=== PATIENT | female | born 1950 | race Caucasian/White ===

== ENCOUNTER 2017-01-10 15:32 | Observation (INO) | payer OTHER ==
[~2017-01-10] VITALS: Ht 157.5 cm; Wt 66.5 kg
[~2017-01-10 15:32] MED LIST: ACET325T9 PEG; AMLO5TAB4 PEG; BISA10SU55 RC; CHOL100016 PEG; ENTERAL NUTRITION FORMULA; LEVE100S8 PEG; LEVO100T PEG; MULT-460 PEG; OMEG500C3 PEG; PHEN97.2 PEG; POTA40LI3 PEG; SENN1TAB15 PEG
--- NOTE | 2017-01-10 15:55 | PHYS DOC ---
Past Medical History Past Medical History: Constipation, CVA, GERD, Hypertension, Hypothyroid Additional Past Medical Histor: dysphagia, aphasia, persistent vegetative state Past Surgical History: Other Additional Past Surgical Histo: G-tube Adult General Chief Complaint Chief Complaint: OTHER COMPLAINTS HPI HPI Patient is a 66 year old female who presents with to malfunction. According EMS report a PEG tube earlier today and it was replaced with a Rodriguez catheter. The patient is nonverbal. Review of Systems Review of Systems Unable to obtain secondary to patient being nonverbal Allergies Allergies Allergies Coded Allergies Type Severity Reaction Last Updated Verified I S O L A T I O N *CONTACT* Allergy Unknown 02/12/16 Yes No Known Medication Allergies Allergy Unknown 02/12/16 Yes Physical Exam Physical Exam Constitutional: Well developed, no acute distress, non-toxic appearance. [] HENT: atraumatic, bilateral external ears normal, oropharynx moist, no oral exudates, nose normal. [] Eyes:EOMI, conjunctiva normal, no discharge. [] Neck: Normal range of motion, supple, no stridor. [] Cardiovascular:Heart rate regular rhythm, no murmur [] Lungs & Thorax: Bilateral breath sounds clear to auscultation [] Abdomen: Bowel sounds normal, soft, no tenderness, no masses, no pulsatile masses. Rodriguez catheter in the left upper quadrant, abdomen distended Skin: Warm, dry, no erythema, no rash. [] Back: No tenderness, no CVA tenderness. [] Extremities: No tenderness, no cyanosis, no clubbing, ROM intact, no edema. [] Neurologic: Alert, nonverbal Current Patient Data Vital Signs Vital Signs Date Time Temp Pulse Resp B/P (MAP) Pulse Ox O2 Delivery O2 Flow Rate FiO2 01/10/17 15:32 98.8 72 20 147/79 (101) 92 Room Air 98.8 EKG EKG [] Radiology/Procedures Radiology/Procedures Five-view acute abdominal series shows diffuse dilation of bowel no free air noted, as interpreted by me Impressions: PEG tube malfunction Course & Med Decision Making Course & Med Decision Making Pertinent Labs and Imaging studies reviewed. (See chart for details) Patient is being admitted the hospitalist with labs pending at this time. GI consultation placed for PEG tube replacement. Patient's being started on D5 half -normal for fluid hydration. So Dr. Ibrahim who once me to attempt the standard balloon replacement kit however with her diffuse distention of her abdomen I'm waiting a CT scan and she will likely have to have GI replace the tube. She does have the Rodriguez catheter that's in the tract. Patient's being admitted to the hospitalist for further evaluation and treatment. Dragon Disclaimer Dragon Disclaimer This electronic medical record was generated, in whole or in part, using a voice recognition dictation system. Departure Departure Impression: Primary Impression: PEG tube malfunction Disposition: ADMITTED INPATIENT Admitting Physician: Keshia Dawson Condition: STABLE Referrals: TORIE CONROY MD (PCP) CLARE MONTES MD Jan 10, 2017 15:55
[2017-01-10] MEDS ORDERED: IV DEXTROSE 5 %-0.45 % NACL 1,000 ML IV ONE (16:45)
[2017-01-10 17:53] LABS: BASO % 1 % (0-3); EOS % 2 % (0-3); HEMATOCRIT 40.8 % (36.0-47.0); HEMOGLOBIN 14.5 g/dL (12.0-15.5); LYMPH # 1.6 x10^3/uL (1.0-4.8); LYMPH % 19 % (24-48); MEAN CORPUSCULAR HEMOGLOBIN 32 pg (25-35); MEAN CORPUSCULAR HGB CONC 36 g/dL (31-37); MEAN CORPUSCULAR VOLUME 89 fL (79-100); MONO % 10 % (0-9); NEUT % 69 % (31-73); PLATELET COUNT 192 x10^3/uL (140-400); RED BLOOD COUNT 4.59 x10^6/uL (3.50-5.40); RED CELL DISTRIBUTION WIDTH 14.5 % (11.5-14.5); WHITE BLOOD COUNT 8.5 x10^3/uL (4.0-11.0)
[2017-01-10 18:02] LABS: PROTHROMBIN TIME PATIENT 12.6 SEC (11.7-14.0)
[2017-01-10 18:06] LABS: CALCIUM 9.3 mg/dL (8.5-10.1); CREATININE 0.6 mg/dL (0.6-1.0); GFR 100.3; POTASSIUM 4.1 mmol/L (3.5-5.1)
[2017-01-10 18:10] LABS: ALBUMIN 3.2 g/dL (3.4-5.0); DIRECT BILIRUBIN 0.2 mg/dL (0.0-0.2); TOTAL BILIRUBIN 0.6 mg/dL (0.2-1.0); TOTAL PROTEIN 7.2 g/dL (6.4-8.2)
[2017-01-10 18:19] LABS: CREATINE KINASE 29 U/L (26-192)
[2017-01-10 18:22] LABS: CKMB MASS < 0.5 ng/mL (0.0-3.6)
[2017-01-10] MEDS ORDERED: ONDANSETRON PF 4 MG/2 ML VIAL. IV PRN (18:30)
[2017-01-10] MEDS ORDERED: CONTRAST GIVEN MC PRN (19:15)
[2017-01-10] MEDS ORDERED: IOHEXOL 300 MG/ML 75 ML VIAL IV ONE (19:15)
--- NOTE | 2017-01-10 20:06 | RAD ---
CT abdomen and pelvis with contrast History: Distended abdomen Technique: After the administration of intravenous contrast, CT imaging was performed of the abdomen and pelvis. No oral contrast was given as per request. Multiplanar images are reviewed. Exposure: One or more of the following individualized dose reduction techniques were utilized for this examination: 1. Automated exposure control 2. Adjustment of the mA and/or kV according to patient size 3. Use of iterative reconstruction technique. Contrast: 75 cc Omnipaque 300 Comparison: August 15, 2012 Findings: There is a very large calculus at the base of the urinary bladder on the order of 5.2 cm, larger than previously. There is mild nonspecific circumferential urinary bladder wall thickening. There is a moderate to severe left and [id number] right hydroureter, nonspecific enhancement of the ureteral petty bilaterally. There is moderate bilateral hydronephrosis greater on the left, new since previous exam. There are now calculi in the distal aspect of the left renal pelvis, largest 1.1 cm, also large area calculi of the left kidney greater than previously with the largest calculus at the 2.1 cm. There is large superior right renal calculus up to 1.6 cm. There is 2.9 cm right renal cyst. There is relative thinning of the cortex of the left kidney. There is a small focus of exophytic density posteriorly in the mid left kidney axial image 36 series 2 up to 0.7 cm, density measurements 41 Hounsfield units, not clearly seen previously. There is no new significant focal abnormality of the liver, spleen, pancreas, adrenal glands. Accurate evaluation of bowel is limited without oral contrast. There is some gas distention of the transverse colon greater proximally, also some mild relative gaseous distention of segments of the small bowel. Appendix cannot be clearly identified. No free air or significant free fluid is identified. Incidental note is made of retroaortic left renal vein. There is no significant adrenal nodularity. There is chronic fracture deformity of the proximal right femur as seen previously. Impression: 1. There is now moderate hydronephrosis bilaterally greater on the left, also hydroureter greater on the left. There is large calculus in the urinary bladder, also large bilateral renal calculi including foci in the left in the distal left renal pelvis. There is relative wall prominence of the urinary bladder, cystitis a possibility although could be due to bowel obstruction. 2. There is relative gaseous distention of segments of the colon and to lesser degree of the small bowel, sequela of ileus a possibility 3. There is right renal cyst. There is a small focus of nonspecific exophytic density of the left kidney, possibly hemorrhagic or complex cyst although difficult to otherwise characterize given small size. This is not currently seen on previous exam, attention on future follow-up advised such as in 6-12 months. 4. There is chronic fracture deformity of the proximal right femur as seen previously. Electronically signed by: Driss Irene MD (01/10/2017 8:02 PM) [facility]
[2017-01-10] MEDS ORDERED: BISACODYL 10 MG SUPP.RECT. RC PRN (20:45)
[2017-01-10] MEDS ORDERED: LABETALOL 20 MG/4 ML DISP.SYRIN. IVP PRN (20:45)
[2017-01-10] MEDS ORDERED: hydrALAZINE 20 MG/ML VIAL. IVP PRN (20:45)
[2017-01-10 21:30] VITALS: BP 191/95
[2017-01-10] MEDS ORDERED: LORA2VIA4 IM (21:54)
[2017-01-10] MEDS ORDERED: PHEN20EL5 PEG (21:54)
[2017-01-10] MEDS ORDERED: FAMO20TA5 PEG (21:54)
[2017-01-10] MEDS ORDERED: TRIA15CR2 TP (21:54)
--- NOTE | 2017-01-10 22:13 | PDOC1 ---
History and Physical Date of Admission Date of Admission DATE: 01/10/17 TIME: 22:13 Identification/Chief Complaint Chief Complaint PEG malnfunction Problems: Source Source: Chart review History of Present Illness History of Present Illness Ruthie Ortega, is a 66 year old female admit for malfunction of PEG tube. According EMS report a PEG tube earlier today and it was replaced with a Rodriguez catheter. The patient is nonverbal, lives in a snf, no other history avail Past Medical History Cardiovascular: HTN CENTRAL NERVOUS SYSTEM: CVA Social History Smoke: No ALCOHOL: none Current Medications Current Medications Current Medications Dextrose/Sodium Chloride 1,000 ml @ 100 mls/hr 1X ONCE IV Last administered on 01/10/17t 17:58; Start 01/10/17 at 16:45; Stop 01/11/17 at 02:44 Ondansetron HCl (Zofran) 4 mg PRN Q8HRS PRN IV NAUSEA/VOMITING; Start 01/10/17 at 18:30; Stop 01/11/17 at 18:29 Iohexol (Omnipaque 300 Mg/ml) 75 ml 1X ONCE IV ; Start 01/10/17 at 19:15; Stop 01/10/17 at 19:16; Status DC Info (Do NOT chart on this entry -- for MONITORING) 1 each PRN DAILY PRN MC SEE COMMENTS; Start 01/10/17 at 19:15; Stop 01/12/17 at 19:14 Labetalol HCl (Normodyne) 20 mg PRN Q2HR PRN IVP HYPERTENSION, SEE COMMENTS; Start 01/10/17 at 20:45 Hydralazine HCl (Apresoline) 10 mg PRN Q4HRS PRN IVP ELEVATED BP, SEE COMMENTS ; Start 01/10/17 at 20:45 Amlodipine Besylate (Norvasc) 5 mg DAILY PEG ; Start 01/11/17 at 09:00 Bisacodyl (Dulcolax Supp) 10 mg PRN DAILY PRN RC CONSTIPATION; Start 01/10/17 at 20:45 Levetiracetam (Keppra) 1,000 mg BID PEG ; Start 01/11/17 at 09:00 Levothyroxine Sodium (Synthroid) 100 mcg DAILY PEG ; Start 01/11/17 at 09:00 Potassium Chloride/Dextrose/ Sod Cl 1,000 ml @ 100 mls/hr Q10H IV ; Start 01/10 at 20:45 Levetiracetam 500 mg/Sodium Chloride 100 ml @ 400 mls/hr Q12HR IV ; Start 01/10 at 21:00; Stop 01/10/17 at 21:00; Status DC Levetiracetam 1000 mg/Sodium Chloride 110 ml @ 440 mls/hr Q12HR IV ; Start at 21:00; Stop 01/10/17 at 21:14; Status DC Active Scripts Active Reported Triamcinolone Acetonide 0.025% Cream (Triamcinolone Acetonide) 15 Gm Cream..g. 1 Kandy TP DAILY Phenobarbital 20 Mg/5 Ml Elixir 37.5 Ml PEG HS Famotidine 20 Mg Tablet 20 Mg PEG HS Ativan (Lorazepam) 2 Mg/1 Ml Vial 0.25 Ml IM Q4HRS PRN Vitamin D3 (Cholecalciferol (Vitamin D3)) 1,000 Unit Tab.chew 1,000 Unit PEG DAILY Tylenol (Acetaminophen) 325 Mg Tablet 2 Tab PEG PRN Q4HRS Senna-S Tablet (Sennosides/Docusate Sodium) 1 Each Tablet 1 Each PEG BID Potassium Chloride Oral Liquid (Potassium Chloride) 40 Meq/15 Ml Liquid 40 Meq PEG BID Phenobarbital 97.2 Mg Tablet 1.5 Tab PEG QHS Norvasc (Amlodipine Besylate) 5 Mg Tablet 1 Tab PEG DAILY Multiple Vitamin (Multivitamin With Minerals) 1 Each Tablet 1 Each PEG DAILY Synthroid (Levothyroxine Sodium) 100 Mcg Tablet 1 Tab PEG DAILY Keppra (Levetiracetam) 100 Mg/1 Ml Solution 1,000 Mg PEG BID Fish Oil ([place]-3 Fatty Acids) 500 Mg Capsule 1,000 Mg PEG DAILY [fibersource HN PEG] Dulcolax (Bisacodyl) 10 Mg Supp.rect 10 Mg RC PRN DAILY PRN Allergies Allergies: Coded Allergies: I S O L A T I O N *CONTACT* (Verified Allergy, Unknown, 02/12/16) mrsa No Known Medication Allergies (Verified Allergy, Unknown, 02/12/16) ROS Review of System unable, aphasic Physical Exam General: Alert, No acute distress, Other (not follow commands) HEENT: Atraumatic Lungs: Normal air movement Heart: S1S2, no murmurs Abdomen: Normal bowel sounds, Soft Extremities: No edema Skin: No significant lesion Neuro: Other Psych/Mental Status: Other Vitals Vitals Vital Signs Date Time Temp Pulse Resp B/P (MAP) Pulse Ox O2 Delivery O2 Flow Rate FiO2 01/10/17 21:35 Room Air 01/10/17 21:30 98.4 71 20 191/95 (127) 98 98.4 Labs Labs Laboratory Tests Test 01/10/17 17:45 White Blood Count 8.5 x10^3/uL (4.0-11.0) Red Blood Count 4.59 x10^6/uL (3.50-5.40) Hemoglobin 14.5 g/dL (12.0-15.5) Hematocrit 40.8 % (36.0-47.0) Mean Corpuscular Volume 89 fL (79-100) Mean Corpuscular Hemoglobin 32 pg (25-35) Mean Corpuscular Hemoglobin Concent 36 g/dL (31-37) Red Cell Distribution Width 14.5 % (11.5-14.5) Platelet Count 192 x10^3/uL (140-400) Neutrophils (%) (Auto) 69 % (31-73) Lymphocytes (%) (Auto) 19 % (24-48) Monocytes (%) (Auto) 10 % (0-9) Eosinophils (%) (Auto) 2 % (0-3) Basophils (%) (Auto) 1 % (0-3) Neutrophils # (Auto) 5.8 x10^3uL (1.8-7.7) Lymphocytes # (Auto) 1.6 x10^3/uL (1.0-4.8) Monocytes # (Auto) 0.8 x10^3/uL (0.0-1.1) Eosinophils # (Auto) 0.2 x10^3/uL (0.0-0.7) Basophils # (Auto) 0.0 x10^3/uL (0.0-0.2) Prothrombin Time 12.6 SEC (11.7-14.0) Prothromb Time International Ratio 1.0 (0.8-1.1) Activated Partial Thromboplast Time 28 SEC (24-38) Sodium Level 142 mmol/L (136-145) Potassium Level 4.1 mmol/L (3.5-5.1) Chloride Level 105 mmol/L (98-107) Carbon Dioxide Level 28 mmol/L (21-32) Anion Gap 9 (6-14) Blood Urea Nitrogen 17 mg/dL (7-20) Creatinine 0.6 mg/dL (0.6-1.0) Estimated GFR (Cockcroft-Gault) 100.3 Glucose Level 102 mg/dL (70-99) Calcium Level 9.3 mg/dL (8.5-10.1) Total Bilirubin 0.6 mg/dL (0.2-1.0) Direct Bilirubin 0.2 mg/dL (0.0-0.2) Aspartate Amino Transf (AST/SGOT) 17 U/L (15-37) Alanine Aminotransferase (ALT/SGPT) 18 U/L (14-59) Alkaline Phosphatase 109 U/L (46-116) Creatine Kinase 29 U/L (26-192) Creatine Kinase MB (Mass) < 0.5 ng/mL (0.0-3.6) Creatine Kinase MB Relative Index 1.7 % (0-4) Total Protein 7.2 g/dL (6.4-8.2) Albumin 3.2 g/dL (3.4-5.0) Lipase 196 U/L (73-393) Laboratory Tests Test 01/10/17 17:45 White Blood Count 8.5 x10^3/uL (4.0-11.0) Red Blood Count 4.59 x10^6/uL (3.50-5.40) Hemoglobin 14.5 g/dL (12.0-15.5) Hematocrit 40.8 % (36.0-47.0) Mean Corpuscular Volume 89 fL (79-100) Mean Corpuscular Hemoglobin 32 pg (25-35) Mean Corpuscular Hemoglobin Concent 36 g/dL (31-37) Red Cell Distribution Width 14.5 % (11.5-14.5) Platelet Count 192 x10^3/uL (140-400) Neutrophils (%) (Auto) 69 % (31-73) Lymphocytes (%) (Auto) 19 % (24-48) Monocytes (%) (Auto) 10 % (0-9) Eosinophils (%) (Auto) 2 % (0-3) Basophils (%) (Auto) 1 % (0-3) Neutrophils # (Auto) 5.8 x10^3uL (1.8-7.7) Lymphocytes # (Auto) 1.6 x10^3/uL (1.0-4.8) Monocytes # (Auto) 0.8 x10^3/uL (0.0-1.1) Eosinophils # (Auto) 0.2 x10^3/uL (0.0-0.7) Basophils # (Auto) 0.0 x10^3/uL (0.0-0.2) Prothrombin Time 12.6 SEC (11.7-14.0) Prothromb Time International Ratio 1.0 (0.8-1.1) Activated Partial Thromboplast Time 28 SEC (24-38) Sodium Level 142 mmol/L (136-145) Potassium Level 4.1 mmol/L (3.5-5.1) Chloride Level 105 mmol/L (98-107) Carbon Dioxide Level 28 mmol/L (21-32) Anion Gap 9 (6-14) Blood Urea Nitrogen 17 mg/dL (7-20) Creatinine 0.6 mg/dL (0.6-1.0) Estimated GFR (Cockcroft-Gault) 100.3 Glucose Level 102 mg/dL (70-99) Calcium Level 9.3 mg/dL (8.5-10.1) Total Bilirubin 0.6 mg/dL (0.2-1.0) Direct Bilirubin 0.2 mg/dL (0.0-0.2) Aspartate Amino Transf (AST/SGOT) 17 U/L (15-37) Alanine Aminotransferase (ALT/SGPT) 18 U/L (14-59) Alkaline Phosphatase 109 U/L (46-116) Creatine Kinase 29 U/L (26-192) Creatine Kinase MB (Mass) < 0.5 ng/mL (0.0-3.6) Creatine Kinase MB Relative Index 1.7 % (0-4) Total Protein 7.2 g/dL (6.4-8.2) Albumin 3.2 g/dL (3.4-5.0) Lipase 196 U/L (73-393) VTE Prophylaxis Ordered VTE Prophylaxis Devices: Yes VTE Pharmacological Prophylaxi: No Assessment/Plan Assessment/Plan post CVA aphasic seizure disorder, IV keppra while NPO dysphagia, PEG dependent PEG malfunction, consult GI, may need IR, pending IV fluid KATHYA LEDBETTER MD Jan 10, 2017 22:13
[2017-01-10] MEDS: POTASSIUM CL 20MEQ D5-0.45NACL 1,000 ML IV SCH (22:27)
[2017-01-10 23:26] VITALS: BP 149/62
[2017-01-11 03:40] VITALS: BP 146/71
[2017-01-11 04:49] LABS: BASO % 0 % (0-3); EOS % 2 % (0-3); HEMATOCRIT 38.2 % (36.0-47.0); HEMOGLOBIN 13.2 g/dL (12.0-15.5); LYMPH # 1.6 x10^3/uL (1.0-4.8); LYMPH % 24 % (24-48); MEAN CORPUSCULAR HEMOGLOBIN 32 pg (25-35); MEAN CORPUSCULAR HGB CONC 35 g/dL (31-37); MEAN CORPUSCULAR VOLUME 92 fL (79-100); MONO % 13 % (0-9); NEUT % 62 % (31-73); PLATELET COUNT 165 x10^3/uL (140-400); RED BLOOD COUNT 4.17 x10^6/uL (3.50-5.40); RED CELL DISTRIBUTION WIDTH 14.2 % (11.5-14.5); WHITE BLOOD COUNT 6.9 x10^3/uL (4.0-11.0)
[2017-01-11 05:00] LABS: CALCIUM 8.7 mg/dL (8.5-10.1); CREATININE 0.6 mg/dL (0.6-1.0); GFR 100.3; POTASSIUM 3.7 mmol/L (3.5-5.1)
[2017-01-11 07:15] VITALS: BP 134/69
[2017-01-11] MEDS ORDERED: amLODIPine BESYLATE 5 MG TABLET PEG SCH (09:00)
[2017-01-11] MEDS ORDERED: LEVOTHYROXINE 100 MCG TABLET PEG SCH (09:00)
[2017-01-11] MEDS: POTASSIUM CL 20MEQ D5-0.45NACL 1,000 ML IV SCH (09:02)
--- NOTE | 2017-01-11 09:10 | PDOC ---
PROGRESS NOTES Chief Complaint Chief Complaint PEG tube malfunction ASSESSMENT AND PLAN: 1. PEG tube issues: replaced by Dr Ibrahim. 2. Aphasia: 2/2 CVA 3. Sz d/o: no acute issues. restart home meds 4. Dispo: back to [place] Vitals Vitals Vital Signs Date Time Temp Pulse Resp B/P (MAP) Pulse Ox O2 Delivery O2 Flow Rate FiO2 01/11/17 08:21 Room Air 01/11/17 07:15 98.8 71 20 134/69 (90) 94 98.8 Physical Exam Physical Exam aphasic General: Alert, No acute distress, Other (not follow commands) Heart: Regular rate Lungs: Clear Abdomen: Normal bowel sounds, Soft Extremities: No edema Skin: No rashes Labs LABS Laboratory Tests Test 01/10/17 17:45 01/11/17 04:30 White Blood Count 8.5 x10^3/uL (4.0-11.0) 6.9 x10^3/uL (4.0-11.0) Red Blood Count 4.59 x10^6/uL (3.50-5.40) 4.17 x10^6/uL (3.50-5.40) Hemoglobin 14.5 g/dL (12.0-15.5) 13.2 g/dL (12.0-15.5) Hematocrit 40.8 % (36.0-47.0) 38.2 % (36.0-47.0) Mean Corpuscular Volume 89 fL (79-100) 92 fL (79-100) Mean Corpuscular Hemoglobin 32 pg (25-35) 32 pg (25-35) Mean Corpuscular Hemoglobin Concent 36 g/dL (31-37) 35 g/dL (31-37) Red Cell Distribution Width 14.5 % (11.5-14.5) 14.2 % (11.5-14.5) Platelet Count 192 x10^3/uL (140-400) 165 x10^3/uL (140-400) Neutrophils (%) (Auto) 69 % (31-73) 62 % (31-73) Lymphocytes (%) (Auto) 19 % (24-48) 24 % (24-48) Monocytes (%) (Auto) 10 % (0-9) 13 % (0-9) Eosinophils (%) (Auto) 2 % (0-3) 2 % (0-3) Basophils (%) (Auto) 1 % (0-3) 0 % (0-3) Neutrophils # (Auto) 5.8 x10^3uL (1.8-7.7) 4.3 x10^3uL (1.8-7.7) Lymphocytes # (Auto) 1.6 x10^3/uL (1.0-4.8) 1.6 x10^3/uL (1.0-4.8) Monocytes # (Auto) 0.8 x10^3/uL (0.0-1.1) 0.9 x10^3/uL (0.0-1.1) Eosinophils # (Auto) 0.2 x10^3/uL (0.0-0.7) 0.1 x10^3/uL (0.0-0.7) Basophils # (Auto) 0.0 x10^3/uL (0.0-0.2) 0.0 x10^3/uL (0.0-0.2) Prothrombin Time 12.6 SEC (11.7-14.0) Prothromb Time International Ratio 1.0 (0.8-1.1) Activated Partial Thromboplast Time 28 SEC (24-38) Sodium Level 142 mmol/L (136-145) 143 mmol/L (136-145) Potassium Level 4.1 mmol/L (3.5-5.1) 3.7 mmol/L (3.5-5.1) Chloride Level 105 mmol/L (98-107) 108 mmol/L (98-107) Carbon Dioxide Level 28 mmol/L (21-32) 26 mmol/L (21-32) Anion Gap 9 (6-14) 9 (6-14) Blood Urea Nitrogen 17 mg/dL (7-20) 12 mg/dL (7-20) Creatinine 0.6 mg/dL (0.6-1.0) 0.6 mg/dL (0.6-1.0) Estimated GFR (Cockcroft-Gault) 100.3 100.3 Glucose Level 102 mg/dL (70-99) 111 mg/dL (70-99) Calcium Level 9.3 mg/dL (8.5-10.1) 8.7 mg/dL (8.5-10.1) Total Bilirubin 0.6 mg/dL (0.2-1.0) Direct Bilirubin 0.2 mg/dL (0.0-0.2) Aspartate Amino Transf (AST/SGOT) 17 U/L (15-37) Alanine Aminotransferase (ALT/SGPT) 18 U/L (14-59) Alkaline Phosphatase 109 U/L (46-116) Creatine Kinase 29 U/L (26-192) Creatine Kinase MB (Mass) < 0.5 ng/mL (0.0-3.6) Creatine Kinase MB Relative Index 1.7 % (0-4) Total Protein 7.2 g/dL (6.4-8.2) Albumin 3.2 g/dL (3.4-5.0) Lipase 196 U/L (73-393) DOUGIE SOL MD Jan 11, 2017 09:10
[2017-01-11 10:55] VITALS: BP 151/70
--- NOTE | 2017-01-11 11:37 | RAD ---
Portable acute abdomen series, 01/10/2017: History: Abdominal distention, displaced gastrostomy tube There is moderate gaseous distention of large and small bowel. No free air is seen in the abdomen. There is a large midline calcification which is unchanged and has been shown to be a bladder calculus. The patient's renal calcifications are not clearly defined radiographically. The heart is mildly enlarged. The pulmonary vascularity is normal. No pulmonary infiltrates are seen. There is no evidence of pleural fluid. The bony structures are demineralized. There are degenerative changes in the spine. There is an old right hip fracture. IMPRESSION: 1. Increased gas in large and small bowel suggesting a generalized ileus or atonic colon. 2. Large bladder calculus.
--- NOTE | 2017-01-11 12:23 | PDOC2 ---
GI CONSULT Reason For Consult: Displaced gastrostomy tube. HPI: HPI: 66 y/o female with chronic neurogenic dysphagia/encephalopathy who has been tube feeding-dependent for many years. Not sure the cause of her persistent state is truly known. Resides in long-term care facility. Apparently her old tube became displaced. Staff at the facility have inserted stern catheter as temporary solution, maintaining the tract. Other GI history not available from patient or available records. PMH: PMH: Persistent encephalopathy, CVA?, Seizure disorder, hypothyroid (inferred from med list). Has had prior abdominal surgeries, type unknown. Social History: Smoke: No ALCOHOL: none ROS: Not available due to mental state. Vitals: Vitals: Vital Signs Date Time Temp Pulse Resp B/P (MAP) Pulse Ox O2 Delivery O2 Flow Rate FiO2 01/11/17 10:55 97.4 67 20 151/70 (97) 94 Room Air 97.4 Labs: Labs: Laboratory Tests Test 01/10/17 17:45 01/10/17 22:45 01/11/17 04:30 White Blood Count 8.5 x10^3/uL (4.0-11.0) 6.9 x10^3/uL (4.0-11.0) Red Blood Count 4.59 x10^6/uL (3.50-5.40) 4.17 x10^6/uL (3.50-5.40) Hemoglobin 14.5 g/dL (12.0-15.5) 13.2 g/dL (12.0-15.5) Hematocrit 40.8 % (36.0-47.0) 38.2 % (36.0-47.0) Mean Corpuscular Volume 89 fL (79-100) 92 fL (79-100) Mean Corpuscular Hemoglobin 32 pg (25-35) 32 pg (25-35) Mean Corpuscular Hemoglobin Concent 36 g/dL (31-37) 35 g/dL (31-37) Red Cell Distribution Width 14.5 % (11.5-14.5) 14.2 % (11.5-14.5) Platelet Count 192 x10^3/uL (140-400) 165 x10^3/uL (140-400) Neutrophils (%) (Auto) 69 % (31-73) 62 % (31-73) Lymphocytes (%) (Auto) 19 % (24-48) 24 % (24-48) Monocytes (%) (Auto) 10 % (0-9) 13 % (0-9) Eosinophils (%) (Auto) 2 % (0-3) 2 % (0-3) Basophils (%) (Auto) 1 % (0-3) 0 % (0-3) Neutrophils # (Auto) 5.8 x10^3uL (1.8-7.7) 4.3 x10^3uL (1.8-7.7) Lymphocytes # (Auto) 1.6 x10^3/uL (1.0-4.8) 1.6 x10^3/uL (1.0-4.8) Monocytes # (Auto) 0.8 x10^3/uL (0.0-1.1) 0.9 x10^3/uL (0.0-1.1) Eosinophils # (Auto) 0.2 x10^3/uL (0.0-0.7) 0.1 x10^3/uL (0.0-0.7) Basophils # (Auto) 0.0 x10^3/uL (0.0-0.2) 0.0 x10^3/uL (0.0-0.2) Prothrombin Time 12.6 SEC (11.7-14.0) Prothromb Time International Ratio 1.0 (0.8-1.1) Activated Partial Thromboplast Time 28 SEC (24-38) Sodium Level 142 mmol/L (136-145) 143 mmol/L (136-145) Potassium Level 4.1 mmol/L (3.5-5.1) 3.7 mmol/L (3.5-5.1) Chloride Level 105 mmol/L (98-107) 108 mmol/L (98-107) Carbon Dioxide Level 28 mmol/L (21-32) 26 mmol/L (21-32) Anion Gap 9 (6-14) 9 (6-14) Blood Urea Nitrogen 17 mg/dL (7-20) 12 mg/dL (7-20) Creatinine 0.6 mg/dL (0.6-1.0) 0.6 mg/dL (0.6-1.0) Estimated GFR (Cockcroft-Gault) 100.3 100.3 Glucose Level 102 mg/dL (70-99) 111 mg/dL (70-99) Calcium Level 9.3 mg/dL (8.5-10.1) 8.7 mg/dL (8.5-10.1) Total Bilirubin 0.6 mg/dL (0.2-1.0) Direct Bilirubin 0.2 mg/dL (0.0-0.2) Aspartate Amino Transf (AST/SGOT) 17 U/L (15-37) Alanine Aminotransferase (ALT/SGPT) 18 U/L (14-59) Alkaline Phosphatase 109 U/L (46-116) Creatine Kinase 29 U/L (26-192) Creatine Kinase MB (Mass) < 0.5 ng/mL (0.0-3.6) Creatine Kinase MB Relative Index 1.7 % (0-4) Total Protein 7.2 g/dL (6.4-8.2) Albumin 3.2 g/dL (3.4-5.0) Lipase 196 U/L (73-393) Nasal Screen MRSA (PCR) Positive (Negative) Allergies: Coded Allergies: I S O L A T I O N *CONTACT* (Verified Allergy, Unknown, 02/12/16) mrsa No Known Medication Allergies (Verified Allergy, Unknown, 02/12/16) Medications: Current Medications Medications (Trade) Dose Ordered Sig/Fatmata Route PRN Reason Start Time Stop Time Status Last Admin Dose Admin Dextrose/Sodium Chloride 1,000 ml @ 100 mls/hr 1X ONCE IV 01/10/17 16:45 01/11/17 02:44 DC 01/10/17 17:58 Hydralazine HCl (Apresoline) 10 mg PRN Q4HRS PRN IVP ELEVATED BP, SEE COMMENTS 01/10/17 20:45 01/10/17 22:29 Potassium Chloride/Dextrose/ Sod Cl 1,000 ml @ 100 mls/hr Q10H IV 01/10/17 20:45 01/11/17 09:02 Levetiracetam 1000 mg/Sodium Chloride 110 ml @ 440 mls/hr Q12HR IV 01/10/17 21:00 01/10/17 21:14 DC 01/10/17 22:29 Imaging: Imaging: Reviewed. PE: GEN: NAD. Seems to track, but non-communicative. HEENT: Atraumatic, PERRLA LUNGS: CTAB HEART: RRR, no murmurs ABD: NABS, Softens when relaxes/ND/NT?, no masses. Stern in stoma. EXTREMITY: No edema SKIN: No rashes, no jaundice NEURO/PSYCH: Awake, apparently alert. Orientation can't be assessed. A/P: A/P: IMP: Displaced gastrostomy tube. PLAN: Will insert replacement. OK with me to dismiss once this is accomplished. Thanks. TORIE DENNY MD Jan 11, 2017 12:23
[2017-01-11 14:30] VITALS: BP 149/75
--- NOTE | 2017-01-11 22:37 | DS ---
DATE OF DISCHARGE: 01/11/2017 CHIEF COMPLAINT: PEG tube malfunction. HOSPITAL COURSE: The patient is a 66[facility] with CVA and resultant aphasia and seizures, who presented to the Emergency Room after her [facility]. With good foresight of her nurses, a Rodriguez had been placed in the opening and she was brought to the ER. GI consult was obtained and PEG was replaced. Without any acute issues from other medical problems, [facility]. PHYSICAL EXAMINATION: Please refer to note from same day. DISCHARGE DATE: 01/11/2017 DISCHARGE DISPOSITION: To SNF. DISCHARGE CONDITION: Improved. DISCHARGE MEDICATIONS: Same as previous. Please refer to MAR. DISCHARGE INSTRUCTIONS: The patient will follow up with PCP [facility] within the next month. DOUGIE SOL MD DR: ANNA/nts JOB#: [id number] / [id number] Dr. Lauren Orosco
== END 2017-01-11 15:02 ==
LOC: ER 15:32 → 5 NORTH 16:20
PROVIDERS: ADMIT Internal Medicine; ATTEND Internal Medicine
DX: K94.23 Gastrostomy malfunction (principal); I10 Essential (primary) hypertension; G40.909 Epilepsy, unspecified, not intractable, without status epilepticus; R13.19 Other dysphagia; G93.40 Encephalopathy, unspecified; E03.9 Hypothyroidism, unspecified; I69.820 Aphasia following other cerebrovascular disease; K21.9 Gastro-esophageal reflux disease without esophagitis; Y83.3 Surgical operation with formation of external stoma as the cause of abnormal reaction of the patient, or of later complication, without mention of misadventure at the time of the procedure
CPT/HCPCS: 36415; 74022; 74177; 80048; 80076; 82553; 83690; 85027; 85610; 85730; 87641; 96361; 96365; 96366; 96375; 99285; G0378; J0360; J1953; J3480; J7042; G0379

== ENCOUNTER 2018-12-14 21:43 | Inpatient (IN) | payer OTHER ==
[~2018-12-14] VITALS: Ht 167.6 cm; Wt 90.3 kg
[~2018-12-14 21:43] MED LIST changes: +ACET650S PEG; +CEFD250S PEG; +CEPH-264 PO; +FAMO20TA5 PEG; +LACO50TA PEG; +LORA2VIA4 IM; +PHEN20EL5 PEG; +PHEN32.42 PO; +POTA20LI27 PEG; +TRIA15CR2 TP; +ZINC56.7 TP
[2018-12-14] MEDS ORDERED: levETIRAcetam 500 MG in IV DEXTROSE 5% 100ML 100 ML IV STA (22:07)
[2018-12-14] MEDS ORDERED: levETIRAcetam 1,000 MG in IV DEXTROSE 5% 100ML 100 ML IV SCH (22:15)
[2018-12-14 22:22] LABS: BASO % 0 % (0-3); EOS # 0.2 x10^3/uL (0.0-0.7); EOS % 2 % (0-3); HEMOGLOBIN 11.7 g/dL (12.0-15.5); LYMPH # 1.4 x10^3/uL (1.0-4.8); LYMPH % 15 % (24-48); MEAN CORPUSCULAR HEMOGLOBIN 31 pg (25-35); MEAN CORPUSCULAR HGB CONC 34 g/dL (31-37); MEAN CORPUSCULAR VOLUME 90 fL (79-100); MONO # 0.7 x10^3/uL (0.0-1.1); MONO % 8 % (0-9); NEUT # 6.9 x10^3uL (1.8-7.7); NEUT % 75 % (31-73); PLATELET COUNT 246 x10^3/uL (140-400); WHITE BLOOD COUNT 9.2 x10^3/uL (4.0-11.0)
[2018-12-14 22:23] LABS: BILIRUBIN,URINE NEGATIVE (NEG); CLARITY,URINE CLEAR; COLOR,URINE YELLOW; NITRITE,URINE NEGATIVE (NEG); PROTEIN,URINE NEGATIVE (NEG-TRACE); UROBILINOGEN,URINE 0.2 mg/dL (0.2 mg/dL)
[2018-12-14] MEDS: IV NORMAL SALINE 1000ML BAG 1,000 ML IV SCH ×2 (22:26→23:30)
[2018-12-14 22:28] LABS: PROTHROMBIN TIME PATIENT 12.8 SEC (11.7-14.0)
[2018-12-14] MEDS ORDERED: cefTRIAXone IV Push 1 GM VIAL. IVP ONE (22:30)
[2018-12-14 22:31] LABS: CALCIUM 9.4 mg/dL (8.5-10.1); CREATININE 0.9 mg/dL (0.6-1.0); GFR 62.5; POTASSIUM 4.3 mmol/L (3.5-5.1)
[2018-12-14 22:33] LABS: BACTERIA,URINE FEW /HPF (0-FEW); RBC,URINE RARE /HPF (0-2); SQUAMOUS EPITHELIAL CELL,UR MOD /LPF
[2018-12-14 22:36] LABS: TOTAL BILIRUBIN 0.3 mg/dL (0.2-1.0); TOTAL PROTEIN 6.1 g/dL (6.4-8.2)
[2018-12-14] MEDS ORDERED: LACOSAMIDE 200 MG TABLET PEG ONE (23:00)
[2018-12-14] MEDS ORDERED: levETIRAcetam 1,500 MG in IV DEXTROSE 5% 100ML 100 ML IV ONE (23:00)
[2018-12-15] VITALS (7 sets, daily range): BP systolic 157–210; BP diastolic 74–112
--- NOTE | 2018-12-15 00:05 | NUR ---
The patient, CHRIS GONZALES, 68 y/o, F admitted by RACHAEL LARES MD, was given written information regarding hospital policies, unit procedures and contact persons. RN received report from ED and patient was transported from ED to room 650 via bed. Bed is in lowest locked position and call light within reach, VSS and afebrile. Valuables were checked and left in the room with the patient. RN will continue to monitor patient closely.
--- NOTE | 2018-12-15 00:19 | PHYS DOC ---
Past Medical History Past Medical History: Constipation, CVA, GERD, Hypertension, Hypothyroid Additional Past Medical Histor: dysphagia, aphasia, persistent vegetative state Past Surgical History: Other Additional Past Surgical Histo: G-tube Alcohol Use: None Drug Use: None Adult General Chief Complaint Chief Complaint: SEIZURE HPI HPI Patient is a 68 year olD female brought in by ambulance with increased shaking and possible seizure activity. This is a patient well-known to this emergency room and hospital has history of severe mental retardation basically bedbound no nverbal baseline awaiting hospice evaluation nursing staff [facility] thought that she was having increased shaking and increased seizure activity throughout the day today so they sent to the emergency room for evaluation. History is limited by the patient's nonverbal status. The nurse states that there was no fever everything else was going okay earlier in the day otherwise at baseline Review of Systems Review of Systems Limited by severe mental retardation Current Medications Current Medications Current Medications Medications (Trade) Dose Ordered Sig/Fatmata Start Time Stop Time Status Last Admin Dose Admin Levetiracetam 1000 mg/Dextrose 110 ml @ 440 mls/hr Q12HR 12/14/18 22:15 UNV Levetiracetam 500 mg/Dextrose 105 ml @ 420 mls/hr 1X STAT 12/14/18 22:07 12/14/18 22:21 UNV Allergies Allergies Allergies Coded Allergies Type Severity Reaction Last Updated Verified I S O L A T I O N *CONTACT* Allergy Unknown 04/18/18 Yes No Known Medication Allergies Allergy Unknown 04/18/18 Yes Physical Exam Physical Exam Constitutional: Well developed, chronically ill-appearing HENT: Normocephalic, atraumatic, bilateral external ears normal, oropharynx moist, no oral exudates, nose normal. [] Eyes: Patient has equal pupils bilaterally blinks to threat does not appear to have a significant gaze deviation Neck: Normal range of motion, no tenderness, supple, no stridor. [] Cardiovascular:Heart rate regular rhythm, no murmur [] Lungs & Thorax: Decreased breath sounds bilateral bases Abdomen: Bowel sounds normal, soft, no tenderness, no masses, no pulsatile masses. [] G-tube in place Skin: Warm, dry, no erythema, no rash. [] Back: No tenderness, no CVA tenderness. [] Extremities: No tenderness, no cyanosis, no clubbing, ROM intact, contractures increased tone noted Neurologic: Patient has contractures and increased tone in the bilateral upper extremities. Face appears grossly symmetric she does track some in the emergency room she has her right hand in the mouth and does have increased tone but no obvious tonic-clonic seizure activity occurring Current Patient Data Vital Signs Vital Signs Date Time Temp Pulse Resp B/P (MAP) Pulse Ox O2 Delivery O2 Flow Rate FiO2 12/14/18 21:45 100.5 97 18 169/92 (117) 99 Nasal Cannula 2.0 100.5 Lab Values Laboratory Tests Test 12/14/18 22:00 12/14/18 22:12 White Blood Count 9.2 x10^3/uL (4.0-11.0) Red Blood Count 3.80 x10^6/uL (3.50-5.40) Hemoglobin 11.7 g/dL (12.0-15.5) L Hematocrit 34.0 % (36.0-47.0) L Mean Corpuscular Volume 90 fL (79-100) Mean Corpuscular Hemoglobin 31 pg (25-35) Mean Corpuscular Hemoglobin Concent 34 g/dL (31-37) Red Cell Distribution Width 15.0 % (11.5-14.5) H Platelet Count 246 x10^3/uL (140-400) Neutrophils (%) (Auto) 75 % (31-73) H Lymphocytes (%) (Auto) 15 % (24-48) L Monocytes (%) (Auto) 8 % (0-9) Eosinophils (%) (Auto) 2 % (0-3) Basophils (%) (Auto) 0 % (0-3) Neutrophils # (Auto) 6.9 x10^3uL (1.8-7.7) Lymphocytes # (Auto) 1.4 x10^3/uL (1.0-4.8) Monocytes # (Auto) 0.7 x10^3/uL (0.0-1.1) Eosinophils # (Auto) 0.2 x10^3/uL (0.0-0.7) Basophils # (Auto) 0.0 x10^3/uL (0.0-0.2) Prothrombin Time 12.8 SEC (11.7-14.0) Prothrombin Time INR 1.0 (0.8-1.1) Sodium Level 148 mmol/L (136-145) H Potassium Level 4.3 mmol/L (3.5-5.1) Chloride Level 110 mmol/L (98-107) H Carbon Dioxide Level 28 mmol/L (21-32) Anion Gap 10 (6-14) Blood Urea Nitrogen 17 mg/dL (7-20) Creatinine 0.9 mg/dL (0.6-1.0) Estimated GFR (Cockcroft-Gault) 62.5 BUN/Creatinine Ratio 19 (6-20) Glucose Level 96 mg/dL (70-99) Lactic Acid Level 2.5 mmol/L (0.4-2.0) H Calcium Level 9.4 mg/dL (8.5-10.1) Total Bilirubin 0.3 mg/dL (0.2-1.0) Aspartate Amino Transferase (AST) 35 U/L (15-37) Alanine Aminotransferase (ALT) 32 U/L (14-59) Alkaline Phosphatase 77 U/L (46-116) Total Protein 6.1 g/dL (6.4-8.2) L Albumin 3.0 g/dL (3.4-5.0) L Albumin/Globulin Ratio 1.0 (1.0-1.7) Urine Collection Type U cath Urine Color Yellow Urine Clarity Clear Urine pH 7.0 Urine Specific [place] 1.015 Urine Protein Negative mg/dL (NEG-TRACE) Urine Glucose (UA) Negative mg/dL (NEG) Urine Ketones (Stick) Negative mg/dL (NEG) Urine Blood Negative (NEG) Urine Nitrite Negative (NEG) Urine Bilirubin Negative (NEG) Urine Urobilinogen Dipstick 0.2 mg/dL (0.2 mg/dL) Urine Leukocyte Esterase Large (NEG) Urine RBC Rare /HPF (0-2) Urine WBC 1-4 /HPF (0-4) Urine Squamous Epithelial Cells Mod /LPF Urine Bacteria Few /HPF (0-FEW) Urine Mucus Slight /LPF Laboratory Tests 12/14/18 22:00 Laboratory Tests 12/14/18 22:00 EKG EKG EKG is very difficult to interpret due to underlying tremor but no obvious STEMI was identified rate of 96 probably sinus although difficult to say with certainty. Interpreted by me the timing encounter[] Radiology/Procedures Radiology/Procedures [] Course & Med Decision Making Course & Med Decision Making Pertinent Labs and Imaging studies reviewed. (See chart for details) []68-year-old female severe mental retardation severe seizures presenting with possible increase in some seizure activity in the emergency room no definite tonic-clonic seizure activity. Nursing staff that no from last visit says that this is her baseline from their perspective. I spoke with Dr. HOOVER who said that he could increase her Vimpat to 200 mg twice a day continue Keppra max. Given the fact that she came from the [facility] at this point in time we will admit her overnight for observation I have put her on Keppra 1500 mg right in the emergency room and that dosing as noted above patient will be admitted to the hospital service for further monitoring and evaluation DNR/DNI AWAITING hospice evaluation. Dragon Disclaimer Dragon Disclaimer This electronic medical record was generated, in whole or in part, using a voice recognition dictation system. Departure Departure Impression: Primary Impression: Seizure disorder Disposition: ADMITTED INPATIENT Admitting Physician: PIYUSH Condition: STABLE Referrals: VIKA CASIANO DO (PCP) MERYL PACHECO MD Dec 15, 2018 00:19
[2018-12-15] MEDS: IV NORMAL SALINE 1000ML BAG 1,000 ML IV SCH (00:30)
--- NOTE | 2018-12-15 02:00 | NUR ---
Report given to HAILEE Walker; transfer of care at this time.
--- NOTE | 2018-12-15 02:00 | NUR ---
transfer of care. Assessments done and charted at this time.
[2018-12-15] MEDS ORDERED: C.DIFF MED SCREEN BY RX. MC ONE (03:00)
--- NOTE | 2018-12-15 07:40 | EKG ---
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
--- NOTE | 2018-12-15 07:49 | RAD ---
Examination: PORTABLE CHEST 1V History: Altered mental status, seizures Comparison/Correlation: 12/08/2018 Portable Chest X-ray Exam Findings: Portable chest x-ray exam was obtained with the patient upright. Dextroconvexity thoracic spine is evident. Heart size is within upper limits of normal. No pneumothorax. Minimal linear atelectasis or scarring involving the lateral left lung base is present. No dense infiltrate. No definite effusion. Mild gaseous distention of bowel is similar upon correlation with 12/09/2018 CT abdomen and pelvis without contrast. Impression: No focal infiltrate. Electronically signed by: Vinicio Stevens MD (12/15/2018 7:46 AM) [facility]
[2018-12-15] MEDS ORDERED: ACETAMINOPHEN 650 MG/20.3 ML SOLUTION. PEG PRN (08:30)
[2018-12-15] MEDS: SENNOSIDES/DOCUSATE 8.6/50MG TABLET. PO SCH ×2 (09:00→19:46)
[2018-12-15] MEDS ORDERED: LACOSAMIDE 50 MG TABLET PEG SCH (09:00)
--- NOTE | 2018-12-15 09:48 | PDOC1 ---
History and Physical Date of Admission Date of Admission DATE: 12/15/18 TIME: 09:43 Identification/Chief Complaint Chief Complaint seizure do Source Source: Chart review History of Present Illness History of Present Illness Ruthie is a 68 year old female brought in by ambulance with increased shaking of her left arm. Her facility was worried about possible worsening seizure activity. This is a patient well-known to the emergency room and hospital here. SHe has a history of severe mental retardation basically bedbound nonverbal baseline. Hospice has been considered as a plan, unsure of timeline, History is limited by the patient's nonverbal status. patient appears calm is what was previously described as her baseline Past Medical History Cardiovascular: HTN CENTRAL NERVOUS SYSTEM: Dementia, Seizure GI: GERD Endocrine: Hypothyroidism Past Surgical History Past Surgical History: Other Family History Family History: No Significant (unable), Family History Unknown Social History ALCOHOL: none Drugs: None Current Medications Current Medications Current Medications Levetiracetam 1000 mg/Dextrose 110 ml @ 440 mls/hr Q12HR IV ; Start 12/14/18 at 22:15; Status UNV Levetiracetam 500 mg/Dextrose 105 ml @ 420 mls/hr 1X STAT IV ; Start 12/14/18 at 22:07; Stop 12/14/18 at 22:21; Status UNV Lorazepam (Ativan Inj) 1 mg 1X ONCE IV Last administered on 12/14/18at 22:35; Start 12/14/18 at 22:30; Stop 12/14/18 at 22:31; Status DC Ceftriaxone Sodium (Rocephin) 1 gm 1X ONCE IVP Last administered on 12/14/18at 22:36; Start 12/14/18 at 22:30; Stop 12/14/18 at 22:31; Status DC Sodium Chloride 1,000 ml @ 1,000 mls/hr Q1H IV Last administered on 12/14/18at 22:26; Start 12/14/18 at 22:30; Stop 12/15/18 at 00:35; Status DC Levetiracetam 1500 mg/Dextrose 115 ml @ 460 mls/hr 1X ONCE IV Last administered on 12/14/18at 22:36; Start 12/14/18 at 23:00; Stop 12/14/18 at 23:14; Status DC Lacosamide (Vimpat) 200 mg 1X ONCE PEG Last administered on 12/14/18at 22:44; Start 12/14/18 at 23:00; Stop 12/14/18 at 23:01; Status DC Lacosamide (Vimpat) 200 mg BID PEG ; Start 12/15/18 at 09:00 Lorazepam (Ativan Inj) 2 mg PRN Q4HRS PRN IV SEIZURE; Start 12/14/18 at 23:00 Pharmacy Consult (C.diff Med Screen By Rx) 1 each 1X ONCE [facility] ; Start 12/15/18 at 03:00; Stop 12/15/18 at 03:01; Status DC Ceftriaxone Sodium (Rocephin) 1 gm Q24H IVP ; Start 12/15/18 at 21:00 Acetaminophen (Tylenol) 650 mg PRN Q6HRS PRN PEG MILD PAIN / TEMP; Start 12/15/18 at 08:30 Famotidine (Pepcid) 20 mg HS PEG ; Start 12/15/18 at 21:00 Lacosamide (Vimpat) 100 mg BID PEG ; Start 12/15/18 at 09:00; Status UNV Levothyroxine Sodium (Synthroid) 100 mcg DAILY06 PEG ; Start 12/15/18 at 09:00 Senna/Docusate Sodium (Senna Plus) 1 tab BID PO ; Start 12/15/18 at 09:00 Zinc Oxide (Zinc Oxide 20% Topical) 1 kandy BID TP ; Start 12/15/18 at 09:00 Levetiracetam (Keppra) 1,500 mg BID PEG ; Start 12/15/18 at 09:00 Potassium Bicarbonate (Potassium Effervescent Tablet) 20 meq BID PO ; Start 12/15/18 at 09:00 Triamcinolone Acetonide (Kenalog) 1 kandy DAILY TP ; Start 12/15/18 at 09:00 Active Scripts Active Acetaminophen Oral Liquid (Acetaminophen) 650 Mg/20.3 Ml Solution 650 Mg PEG PRN Q6HRS PRN 30 Days Vimpat (Lacosamide) 50 Mg Tablet 100 Mg PEG BID 30 Days Cefdinir 250 Mg/5 Ml Susp.recon 250 Mg PEG BID 10 Days Reported Zinc Oxide 56.7 Gm Oint...g. 56.7 Gm TP BID Potassium Chloride Oral Liquid (Potassium Chloride) 20 Meq/15 Ml Liquid 20 Meq PEG BID Triamcinolone Acetonide 0.025% Cream (Triamcinolone Acetonide) 15 Gm Cream..g. 1 Kandy TP DAILY Famotidine 20 Mg Tablet 20 Mg PEG HS Senna-S Tablet (Sennosides/Docusate Sodium) 1 Each Tablet 1 Each PEG BID Synthroid (Levothyroxine Sodium) 100 Mcg Tablet 1 Tab PEG DAILY Keppra (Levetiracetam) 100 Mg/1 Ml Solution 1,500 Mg PEG BID [fibersource HN PEG] Allergies Allergies: Coded Allergies: I S O L A T I O N *CONTACT* (Verified Allergy, Unknown, 04/18/18) mrsa No Known Medication Allergies (Verified Allergy, Unknown, 04/18/18) ROS Review of System unable, not verbal Physical Exam General: No acute distress, Other (left arm tick-like shaking, worse with interaction, not verbal) HEENT: Atraumatic, PERRLA Lungs: Clear to auscultation Heart: S1S2 Abdomen: Normal bowel sounds (PEG), Soft Extremities: No clubbing, No edema Skin: No rashes, No breakdown Neuro: Sensation intact Psych/Mental Status: Mental status NL, Mood NL Vitals Vitals Vital Signs Date Time Temp Pulse Resp B/P (MAP) Pulse Ox O2 Delivery O2 Flow Rate FiO2 12/15/18 07:00 99.6 86 18 165/92 (116) 90 Nasal Cannula 2.0 99.6 Labs Labs Laboratory Tests Test 12/14/18 22:00 12/14/18 22:12 12/15/18 03:30 White Blood Count 9.2 x10^3/uL (4.0-11.0) Red Blood Count 3.80 x10^6/uL (3.50-5.40) Hemoglobin 11.7 g/dL (12.0-15.5) Hematocrit 34.0 % (36.0-47.0) Mean Corpuscular Volume 90 fL (79-100) Mean Corpuscular Hemoglobin 31 pg (25-35) Mean Corpuscular Hemoglobin Concent 34 g/dL (31-37) Red Cell Distribution Width 15.0 % (11.5-14.5) Platelet Count 246 x10^3/uL (140-400) Neutrophils (%) (Auto) 75 % (31-73) Lymphocytes (%) (Auto) 15 % (24-48) Monocytes (%) (Auto) 8 % (0-9) Eosinophils (%) (Auto) 2 % (0-3) Basophils (%) (Auto) 0 % (0-3) Neutrophils # (Auto) 6.9 x10^3uL (1.8-7.7) Lymphocytes # (Auto) 1.4 x10^3/uL (1.0-4.8) Monocytes # (Auto) 0.7 x10^3/uL (0.0-1.1) Eosinophils # (Auto) 0.2 x10^3/uL (0.0-0.7) Basophils # (Auto) 0.0 x10^3/uL (0.0-0.2) Prothrombin Time 12.8 SEC (11.7-14.0) Prothromb Time International Ratio 1.0 (0.8-1.1) Sodium Level 148 mmol/L (136-145) Potassium Level 4.3 mmol/L (3.5-5.1) Chloride Level 110 mmol/L (98-107) Carbon Dioxide Level 28 mmol/L (21-32) Anion Gap 10 (6-14) Blood Urea Nitrogen 17 mg/dL (7-20) Creatinine 0.9 mg/dL (0.6-1.0) Estimated GFR (Cockcroft-Gault) 62.5 BUN/Creatinine Ratio 19 (6-20) Glucose Level 96 mg/dL (70-99) Lactic Acid Level 2.5 mmol/L (0.4-2.0) 0.7 mmol/L (0.4-2.0) Calcium Level 9.4 mg/dL (8.5-10.1) Total Bilirubin 0.3 mg/dL (0.2-1.0) Aspartate Amino Transf (AST/SGOT) 35 U/L (15-37) Alanine Aminotransferase (ALT/SGPT) 32 U/L (14-59) Alkaline Phosphatase 77 U/L (46-116) Total Protein 6.1 g/dL (6.4-8.2) Albumin 3.0 g/dL (3.4-5.0) Albumin/Globulin Ratio 1.0 (1.0-1.7) Urine Collection Type U cath Urine Color Yellow Urine Clarity Clear Urine pH 7.0 Urine Specific [place] 1.015 Urine Protein Negative mg/dL (NEG-TRACE) Urine Glucose (UA) Negative mg/dL (NEG) Urine Ketones (Stick) Negative mg/dL (NEG) Urine Blood Negative (NEG) Urine Nitrite Negative (NEG) Urine Bilirubin Negative (NEG) Urine Urobilinogen Dipstick 0.2 mg/dL (0.2 mg/dL) Urine Leukocyte Esterase Large (NEG) Urine RBC Rare /HPF (0-2) Urine WBC 1-4 /HPF (0-4) Urine Squamous Epithelial Cells Mod /LPF Urine Bacteria Few /HPF (0-FEW) Urine Mucus Slight /LPF Laboratory Tests Test 12/14/18 22:00 12/14/18 22:12 12/15/18 03:30 White Blood Count 9.2 x10^3/uL (4.0-11.0) Red Blood Count 3.80 x10^6/uL (3.50-5.40) Hemoglobin 11.7 g/dL (12.0-15.5) Hematocrit 34.0 % (36.0-47.0) Mean Corpuscular Volume 90 fL (79-100) Mean Corpuscular Hemoglobin 31 pg (25-35) Mean Corpuscular Hemoglobin Concent 34 g/dL (31-37) Red Cell Distribution Width 15.0 % (11.5-14.5) Platelet Count 246 x10^3/uL (140-400) Neutrophils (%) (Auto) 75 % (31-73) Lymphocytes (%) (Auto) 15 % (24-48) Monocytes (%) (Auto) 8 % (0-9) Eosinophils (%) (Auto) 2 % (0-3) Basophils (%) (Auto) 0 % (0-3) Neutrophils # (Auto) 6.9 x10^3uL (1.8-7.7) Lymphocytes # (Auto) 1.4 x10^3/uL (1.0-4.8) Monocytes # (Auto) 0.7 x10^3/uL (0.0-1.1) Eosinophils # (Auto) 0.2 x10^3/uL (0.0-0.7) Basophils # (Auto) 0.0 x10^3/uL (0.0-0.2) Prothrombin Time 12.8 SEC (11.7-14.0) Prothromb Time International Ratio 1.0 (0.8-1.1) Sodium Level 148 mmol/L (136-145) Potassium Level 4.3 mmol/L (3.5-5.1) Chloride Level 110 mmol/L (98-107) Carbon Dioxide Level 28 mmol/L (21-32) Anion Gap 10 (6-14) Blood Urea Nitrogen 17 mg/dL (7-20) Creatinine 0.9 mg/dL (0.6-1.0) Estimated GFR (Cockcroft-Gault) 62.5 BUN/Creatinine Ratio 19 (6-20) Glucose Level 96 mg/dL (70-99) Lactic Acid Level 2.5 mmol/L (0.4-2.0) 0.7 mmol/L (0.4-2.0) Calcium Level 9.4 mg/dL (8.5-10.1) Total Bilirubin 0.3 mg/dL (0.2-1.0) Aspartate Amino Transf (AST/SGOT) 35 U/L (15-37) Alanine Aminotransferase (ALT/SGPT) 32 U/L (14-59) Alkaline Phosphatase 77 U/L (46-116) Total Protein 6.1 g/dL (6.4-8.2) Albumin 3.0 g/dL (3.4-5.0) Albumin/Globulin Ratio 1.0 (1.0-1.7) Urine Collection Type U cath Urine Color Yellow Urine Clarity Clear Urine pH 7.0 Urine Specific [place] 1.015 Urine Protein Negative mg/dL (NEG-TRACE) Urine Glucose (UA) Negative mg/dL (NEG) Urine Ketones (Stick) Negative mg/dL (NEG) Urine Blood Negative (NEG) Urine Nitrite Negative (NEG) Urine Bilirubin Negative (NEG) Urine Urobilinogen Dipstick 0.2 mg/dL (0.2 mg/dL) Urine Leukocyte Esterase Large (NEG) Urine RBC Rare /HPF (0-2) Urine WBC 1-4 /HPF (0-4) Urine Squamous Epithelial Cells Mod /LPF Urine Bacteria Few /HPF (0-FEW) Urine Mucus Slight /LPF VTE Prophylaxis Ordered VTE Prophylaxis Devices: No VTE Pharmacological Prophylaxi: Yes Assessment/Plan Assessment/Plan sepsis UTI, acute on chronic, will culrure seizure disorder, with poss exac, home meds, malnurition, dysphagia, PEG feeds not verbal, not cooperative, pallative measures have been considered, pt is DNR KATHYA LEDBETTER MD Dec 15, 2018 09:48
[2018-12-15] MEDS: POTASSIUM BICARB 20 MEQ EFFERVESCENT TABLET. PO SCH ×2 (10:10→20:07)
[2018-12-15] MEDS: LEVOTHYROXINE 100 MCG TABLET PEG SCH (10:10)
[2018-12-15] MEDS: TRIAMCINOLONE ACETONIDE 0.1% TOPICAL CREAM 15GM TUBE. TP SCH (10:11)
[2018-12-15] MEDS: LACOSAMIDE 200 MG TABLET PEG SCH ×2 (10:11→20:03)
[2018-12-15] MEDS: ZINC OXIDE 20% TOPICAL OINTMENT 28GM TUBE. TP SCH ×2 (10:11→19:47)
--- NOTE | 2018-12-15 13:06 | NUR ---
SW following pt for dc planning. Chart reviewed and discussed with RN. Pt is LTC resident at [facility], Phone; [phone], fax: [phone]. ARACELI spoke with Ludy at [facility], . Per Ludy they were in the process of getting paperwork finalized for hospice evaluation when pt started having seizure. Pt does not have any family and is not able to consent for hospice services. Per Ludy, they are awaiting on their Physician to sign papers for hospice as pt is not able to sign her self into hospice.
--- NOTE | 2018-12-15 13:58 | NUR ---
Pharmacy Medication Review S: Consulted for medication review re: C.diff Risk Assessment score of 4 O: CHRIS GONZALES is a 68 year old with: Previous C.diff infection: No Previous hospitalization: Within 30 days Recent antibiotics: No Use of gastric acid suppressor: No Transfer from [place]: Yes Current antibiotic regimen: Current acid suppression regimen: A: Patient has been identified as having risk factors for C.diff infection as noted above. P: ABX DE-ESCALATION RECOMMENDED: NO, URINE CULTURE PENDING. PT WITH POSSIBLE UTI. PROBIOTIC ORDERED: NO, HOSPITAL POLICY PROHIBITS IN PT WITH ENTERIC FEEDING PPI CHANGED TO [id number]: PT ALREADY ON H2RA [facility], 12/15/18 [id number]
--- NOTE | 2018-12-15 14:58 | PDOC2 ---
NEUROLOGY CONSULT Date of Admission Date of Admission DATE: 12/15/18 TIME: 14:49 Reason for Consult Reason for Consult: Seizure, near intractable. MR, severe. CP. Lactic acidosis, 20.5 HTN. Dementia, severe. Very poor mental prognosis. RECOMMENDATIONS/PLAN: She has been treated with high dose of Keppra, decrease from 1500 mg bid to 1000 mg bid due to high serum level. Continue Vimpat 100 mg - 200 mg bid. Consulted Palliative Care team before aimed for hospice care. History of Present Illness This is a 68-year-old female with above medical and neurological diseases was here just discharged about 3 days ago. She was brought back to the ER of [facility] on 12/15/18 by ambulance with increased shaking of her left arm. Her facility was worried about possible worsening seizure activity. Past Medical History Cardiovascular: HTN CENTRAL NERVOUS SYSTEM: Dementia (cerebral palsy picture), Seizure GI: GERD Endocrine: Hypothyroidism Past Surgical History PEG placement. Family History No pertinent hx Social History Longtime halfway resident since 2003, no family, a trust pays for her medical care Allergies Coded Allergies: I S O L A T I O N *CONTACT* (Verified Allergy, Unknown, 04/18/18) mrsa No Known Medication Allergies (Verified Allergy, Unknown, 04/18/18) wn REVIEW OF SYSTEMS: Refer to PMH and PSH. PHYSICAL EXAMINATION: General appearance is MRNeelam. HEENT: Normocephalic and nontraumatic. Eyes, nose, ears, and throat are unremarkable. Hearing decrease. Neck is supple. No lymphadenopathy. No Crepitus. Cardiovascular: S1, S2, regular rate and rhythm. Pulmonary: Decreased to auscultation bilaterally. Abdomen: Bowel sounds are positive. Extremities: No rash, lesions, or edema. No restriction of range of motion NEUROLOGICAL EXAMINATION: Awake. Non verbal. Not follow commands. Not oriented to time, place and person. PERRL. EOMI. CN: no focal findings. Muscle tone: Increased. Muscle strength: Moves all extremities. DTR: 2-3 Plantar reflex: Neutral response bilaterally Gait: Not able to walk. Sensory exam: Withdraws to stimuli.. Not able to access cerebellar signs. F-T-N test not tested due to not follow commands. Joints contractures. Current Medications Current Medications Current Medications Levetiracetam 1000 mg/Dextrose 110 ml @ 440 mls/hr Q12HR IV ; Start 12/14/18 at 22:15; Status UNV Levetiracetam 500 mg/Dextrose 105 ml @ 420 mls/hr 1X STAT IV ; Start 12/14/18 at 22:07; Stop 12/14/18 at 22:21; Status UNV Lorazepam (Ativan Inj) 1 mg 1X ONCE IV Last administered on 12/14/18at 22:35; Start 12/14/18 at 22:30; Stop 12/14/18 at 22:31; Status DC Ceftriaxone Sodium (Rocephin) 1 gm 1X ONCE IVP Last administered on 12/14/18at 22:36; Start 12/14/18 at 22:30; Stop 12/14/18 at 22:31; Status DC Sodium Chloride 1,000 ml @ 1,000 mls/hr Q1H IV Last administered on 12/14/18at 22:26; Start 12/14/18 at 22:30; Stop 12/15/18 at 00:35; Status DC Levetiracetam 1500 mg/Dextrose 115 ml @ 460 mls/hr 1X ONCE IV Last administered on 12/14/18at 22:36; Start 12/14/18 at 23:00; Stop 12/14/18 at 23:14; Status DC Lacosamide (Vimpat) 200 mg 1X ONCE PEG Last administered on 12/14/18at 22:44; Start 12/14/18 at 23:00; Stop 12/14/18 at 23:01; Status DC Lacosamide (Vimpat) 200 mg BID PEG Last administered on 12/15/18at 10:11; Start 12/15/18 at 09:00 Lorazepam (Ativan Inj) 2 mg PRN Q4HRS PRN IV SEIZURE; Start 12/14/18 at 23:00 Pharmacy Consult (C.diff Med Screen By Rx) 1 each 1X ONCE MC ; Start 12/15/18 at 03:00; Stop 12/15/18 at 03:01; Status DC Ceftriaxone Sodium (Rocephin) 1 gm Q24H IVP ; Start 12/15/18 at 21:00 Acetaminophen (Tylenol) 650 mg PRN Q6HRS PRN PEG MILD PAIN / TEMP; Start 12/15/18 at 08:30 Famotidine (Pepcid) 20 mg HS PEG ; Start 12/15/18 at 21:00 Lacosamide (Vimpat) 100 mg BID PEG ; Start 12/15/18 at 09:00; Status UNV Levothyroxine Sodium (Synthroid) 100 mcg DAILY06 PEG Last administered on 12/15/18at 10:10; Start 12/15/18 at 09:00 Senna/Docusate Sodium (Senna Plus) 1 tab BID PO ; Start 12/15/18 at 09:00 Zinc Oxide (Zinc Oxide 20% Topical) 1 kandy BID TP Last administered on 12/15/18at 10:11; Start 12/15/18 at 09:00 Levetiracetam (Keppra) 1,500 mg BID PEG Last administered on 12/15/18at 10:11; Start 12/15/18 at 09:00 Potassium Bicarbonate (Potassium Effervescent Tablet) 20 meq BID PO Last administered on 12/15/18at 10:10; Start 12/15/18 at 09:00 Triamcinolone Acetonide (Kenalog) 1 kandy DAILY TP Last administered on 12/15/18at 10:11; Start 12/15/18 at 09:00 Active Scripts Active Acetaminophen Oral Liquid (Acetaminophen) 650 Mg/20.3 Ml Solution 650 Mg PEG PRN Q6HRS PRN 30 Days Vimpat (Lacosamide) 50 Mg Tablet 100 Mg PEG BID 30 Days Cefdinir 250 Mg/5 Ml Susp.recon 250 Mg PEG BID 10 Days Reported Zinc Oxide 56.7 Gm Oint...g. 56.7 Gm TP BID Potassium Chloride Oral Liquid (Potassium Chloride) 20 Meq/15 Ml Liquid 20 Meq PEG BID Triamcinolone Acetonide 0.025% Cream (Triamcinolone Acetonide) 15 Gm Cream..g. 1 Kandy TP DAILY Famotidine 20 Mg Tablet 20 Mg PEG HS Senna-S Tablet (Sennosides/Docusate Sodium) 1 Each Tablet 1 Each PEG BID Synthroid (Levothyroxine Sodium) 100 Mcg Tablet 1 Tab PEG DAILY Keppra (Levetiracetam) 100 Mg/1 Ml Solution 1,500 Mg PEG BID [fibersource HN PEG] Allergies Allergies: Allergies Coded Allergies Type Severity Reaction Last Updated Verified I S O L A T I O N *CONTACT* Allergy Unknown 04/18/18 Yes No Known Medication Allergies Allergy Unknown 04/18/18 Yes ROS Review of System The patient denies any associated fevers, chills, headache, ear pain, rhinorrhea, sore throat, stiff neck, productive cough, chest pain, shortness of breath, back or flank pain, abdominal pain, nausea, vomiting, diarrhea, constipation, dysuria, rash, numbness, weakness, tingling, incontinence, difficulty ambulating, or diaphoresis. Physical Exam Physical Exam General: Well developed, well nourished, no acute distress, well appearing HEENT: Pupils equally round and reactive to light, EOMI, no discharge, normal conjunctiva Neck: Supple, no nuchal rigidity, no JVD, trachea midline, no tenderness Cardiac: RRR, no murmurs, no gallops, no rubs Chest/Lungs: CTAB, no wheeze, no rhonchi, no crackles Abdomen: soft, non-distended, no guarding, no peritoneal signs, non-tender Back: No tenderness Extremities: no edema, pulses intact, non-tender,capillary refill <3 sec bilateral upper and lower extremities, Neuro: Alert and oriented x 4, no focal deficits, normal speech Vitals Vitals: Vital Signs Date Time Temp Pulse Resp B/P (MAP) Pulse Ox O2 Delivery O2 Flow Rate FiO2 12/15/18 11:00 97.7 87 18 164/83 (110) 93 Room Air 97.7 12/15/18 08:00 2.0 Labs Labs Laboratory Tests Test 12/14/18 22:00 12/14/18 22:12 12/15/18 03:30 White Blood Count 9.2 x10^3/uL (4.0-11.0) Red Blood Count 3.80 x10^6/uL (3.50-5.40) Hemoglobin 11.7 g/dL (12.0-15.5) Hematocrit 34.0 % (36.0-47.0) Mean Corpuscular Volume 90 fL (79-100) Mean Corpuscular Hemoglobin 31 pg (25-35) Mean Corpuscular Hemoglobin Concent 34 g/dL (31-37) Red Cell Distribution Width 15.0 % (11.5-14.5) Platelet Count 246 x10^3/uL (140-400) Neutrophils (%) (Auto) 75 % (31-73) Lymphocytes (%) (Auto) 15 % (24-48) Monocytes (%) (Auto) 8 % (0-9) Eosinophils (%) (Auto) 2 % (0-3) Basophils (%) (Auto) 0 % (0-3) Neutrophils # (Auto) 6.9 x10^3uL (1.8-7.7) Lymphocytes # (Auto) 1.4 x10^3/uL (1.0-4.8) Monocytes # (Auto) 0.7 x10^3/uL (0.0-1.1) Eosinophils # (Auto) 0.2 x10^3/uL (0.0-0.7) Basophils # (Auto) 0.0 x10^3/uL (0.0-0.2) Prothrombin Time 12.8 SEC (11.7-14.0) Prothromb Time International Ratio 1.0 (0.8-1.1) Sodium Level 148 mmol/L (136-145) Potassium Level 4.3 mmol/L (3.5-5.1) Chloride Level 110 mmol/L (98-107) Carbon Dioxide Level 28 mmol/L (21-32) Anion Gap 10 (6-14) Blood Urea Nitrogen 17 mg/dL (7-20) Creatinine 0.9 mg/dL (0.6-1.0) Estimated GFR (Cockcroft-Gault) 62.5 BUN/Creatinine Ratio 19 (6-20) Glucose Level 96 mg/dL (70-99) Lactic Acid Level 2.5 mmol/L (0.4-2.0) 0.7 mmol/L (0.4-2.0) Calcium Level 9.4 mg/dL (8.5-10.1) Total Bilirubin 0.3 mg/dL (0.2-1.0) Aspartate Amino Transf (AST/SGOT) 35 U/L (15-37) Alanine Aminotransferase (ALT/SGPT) 32 U/L (14-59) Alkaline Phosphatase 77 U/L (46-116) Total Protein 6.1 g/dL (6.4-8.2) Albumin 3.0 g/dL (3.4-5.0) Albumin/Globulin Ratio 1.0 (1.0-1.7) Urine Collection Type U cath Urine Color Yellow Urine Clarity Clear Urine pH 7.0 Urine Specific [place] 1.015 Urine Protein Negative mg/dL (NEG-TRACE) Urine Glucose (UA) Negative mg/dL (NEG) Urine Ketones (Stick) Negative mg/dL (NEG) Urine Blood Negative (NEG) Urine Nitrite Negative (NEG) Urine Bilirubin Negative (NEG) Urine Urobilinogen Dipstick 0.2 mg/dL (0.2 mg/dL) Urine Leukocyte Esterase Large (NEG) Urine RBC Rare /HPF (0-2) Urine WBC 1-4 /HPF (0-4) Urine Squamous Epithelial Cells Mod /LPF Urine Bacteria Few /HPF (0-FEW) Urine Mucus Slight /LPF Laboratory Tests Test 12/14/18 22:00 12/14/18 22:12 12/15/18 03:30 White Blood Count 9.2 x10^3/uL (4.0-11.0) Red Blood Count 3.80 x10^6/uL (3.50-5.40) Hemoglobin 11.7 g/dL (12.0-15.5) Hematocrit 34.0 % (36.0-47.0) Mean Corpuscular Volume 90 fL (79-100) Mean Corpuscular Hemoglobin 31 pg (25-35) Mean Corpuscular Hemoglobin Concent 34 g/dL (31-37) Red Cell Distribution Width 15.0 % (11.5-14.5) Platelet Count 246 x10^3/uL (140-400) Neutrophils (%) (Auto) 75 % (31-73) Lymphocytes (%) (Auto) 15 % (24-48) Monocytes (%) (Auto) 8 % (0-9) Eosinophils (%) (Auto) 2 % (0-3) Basophils (%) (Auto) 0 % (0-3) Neutrophils # (Auto) 6.9 x10^3uL (1.8-7.7) Lymphocytes # (Auto) 1.4 x10^3/uL (1.0-4.8) Monocytes # (Auto) 0.7 x10^3/uL (0.0-1.1) Eosinophils # (Auto) 0.2 x10^3/uL (0.0-0.7) Basophils # (Auto) 0.0 x10^3/uL (0.0-0.2) Prothrombin Time 12.8 SEC (11.7-14.0) Prothromb Time International Ratio 1.0 (0.8-1.1) Sodium Level 148 mmol/L (136-145) Potassium Level 4.3 mmol/L (3.5-5.1) Chloride Level 110 mmol/L (98-107) Carbon Dioxide Level 28 mmol/L (21-32) Anion Gap 10 (6-14) Blood Urea Nitrogen 17 mg/dL (7-20) Creatinine 0.9 mg/dL (0.6-1.0) Estimated GFR (Cockcroft-Gault) 62.5 BUN/Creatinine Ratio 19 (6-20) Glucose Level 96 mg/dL (70-99) Lactic Acid Level 2.5 mmol/L (0.4-2.0) 0.7 mmol/L (0.4-2.0) Calcium Level 9.4 mg/dL (8.5-10.1) Total Bilirubin 0.3 mg/dL (0.2-1.0) Aspartate Amino Transf (AST/SGOT) 35 U/L (15-37) Alanine Aminotransferase (ALT/SGPT) 32 U/L (14-59) Alkaline Phosphatase 77 U/L (46-116) Total Protein 6.1 g/dL (6.4-8.2) Albumin 3.0 g/dL (3.4-5.0) Albumin/Globulin Ratio 1.0 (1.0-1.7) Urine Collection Type U cath Urine Color Yellow Urine Clarity Clear Urine pH 7.0 Urine Specific [place] 1.015 Urine Protein Negative mg/dL (NEG-TRACE) Urine Glucose (UA) Negative mg/dL (NEG) Urine Ketones (Stick) Negative mg/dL (NEG) Urine Blood Negative (NEG) Urine Nitrite Negative (NEG) Urine Bilirubin Negative (NEG) Urine Urobilinogen Dipstick 0.2 mg/dL (0.2 mg/dL) Urine Leukocyte Esterase Large (NEG) Urine RBC Rare /HPF (0-2) Urine WBC 1-4 /HPF (0-4) Urine Squamous Epithelial Cells Mod /LPF Urine Bacteria Few /HPF (0-FEW) Urine Mucus Slight /LPF MOISÉS HOOVER MD Dec 15, 2018 14:58
[2018-12-15] MEDS: FAMOTIDINE 20 MG TABLET. PEG SCH (20:03)
[2018-12-15] MEDS: cefTRIAXone IV Push 1 GM VIAL. IVP SCH (20:07)
[2018-12-16] VITALS (7 sets, daily range): BP systolic 139–186; BP diastolic 46–101
[2018-12-16] MEDS: LEVOTHYROXINE 100 MCG TABLET PEG SCH (05:49)
[2018-12-16] MEDS: LACOSAMIDE 200 MG TABLET PEG SCH ×2 (08:00→20:10)
[2018-12-16] MEDS: SENNOSIDES/DOCUSATE 8.6/50MG TABLET. PO SCH ×2 (08:00→20:10)
[2018-12-16] MEDS: TRIAMCINOLONE ACETONIDE 0.1% TOPICAL CREAM 15GM TUBE. TP SCH (08:01)
[2018-12-16] MEDS: POTASSIUM BICARB 20 MEQ EFFERVESCENT TABLET. PO SCH ×2 (08:01→20:10)
[2018-12-16] MEDS: ZINC OXIDE 20% TOPICAL OINTMENT 28GM TUBE. TP SCH ×2 (08:01→20:10)
--- NOTE | 2018-12-16 12:01 | EEG ---
DATE OF SERVICE: 12/15/2018 EEG NUMBER: [id number]. OBJECTIVE: This is a 68-year-old female patient with history of seizure, mental retardation, cerebral palsy. She was reported to have increased seizure. EEG was requested to evaluate seizure activity. METHODS: Twenty electrodes were applied according to the international 10-20 electrode placement system. EKG monitoring, hyperventilation, intermittent photic stimulation, monopolar and bipolar montages are routinely utilized. The record was obtained on a digital system with video monitoring. MEDICATIONS: Keppra and Vimpat. FINDINGS: 1. Background: The patient was recorded in the awake, drowsy, and sleep states. The overall background amplitude is 10-20 microvolts. A posterior dominant rhythm of 6-7 Hz is observed. 2. Abnormalities: No specific epileptiform discharge or electrographic seizure is seen. No focal or diffuse slowing. 3. Activation: Hyperventilation was not performed because the patient was unable to follow the commands. Intermittent photic stimulation was performed with photic driving. No specific epileptiform discharge or electrographic seizure induced by intermittent photic stimulation. IMPRESSION: This EEG is an abnormal study for the awake, drowsy, and sleep states. The posterior dominant rhythm of 6-7 Hz is slow for age. No focal, lateralizing, specific epileptiform discharge or electrographic seizure is seen. MOISÉS HOOVER MD DR: CONSUELO/cindy JOB#: [id number] / [id number] MOHIT
--- NOTE | 2018-12-16 12:48 | PDOC ---
PROGRESS NOTES Assessment Assessment Seizure, near intractable. MR, severe. CP. Lactic acidosis, 20.5 HTN. Dementia, severe. Very poor mental prognosis. RECOMMENDATIONS/PLAN: She has been treated with high dose of Keppra, decreased from 1500 mg bid to 1000 mg bid due to high serum level. Continue Vimpat 100 mg - 200 mg bid. Consulted Palliative Care team before aimed for hospice care. EEG on 12/15/18: No epileptiform discharges. History of Present Illness This is a 68-year-old female with above medical and neurological diseases was here just discharged about 3 days ago. She was brought back to the ER of [facility] on 12/15/18 by ambulance with increased shaking of her left arm. Her facility was worried about possible worsening seizure activity. Past Medical History Cardiovascular: HTN CENTRAL NERVOUS SYSTEM: Dementia (cerebral palsy picture), Seizure GI: GERD Endocrine: Hypothyroidism Past Surgical History PEG placement. Family History No pertinent hx Social History Longtime intermediate resident since 2003, no family, a trust pays for her medical care Allergies Coded Allergies: I S O L A T I O N *CONTACT* (Verified Allergy, Unknown, 04/18/18) mrsa No Known Medication Allergies (Verified Allergy, Unknown, 04/18/18) wn REVIEW OF SYSTEMS: Refer to PMH and PSH. PHYSICAL EXAMINATION: General appearance is MR.. MAGALLANESENT: Normocephalic and nontraumatic. Eyes, nose, ears, and throat are unremarkable. Hearing decrease. Neck is supple. No lymphadenopathy. No Crepitus. Cardiovascular: S1, S2, regular rate and rhythm. Pulmonary: Decreased to auscultation bilaterally. Abdomen: Bowel sounds are positive. Extremities: No rash, lesions, or edema. No restriction of range of motion NEUROLOGICAL EXAMINATION: Awake. Non verbal. Not follow commands. Not oriented to time, place and person. PERRL. EOMI. CN: no focal findings. Muscle tone: Increased. Muscle strength: Moves all extremities. DTR: 2-3 Plantar reflex: Neutral response bilaterally Gait: Not able to walk. Sensory exam: Withdraws to stimuli.. Not able to access cerebellar signs. F-T-N test not tested due to not follow commands. Joints contractures. Objective Objective Vital Signs Date Time Temp Pulse Resp B/P (MAP) Pulse Ox O2 Delivery O2 Flow Rate FiO2 12/16/18 11:00 63 20 139/78 (98) 99 Nasal Cannula 2.0 12/16/18 07:00 98.1 98.1 Intake and Output 12/16/18 07:00 Intake Total 720 ml Output Total 1 ml Balance 719 ml Intake Oral 0 ml Tube Feeding 720 ml Output Urine/Stool Mix 1 ml # Voids 6 Vitals Signs Vitals VS - Last 72 Hours, by Label Date Time Temp Pulse Resp B/P (MAP) Pulse Ox O2 Delivery O2 Flow Rate FiO2 12/16/18 11:00 63 20 139/78 (98) 99 Nasal Cannula 2.0 12/16/18 08:13 Nasal Cannula 2.0 12/16/18 07:00 98.1 64 12 146/72 (96) 100 Nasal Cannula 2.0 98.1 12/16/18 03:10 98.1 69 18 142/72 (95) 100 Nasal Cannula 2.0 98.1 12/16/18 00:20 142/65 (90) 12/15/18 23:57 98.0 98 20 210/88 (128) 100 Room Air 98.0 12/15/18 20:00 Nasal Cannula 2.0 12/15/18 19:56 98.9 107 16 180/112 (134) 94 Room Air 98.9 12/15/18 15:00 97.7 78 18 170/74 (106) 95 Room Air 97.7 12/15/18 11:00 97.7 87 18 164/83 (110) 93 Room Air 97.7 12/15/18 08:00 Nasal Cannula 2.0 12/15/18 07:00 99.6 86 18 165/92 (116) 90 Nasal Cannula 2.0 99.6 Laboratory Laboratory Microbiology 12/14/18 Blood Culture - Preliminary, Resulted NO GROWTH AFTER 1 DAY Medication Medications Current Medications Ceftriaxone Sodium (Rocephin) 1 gm Q24H IVP Last administered on 12/15/18at 20:07; Start 12/15/18 at 21:00 Famotidine (Pepcid) 20 mg HS PEG Last administered on 12/15/18at 20:03; Start 12/15/18 at 21:00 Levetiracetam (Keppra) 1,000 mg BID PEG Last administered on 12/16/18at 08:01; Start 12/15/18 at 21:00 Comment Review of Relevant I have reviewed the following items jo-ann (where applicable) has been applied. MOISÉS HOOVER MD Dec 16, 2018 12:48
--- NOTE | 2018-12-16 13:45 | PDOC ---
PROGRESS NOTES Chief Complaint Chief Complaint sepsis UTI, acute on chronic, will culrure seizure disorder, with poss exac, home meds, malnurition, dysphagia, PEG feeds not verbal, not cooperative, pallative measures have been considered, pt is DNR History of Present Illness History of Present Illness cont current Vitals Vitals Vital Signs Date Time Temp Pulse Resp B/P (MAP) Pulse Ox O2 Delivery O2 Flow Rate FiO2 12/16/18 11:00 63 20 139/78 (98) 99 Nasal Cannula 2.0 12/16/18 07:00 98.1 98.1 Physical Exam General: No acute distress, Other (left arm tick-like shaking, worse with interaction, not verbal) Lungs: Clear Abdomen: Normal bowel sounds (PEG), Soft Extremities: No clubbing, No edema Skin: No rashes, No breakdown Comment Review of Relevant I have reviewed the following items jo-ann (where applicable) has been applied. Labs Laboratory Tests Test 12/14/18 22:00 12/14/18 22:12 12/15/18 02:40 12/15/18 03:30 White Blood Count 9.2 x10^3/uL (4.0-11.0) Red Blood Count 3.80 x10^6/uL (3.50-5.40) Hemoglobin 11.7 g/dL (12.0-15.5) Hematocrit 34.0 % (36.0-47.0) Mean Corpuscular Volume 90 fL (79-100) Mean Corpuscular Hemoglobin 31 pg (25-35) Mean Corpuscular Hemoglobin Concent 34 g/dL (31-37) Red Cell Distribution Width 15.0 % (11.5-14.5) Platelet Count 246 x10^3/uL (140-400) Neutrophils (%) (Auto) 75 % (31-73) Lymphocytes (%) (Auto) 15 % (24-48) Monocytes (%) (Auto) 8 % (0-9) Eosinophils (%) (Auto) 2 % (0-3) Basophils (%) (Auto) 0 % (0-3) Neutrophils # (Auto) 6.9 x10^3uL (1.8-7.7) Lymphocytes # (Auto) 1.4 x10^3/uL (1.0-4.8) Monocytes # (Auto) 0.7 x10^3/uL (0.0-1.1) Eosinophils # (Auto) 0.2 x10^3/uL (0.0-0.7) Basophils # (Auto) 0.0 x10^3/uL (0.0-0.2) Prothrombin Time 12.8 SEC (11.7-14.0) Prothromb Time International Ratio 1.0 (0.8-1.1) Sodium Level 148 mmol/L (136-145) Potassium Level 4.3 mmol/L (3.5-5.1) Chloride Level 110 mmol/L (98-107) Carbon Dioxide Level 28 mmol/L (21-32) Anion Gap 10 (6-14) Blood Urea Nitrogen 17 mg/dL (7-20) Creatinine 0.9 mg/dL (0.6-1.0) Estimated GFR (Cockcroft-Gault) 62.5 BUN/Creatinine Ratio 19 (6-20) Glucose Level 96 mg/dL (70-99) Lactic Acid Level 2.5 mmol/L (0.4-2.0) 0.7 mmol/L (0.4-2.0) Calcium Level 9.4 mg/dL (8.5-10.1) Total Bilirubin 0.3 mg/dL (0.2-1.0) Aspartate Amino Transf (AST/SGOT) 35 U/L (15-37) Alanine Aminotransferase (ALT/SGPT) 32 U/L (14-59) Alkaline Phosphatase 77 U/L (46-116) Total Protein 6.1 g/dL (6.4-8.2) Albumin 3.0 g/dL (3.4-5.0) Albumin/Globulin Ratio 1.0 (1.0-1.7) Urine Collection Type U cath Urine Color Yellow Urine Clarity Clear Urine pH 7.0 Urine Specific [place] 1.015 Urine Protein Negative mg/dL (NEG-TRACE) Urine Glucose (UA) Negative mg/dL (NEG) Urine Ketones (Stick) Negative mg/dL (NEG) Urine Blood Negative (NEG) Urine Nitrite Negative (NEG) Urine Bilirubin Negative (NEG) Urine Urobilinogen Dipstick 0.2 mg/dL (0.2 mg/dL) Urine Leukocyte Esterase Large (NEG) Urine RBC Rare /HPF (0-2) Urine WBC 1-4 /HPF (0-4) Urine Squamous Epithelial Cells Mod /LPF Urine Bacteria Few /HPF (0-FEW) Urine Mucus Slight /LPF Nasal Screen MRSA (PCR) Positive (Negative) Microbiology 12/14/18 Blood Culture - Preliminary, Resulted NO GROWTH AFTER 1 DAY Medications Current Medications Levetiracetam 1000 mg/Dextrose 110 ml @ 440 mls/hr Q12HR IV ; Start 12/14/18 at 22:15; Status UNV Levetiracetam 500 mg/Dextrose 105 ml @ 420 mls/hr 1X STAT IV ; Start 12/14/18 at 22:07; Stop 12/14/18 at 22:21; Status UNV Lorazepam (Ativan Inj) 1 mg 1X ONCE IV Last administered on 12/14/18at 22:35; Start 12/14/18 at 22:30; Stop 12/14/18 at 22:31; Status DC Ceftriaxone Sodium (Rocephin) 1 gm 1X ONCE IVP Last administered on 12/14/18at 22:36; Start 12/14/18 at 22:30; Stop 12/14/18 at 22:31; Status DC Sodium Chloride 1,000 ml @ 1,000 mls/hr Q1H IV Last administered on 12/14/18at 22:26; Start 12/14/18 at 22:30; Stop 12/15/18 at 00:35; Status DC Levetiracetam 1500 mg/Dextrose 115 ml @ 460 mls/hr 1X ONCE IV Last administered on 12/14/18at 22:36; Start 12/14/18 at 23:00; Stop 12/14/18 at 23:14; Status DC Lacosamide (Vimpat) 200 mg 1X ONCE PEG Last administered on 12/14/18at 22:44; Start 12/14/18 at 23:00; Stop 12/14/18 at 23:01; Status DC Lacosamide (Vimpat) 200 mg BID PEG Last administered on 12/16/18at 08:00; Start 12/15/18 at 09:00 Lorazepam (Ativan Inj) 2 mg PRN Q4HRS PRN IV SEIZURE Last administered on 12/16/18at 05:49; Start 12/14/18 at 23:00 Pharmacy Consult (C.diff Med Screen By Rx) 1 each 1X ONCE MC ; Start 12/15/18 at 03:00; Stop 12/15/18 at 03:01; Status DC Ceftriaxone Sodium (Rocephin) 1 gm Q24H IVP Last administered on 12/15/18at 20:07; Start 12/15/18 at 21:00 Acetaminophen (Tylenol) 650 mg PRN Q6HRS PRN PEG MILD PAIN / TEMP; Start 12/15/18 at 08:30 Famotidine (Pepcid) 20 mg HS PEG Last administered on 12/15/18at 20:03; Start 12/15/18 at 21:00 Lacosamide (Vimpat) 100 mg BID PEG ; Start 12/15/18 at 09:00; Status UNV Levothyroxine Sodium (Synthroid) 100 mcg DAILY06 PEG Last administered on 12/16/18at 05:49; Start 12/15/18 at 09:00 Senna/Docusate Sodium (Senna Plus) 1 tab BID PO Last administered on 12/16/18 08:00; Start 12/15/18 at 09:00 Zinc Oxide (Zinc Oxide 20% Topical) 1 kandy BID TP Last administered on 12/16/18 08:01; Start 12/15/18 at 09:00 Levetiracetam (Keppra) 1,500 mg BID PEG Last administered on 12/15/18at 10:11; Start 12/15/18 at 09:00; Stop 12/15/18 at 14:53; Status DC Potassium Bicarbonate (Potassium Effervescent Tablet) 20 meq BID PO Last administered on 12/16/18 08:01; Start 12/15/18 at 09:00 Triamcinolone Acetonide (Kenalog) 1 kandy DAILY TP Last administered on 12/16/18 08:01; Start 12/15/18 at 09:00 Levetiracetam (Keppra) 1,000 mg BID PEG Last administered on 12/16/18 08:01; Start 12/15/18 at 21:00 Active Scripts Active Acetaminophen Oral Liquid (Acetaminophen) 650 Mg/20.3 Ml Solution 650 Mg PEG PRN Q6HRS PRN 30 Days Vimpat (Lacosamide) 50 Mg Tablet 100 Mg PEG BID 30 Days Cefdinir 250 Mg/5 Ml Susp.recon 250 Mg PEG BID 10 Days Reported Zinc Oxide 56.7 Gm Oint...g. 56.7 Gm TP BID Potassium Chloride Oral Liquid (Potassium Chloride) 20 Meq/15 Ml Liquid 20 Meq PEG BID Triamcinolone Acetonide 0.025% Cream (Triamcinolone Acetonide) 15 Gm Cream..g. 1 Kandy TP DAILY Famotidine 20 Mg Tablet 20 Mg PEG HS Senna-S Tablet (Sennosides/Docusate Sodium) 1 Each Tablet 1 Each PEG BID Synthroid (Levothyroxine Sodium) 100 Mcg Tablet 1 Tab PEG DAILY Keppra (Levetiracetam) 100 Mg/1 Ml Solution 1,500 Mg PEG BID [fibersource HN PEG] Vitals/I & O Vital Sign - Last 24 Hours 12/15/18 12/15/18 12/15/18 12/15/18 15:00 19:56 20:00 23:57 Temp 97.7 98.9 98.0 97.7 98.9 98.0 Pulse 78 107 98 Resp 18 16 20 B/P (MAP) 170/74 (106) 180/112 (134) 210/88 (128) Pulse Ox 95 94 100 O2 Delivery Room Air Room Air Nasal Cannula Room Air O2 Flow Rate 2.0 12/16/18 12/16/18 12/16/18 12/16/18 00:20 03:10 07:00 08:13 Temp 98.1 98.1 98.1 98.1 Pulse 69 64 Resp 18 12 B/P (MAP) 142/65 (90) 142/72 (95) 146/72 (96) Pulse Ox 100 100 O2 Delivery Nasal Cannula Nasal Cannula Nasal Cannula O2 Flow Rate 2.0 2.0 2.0 12/16/18 11:00 Pulse 63 Resp 20 B/P (MAP) 139/78 (98) Pulse Ox 99 O2 Delivery Nasal Cannula O2 Flow Rate 2.0 Intake and Output 12/15/18 12/15/18 12/16/18 14:59 22:59 06:59 Intake Total 240 ml 480 ml Output Total 1 ml Balance -1 ml 240 ml 480 ml KATHYA LEDBETTER MD Dec 16, 2018 13:45
[2018-12-16] MEDS: FAMOTIDINE 20 MG TABLET. PEG SCH (20:09)
[2018-12-16] MEDS: cefTRIAXone IV Push 1 GM VIAL. IVP SCH (20:09)
[2018-12-17 03:53] VITALS: BP 158/92
[2018-12-17] MEDS: LEVOTHYROXINE 100 MCG TABLET PEG SCH (06:08)
[2018-12-17 07:00] VITALS: BP 136/80
[2018-12-17] MEDS: SENNOSIDES/DOCUSATE 8.6/50MG TABLET. PO SCH ×2 (09:00→21:00)
[2018-12-17 11:00] VITALS: BP 174/94
[2018-12-17] MEDS: POTASSIUM BICARB 20 MEQ EFFERVESCENT TABLET. PO SCH ×2 (11:19→21:38)
[2018-12-17] MEDS: LACOSAMIDE 200 MG TABLET PEG SCH ×2 (11:19→21:37)
[2018-12-17] MEDS: TRIAMCINOLONE ACETONIDE 0.1% TOPICAL CREAM 15GM TUBE. TP SCH (12:49)
[2018-12-17] MEDS: ZINC OXIDE 20% TOPICAL OINTMENT 28GM TUBE. TP SCH ×2 (12:49→21:39)
[2018-12-17 15:00] VITALS: BP 174/94
--- NOTE | 2018-12-17 15:07 | PDOC ---
PROGRESS NOTES Assessment Assessment Seizure, near intractable. MR, severe. CP. Lactic acidosis, 20.5 HTN. Dementia, severe. Very poor mental prognosis. RECOMMENDATIONS/PLAN: She has been treated with high dose of Keppra, decreased from 1500 mg bid to 1000 mg bid due to high serum level. Continue Vimpat 100 mg - 200 mg bid. Consulted Palliative Care team before aimed for hospice care. EEG on 12/15/18: No epileptiform discharges. History of Present Illness This is a 68-year-old female with above medical and neurological diseases was here just discharged about 3 days ago. She was brought back to the ER of [facility] on 12/15/18 by ambulance with increased shaking of her left arm. Her facility was worried about possible worsening seizure activity. Past Medical History Cardiovascular: HTN CENTRAL NERVOUS SYSTEM: Dementia (cerebral palsy picture), Seizure GI: GERD Endocrine: Hypothyroidism Past Surgical History PEG placement. Family History No pertinent hx Social History Longtime [facility] resident since 2003, no family, a trust pays for her medical care Allergies Coded Allergies: I S O L A T I O N *CONTACT* (Verified Allergy, Unknown, 04/18/18) mrsa No Known Medication Allergies (Verified Allergy, Unknown, 04/18/18) wn REVIEW OF SYSTEMS: Refer to PMH and PSH. PHYSICAL EXAMINATION: General appearance is MR.. MAGALLANESENT: Normocephalic and nontraumatic. Eyes, nose, ears, and throat are unremarkable. Hearing decrease. Neck is supple. No lymphadenopathy. No Crepitus. Cardiovascular: S1, S2, regular rate and rhythm. Pulmonary: Decreased to auscultation bilaterally. Abdomen: Bowel sounds are positive. Extremities: No rash, lesions, or edema. No restriction of range of motion NEUROLOGICAL EXAMINATION: Awake. Sucking fingers in mouth from time to time. Non verbal. Not follow commands. Not oriented to time, place and person. PERRL. EOMI. CN: no focal findings. Muscle tone: Increased. Muscle strength: Moves all extremities. DTR: 2-3 Plantar reflex: Neutral response bilaterally Gait: Not able to walk. Sensory exam: Withdraws to stimuli.. Not able to access cerebellar signs. F-T-N test not tested due to not follow commands. Joints contractures. Objective Objective Vital Signs Date Time Temp Pulse Resp B/P (MAP) Pulse Ox O2 Delivery O2 Flow Rate FiO2 12/17/18 11:00 97.8 92 20 174/94 (120) 95 Room Air 97.8 12/16/18 20:00 2.0 Intake and Output 12/17/18 06:59 Intake Total 1680 ml Balance 1680 ml Intake Oral 240 ml Tube Feeding 1440 ml # Voids 3 # Bowel Movements 5 Vitals Signs Vitals VS - Last 72 Hours, by Label Date Time Temp Pulse Resp B/P (MAP) Pulse Ox O2 Delivery O2 Flow Rate FiO2 12/17/18 11:00 97.8 92 20 174/94 (120) 95 Room Air 97.8 12/17/18 08:00 Room Air 12/17/18 07:00 98.5 88 20 136/80 (98) 95 Room Air 98.5 12/17/18 03:53 84 18 158/92 (114) 94 Room Air 12/16/18 23:05 99.1 84 18 180/46 (90) 96 Room Air 99.1 12/16/18 20:00 Nasal Cannula 2.0 12/16/18 19:05 98.9 103 20 186/101 (129) 91 Nasal Cannula 2.0 98.9 12/16/18 15:00 82 20 140/65 (90) 93 Nasal Cannula 2.0 12/16/18 11:00 63 20 139/78 (98) 99 Nasal Cannula 2.0 12/16/18 08:13 Nasal Cannula 2.0 12/16/18 07:00 98.1 64 12 146/72 (96) 100 Nasal Cannula 2.0 98.1 Laboratory Laboratory Microbiology 12/14/18 Blood Culture - Preliminary, Resulted NO GROWTH AFTER 2 DAYS 12/14/18 Urine Culture - Final, Complete 12/14/18 Urine Culture Result 1 (VICKY) - Final, Complete Comment Review of Relevant I have reviewed the following items jo-ann (where applicable) has been applied. MOISÉS HOOVER MD Dec 17, 2018 15:07
--- NOTE | 2018-12-17 15:31 | PDOC ---
PROGRESS NOTES Chief Complaint Chief Complaint sepsis UTI, acute on chronic, will culrure seizure disorder, with poss exac, home meds, malnurition, dysphagia, PEG feeds not verbal, not cooperative, pallative measures have been considered, pt is DNR History of Present Illness History of Present Illness cont current placement will be needed, hospice had been considered, Vitals Vitals Vital Signs Date Time Temp Pulse Resp B/P (MAP) Pulse Ox O2 Delivery O2 Flow Rate FiO2 12/17/18 11:00 97.8 92 20 174/94 (120) 95 Room Air 97.8 12/16/18 20:00 2.0 Physical Exam General: No acute distress, Other (left arm tick-like shaking, worse with interaction, not verbal) Lungs: Clear Abdomen: Normal bowel sounds (PEG), Soft Extremities: No clubbing, No edema Skin: No rashes, No breakdown Comment Review of Relevant I have reviewed the following items jo-ann (where applicable) has been applied. Labs Microbiology 12/14/18 Blood Culture - Preliminary, Resulted NO GROWTH AFTER 2 DAYS 12/14/18 Urine Culture - Final, Complete 12/14/18 Urine Culture Result 1 (VICKY) - Final, Complete Medications Current Medications Levetiracetam 1000 mg/Dextrose 110 ml @ 440 mls/hr Q12HR IV ; Start 12/14/18 at 22:15; Status UNV Levetiracetam 500 mg/Dextrose 105 ml @ 420 mls/hr 1X STAT IV ; Start 12/14/18 at 22:07; Stop 12/14/18 at 22:21; Status UNV Lorazepam (Ativan Inj) 1 mg 1X ONCE IV Last administered on 12/14/18at 22:35; Start 12/14/18 at 22:30; Stop 12/14/18 at 22:31; Status DC Ceftriaxone Sodium (Rocephin) 1 gm 1X ONCE IVP Last administered on 12/14/18at 22:36; Start 12/14/18 at 22:30; Stop 12/14/18 at 22:31; Status DC Sodium Chloride 1,000 ml @ 1,000 mls/hr Q1H IV Last administered on 12/14/18at 22:26; Start 12/14/18 at 22:30; Stop 12/15/18 at 00:35; Status DC Levetiracetam 1500 mg/Dextrose 115 ml @ 460 mls/hr 1X ONCE IV Last administered on 12/14/18 22:36; Start 12/14/18 at 23:00; Stop 12/14/18 at 23:14; Status DC Lacosamide (Vimpat) 200 mg 1X ONCE PEG Last administered on 12/14/18 22:44; Start 12/14/18 at 23:00; Stop 12/14/18 at 23:01; Status DC Lacosamide (Vimpat) 200 mg BID PEG Last administered on 12/17/18 11:19; Start 12/15/18 at 09:00 Lorazepam (Ativan Inj) 2 mg PRN Q4HRS PRN IV SEIZURE Last administered on 12/16/18 05:49; Start 12/14/18 at 23:00 Pharmacy Consult (C.diff Med Screen By Rx) 1 each 1X ONCE MC ; Start 12/15/18 at 03:00; Stop 12/15/18 at 03:01; Status DC Ceftriaxone Sodium (Rocephin) 1 gm Q24H IVP Last administered on 12/16/18 20:09; Start 12/15/18 at 21:00 Acetaminophen (Tylenol) 650 mg PRN Q6HRS PRN PEG MILD PAIN / TEMP; Start 12/15/18 at 08:30 Famotidine (Pepcid) 20 mg HS PEG Last administered on 12/16/18 20:09; Start 12/15/18 at 21:00 Lacosamide (Vimpat) 100 mg BID PEG ; Start 12/15/18 at 09:00; Status UNV Levothyroxine Sodium (Synthroid) 100 mcg DAILY06 PEG Last administered on 12/17/18 06:08; Start 12/15/18 at 09:00 Senna/Docusate Sodium (Senna Plus) 1 tab BID PO Last administered on 12/16/18 08:00; Start 12/15/18 at 09:00 Zinc Oxide (Zinc Oxide 20% Topical) 1 kandy BID TP Last administered on 12/17/18 12:49; Start 12/15/18 at 09:00 Levetiracetam (Keppra) 1,500 mg BID PEG Last administered on 12/15/18 10:11; Start 12/15/18 at 09:00; Stop 12/15/18 at 14:53; Status DC Potassium Bicarbonate (Potassium Effervescent Tablet) 20 meq BID PO Last administered on 12/17/18at 11:19; Start 12/15/18 at 09:00 Triamcinolone Acetonide (Kenalog) 1 kandy DAILY TP Last administered on 12/17/18at 12:49; Start 12/15/18 at 09:00 Levetiracetam (Keppra) 1,000 mg BID PEG Last administered on 12/17/18at 11:20; Start 12/15/18 at 21:00 Active Scripts Active Acetaminophen Oral Liquid (Acetaminophen) 650 Mg/20.3 Ml Solution 650 Mg PEG PRN Q6HRS PRN 30 Days Vimpat (Lacosamide) 50 Mg Tablet 100 Mg PEG BID 30 Days Cefdinir 250 Mg/5 Ml Susp.recon 250 Mg PEG BID 10 Days Reported Zinc Oxide 56.7 Gm Oint...g. 56.7 Gm TP BID Potassium Chloride Oral Liquid (Potassium Chloride) 20 Meq/15 Ml Liquid 20 Meq PEG BID Triamcinolone Acetonide 0.025% Cream (Triamcinolone Acetonide) 15 Gm Cream..g. 1 Kandy TP DAILY Famotidine 20 Mg Tablet 20 Mg PEG HS Senna-S Tablet (Sennosides/Docusate Sodium) 1 Each Tablet 1 Each PEG BID Synthroid (Levothyroxine Sodium) 100 Mcg Tablet 1 Tab PEG DAILY Keppra (Levetiracetam) 100 Mg/1 Ml Solution 1,500 Mg PEG BID [fibersource HN PEG] Vitals/I & O Vital Sign - Last 24 Hours 12/16/18 12/16/18 12/16/18 12/17/18 19:05 20:00 23:05 03:53 Temp 98.9 99.1 98.9 99.1 Pulse 103 84 84 Resp 20 18 18 B/P (MAP) 186/101 (129) 180/46 (90) 158/92 (114) Pulse Ox 91 96 94 O2 Delivery Nasal Cannula Nasal Cannula Room Air Room Air O2 Flow Rate 2.0 2.0 12/17/18 12/17/18 12/17/18 07:00 08:00 11:00 Temp 98.5 97.8 98.5 97.8 Pulse 88 92 Resp 20 20 B/P (MAP) 136/80 (98) 174/94 (120) Pulse Ox 95 95 O2 Delivery Room Air Room Air Room Air Intake and Output 12/16/18 12/16/18 12/17/18 14:59 22:59 06:59 Intake Total 720 ml 480 ml 480 ml Balance 720 ml 480 ml 480 ml KATHYA LEDBETTER MD Dec 17, 2018 15:31
[2018-12-17 19:10] VITALS: BP 205/94
[2018-12-17] MEDS: cefTRIAXone IV Push 1 GM VIAL. IVP SCH (21:34)
[2018-12-17] MEDS: FAMOTIDINE 20 MG TABLET. PEG SCH (21:38)
[2018-12-17 23:10] VITALS: BP 167/94
[2018-12-18 03:10] VITALS: BP 172/79
[2018-12-18] MEDS: LEVOTHYROXINE 100 MCG TABLET PEG SCH (06:05)
[2018-12-18 07:00] VITALS: BP 135/89
--- NOTE | 2018-12-18 07:41 | NUR ---
IP: Pt has a hx of mrsa since 2012 with current mrsa screen + requiring contact precautions.
--- NOTE | 2018-12-18 08:33 | NUR ---
Wound Care Wound care consult for multiple wounds. All wounds are scabbed/healed. Wound care will sign off at this time, please reconsult if new wounds develop. Pt brief changed and turned to right, pt on P500 bed.
[2018-12-18] MEDS: POTASSIUM BICARB 20 MEQ EFFERVESCENT TABLET. PO SCH (09:23)
[2018-12-18] MEDS: SENNOSIDES/DOCUSATE 8.6/50MG TABLET. PO SCH (09:26)
[2018-12-18] MEDS: LACOSAMIDE 200 MG TABLET PEG SCH (09:26)
--- NOTE | 2018-12-18 11:01 | PDOC ---
PROGRESS NOTES Assessment Seizure, near intractable. MR, severe. CP. Lactic acidosis, 20.5 HTN. Dementia, severe. Very poor mental prognosis. Plan She has been treated with high dose of Keppra, decreased from 1500 mg bid to 1000 mg bid due to high serum level. Continue Vimpat 100 mg - 200 mg bid. Consulted Palliative Care team before aimed for hospice care. Discharge back to shelter with instructions to administer Ativan PRN seizure lasting more than 5 minutes, otherwise to ignore any other seizure activity and not transfer the patient to the hospital unless seizures persist despite the Ativan. There is absolutely no purpose of continuously re-admitting this patient to the hospital Discussed with RN and Dr. Johns Subjective None Objective Vital Signs Date Time Temp Pulse Resp B/P (MAP) Pulse Ox O2 Delivery O2 Flow Rate FiO2 12/18/18 08:00 Room Air 12/18/18 07:00 98.4 76 20 135/89 (104) 94 98.4 Intake and Output 12/18/18 07:00 Intake Total 1740 ml Balance 1740 ml Intake Oral 0 ml Tube Feeding 1740 ml # Voids 5 PHYSICAL EXAM Eyes open, nonverbal, does not follow commands PERRL. EOMI. CN: no focal findings. Muscle tone: spastic tone bilaterally, multiple contractures Muscle strength: no movement to command or pain DTR: 1+ Plantar reflex: silent Gait: not examined in bed. Sensory exam: no abnormal findings. No cerebellar signs elicited. Review of Relevant I have reviewed the following items jo-ann (where applicable) has been applied. Labs Microbiology 12/14/18 Blood Culture - Preliminary, Resulted NO GROWTH AFTER 3 DAYS 12/14/18 Urine Culture - Final, Complete 12/14/18 Urine Culture Result 1 (VICKY) - Final, Complete Medications Current Medications Levetiracetam 1000 mg/Dextrose 110 ml @ 440 mls/hr Q12HR IV ; Start 12/14/18 at 22:15; Status UNV Levetiracetam 500 mg/Dextrose 105 ml @ 420 mls/hr 1X STAT IV ; Start 12/14/18 at 22:07; Stop 12/14/18 at 22:21; Status UNV Lorazepam (Ativan Inj) 1 mg 1X ONCE IV Last administered on 12/14/18at 22:35; Start 12/14/18 at 22:30; Stop 12/14/18 at 22:31; Status DC Ceftriaxone Sodium (Rocephin) 1 gm 1X ONCE IVP Last administered on 12/14/18 22:36; Start 12/14/18 at 22:30; Stop 12/14/18 at 22:31; Status DC Sodium Chloride 1,000 ml @ 1,000 mls/hr Q1H IV Last administered on 12/14/18 22:26; Start 12/14/18 at 22:30; Stop 12/15/18 at 00:35; Status DC Levetiracetam 1500 mg/Dextrose 115 ml @ 460 mls/hr 1X ONCE IV Last administered on 12/14/18 22:36; Start 12/14/18 at 23:00; Stop 12/14/18 at 23:14; Status DC Lacosamide (Vimpat) 200 mg 1X ONCE PEG Last administered on 12/14/18 22:44; Start 12/14/18 at 23:00; Stop 12/14/18 at 23:01; Status DC Lacosamide (Vimpat) 200 mg BID PEG Last administered on 12/18/18 09:26; Start 12/15/18 at 09:00 Lorazepam (Ativan Inj) 2 mg PRN Q4HRS PRN IV SEIZURE Last administered on 12/17/18 21:34; Start 12/14/18 at 23:00 Pharmacy Consult (C.diff Med Screen By Rx) 1 each 1X ONCE MC ; Start 12/15/18 at 03:00; Stop 12/15/18 at 03:01; Status DC Ceftriaxone Sodium (Rocephin) 1 gm Q24H IVP Last administered on 12/17/18 21:34; Start 12/15/18 at 21:00 Acetaminophen (Tylenol) 650 mg PRN Q6HRS PRN PEG MILD PAIN / TEMP; Start 12/15/18 at 08:30 Famotidine (Pepcid) 20 mg HS PEG Last administered on 12/17/18 21:38; Start 12/15/18 at 21:00 Lacosamide (Vimpat) 100 mg BID PEG ; Start 12/15/18 at 09:00; Status UNV Levothyroxine Sodium (Synthroid) 100 mcg DAILY06 PEG Last administered on 12/18/18 06:05; Start 12/15/18 at 09:00 Senna/Docusate Sodium (Senna Plus) 1 tab BID PO Last administered on 12/18/18 09:26; Start 12/15/18 at 09:00 Zinc Oxide (Zinc Oxide 20% Topical) 1 kandy BID TP Last administered on 12/17/18 21:39; Start 12/15/18 at 09:00 Levetiracetam (Keppra) 1,500 mg BID PEG Last administered on 12/15/18at 10:11; Start 12/15/18 at 09:00; Stop 12/15/18 at 14:53; Status DC Potassium Bicarbonate (Potassium Effervescent Tablet) 20 meq BID PO Last administered on 12/18/18 09:23; Start 12/15/18 at 09:00 Triamcinolone Acetonide (Kenalog) 1 kandy DAILY TP Last administered on 12/17/18 12:49; Start 12/15/18 at 09:00 Levetiracetam (Keppra) 1,000 mg BID PEG Last administered on 12/18/18 09:26; Start 12/15/18 at 21:00 Active Scripts Active Acetaminophen Oral Liquid (Acetaminophen) 650 Mg/20.3 Ml Solution 650 Mg PEG PRN Q6HRS PRN 30 Days Vimpat (Lacosamide) 50 Mg Tablet 100 Mg PEG BID 30 Days Cefdinir 250 Mg/5 Ml Susp.recon 250 Mg PEG BID 10 Days Reported Zinc Oxide 56.7 Gm Oint...g. 56.7 Gm TP BID Potassium Chloride Oral Liquid (Potassium Chloride) 20 Meq/15 Ml Liquid 20 Meq PEG BID Triamcinolone Acetonide 0.025% Cream (Triamcinolone Acetonide) 15 Gm Cream..g. 1 Kandy TP DAILY Famotidine 20 Mg Tablet 20 Mg PEG HS Senna-S Tablet (Sennosides/Docusate Sodium) 1 Each Tablet 1 Each PEG BID Synthroid (Levothyroxine Sodium) 100 Mcg Tablet 1 Tab PEG DAILY Keppra (Levetiracetam) 100 Mg/1 Ml Solution 1,500 Mg PEG BID [fibersource HN PEG] Vitals/I & O Vital Sign - Last 24 Hours 12/17/18 12/17/18 12/17/18 12/17/18 11:00 15:00 19:10 20:00 Temp 97.8 97.9 99.5 97.8 97.9 99.5 Pulse 92 89 88 Resp 20 20 20 B/P (MAP) 174/94 (120) 174/94 (120) 205/94 (131) Pulse Ox 95 95 92 O2 Delivery Room Air Room Air Room Air Room Air 12/17/18 12/18/18 12/18/18 12/18/18 23:10 03:10 07:00 08:00 Temp 99.3 98.5 98.4 99.3 98.5 98.4 Pulse 90 75 76 Resp 20 20 20 B/P (MAP) 167/94 (118) 172/79 (110) 135/89 (104) Pulse Ox 92 95 94 O2 Delivery Room Air Room Air Room Air Room Air Intake and Output 12/17/18 12/17/18 12/18/18 15:00 23:00 07:00 Intake Total 480 ml 1020 ml 240 ml Balance 480 ml 1020 ml 240 ml PAUL RODRIGUEZ MD Dec 18, 2018 11:01
[2018-12-18 11:27] VITALS: BP 155/75
--- NOTE | 2018-12-18 11:57 | PDOC ---
PROGRESS NOTES Chief Complaint Chief Complaint sepsis UTI, acute on chronic, will culrure seizure disorder, with poss exac, home meds, malnurition, dysphagia, PEG feeds not verbal, not cooperative, pallative measures have been considered, pt is DNR History of Present Illness History of Present Illness Ms Ortega is a 68-year-old female with PMHx HTN, dementia, likely cerebral palsy, GERD, dysphagia s/p PEG, hypothyroidism, and seizures who was here just discharged about 3 days ago. She was brought back to the ER of [facility] on 12/15/18 by ambulance with increased shaking of her left arm. Her facility was worried about possible worsening seizure activity. Longtime longterm resident since 2003, no family, a trust pays for her medical care Placement will be needed, hospice had been considered, She has been treated with high dose of Keppra, decrease from 1500 mg bid to 1000 mg bid due to high serum level. Continue Vimpat 100 mg - 200 mg bid. Consulted Palliative Care team before aimed for hospice care. Seizure, near intractable MR, severe CP Lactic acidosis, 20.5 HTN Dementia, severe Very poor mental prognosis Vitals Vitals Vital Signs Date Time Temp Pulse Resp B/P (MAP) Pulse Ox O2 Delivery O2 Flow Rate FiO2 12/18/18 11:27 98.5 66 18 155/75 (101) 94 Room Air 98.5 Physical Exam General: No acute distress, Other (left arm tick-like shaking, worse with interaction, not verbal) Lungs: Clear Abdomen: Normal bowel sounds (PEG), Soft Extremities: No clubbing, No edema Skin: No rashes, No breakdown Comment Review of Relevant I have reviewed the following items jo-ann (where applicable) has been applied. Labs Microbiology 12/14/18 Blood Culture - Preliminary, Resulted NO GROWTH AFTER 3 DAYS 12/14/18 Urine Culture - Final, Complete 12/14/18 Urine Culture Result 1 (VICKY) - Final, Complete Medications Current Medications Levetiracetam 1000 mg/Dextrose 110 ml @ 440 mls/hr Q12HR IV ; Start 12/14/18 at 22:15; Status UNV Levetiracetam 500 mg/Dextrose 105 ml @ 420 mls/hr 1X STAT IV ; Start 12/14/18 at 22:07; Stop 12/14/18 at 22:21; Status UNV Lorazepam (Ativan Inj) 1 mg 1X ONCE IV Last administered on 12/14/18 22:35; Start 12/14/18 at 22:30; Stop 12/14/18 at 22:31; Status DC Ceftriaxone Sodium (Rocephin) 1 gm 1X ONCE IVP Last administered on 12/14/18 22:36; Start 12/14/18 at 22:30; Stop 12/14/18 at 22:31; Status DC Sodium Chloride 1,000 ml @ 1,000 mls/hr Q1H IV Last administered on 12/14/18 22:26; Start 12/14/18 at 22:30; Stop 12/15/18 at 00:35; Status DC Levetiracetam 1500 mg/Dextrose 115 ml @ 460 mls/hr 1X ONCE IV Last administered on 12/14/18 22:36; Start 12/14/18 at 23:00; Stop 12/14/18 at 23:14; Status DC Lacosamide (Vimpat) 200 mg 1X ONCE PEG Last administered on 12/14/18 22:44; Start 12/14/18 at 23:00; Stop 12/14/18 at 23:01; Status DC Lacosamide (Vimpat) 200 mg BID PEG Last administered on 12/18/18 09:26; Start 12/15/18 at 09:00 Lorazepam (Ativan Inj) 2 mg PRN Q4HRS PRN IV SEIZURE Last administered on 12/17/18 21:34; Start 12/14/18 at 23:00 Pharmacy Consult (C.diff Med Screen By Rx) 1 each 1X ONCE MC ; Start 12/15/18 at 03:00; Stop 12/15/18 at 03:01; Status DC Ceftriaxone Sodium (Rocephin) 1 gm Q24H IVP Last administered on 12/17/18 21:34; Start 12/15/18 at 21:00 Acetaminophen (Tylenol) 650 mg PRN Q6HRS PRN PEG MILD PAIN / TEMP; Start 12/15/18 at 08:30 Famotidine (Pepcid) 20 mg HS PEG Last administered on 12/17/18 21:38; Start 12/15/18 at 21:00 Lacosamide (Vimpat) 100 mg BID PEG ; Start 12/15/18 at 09:00; Status UNV Levothyroxine Sodium (Synthroid) 100 mcg DAILY06 PEG Last administered on 12/18/18 06:05; Start 12/15/18 at 09:00 Senna/Docusate Sodium (Senna Plus) 1 tab BID PO Last administered on 12/18/18 09:26; Start 12/15/18 at 09:00 Zinc Oxide (Zinc Oxide 20% Topical) 1 kandy BID TP Last administered on 12/17/18 21:39; Start 12/15/18 at 09:00 Levetiracetam (Keppra) 1,500 mg BID PEG Last administered on 12/15/18 10:11; Start 12/15/18 at 09:00; Stop 12/15/18 at 14:53; Status DC Potassium Bicarbonate (Potassium Effervescent Tablet) 20 meq BID PO Last administered on 12/18/18 09:23; Start 12/15/18 at 09:00 Triamcinolone Acetonide (Kenalog) 1 kandy DAILY TP Last administered on 12/17/18 12:49; Start 12/15/18 at 09:00 Levetiracetam (Keppra) 1,000 mg BID PEG Last administered on 12/18/18 09:26; Start 12/15/18 at 21:00 Active Scripts Active Acetaminophen Oral Liquid (Acetaminophen) 650 Mg/20.3 Ml Solution 650 Mg PEG PRN Q6HRS PRN 30 Days Vimpat (Lacosamide) 50 Mg Tablet 100 Mg PEG BID 30 Days Cefdinir 250 Mg/5 Ml Susp.recon 250 Mg PEG BID 10 Days Reported Zinc Oxide 56.7 Gm Oint...g. 56.7 Gm TP BID Potassium Chloride Oral Liquid (Potassium Chloride) 20 Meq/15 Ml Liquid 20 Meq PEG BID Triamcinolone Acetonide 0.025% Cream (Triamcinolone Acetonide) 15 Gm Cream..g. 1 Kandy TP DAILY Famotidine 20 Mg Tablet 20 Mg PEG HS Senna-S Tablet (Sennosides/Docusate Sodium) 1 Each Tablet 1 Each PEG BID Synthroid (Levothyroxine Sodium) 100 Mcg Tablet 1 Tab PEG DAILY Keppra (Levetiracetam) 100 Mg/1 Ml Solution 1,500 Mg PEG BID [fibersource HN PEG] Vitals/I & O Vital Sign - Last 24 Hours 12/17/18 12/17/18 12/17/18 12/17/18 15:00 19:10 20:00 23:10 Temp 97.9 99.5 99.3 97.9 99.5 99.3 Pulse 89 88 90 Resp 20 20 20 B/P (MAP) 174/94 (120) 205/94 (131) 167/94 (118) Pulse Ox 95 92 92 O2 Delivery Room Air Room Air Room Air Room Air 12/18/18 12/18/18 12/18/18 12/18/18 03:10 07:00 08:00 11:27 Temp 98.5 98.4 98.5 98.5 98.4 98.5 Pulse 75 76 66 Resp 20 20 18 B/P (MAP) 172/79 (110) 135/89 (104) 155/75 (101) Pulse Ox 95 94 94 O2 Delivery Room Air Room Air Room Air Room Air Intake and Output 12/17/18 12/17/18 12/18/18 14:59 22:59 06:59 Intake Total 480 ml 1020 ml 240 ml Balance 480 ml 1020 ml 240 ml JAYE CALLES MD Dec 18, 2018 11:57
[2018-12-18] MEDS ORDERED: LORA0.5T PEG (11:59)
--- NOTE | 2018-12-18 12:00 | SNU/HH DC ---
DISCHARGE ORDERS DISCHARGE INFORMATION: DISCHARGE DATE: Dec 18, 2018 CONDITION ON DISCHARGE: Guarded CODE STATUS: Code Status: DNR/DNI SENIOR LIVING: SNF STAY <30 DAYS: No POST DISCHARGE ORDERS: ACTIVITY ORDERS: Bedrest today DIET AFTER DISCHARGE: peg feeds CHECKS AFTER DISCHARGE: CHECKS AFTER DISCHARGE: Check blood sugar, ac/hs TREATMENT/EQUIPMENT ORDERS: ADAPTIVE EQUIPMENT NEEDED: None RESPIRATORY EQUIPMENT NEEDED: Oxygen Speech Language Pathology For: Swallow Cognition DISCHARGE MEDICATIONS: Home Meds Active Scripts Lorazepam (LORAZEPAM) 0.5 Mg Tablet, 1 TAB PEG PRN TID PRN for seizure for 30 Days, #90 TAB Prov:JAYE CALLES MD 12/18/18 Acetaminophen (ACETAMINOPHEN ORAL LIQUID ) 650 Mg/20.3 Ml Solution, 650 MG PEG PRN Q6HRS PRN for MILD PAIN / TEMP for 30 Days, #120 MISC Prov:MARY PECK MD 12/12/18 Lacosamide (VIMPAT) 50 Mg Tablet, 100 MG PEG BID for seizures for 30 Days, #120 TAB Prov:MARY PECK MD 12/12/18 Cefdinir (CEFDINIR) 250 Mg/5 Ml Susp.recon, 250 MG PEG BID for uti for 10 Days, #240 MISC Prov:MARY PECK MD 12/12/18 Reported Medications Zinc Oxide (ZINC OXIDE) 56.7 Gm Oint...g., 56.7 GM TP BID for Skin condition/preventative, MISC 12/08/18 Potassium Chloride (POTASSIUM CHLORIDE ORAL LIQUID) 20 Meq/15 Ml Liquid, 20 MEQ PEG BID, LIQUID 03/22/17 Triamcinolone Acetonide (TRIAMCINOLONE ACETONIDE 0.025% CREAM) 15 Gm Cream..g., 1 EROS TP DAILY, #30 GM 01/10/17 Famotidine (FAMOTIDINE) 20 Mg Tablet, 20 MG PEG HS, TAB 01/10/17 Sennosides/Docusate Sodium (SENNA-S TABLET) 1 Each Tablet, 1 EACH PEG BID 02/11/16 Levothyroxine Sodium (SYNTHROID) 100 Mcg Tablet, 1 TAB PEG DAILY, #30 TAB 5 Re fills 02/11/16 Levetiracetam (KEPPRA) 100 Mg/1 Ml Solution, 1500 MG PEG BID for seizures, ML 02/11/16 [fibersource HN PEG] No Conflict Check 02/11/16 JAYE CALLES MD Dec 18, 2018 12:00
--- NOTE | 2018-12-18 12:01 | PDOC3 ---
Discharge Summary Visit Information Date of Admission: Dec 14, 2018 Date of Discharge: Dec 18, 2018 Admitting Diagnosis: Seizure Final Diagnosis Seizure Brief Hospital Course Allergies Allergies Coded Allergies Type Severity Reaction Last Updated Verified I S O L A T I O N *CONTACT* Allergy Unknown 04/18/18 Yes No Known Medication Allergies Allergy Unknown 04/18/18 Yes Vital Signs Vital Signs Date Time Temp Pulse Resp B/P (MAP) Pulse Ox O2 Delivery O2 Flow Rate FiO2 12/18/18 11:27 98.5 66 18 155/75 (101) 94 Room Air 98.5 Brief Hospital Course Ms Ortega is a 68-year-old female with PMHx HTN, dementia, likely cerebral palsy, GERD, dysphagia s/p PEG, hypothyroidism, and seizures who was here just discharged about 3 days ago. She was brought back to the ER of [facility] on 12/15/18 by ambulance with increased shaking of her left arm. Her facility was worried about possible worsening seizure activity. Longtime retirement resident since 2003, no family, a trust pays for her medical care Seen by neurology, underwent negative EEG. She has been treated with high dose of Keppra, decrease from 1500 mg bid to 1000 mg bid due to high serum level. Continue Vimpat 100 mg - 200 mg bid. Consulted Palliative Care team before aimed for hospice care. Seizure, near intractable MR, severe CP Lactic acidosis, 20.5 HTN Dementia, severe Very poor mental prognosis Greater than 30 minutes spent on discharge to SNF> Discharge Information Condition at Discharge: Improved Follow Up: Weeks Disposition/Orders: D/C to Home Scheduled Cefdinir (Cefdinir) 250 Mg/5 Ml Susp.recon, 250 MG PEG BID for uti for 10 Days, #240 Prescribed by: MARY PECK MD on 12/12/181104 Last Action: HELD on 12/15/18823 by KATHYA LEDBETTER Famotidine (Famotidine) 20 Mg Tablet, 20 MG PEG HS, (Reported) Entered as Reported by: CHRISTIE HYLTON on 01/10/172153 Last Action: Continued on 12/15/18823 by KATHYA LEDBETTER Lacosamide (Vimpat) 50 Mg Tablet, 100 MG PEG BID for seizures for 30 Days, #120 Prescribed by: MARY PECK MD on 12/12/181104 Last Action: Continued on 12/15/18823 by KATHYA LEDBETTER Levetiracetam (Keppra) 100 Mg/1 Ml Solution, 1,500 MG PEG BID for seizures, (Reported) Entered as Reported by: Vivian Acosta on 02/11/161947 Last Action: Converted on 12/15/18823 by KATHYA LEDBETTER Levothyroxine Sodium (Synthroid) 100 Mcg Tablet, 1 TAB PEG DAILY, #30 Ref 5 (Reported) Entered as Reported by: Vivian Acosta on 02/11/162022 Last Action: Continued on 12/15/18823 by KATHYA LEDBETTER Potassium Chloride (Potassium Chloride Oral Liquid) 20 Meq/15 Ml Liquid, 20 MEQ PEG BID, (Reported) Entered as Reported by: MINGO PRATT on 03/22/171 Last Action: Converted on 12/15/18823 by KATHYA LEDBETTER Sennosides/Docusate Sodium (Senna-S Tablet) 1 Each Tablet, 1 EACH PEG BID, (Reported) Entered as Reported by: Vivian Acosta on 02/11/162022 Last Action: Continued on 12/15/18823 by KATHYA LEDBETTER Triamcinolone Acetonide (Triamcinolone Acetonide 0.025% Cream) 15 Gm Cream..g., 1 EROS TP DAILY, #30 (Reported) Entered as Reported by: CHRISTIE HYLTON on 01/10/172153 Last Action: Converted on 12/15/18823 by KATHYA LEDBETTER Zinc Oxide (Zinc Oxide) 56.7 Gm Oint...g., 56.7 GM TP BID for Skin condition/preventative, (Reported) Entered as Reported by: TRUDY GAMING RN on 12/08/18 0623 Last Action: Continued on 12/15/18823 by KATHYA LEDBETTER Scheduled PRN Acetaminophen (Acetaminophen Oral Liquid ) 650 Mg/20.3 Ml Solution, 650 MG PEG PRN Q6HRS PRN for MILD PAIN / TEMP for 30 Days, #120 Prescribed by: MARY PECK MD on 12/12/18 1105 Last Action: Continued on 12/15/18823 by KATHYA LEDBETTER Lorazepam (Lorazepam) 0.5 Mg Tablet, 1 TAB PEG PRN TID PRN for seizure for 30 Days, #90 Prescribed by: JAYE CALLES MD on 12/18/18 1159 Miscellaneous Medications [fibersource HN PEG] , (Reported) Entered as Reported by: Vivian Acosta on 02/11/161947 Last Action: Reviewed on 12/15/188 by JAYE SWEENEY MD Dec 18, 2018 12:01
--- NOTE | 2018-12-18 12:16 | NUR ---
ARACELI following pt. Orders faxed to [facility] and awaiting to hear back on transportation time. Addendum: 12/18/18 at 1301 by MONISHA CHARLES Pt will transport at 1315. RN notified.
--- NOTE | 2018-12-18 13:15 | NUR ---
Discharge Note: CHRIS GONZALES [address] [place] [address] Discharge instructions and discharge home medications reviewed with Other facility and a copy given. All questions have been answered and understanding verbalized. The following instructions and handouts were given: Ativan for seizures. Not to send her out unless seizures are over 5 mins long. Discontinued lines and drains: IV lines in both ankles with catheter intact. Patient discharged to [facility] with [facility] via Transportation.
== END 2018-12-18 13:20 | DRG 872 ==
LOC: ER 21:43 → 6 SOUTH 22:18
PROVIDERS: ADMIT Internal Medicine; ATTEND Internal Medicine
DX: A41.9 Sepsis, unspecified organism (principal); N39.0 Urinary tract infection, site not specified; F72 Severe intellectual disabilities; Z51.5 Encounter for palliative care; Z66 Do not resuscitate; I34.0 Nonrheumatic mitral (valve) insufficiency; G40.909 Epilepsy, unspecified, not intractable, without status epilepticus; R13.10 Dysphagia, unspecified; G80.9 Cerebral palsy, unspecified; Z86.73 Personal history of transient ischemic attack (TIA), and cerebral infarction without residual deficits; K21.9 Gastro-esophageal reflux disease without esophagitis; I10 Essential (primary) hypertension; E03.9 Hypothyroidism, unspecified; K59.00 Constipation, unspecified; F03.90 Unspecified dementia, unspecified severity, without behavioral disturbance, psychotic disturbance, mood disturbance, and anxiety; Z74.01 Bed confinement status; Z79.899 Other long term (current) drug therapy; Z93.1 Gastrostomy status
CPT/HCPCS: 36415; 71045; 80053; 81001; 83605; 85025; 85610; 87040; 87086; 87641; 93005; 95816; 96365; 96375; J0696; J1953; J2060; J7030; 99285-25

== ENCOUNTER 2019-04-01 10:07 | Inpatient (IN) | payer OTHER ==
[~2019-04-01] VITALS: Ht 165.1 cm; Wt 67.3 kg
[~2019-04-01 10:07] MED LIST changes: +LORA0.5T PEG; -PHEN32.42 PO; +PHEN32.45 PO; +POTA20LI2 PEG; -POTA20LI27 PEG
[2019-04-01] MEDS ORDERED: levETIRAcetam 1,000 MG in IV DEXTROSE 5% 100ML 100 ML IV ONE (10:15)
[2019-04-01 11:09] LABS: CALCIUM 9.9 mg/dL (8.5-10.1); CREATININE 1.1 mg/dL (0.6-1.0); GFR 49.5; POTASSIUM 3.6 mmol/L (3.5-5.1)
[2019-04-01 11:23] LABS: BASO % 1 % (0-3); EOS # 0.2 x10^3/uL (0.0-0.7); EOS % 2 % (0-3); HEMATOCRIT 36.6 % (36.0-47.0); HEMOGLOBIN 12.2 g/dL (12.0-15.5); LYMPH # 1.1 x10^3/uL (1.0-4.8); LYMPH % 11 % (24-48); MEAN CORPUSCULAR HEMOGLOBIN 28 pg (25-35); MEAN CORPUSCULAR HGB CONC 33 g/dL (31-37); MEAN CORPUSCULAR VOLUME 83 fL (79-100); MONO # 0.5 x10^3/uL (0.0-1.1); MONO % 6 % (0-9); NEUT # 7.7 x10^3/uL (1.8-7.7); NEUT % 80 % (31-73); PLATELET COUNT 260 x10^3/uL (140-400); RED BLOOD COUNT 4.42 x10^6/uL (3.50-5.40); RED CELL DISTRIBUTION WIDTH 15.6 % (11.5-14.5); WHITE BLOOD COUNT 9.6 x10^3/uL (4.0-11.0)
[2019-04-01] MEDS ORDERED: IV NORMAL SALINE 1000ML BAG 1,000 ML IV ONE (11:30)
[2019-04-01 11:36] LABS: BILIRUBIN,URINE NEGATIVE (NEG); CLARITY,URINE CLOUDY; COLOR,URINE YELLOW; NITRITE,URINE POSITIVE (NEG); PROTEIN,URINE >=300 mg/dL (NEG-TRACE); UROBILINOGEN,URINE 0.2 mg/dL (0.2 mg/dL)
[2019-04-01 11:38] LABS: BACTERIA,URINE MANY /HPF (0-FEW)
[2019-04-01] MEDS ORDERED: cefTRIAXone IV Push 1 GM VIAL. IVP ONE (12:00)
--- NOTE | 2019-04-01 12:17 | RAD ---
EXAM: AP View of the chest DATE: 04/01/2019 11:45 AM INDICATION: Seizure COMPARISON: 12/14/2018 FINDINGS/IMPRESSION The heart is mildly enlarged. Atherosclerotic calcifications of the tortuous aorta are seen. Mediastinal and hilar contours are stable. Left lung base airspace opacities and perihilar airspace opacities are essentially stable to 12/14/2018, may represent atelectasis. No pleural effusion or pneumothorax. Electronically signed by: Gilbert Tang MD (04/01/2019 12:14 PM) [facility]
--- NOTE | 2019-04-01 13:35 | PDOC1 ---
History and Physical Date of Admission Date of Admission DATE: 04/01/19 TIME: 13:20 Identification/Chief Complaint Chief Complaint Status epilepticus Source Source: Caregiver, Chart review History of Present Illness History of Present Illness Ms Ortega is a 68-year-old female with PMHx HTN, dementia, likely cerebral palsy, GERD, dysphagia s/p PEG, hypothyroidism, and seizures who was brought in for greater than 30 minutes of seizures. Also with UTI and hypoxia, likely related to seizure as well as a malfunctioning PEG tube that has been very friable, almost dissolved. She was brought back to the ER of [facility] on 12/15/18 by ambulance with increased shaking of her left arm. Her facility was worried about possible worsening seizure activity. Longtime residential resident since 2003, no family, a trust pays for her medical care Seen by neurology, underwent negative EEG back in December 2018 Past Medical History Cardiovascular: HTN CENTRAL NERVOUS SYSTEM: Dementia, Seizure GI: GERD Endocrine: Hypothyroidism Past Surgical History Past Surgical History: Other Family History Family History: No Significant, Family History Unknown Social History ALCOHOL: none Drugs: None Current Medications Current Medications Current Medications Levetiracetam 1000 mg/Dextrose 110 ml @ 440 mls/hr 1X ONCE IV Last administered on 04/01/19at 10:48; Start 04/01/19 at 10:15; Stop 04/01/19 at 10:29; Status DC Sodium Chloride 1,000 ml @ 1,000 mls/hr 1X ONCE IV Last administered on 04/01/19at 11:25; Start 04/01/19 at 11:30; Stop 04/01/19 at 12:29; Status DC Lorazepam (Ativan Inj) 2 mg 1X ONCE IVP Last administered on 04/01/19at 11:25; Start 04/01/19 at 11:30; Stop 04/01/19 at 11:31; Status DC Ceftriaxone Sodium (Rocephin) 1 gm 1X ONCE IVP Last administered on 04/01/19at 12:10; Start 04/01/19 at 12:00; Stop 04/01/19 at 12:01; Status DC Sodium Chloride 1,000 ml @ 75 mls/hr [id number] IV ; Start 04/01/19 at 12:21; Stop 04/02/19 at 12:20 Active Scripts Active Lorazepam 0.5 Mg Tablet 1 Tab PEG PRN TID PRN 30 Days Acetaminophen Oral Liquid (Acetaminophen) 650 Mg/20.3 Ml Solution 650 Mg PEG PRN Q6HRS PRN 30 Days Vimpat (Lacosamide) 50 Mg Tablet 100 Mg PEG BID 30 Days Cefdinir 250 Mg/5 Ml Susp.recon 250 Mg PEG BID 10 Days Reported Zinc Oxide 56.7 Gm Oint...g. 56.7 Gm TP BID Potassium Chloride Oral Liquid (Potassium Chloride) 20 Meq/15 Ml Liquid 20 Meq PEG BID Triamcinolone Acetonide 0.025% Cream (Triamcinolone Acetonide) 15 Gm Cream..g. 1 Kandy TP DAILY Famotidine 20 Mg Tablet 20 Mg PEG HS Senna-S Tablet (Sennosides/Docusate Sodium) 1 Each Tablet 1 Each PEG BID Synthroid (Levothyroxine Sodium) 100 Mcg Tablet 1 Tab PEG DAILY Keppra (Levetiracetam) 100 Mg/1 Ml Solution 1,500 Mg PEG BID [fibersource HN PEG] Allergies Allergies: Coded Allergies: I S O L A T I O N *CONTACT* (Verified Allergy, Unknown, 04/18/18) mrsa No Known Medication Allergies (Verified Allergy, Unknown, 04/18/18) ROS Review of System Unable to obtain due to patient being non-verbal and non-communicative Physical Exam General: No acute distress HEENT: Atraumatic, PERRLA, EOMI, Mucous membr. moist/pink Lungs: Clear to auscultation, Normal air movement Heart: S1S2, RRR, no thrills, no rubs Abdomen: Normal bowel sounds, Soft, No tenderness, No hepatosplenomegaly, No masses, Other (Friable PEG with end torn off) Rectal Exam: not examined Extremities: No clubbing, No cyanosis, No edema, Normal pulses, No tenderness/swelling Skin: No rashes, No breakdown, No significant lesion Neuro: Normal tone, Cranial nerves 3-12 NL, Reflexes 2+ Vitals Vitals Vital Signs Date Time Temp Pulse Resp B/P (MAP) Pulse Ox O2 Delivery O2 Flow Rate FiO2 04/01/19 10:11 98.6 16 148/80 (102) 97 Room Air 98.6 Labs Labs Laboratory Tests Test 04/01/19 10:46 04/01/19 11:25 White Blood Count 9.6 x10^3/uL (4.0-11.0) Red Blood Count 4.42 x10^6/uL (3.50-5.40) Hemoglobin 12.2 g/dL (12.0-15.5) Hematocrit 36.6 % (36.0-47.0) Mean Corpuscular Volume 83 fL (79-100) Mean Corpuscular Hemoglobin 28 pg (25-35) Mean Corpuscular Hemoglobin Concent 33 g/dL (31-37) Red Cell Distribution Width 15.6 % (11.5-14.5) Platelet Count 260 x10^3/uL (140-400) Neutrophils (%) (Auto) 80 % (31-73) Lymphocytes (%) (Auto) 11 % (24-48) Monocytes (%) (Auto) 6 % (0-9) Eosinophils (%) (Auto) 2 % (0-3) Basophils (%) (Auto) 1 % (0-3) Neutrophils # (Auto) 7.7 x10^3/uL (1.8-7.7) Lymphocytes # (Auto) 1.1 x10^3/uL (1.0-4.8) Monocytes # (Auto) 0.5 x10^3/uL (0.0-1.1) Eosinophils # (Auto) 0.2 x10^3/uL (0.0-0.7) Basophils # (Auto) 0.0 x10^3/uL (0.0-0.2) Sodium Level 145 mmol/L (136-145) Potassium Level 3.6 mmol/L (3.5-5.1) Chloride Level 108 mmol/L (98-107) Carbon Dioxide Level 24 mmol/L (21-32) Anion Gap 13 (6-14) Blood Urea Nitrogen 23 mg/dL (7-20) Creatinine 1.1 mg/dL (0.6-1.0) Estimated GFR (Cockcroft-Gault) 49.5 Glucose Level 185 mg/dL (70-99) Calcium Level 9.9 mg/dL (8.5-10.1) Urine Collection Type U cath Urine Color Yellow Urine Clarity Cloudy Urine pH 8.0 Urine Specific [place] 1.020 Urine Protein >=300 mg/dL (NEG-TRACE) Urine Glucose (UA) Negative mg/dL (NEG) Urine Ketones (Stick) Negative mg/dL (NEG) Urine Blood Large (NEG) Urine Nitrite Positive (NEG) Urine Bilirubin Negative (NEG) Urine Urobilinogen Dipstick 0.2 mg/dL (0.2 mg/dL) Urine Leukocyte Esterase Large (NEG) Urine RBC 11-20 /HPF (0-2) Urine WBC 11-20 /HPF (0-4) Urine Renal Epithelial Cells Few /LPF Urine Bacteria Many /HPF (0-FEW) Laboratory Tests Test 04/01/19 10:46 04/01/19 11:25 White Blood Count 9.6 x10^3/uL (4.0-11.0) Red Blood Count 4.42 x10^6/uL (3.50-5.40) Hemoglobin 12.2 g/dL (12.0-15.5) Hematocrit 36.6 % (36.0-47.0) Mean Corpuscular Volume 83 fL (79-100) Mean Corpuscular Hemoglobin 28 pg (25-35) Mean Corpuscular Hemoglobin Concent 33 g/dL (31-37) Red Cell Distribution Width 15.6 % (11.5-14.5) Platelet Count 260 x10^3/uL (140-400) Neutrophils (%) (Auto) 80 % (31-73) Lymphocytes (%) (Auto) 11 % (24-48) Monocytes (%) (Auto) 6 % (0-9) Eosinophils (%) (Auto) 2 % (0-3) Basophils (%) (Auto) 1 % (0-3) Neutrophils # (Auto) 7.7 x10^3/uL (1.8-7.7) Lymphocytes # (Auto) 1.1 x10^3/uL (1.0-4.8) Monocytes # (Auto) 0.5 x10^3/uL (0.0-1.1) Eosinophils # (Auto) 0.2 x10^3/uL (0.0-0.7) Basophils # (Auto) 0.0 x10^3/uL (0.0-0.2) Sodium Level 145 mmol/L (136-145) Potassium Level 3.6 mmol/L (3.5-5.1) Chloride Level 108 mmol/L (98-107) Carbon Dioxide Level 24 mmol/L (21-32) Anion Gap 13 (6-14) Blood Urea Nitrogen 23 mg/dL (7-20) Creatinine 1.1 mg/dL (0.6-1.0) Estimated GFR (Cockcroft-Gault) 49.5 Glucose Level 185 mg/dL (70-99) Calcium Level 9.9 mg/dL (8.5-10.1) Urine Collection Type U cath Urine Color Yellow Urine Clarity Cloudy Urine pH 8.0 Urine Specific [place] 1.020 Urine Protein >=300 mg/dL (NEG-TRACE) Urine Glucose (UA) Negative mg/dL (NEG) Urine Ketones (Stick) Negative mg/dL (NEG) Urine Blood Large (NEG) Urine Nitrite Positive (NEG) Urine Bilirubin Negative (NEG) Urine Urobilinogen Dipstick 0.2 mg/dL (0.2 mg/dL) Urine Leukocyte Esterase Large (NEG) Urine RBC 11-20 /HPF (0-2) Urine WBC 11-20 /HPF (0-4) Urine Renal Epithelial Cells Few /LPF Urine Bacteria Many /HPF (0-FEW) Images Images CXR - The heart is mildly enlarged. Atherosclerotic calcifications of the tortuous aorta are seen. Mediastinal and hilar contours are stable. Left lung base airspace opacities and perihilar airspace opacities are essentially stable to 12/14/2018, may represent atelectasis. No pleural effusion or pneumothorax. VTE Prophylaxis Ordered VTE Prophylaxis Devices: No VTE Pharmacological Prophylaxi: Yes Assessment/Plan Assessment/Plan A/P Status epilepticus - with Recurrent seizures. PRN ativan and Keppra, vimpat all IV as her PEG should not be used in its current state UTI - empiric rocephin 3 days MR, severe - per chart history is cerebral palsy CP - definitely has some discoordination and contractures Lactic acidosis - likely related to seizure HTN - hold meds Dementia, severe - poor prognosis. D/w neuro - palliative would be appropriate Hyperglycemia - monitor Broken PEG - will consult GI to replace FEN - Procalamine IV PPX - lovenox DNR/DNI Dispo - inpatient for status epilepticus and malfunctioning G-tube JAYE CALLES MD Apr 01, 2019 13:35
[2019-04-01] MEDS: IV NORMAL SALINE 1000ML BAG 1,000 ML IV SCH (13:49)
--- NOTE | 2019-04-01 14:41 | PHYS DOC ---
Past Medical History Past Medical History: GERD, Hypertension, Hypothyroid Additional Past Medical Histor: EPILEPSY, GASTROSTOMY TUBE, DYSPHAGIA, APHASIA Past Surgical History: Other Additional Past Surgical Histo: G-tube Alcohol Use: None Drug Use: None Adult General Chief Complaint Chief Complaint: SEIZURE HPI HPI Patient is a 68 year old female presents with chief complaint of seizure brought in by ambulance bed bound at baseline nonverbal known seizure disorder had a witnessed seizure lasting 15 minutes no other noted complaints history limited by the patient's mental status Review of Systems Review of Systems Unable to obtain Current Medications Current Medications Current Medications Medications (Trade) Dose Ordered Sig/Fatmata Start Time Stop Time Status Last Admin Dose Admin Levetiracetam 1000 mg/Dextrose 110 ml @ 440 mls/hr 1X ONCE 04/01/19 10:15 04/01/19 10:29 DC 04/01/19 10:48 440 MLS/HR Allergies Allergies Allergies Coded Allergies Type Severity Reaction Last Updated Verified I S O L A T I O N *CONTACT* Allergy Unknown 04/18/18 Yes No Known Medication Allergies Allergy Unknown 04/18/18 Yes Physical Exam Physical Exam Constitutional: Chronically ill appearing appears in distress HENT: Normocephalic, atraumatic, bilateral external ears normal, oropharynx moist, no oral exudates, nose normal. [] Eyes: Mostly looking off to the left pupils were equal round and reactive to light Neck: Normal range of motion, no tenderness, supple, no stridor. [] Cardiovascular: Tachycardic no definite murmur Lungs & Thorax: Coarse bilateral breath sounds Abdomen: Bowel sounds normal, soft, no tenderness, no masses, no pulsatile masses. [] Skin: Warm, dry, no erythema, no rash. [] Extremities: No tenderness, no cyanosis, no clubbing, ROM intact, no edema. [] Neurologic: Eyes are open patient is moving things spontaneously does not follow commands does not speak this is her baseline. Less than an hour into the ER course did have a witnessed seizure lasting 5 minutes was having some tonic- clonic activity gaze deviation I believed to the left she was looking mostly to the left last at least 5 minutes Current Patient Data Vital Signs Vital Signs Date Time Temp Pulse Resp B/P (MAP) Pulse Ox O2 Delivery O2 Flow Rate FiO2 04/01/19 10:11 98.6 16 148/80 (102) 97 Room Air 98.6 EKG EKG [] Radiology/Procedures Radiology/Procedures [] Impressions: FINDINGS/IMPRESSION The heart is mildly enlarged. Atherosclerotic calcifications of the tortuous aorta are seen. Mediastinal and hilar contours are stable. Left lung base airspace opacities and perihilar airspace opacities are essentially stable to 12/14/2018, may represent atelectasis. No pleural effusion or pneumothorax. Electronically signed by: Gilbert Holguin MD (04/01/2019 12:14 PM) [facility] DICTATED and SIGNED BY: GILBERT HOLGUIN MD DATE: 04/01/19 1214 Course & Med Decision Making Course & Med Decision Making Pertinent Labs and Imaging studies reviewed. (See chart for details) In summary 68-year-old female presenting with chief complaint of seizure witnessed seizure in the emergency room and spoke with Lexx we have the patient TERRA Marmolejo spoke with Dr. Foy as well. PT HAS A UTI ABX GIVEN COULD BE LOWE SEIZURE THRESHOLD DUE TO THAT D/W RIFFEL FOR ADMIT. NO HEAD CT DONE AT THIS TIME PATIENT HAS FREQUENT SEIZURES IS CLOSE TO BACK TO BASELINE AT THIS TIME. NO FOCALIZING NEURO DEFICITS Dragon Disclaimer Dragon Disclaimer This electronic medical record was generated, in whole or in part, using a voice recognition dictation system. Departure Departure Impression: Primary Impression: UTI (urinary tract infection) Additional Impression: Breakthrough seizure Disposition: ADMITTED INPATIENT Admitting Physician: PIYUSH Condition: STABLE Referrals: VIKA CASIANO DO (PCP) Problem Qualifiers MERYL PACHECO MD Apr 01, 2019 14:41
[2019-04-01 15:00] VITALS: BP 135/57
--- NOTE | 2019-04-01 15:06 | PDOC2 ---
NEUROLOGY CONSULT Date of Admission Date of Admission DATE: 04/01/19 TIME: 15:00 Reason for Consult Reason for Consult: Recurrent seizures. UTI. MR, severe. CP. Lactic acidosis. HTN. Dementia, severe. Very poor mental prognosis. No meaningful life. RECOMMENDATIONS/PLAN: Resume AEds Keppra 1000 mg bid. Iv if not able to take PO. Vimpat 100 mg - 200 mg bid. IV if not able to take PO. EEG. Consulted Palliative Care team aimed for hospice care before. History of Present Illness This is a 68-year-old female with above medical and neurological diseases and seizures was brought to the ER of [facility] due to seizure. She had a seizure today in facility and another one in the ER. She was found to have UTI this time. Past Medical History Cardiovascular: HTN CENTRAL NERVOUS SYSTEM: Dementia (cerebral palsy picture), Seizure GI: GERD Endocrine: Hypothyroidism Past Surgical History PEG placement. Family History No pertinent hx Social History Longtime long-term resident since 2003, no family, a trust pays for her medical care Allergies Coded Allergies: I S O L A T I O N *CONTACT* (Verified Allergy, Unknown, 04/18/18) mrsa No Known Medication Allergies (Verified Allergy, Unknown, 04/18/18) wn REVIEW OF SYSTEMS: Refer to PMH and PSH. PHYSICAL EXAMINATION: General appearance is MRNeelam. HEENT: Normocephalic and nontraumatic. Eyes, nose, ears, and throat are unremarkable. Hearing decrease. Neck is supple. No lymphadenopathy. No Crepitus. Cardiovascular: S1, S2, regular rate and rhythm. Pulmonary: Decreased to auscultation bilaterally. Abdomen: Bowel sounds are positive. Extremities: No rash, lesions, or edema. No restriction of range of motion NEUROLOGICAL EXAMINATION: Awake. Eyes open. Non verbal. Not follow commands. Not oriented to time, place and person. PERRL. EOMI. CN: no focal findings. Muscle tone: Increased in all extremities. Muscle strength: Moves all extremities. DTR: 1-2. Plantar reflex: Neutral response bilaterally Gait: Not able to walk. Sensory exam: Withdraws to stimuli.. Not able to access cerebellar signs. F-T-N test not tested due to not follow commands. Severe joints contracture. Current Medications Current Medications Current Medications Levetiracetam 1000 mg/Dextrose 110 ml @ 440 mls/hr 1X ONCE IV Last administered on 04/01/19at 10:48; Start 04/01/19 at 10:15; Stop 04/01/19 at 10:29; Status DC Sodium Chloride 1,000 ml @ 1,000 mls/hr 1X ONCE IV Last administered on 04/01/19at 11:25; Start 04/01/19 at 11:30; Stop 04/01/19 at 12:29; Status DC Lorazepam (Ativan Inj) 2 mg 1X ONCE IVP Last administered on 04/01/19at 11:25; Start 04/01/19 at 11:30; Stop 04/01/19 at 11:31; Status DC Ceftriaxone Sodium (Rocephin) 1 gm 1X ONCE IVP Last administered on 04/01/19at 12:10; Start 04/01/19 at 12:00; Stop 04/01/19 at 12:01; Status DC Sodium Chloride 1,000 ml @ 75 mls/hr [id number] IV Last administered on 04/01/19at 13:49; Start 04/01/19 at 12:21; Stop 04/02/19 at 12:20 Active Scripts Active Lorazepam 0.5 Mg Tablet 1 Tab PEG PRN TID PRN 30 Days Acetaminophen Oral Liquid (Acetaminophen) 650 Mg/20.3 Ml Solution 650 Mg PEG PRN Q6HRS PRN 30 Days Vimpat (Lacosamide) 50 Mg Tablet 100 Mg PEG BID 30 Days Cefdinir 250 Mg/5 Ml Susp.recon 250 Mg PEG BID 10 Days Reported Zinc Oxide 56.7 Gm Oint...g. 56.7 Gm TP BID Potassium Chloride Oral Liquid (Potassium Chloride) 20 Meq/15 Ml Liquid 20 Meq PEG BID Triamcinolone Acetonide 0.025% Cream (Triamcinolone Acetonide) 15 Gm Cream..g. 1 Kandy TP DAILY Famotidine 20 Mg Tablet 20 Mg PEG HS Senna-S Tablet (Sennosides/Docusate Sodium) 1 Each Tablet 1 Each PEG BID Synthroid (Levothyroxine Sodium) 100 Mcg Tablet 1 Tab PEG DAILY Keppra (Levetiracetam) 100 Mg/1 Ml Solution 1,500 Mg PEG BID [fibersource HN PEG] Allergies Allergies: Allergies Coded Allergies Type Severity Reaction Last Updated Verified I S O L A T I O N *CONTACT* Allergy Unknown 04/18/18 Yes No Known Medication Allergies Allergy Unknown 04/18/18 Yes ROS Review of System The patient denies any associated fevers, chills, headache, ear pain, rhinorrhea, sore throat, stiff neck, productive cough, chest pain, shortness of breath, back or flank pain, abdominal pain, nausea, vomiting, diarrhea, constipation, dysuria, rash, numbness, weakness, tingling, incontinence, difficulty ambulating, or diaphoresis. Physical Exam Physical Exam General: Well developed, well nourished, no acute distress, well appearing HEENT: Pupils equally round and reactive to light, EOMI, no discharge, normal conjunctiva Neck: Supple, no nuchal rigidity, no JVD, trachea midline, no tenderness Cardiac: RRR, no murmurs, no gallops, no rubs Chest/Lungs: CTAB, no wheeze, no rhonchi, no crackles Abdomen: soft, non-distended, no guarding, no peritoneal signs, non-tender Back: No tenderness Extremities: no edema, pulses intact, non-tender,capillary refill <3 sec bilateral upper and lower extremities, Neuro: Alert and oriented x 4, no focal deficits, normal speech Vitals Vitals: Vital Signs Date Time Temp Pulse Resp B/P (MAP) Pulse Ox O2 Delivery O2 Flow Rate FiO2 04/01/19 10:11 98.6 16 148/80 (102) 97 Room Air 98.6 Labs Labs Laboratory Tests Test 04/01/19 10:46 04/01/19 11:25 04/01/19 13:50 White Blood Count 9.6 x10^3/uL (4.0-11.0) Red Blood Count 4.42 x10^6/uL (3.50-5.40) Hemoglobin 12.2 g/dL (12.0-15.5) Hematocrit 36.6 % (36.0-47.0) Mean Corpuscular Volume 83 fL (79-100) Mean Corpuscular Hemoglobin 28 pg (25-35) Mean Corpuscular Hemoglobin Concent 33 g/dL (31-37) Red Cell Distribution Width 15.6 % (11.5-14.5) Platelet Count 260 x10^3/uL (140-400) Neutrophils (%) (Auto) 80 % (31-73) Lymphocytes (%) (Auto) 11 % (24-48) Monocytes (%) (Auto) 6 % (0-9) Eosinophils (%) (Auto) 2 % (0-3) Basophils (%) (Auto) 1 % (0-3) Neutrophils # (Auto) 7.7 x10^3/uL (1.8-7.7) Lymphocytes # (Auto) 1.1 x10^3/uL (1.0-4.8) Monocytes # (Auto) 0.5 x10^3/uL (0.0-1.1) Eosinophils # (Auto) 0.2 x10^3/uL (0.0-0.7) Basophils # (Auto) 0.0 x10^3/uL (0.0-0.2) Sodium Level 145 mmol/L (136-145) Potassium Level 3.6 mmol/L (3.5-5.1) Chloride Level 108 mmol/L (98-107) Carbon Dioxide Level 24 mmol/L (21-32) Anion Gap 13 (6-14) Blood Urea Nitrogen 23 mg/dL (7-20) Creatinine 1.1 mg/dL (0.6-1.0) Estimated GFR (Cockcroft-Gault) 49.5 Glucose Level 185 mg/dL (70-99) Calcium Level 9.9 mg/dL (8.5-10.1) Urine Collection Type U cath Urine Color Yellow Urine Clarity Cloudy Urine pH 8.0 Urine Specific [place] 1.020 Urine Protein >=300 mg/dL (NEG-TRACE) Urine Glucose (UA) Negative mg/dL (NEG) Urine Ketones (Stick) Negative mg/dL (NEG) Urine Blood Large (NEG) Urine Nitrite Positive (NEG) Urine Bilirubin Negative (NEG) Urine Urobilinogen Dipstick 0.2 mg/dL (0.2 mg/dL) Urine Leukocyte Esterase Large (NEG) Urine RBC 11-20 /HPF (0-2) Urine WBC 11-20 /HPF (0-4) Urine Renal Epithelial Cells Few /LPF Urine Bacteria Many /HPF (0-FEW) Lactic Acid Level 2.0 mmol/L (0.4-2.0) Laboratory Tests Test 04/01/19 10:46 04/01/19 11:25 04/01/19 13:50 White Blood Count 9.6 x10^3/uL (4.0-11.0) Red Blood Count 4.42 x10^6/uL (3.50-5.40) Hemoglobin 12.2 g/dL (12.0-15.5) Hematocrit 36.6 % (36.0-47.0) Mean Corpuscular Volume 83 fL (79-100) Mean Corpuscular Hemoglobin 28 pg (25-35) Mean Corpuscular Hemoglobin Concent 33 g/dL (31-37) Red Cell Distribution Width 15.6 % (11.5-14.5) Platelet Count 260 x10^3/uL (140-400) Neutrophils (%) (Auto) 80 % (31-73) Lymphocytes (%) (Auto) 11 % (24-48) Monocytes (%) (Auto) 6 % (0-9) Eosinophils (%) (Auto) 2 % (0-3) Basophils (%) (Auto) 1 % (0-3) Neutrophils # (Auto) 7.7 x10^3/uL (1.8-7.7) Lymphocytes # (Auto) 1.1 x10^3/uL (1.0-4.8) Monocytes # (Auto) 0.5 x10^3/uL (0.0-1.1) Eosinophils # (Auto) 0.2 x10^3/uL (0.0-0.7) Basophils # (Auto) 0.0 x10^3/uL (0.0-0.2) Sodium Level 145 mmol/L (136-145) Potassium Level 3.6 mmol/L (3.5-5.1) Chloride Level 108 mmol/L (98-107) Carbon Dioxide Level 24 mmol/L (21-32) Anion Gap 13 (6-14) Blood Urea Nitrogen 23 mg/dL (7-20) Creatinine 1.1 mg/dL (0.6-1.0) Estimated GFR (Cockcroft-Gault) 49.5 Glucose Level 185 mg/dL (70-99) Calcium Level 9.9 mg/dL (8.5-10.1) Urine Collection Type U cath Urine Color Yellow Urine Clarity Cloudy Urine pH 8.0 Urine Specific [place] 1.020 Urine Protein >=300 mg/dL (NEG-TRACE) Urine Glucose (UA) Negative mg/dL (NEG) Urine Ketones (Stick) Negative mg/dL (NEG) Urine Blood Large (NEG) Urine Nitrite Positive (NEG) Urine Bilirubin Negative (NEG) Urine Urobilinogen Dipstick 0.2 mg/dL (0.2 mg/dL) Urine Leukocyte Esterase Large (NEG) Urine RBC 11-20 /HPF (0-2) Urine WBC 11-20 /HPF (0-4) Urine Renal Epithelial Cells Few /LPF Urine Bacteria Many /HPF (0-FEW) Lactic Acid Level 2.0 mmol/L (0.4-2.0) MOISÉS HOOVER MD Apr 01, 2019 15:06
[2019-04-01] MEDS: ENOXAPARIN 40 MG/0.4 ML SYRINGE. SQ SCH (16:43)
[2019-04-01] MEDS: AMINO AC 3%/ELECTROLYTE/GLYCER 1,000 ML IV SCH (16:43)
[2019-04-01 19:20] VITALS: BP 142/71
--- NOTE | 2019-04-01 19:36 | NUR ---
Patients Gtube noted to be very worn, friable, and torn at the end with no cap/plug. Tube is clamped and gauze wrapped around end of tube. Spoke with nurse at [facility] who states they have been using tube for meds and feedings. Paged Dr. Johns who came to unit to assess patient. Consult made to Dr. Baldwin for possible gtube replacement. Dr. Baldwin came to unit. States GI can see patient tomorrow. Patients IV fluids changed to Procalamine per Dr. Johns. All Gtube meds and feedings on hold for now.
[2019-04-01] MEDS: levETIRAcetam 1,000 MG in IV DEXTROSE 5% 100ML 100 ML IV SCH (21:42)
[2019-04-01] MEDS: LACOSAMIDE 100 MG in IV DEXTROSE 5% 50 ML IV SCH (23:29)
[2019-04-01 23:59] VITALS: BP 132/51
[2019-04-02] MEDS: IV NORMAL SALINE 1000ML BAG 1,000 ML IV SCH (01:41)
[2019-04-02 03:51] VITALS: BP 132/66
[2019-04-02] MEDS: AMINO AC 3%/ELECTROLYTE/GLYCER 1,000 ML IV SCH ×2 (05:52→21:08)
[2019-04-02 07:00] VITALS: BP 146/59
--- NOTE | 2019-04-02 08:58 | PDOC2 ---
GI CONSULT Reason For Consult: G tube replacement HPI: HPI: 68 y/o female w/ chronic encephalopathy and dysphagia w/ PEG in place admitted w/ seizures, hypoxia, and possible UTI. PEG noted to be worn, friable, and torn w/o cap/plug but apparently was using at [facility] for feeds and meds. We are asked to see for replacement. EGD w/ PEG replacement done in 04/[address] Ibrahim noted mild distal GERD. PMH: PMH: encephalopathy, previous suicide attempt, seizure disorder, hypothyroidism, mild esophageal stricture, mild GERD, hyperammonemia, hydroureteronephrosis, bilateral renal lesions, urolithiasis, abdominal surgeries, PEG placement FH: Family History: No pertinent hx Social History: Smoke: No ALCOHOL: none Drugs: None ROS: Unable to obtain. Vitals: Vitals: Vital Signs Date Time Temp Pulse Resp B/P (MAP) Pulse Ox O2 Delivery O2 Flow Rate FiO2 04/02/19 07:00 98.6 72 17 146/59 (88) 93 Nasal Cannula 3.0 98.6 Labs: Labs: Laboratory Tests Test 04/01/19 10:46 04/01/19 11:25 04/01/19 13:50 04/01/19 17:20 White Blood Count 9.6 x10^3/uL (4.0-11.0) Red Blood Count 4.42 x10^6/uL (3.50-5.40) Hemoglobin 12.2 g/dL (12.0-15.5) Hematocrit 36.6 % (36.0-47.0) Mean Corpuscular Volume 83 fL (79-100) Mean Corpuscular Hemoglobin 28 pg (25-35) Mean Corpuscular Hemoglobin Concent 33 g/dL (31-37) Red Cell Distribution Width 15.6 % (11.5-14.5) Platelet Count 260 x10^3/uL (140-400) Neutrophils (%) (Auto) 80 % (31-73) Lymphocytes (%) (Auto) 11 % (24-48) Monocytes (%) (Auto) 6 % (0-9) Eosinophils (%) (Auto) 2 % (0-3) Basophils (%) (Auto) 1 % (0-3) Neutrophils # (Auto) 7.7 x10^3/uL (1.8-7.7) Lymphocytes # (Auto) 1.1 x10^3/uL (1.0-4.8) Monocytes # (Auto) 0.5 x10^3/uL (0.0-1.1) Eosinophils # (Auto) 0.2 x10^3/uL (0.0-0.7) Basophils # (Auto) 0.0 x10^3/uL (0.0-0.2) Sodium Level 145 mmol/L (136-145) Potassium Level 3.6 mmol/L (3.5-5.1) Chloride Level 108 mmol/L (98-107) Carbon Dioxide Level 24 mmol/L (21-32) Anion Gap 13 (6-14) Blood Urea Nitrogen 23 mg/dL (7-20) Creatinine 1.1 mg/dL (0.6-1.0) Estimated GFR (Cockcroft-Gault) 49.5 Glucose Level 185 mg/dL (70-99) Calcium Level 9.9 mg/dL (8.5-10.1) Urine Collection Type U cath Urine Color Yellow Urine Clarity Cloudy Urine pH 8.0 Urine Specific [place] 1.020 Urine Protein >=300 mg/dL (NEG-TRACE) Urine Glucose (UA) Negative mg/dL (NEG) Urine Ketones (Stick) Negative mg/dL (NEG) Urine Blood Large (NEG) Urine Nitrite Positive (NEG) Urine Bilirubin Negative (NEG) Urine Urobilinogen Dipstick 0.2 mg/dL (0.2 mg/dL) Urine Leukocyte Esterase Large (NEG) Urine RBC 11-20 /HPF (0-2) Urine WBC 11-20 /HPF (0-4) Urine Renal Epithelial Cells Few /LPF Urine Bacteria Many /HPF (0-FEW) Lactic Acid Level 2.0 mmol/L (0.4-2.0) 1.0 mmol/L (0.4-2.0) Allergies: Coded Allergies: I S O L A T I O N *CONTACT* (Verified Allergy, Unknown, 04/18/18) mrsa No Known Medication Allergies (Verified Allergy, Unknown, 04/18/18) Medications: Current Medications Medications (Trade) Dose Ordered Sig/Fatmata Route PRN Reason Start Time Stop Time Status Last Admin Dose Admin Levetiracetam 1000 mg/Dextrose 110 ml @ 440 mls/hr 1X ONCE IV 04/01/19 10:15 04/01/19 10:29 DC 04/01/19 10:48 Sodium Chloride 1,000 ml @ 1,000 mls/hr 1X ONCE IV 04/01/19 11:30 04/01/19 12:29 DC 04/01/19 11:25 Lorazepam (Ativan Inj) 2 mg 1X ONCE IVP 04/01/19 11:30 04/01/19 11:31 DC 04/01/19 11:25 Ceftriaxone Sodium (Rocephin) 1 gm 1X ONCE IVP 04/01/19 12:00 04/01/19 12:01 DC 04/01/19 12:10 Sodium Chloride 1,000 ml @ 75 mls/hr [id number] IV 04/01/19 12:21 04/02/19 12:20 04/01/19 13:49 Levetiracetam 1000 mg/Dextrose 110 ml @ 440 mls/hr Q12HR IV 04/01/19 21:00 04/01/19 21:42 Lacosamide 100 mg/ Dextrose 60 ml @ 120 mls/hr BID IV 04/01/19 21:00 04/01/19 23:29 Amino Acids/ Glycerin/ Electrolytes 1,000 ml @ 80 mls/hr [id number] IV 04/01/19 16:15 04/02/19 05:52 Enoxaparin Sodium (Lovenox 40mg Syringe) 40 mg Q24H SQ 04/01/19 16:15 04/01/19 16:43 Imaging: Imaging: CXR 04/01 The heart is mildly enlarged. Atherosclerotic calcifications of the tortuous aorta are seen. Mediastinal and hilar contours are stable. Left lung base airspace opacities and perihilar airspace opacities are essentially stable to 12/14/2018, may represent atelectasis. No pleural effusion or pneumothorax. PE: GEN: NAD HEENT: Atraumatic, PERRL LUNGS: NC 3L HEART: RRR ABD: soft, non-tender, BS+, PEG in place - tube is old and torn, wrapped in gauze EXTREMITY: No edema SKIN: No rashes, no jaundice NEURO/PSYCH: awake A/P: A/P: Seizures, hypoxia, UTI Chronic encephalopathy, dysphagia PEG tube malfunction -- Plan for PEG replacement this afternoon. ROSELYN-BRANINE,TORO PA Apr 02, 2019 08:58
[2019-04-02] MEDS ORDERED: LEVOTHYROXINE 100 MCG TABLET PEG SCH (09:00)
[2019-04-02] MEDS: levETIRAcetam 1,000 MG in IV DEXTROSE 5% 100ML 100 ML IV SCH ×2 (09:47→21:15)
--- NOTE | 2019-04-02 10:48 | PDOC ---
PROGRESS NOTES History of Present Illness History of Present Illness VTE Prophylaxis Ordered VTE Prophylaxis Devices: No VTE Pharmacological Prophylaxi: Yes impression Status epilepticus - with Recurrent seizures. PRN ativan and Keppra, vimpat all IV as her PEG malfunction UTI - empiric rocephin 3 days MR, severe - per chart history is cerebral palsy CP - definitely has some discoordination and contractures Lactic acidosis - likely related to seizure HTN - hold meds Dementia, severe - poor prognosis. D/w neuro - palliative would be appropriate Hyperglycemia - monitor Broken PEG - will consult GI to replace FEN - Procalamine IV PPX - lovenox DNR/DNI Dispo - inpatient for status epilepticus and malfunctioning G-tube G-TUBE REPLACEMENT 04-02 26 MIN PT EXAM, CHART REVIEW, > 50% OF TIME SPENT WITH EXAM, CHART REVIEW, PT CARE COORDINATION Vitals Vitals Vital Signs Date Time Temp Pulse Resp B/P (MAP) Pulse Ox O2 Delivery O2 Flow Rate FiO2 04/02/19 08:00 Nasal Cannula 3.5 04/02/19 07:00 98.6 72 17 146/59 (88) 93 98.6 Physical Exam General: No acute distress Heart: Regular rate Lungs: Clear Abdomen: Normal bowel sounds, Soft, No tenderness, No hepatosplenomegaly, No masses, Other (Friable PEG with end torn off) Extremities: No clubbing, No cyanosis, No edema, Normal pulses, No tenderness/swelling Skin: No rashes, No breakdown, No significant lesion Labs LABS Laboratory Tests Test 04/01/19 11:25 04/01/19 13:50 04/01/19 17:20 Urine Collection Type U cath Urine Color Yellow Urine Clarity Cloudy Urine pH 8.0 Urine Specific [place] 1.020 Urine Protein >=300 mg/dL (NEG-TRACE) Urine Glucose (UA) Negative mg/dL (NEG) Urine Ketones (Stick) Negative mg/dL (NEG) Urine Blood Large (NEG) Urine Nitrite Positive (NEG) Urine Bilirubin Negative (NEG) Urine Urobilinogen Dipstick 0.2 mg/dL (0.2 mg/dL) Urine Leukocyte Esterase Large (NEG) Urine RBC 11-20 /HPF (0-2) Urine WBC 11-20 /HPF (0-4) Urine Renal Epithelial Cells Few /LPF Urine Bacteria Many /HPF (0-FEW) Lactic Acid Level 2.0 mmol/L (0.4-2.0) 1.0 mmol/L (0.4-2.0) Assessment and Plan Assessmemt and Plan Problems Medical Problems: (1) UTI (urinary tract infection) Status: Acute Comment Review of Relevant I have reviewed the following items jo-ann (where applicable) has been applied. Labs Laboratory Tests Test 04/01/19 10:46 04/01/19 11:25 04/01/19 13:50 04/01/19 17:20 White Blood Count 9.6 x10^3/uL (4.0-11.0) Red Blood Count 4.42 x10^6/uL (3.50-5.40) Hemoglobin 12.2 g/dL (12.0-15.5) Hematocrit 36.6 % (36.0-47.0) Mean Corpuscular Volume 83 fL (79-100) Mean Corpuscular Hemoglobin 28 pg (25-35) Mean Corpuscular Hemoglobin Concent 33 g/dL (31-37) Red Cell Distribution Width 15.6 % (11.5-14.5) Platelet Count 260 x10^3/uL (140-400) Neutrophils (%) (Auto) 80 % (31-73) Lymphocytes (%) (Auto) 11 % (24-48) Monocytes (%) (Auto) 6 % (0-9) Eosinophils (%) (Auto) 2 % (0-3) Basophils (%) (Auto) 1 % (0-3) Neutrophils # (Auto) 7.7 x10^3/uL (1.8-7.7) Lymphocytes # (Auto) 1.1 x10^3/uL (1.0-4.8) Monocytes # (Auto) 0.5 x10^3/uL (0.0-1.1) Eosinophils # (Auto) 0.2 x10^3/uL (0.0-0.7) Basophils # (Auto) 0.0 x10^3/uL (0.0-0.2) Sodium Level 145 mmol/L (136-145) Potassium Level 3.6 mmol/L (3.5-5.1) Chloride Level 108 mmol/L (98-107) Carbon Dioxide Level 24 mmol/L (21-32) Anion Gap 13 (6-14) Blood Urea Nitrogen 23 mg/dL (7-20) Creatinine 1.1 mg/dL (0.6-1.0) Estimated GFR (Cockcroft-Gault) 49.5 Glucose Level 185 mg/dL (70-99) Calcium Level 9.9 mg/dL (8.5-10.1) Urine Collection Type U cath Urine Color Yellow Urine Clarity Cloudy Urine pH 8.0 Urine Specific [place] 1.020 Urine Protein >=300 mg/dL (NEG-TRACE) Urine Glucose (UA) Negative mg/dL (NEG) Urine Ketones (Stick) Negative mg/dL (NEG) Urine Blood Large (NEG) Urine Nitrite Positive (NEG) Urine Bilirubin Negative (NEG) Urine Urobilinogen Dipstick 0.2 mg/dL (0.2 mg/dL) Urine Leukocyte Esterase Large (NEG) Urine RBC 11-20 /HPF (0-2) Urine WBC 11-20 /HPF (0-4) Urine Renal Epithelial Cells Few /LPF Urine Bacteria Many /HPF (0-FEW) Lactic Acid Level 2.0 mmol/L (0.4-2.0) 1.0 mmol/L (0.4-2.0) Laboratory Tests Test 04/01/19 11:25 04/01/19 13:50 04/01/19 17:20 Urine Collection Type U cath Urine Color Yellow Urine Clarity Cloudy Urine pH 8.0 Urine Specific [place] 1.020 Urine Protein >=300 mg/dL (NEG-TRACE) Urine Glucose (UA) Negative mg/dL (NEG) Urine Ketones (Stick) Negative mg/dL (NEG) Urine Blood Large (NEG) Urine Nitrite Positive (NEG) Urine Bilirubin Negative (NEG) Urine Urobilinogen Dipstick 0.2 mg/dL (0.2 mg/dL) Urine Leukocyte Esterase Large (NEG) Urine RBC 11-20 /HPF (0-2) Urine WBC 11-20 /HPF (0-4) Urine Renal Epithelial Cells Few /LPF Urine Bacteria Many /HPF (0-FEW) Lactic Acid Level 2.0 mmol/L (0.4-2.0) 1.0 mmol/L (0.4-2.0) Medications Current Medications Levetiracetam 1000 mg/Dextrose 110 ml @ 440 mls/hr 1X ONCE IV Last administered on 04/01/19at 10:48; Start 04/01/19 at 10:15; Stop 04/01/19 at 10:29; Status DC Sodium Chloride 1,000 ml @ 1,000 mls/hr 1X ONCE IV Last administered on 04/01/19at 11:25; Start 04/01/19 at 11:30; Stop 04/01/19 at 12:29; Status DC Lorazepam (Ativan Inj) 2 mg 1X ONCE IVP Last administered on 04/01/19at 11:25; Start 04/01/19 at 11:30; Stop 04/01/19 at 11:31; Status DC Ceftriaxone Sodium (Rocephin) 1 gm 1X ONCE IVP Last administered on 04/01/19at 12:10; Start 04/01/19 at 12:00; Stop 04/01/19 at 12:01; Status DC Sodium Chloride 1,000 ml @ 75 mls/hr [id number] IV Last administered on 04/01/19at 13:49; Start 04/01/19 at 12:21; Stop 04/02/19 at 12:20 Levetiracetam 1000 mg/Dextrose 110 ml @ 440 mls/hr Q12HR IV Last administered on 04/02/19at 09:47; Start 04/01/19 at 21:00 Lacosamide 100 mg/ Dextrose 60 ml @ 120 mls/hr BID IV Last administered on 04/01/19at 23:29; Start 04/01/19 at 21:00 Lorazepam (Ativan Inj) 1 mg PRN Q4HRS PRN IVP ANXIETY / AGITATION; Start 04/01/19 at 16:15 Levothyroxine Sodium (Synthroid) 100 mcg DAILY PEG ; Start 04/02/19 at 09:00 Amino Acids/ Glycerin/ Electrolytes 1,000 ml @ 80 mls/hr [id number] IV Last administered on 04/02/19at 05:52; Start 04/01/19 at 16:15 Enoxaparin Sodium (Lovenox 40mg Syringe) 40 mg Q24H SQ Last administered on 04/01/19at 16:43; Start 04/01/19 at 16:15 Ceftriaxone Sodium (Rocephin) 1 gm Q24H IVP ; Start 04/02/19 at 11:00 Active Scripts Active Lorazepam 0.5 Mg Tablet 1 Tab PEG PRN TID PRN 30 Days Acetaminophen Oral Liquid (Acetaminophen) 650 Mg/20.3 Ml Solution 650 Mg PEG PRN Q6HRS PRN 30 Days Vimpat (Lacosamide) 50 Mg Tablet 100 Mg PEG BID 30 Days Cefdinir 250 Mg/5 Ml Susp.recon 250 Mg PEG BID 10 Days Reported Zinc Oxide 56.7 Gm Oint...g. 56.7 Gm TP BID Potassium Chloride Oral Liquid (Potassium Chloride) 20 Meq/15 Ml Liquid 20 Meq PEG BID Triamcinolone Acetonide 0.025% Cream (Triamcinolone Acetonide) 15 Gm Cream..g. 1 Kandy TP DAILY Famotidine 20 Mg Tablet 20 Mg PEG HS Senna-S Tablet (Sennosides/Docusate Sodium) 1 Each Tablet 1 Each PEG BID Synthroid (Levothyroxine Sodium) 100 Mcg Tablet 1 Tab PEG DAILY Keppra (Levetiracetam) 100 Mg/1 Ml Solution 1,500 Mg PEG BID [fibersource HN PEG] Vitals/I & O Vital Sign - Last 24 Hours 04/01/19 04/01/19 04/01/19 04/01/19 10:11 15:00 18:41 19:20 Temp 98.6 98.9 98.2 98.6 98.9 98.2 Pulse 16 78 77 Resp 17 20 B/P (MAP) 148/80 (102) 135/57 (83) 142/71 (94) Pulse Ox 97 99 98 O2 Delivery Room Air Nasal Cannula Nasal Cannula Nasal Cannula O2 Flow Rate 2.0 2.0 2.0 04/01/19 04/01/19 04/02/19 04/02/19 20:12 23:59 03:51 07:00 Temp 98.5 98.4 98.6 98.5 98.4 98.6 Pulse 68 76 72 Resp 20 16 17 B/P (MAP) 132/51 (78) 132/66 (88) 146/59 (88) Pulse Ox 97 93 O2 Delivery Nasal Cannula Nasal Cannula Nasal Cannula Nasal Cannula O2 Flow Rate 2.0 2.0 2.0 3.0 04/02/19 08:00 O2 Delivery Nasal Cannula O2 Flow Rate 3.5 Intake and Output 04/01/19 04/02/19 04/02/19 17:00 01:00 09:00 Intake Total 0 ml Balance 0 ml MARY PECK MD Apr 02, 2019 10:48
[2019-04-02 11:00] VITALS: BP 141/57
--- NOTE | 2019-04-02 11:35 | NUR ---
SW following pt for dc planning. Chart reviewed and discussed with RN. Pt is LTC resident at [facility], Phone; [phone], fax: [phone]. Palliative Care consulted. SW will continue to follow.
--- NOTE | 2019-04-02 11:51 | PDOC2 ---
PALLIATIVE CARE Palliative Care Note Palliative Care Consult requested to address goals of care. Medical Assessment per medical record; Status epilepticus - with Recurrent seizures. PRN ativan and Keppra, vimpat all IV as her PEG malfunction UTI - empiric rocephin 3 days MR, severe - per chart history is cerebral palsy CP - definitely has some discoordination and contractures Lactic acidosis - likely related to seizure HTN - hold meds Dementia, severe - poor prognosis. D/w neuro - palliative would be appropriate Hyperglycemia - monitor Broken PEG - will consult GI to replace Spoke with Anna CHARLES at [facility]. Patient has never been on Hospice. Has no POA or Guardian. Code Status: DNR/DNI. Plan G-tube replacement today per GI notes Jayy CHARLES will assist with discharge planning. PASCUAL DAVIS Apr 02, 2019 11:51
--- NOTE | 2019-04-02 12:09 | NUR ---
IP: patient has hx of +MRSA screen 12/15/18, requires contact precautions.
[2019-04-02] MEDS: LACOSAMIDE 100 MG in IV DEXTROSE 5% 50 ML IV SCH ×2 (12:20→21:08)
[2019-04-02] MEDS: cefTRIAXone IV Push 1 GM VIAL. IVP SCH (12:21)
[2019-04-02] MEDS ORDERED: LEVOTHYROXINE SODIUM INJ 50 MCG in NORMAL SALINE 5 ML IVP STA (12:25)
[2019-04-02] MEDS ORDERED: IV RINGERS,LACTATED 1000ML 1,000 ML IV SCH (12:34)
[2019-04-02] MEDS ORDERED: IV RINGERS,LACTATED 1000ML 1,000 ML IV ONE (13:00)
--- NOTE | 2019-04-02 14:40 | PDOC ---
PROGRESS NOTES Assessment Assessment Recurrent seizures. UTI. MR, severe. CP. Lactic acidosis. HTN. Dementia, severe. Very poor mental prognosis. No meaningful life. RECOMMENDATIONS/PLAN: Resume AEds Keppra 1000 mg bid. Iv if not able to take PO. Vimpat 100 mg - 200 mg bid. IV if not able to take PO. Consulted Palliative Care team aimed for hospice care. History of Present Illness This is a 68-year-old female with above medical and neurological diseases and seizures was brought to the ER of [facility] due to seizure. She had a seizure today in facility and another one in the ER. She was found to have UTI this time. No seizures reported since here. Past Medical History Cardiovascular: HTN CENTRAL NERVOUS SYSTEM: Dementia (cerebral palsy picture), Seizure GI: GERD Endocrine: Hypothyroidism Past Surgical History PEG placement. Family History No pertinent hx Social History Longtime [facility] resident since 2003, no family, a trust pays for her medical care Allergies Coded Allergies: I S O L A T I O N *CONTACT* (Verified Allergy, Unknown, 04/18/18) mrsa No Known Medication Allergies (Verified Allergy, Unknown, 04/18/18) wn REVIEW OF SYSTEMS: Refer to PMH and PSH. PHYSICAL EXAMINATION: General appearance is MREmily MAGALLANESENT: Normocephalic and nontraumatic. Eyes, nose, ears, and throat are unremarkable. Hearing decrease. Neck is supple. No lymphadenopathy. No Crepitus. Cardiovascular: S1, S2, regular rate and rhythm. Pulmonary: Decreased to auscultation bilaterally. Abdomen: Bowel sounds are positive. Extremities: No rash, lesions, or edema. No restriction of range of motion NEUROLOGICAL EXAMINATION: Awake. Eyes open. Non verbal. Not follow commands. Not oriented to time, place and person. PERRL. EOMI. CN: no focal findings. Muscle tone: Increased in all extremities. Muscle strength: Moves all extremities. DTR: 1-2. Plantar reflex: Neutral response bilaterally Gait: Not able to walk. Sensory exam: Withdraws to stimuli.. Not able to access cerebellar signs. F-T-N test not tested due to not follow commands. Severe joints contracture. Objective Objective Vital Signs Date Time Temp Pulse Resp B/P (MAP) Pulse Ox O2 Delivery O2 Flow Rate FiO2 04/02/19 11:00 98.2 69 22 141/57 (85) 96 Nasal Cannula 3.0 98.2 l Intake and Output 04/02/19 07:00 # Voids 1 Vitals Signs Vitals VS - Last 72 Hours, by Label Date Time Temp Pulse Resp B/P (MAP) Pulse Ox O2 Delivery O2 Flow Rate FiO2 04/02/19 11:00 98.2 69 22 141/57 (85) 96 Nasal Cannula 3.0 98.2 04/02/19 08:00 Nasal Cannula 3.5 04/02/19 07:00 98.6 72 17 146/59 (88) 93 Nasal Cannula 3.0 98.6 04/02/19 03:51 98.4 76 16 132/66 (88) 97 Nasal Cannula 2.0 98.4 04/01/19 23:59 98.5 68 20 132/51 (78) Nasal Cannula 2.0 98.5 04/01/19 20:12 Nasal Cannula 2.0 04/01/19 19:20 98.2 77 20 142/71 (94) 98 Nasal Cannula 2.0 98.2 04/01/19 18:41 Nasal Cannula 2.0 04/01/19 15:00 98.9 78 17 135/57 (83) 99 Nasal Cannula 2.0 98.9 04/01/19 10:11 98.6 16 148/80 (102) 97 Room Air 98.6 Laboratory Laboratory Laboratory Tests Test 04/01/19 17:20 Lactic Acid Level 1.0 mmol/L (0.4-2.0) Microbiology 04/01/19 Blood Culture - Preliminary, Resulted NO GROWTH AFTER 1 DAY Medication Medications Current Medications Amino Acids/ Glycerin/ Electrolytes 1,000 ml @ 80 mls/hr [id number] IV Last administered on 04/02/19at 05:52; Start 04/01/19 at 16:15 Ceftriaxone Sodium (Rocephin) 1 gm Q24H IVP Last administered on 04/02/19at 12:21; Start 04/02/19 at 11:00 Enoxaparin Sodium (Lovenox 40mg Syringe) 40 mg Q24H SQ Last administered on 04/01/19at 16:43; Start 04/01/19 at 16:15 Lacosamide 100 mg/ Dextrose 60 ml @ 120 mls/hr BID IV Last administered on 1 at 12:20; Start 04/01/19 at 21:00 Levetiracetam 1000 mg/Dextrose 110 ml @ 440 mls/hr Q12HR IV Last administered on 04/02/19at 09:47; Start 04/01/19 at 21:00 Levothyroxine Sodium (Synthroid) 100 mcg DAILY PEG ; Start 04/02/19 at 09:00; Stop 04/02/19 at 12:33; Status DC Levothyroxine Sodium 50 mcg/ Sodium Chloride 5 ml @ 100 mls/hr 1X STAT IVP Last administered on 04/02/19at 13:14; Start 04/02/19 at 12:25; Stop 04/02/19 at 12:33; Status DC Levothyroxine Sodium 50 mcg/ Sodium Chloride 5 ml @ 100 mls/hr DAILY IVP ; Start 04/03/19 at 09:00 Lorazepam (Ativan Inj) 1 mg PRN Q4HRS PRN IVP ANXIETY / AGITATION; Start 03/14 at 16:15 Ringer's Solution 1,000 ml @ 50 mls/hr Q20H IV ; Start 04/02/19 at 12:34; Stop 04/03/19 at 00:33 Ringer's Solution 1,000 ml @ 75 mls/hr 1X ONCE IV ; Start 04/02/19 at 13:00; Stop 04/03/19 at 02:19 Comment Review of Relevant I have reviewed the following items jo-ann (where applicable) has been applied. MOISÉS HOOVER MD Apr 02, 2019 14:40
[2019-04-02 15:00] VITALS: BP 139/74
--- NOTE | 2019-04-02 19:24 | NUR ---
Pt has 3 BM with active bleeding, first on in morning of today was the most blood, mixed with urine and fecal. Clotting, and bright red. The 2 other BM were more green and brown, small and firm, with significant less bleeding. Last BM was mostly mucusy and red.
[2019-04-02] MEDS: ENOXAPARIN 40 MG/0.4 ML SYRINGE. SQ SCH (19:31)
[2019-04-02 19:46] VITALS: BP 177/90
[2019-04-02 23:30] VITALS: BP 156/60
[2019-04-03 03:30] VITALS: BP 166/74
[2019-04-03 05:12] LABS: ALBUMIN 2.6 g/dL (3.4-5.0); ALBUMIN/GLOBULIN RATIO 0.7 (1.0-1.7); CREATININE 0.8 mg/dL (0.6-1.0); GFR 71.5; POTASSIUM 3.3 mmol/L (3.5-5.1); TOTAL BILIRUBIN 0.4 mg/dL (0.2-1.0); TOTAL PROTEIN 6.1 g/dL (6.4-8.2)
[2019-04-03 07:15] VITALS: BP 171/85
[2019-04-03 08:02] LABS: BASO % 0 % (0-3); EOS # 0.1 x10^3/uL (0.0-0.7); EOS % 2 % (0-3); HEMATOCRIT 31.2 % (36.0-47.0); HEMOGLOBIN 10.6 g/dL (12.0-15.5); LYMPH % 18 % (24-48); MEAN CORPUSCULAR HEMOGLOBIN 28 pg (25-35); MEAN CORPUSCULAR HGB CONC 34 g/dL (31-37); MEAN CORPUSCULAR VOLUME 83 fL (79-100); MONO # 0.6 x10^3/uL (0.0-1.1); MONO % 11 % (0-9); NEUT # 3.7 x10^3/uL (1.8-7.7); NEUT % 69 % (31-73); PLATELET COUNT 197 x10^3/uL (140-400); RED BLOOD COUNT 3.77 x10^6/uL (3.50-5.40); RED CELL DISTRIBUTION WIDTH 15.3 % (11.5-14.5); WHITE BLOOD COUNT 5.4 x10^3/uL (4.0-11.0)
[2019-04-03] MEDS ORDERED: LABETALOL 20 MG/4 ML DISP.SYRIN. IVP PRN (08:30)
[2019-04-03] MEDS: LACOSAMIDE 100 MG in IV DEXTROSE 5% 50 ML IV SCH ×2 (09:00→21:24)
[2019-04-03] MEDS ORDERED: LEVOTHYROXINE SODIUM INJ 50 MCG in NORMAL SALINE 5 ML IVP SCH (09:00)
[2019-04-03] MEDS: levETIRAcetam 1,000 MG in IV DEXTROSE 5% 100ML 100 ML IV SCH ×2 (09:00→20:46)
--- NOTE | 2019-04-03 10:07 | PDOC ---
[employer] PROGRESS NOTE Chief Complaint Chief Complaint Recurrent seizures. UTI. MR, severe. CP. Lactic acidosis. HTN. Dementia, severe. Very poor mental prognosis. No meaningful life History of Present Illness History of Present Illness 04/03/2019 Pt was seen and examined. Pt is currently non responsive on questioning. Nurse reports that the patient's current PEG tube needs to be replaced (current tube is stenotic). 04/02/2019 VTE Prophylaxis Ordered VTE Prophylaxis Devices: No VTE Pharmacological Prophylaxi: Yes impression Status epilepticus - with Recurrent seizures. PRN ativan and Keppra, vimpat all IV as her PEG malfunction UTI - empiric rocephin 3 days MR, severe - per chart history is cerebral palsy CP - definitely has some discoordination and contractures Lactic acidosis - likely related to seizure HTN - hold meds Dementia, severe - poor prognosis. D/w neuro - palliative would be appropriate Hyperglycemia - monitor Broken PEG - will consult GI to replace FEN - Procalamine IV PPX - lovenox DNR/DNI Dispo - inpatient for status epilepticus and malfunctioning G-tube G-TUBE REPLACEMENT 04-02 26 MIN PT EXAM, CHART REVIEW, > 50% OF TIME SPENT WITH EXAM, CHART REVIEW, PT CARE COORDINATION Vitals/I&O Vitals/I&O: Vital Signs Date Time Temp Pulse Resp B/P (MAP) Pulse Ox O2 Delivery O2 Flow Rate FiO2 04/03/19 07:15 98.6 84 20 171/85 (113) 95 Nasal Cannula 3.0 98.6 I & O 04/02/19 04/02/19 04/03/19 15:00 23:00 07:00 Intake Total 0 ml 0 ml 0 ml Output Total 1 ml Balance -1 ml 0 ml 0 ml Physical Exam General: Alert, Oriented X3, Cooperative, No acute distress Heart: Regular rate Lungs: Clear Abdomen: Normal bowel sounds, Soft, No tenderness, No hepatosplenomegaly, No masses, Other (Friable PEG with end torn off) Extremities: No clubbing, No cyanosis, No edema, Normal pulses, No tenderness/swelling Skin: No rashes, No breakdown, No significant lesion Labs Labs: Laboratory Tests Test 04/03/19 03:45 04/03/19 07:35 Sodium Level 145 mmol/L (136-145) Potassium Level 3.3 mmol/L (3.5-5.1) Chloride Level 110 mmol/L (98-107) Carbon Dioxide Level 24 mmol/L (21-32) Anion Gap 11 (6-14) Blood Urea Nitrogen 20 mg/dL (7-20) Creatinine 0.8 mg/dL (0.6-1.0) Estimated GFR (Cockcroft-Gault) 71.5 BUN/Creatinine Ratio 25 (6-20) Glucose Level 93 mg/dL (70-99) Calcium Level 9.0 mg/dL (8.5-10.1) Total Bilirubin 0.4 mg/dL (0.2-1.0) Aspartate Amino Transf (AST/SGOT) 18 U/L (15-37) Alanine Aminotransferase (ALT/SGPT) 16 U/L (14-59) Alkaline Phosphatase 74 U/L (46-116) Total Protein 6.1 g/dL (6.4-8.2) Albumin 2.6 g/dL (3.4-5.0) Albumin/Globulin Ratio 0.7 (1.0-1.7) White Blood Count 5.4 x10^3/uL (4.0-11.0) Red Blood Count 3.77 x10^6/uL (3.50-5.40) Hemoglobin 10.6 g/dL (12.0-15.5) Hematocrit 31.2 % (36.0-47.0) Mean Corpuscular Volume 83 fL (79-100) Mean Corpuscular Hemoglobin 28 pg (25-35) Mean Corpuscular Hemoglobin Concent 34 g/dL (31-37) Red Cell Distribution Width 15.3 % (11.5-14.5) Platelet Count 197 x10^3/uL (140-400) Neutrophils (%) (Auto) 69 % (31-73) Lymphocytes (%) (Auto) 18 % (24-48) Monocytes (%) (Auto) 11 % (0-9) Eosinophils (%) (Auto) 2 % (0-3) Basophils (%) (Auto) 0 % (0-3) Neutrophils # (Auto) 3.7 x10^3/uL (1.8-7.7) Lymphocytes # (Auto) 1.0 x10^3/uL (1.0-4.8) Monocytes # (Auto) 0.6 x10^3/uL (0.0-1.1) Eosinophils # (Auto) 0.1 x10^3/uL (0.0-0.7) Basophils # (Auto) 0.0 x10^3/uL (0.0-0.2) Review of Systems Review of Systems: No Reported CP, SOB, N/V/D per nurse (patient is unresponsive). Assessment and Plan Assessmemt and Plan Problems Medical Problems: (1) UTI (urinary tract infection) Status: Acute Recurrent seizures. UTI. MR, severe. CP. Lactic acidosis. HTN. Dementia, severe. Very poor mental prognosis. No meaningful life Plan: 1) Signed consent for replacement of PEG tube, replacement is in the best interest of our patient 2) Once PEG tube is replaced will resume home meds upon peg replacement possible replacement of PEG tube later today 3) cardiac monitoring 4) Seizure precautions 5) Daily Labs (CBC and CMP) 6) Continue with GI and Neuro recommendations 7) Continue palliative care consult recommendations 8) Continue TPN 9) DNR Comment Review of Relevant I have reviewed the following items jo-ann (where applicable) has been applied. Medications: Current Medications Medications (Trade) Dose Ordered Sig/Fatmata Route PRN Reason Start Time Stop Time Status Last Admin Dose Admin Ceftriaxone Sodium (Rocephin) 1 gm Q24H IVP 04/02/19 11:00 04/02/19 12:21 Levothyroxine Sodium 50 mcg/ Sodium Chloride 5 ml @ 100 mls/hr 1X STAT IVP 04/02/19 12:25 04/02/19 12:33 DC 04/02/19 13:14 CHELLE CORDOVA III DO Apr 03, 2019 10:07
--- NOTE | 2019-04-03 10:36 | PDOC ---
Objective: Objective: Dr. Sanchez called this morning - he will consent, ideally will expedite PEG replacement to resume seizure meds. D/w nurse industrial chemicals supervisor and nurse - apparently three physicians have consented. Reviewed chart - apparently some blood w/ stools yesterday. Vital Signs: Vital Signs Date Time Temp Pulse Resp B/P (MAP) Pulse Ox O2 Delivery O2 Flow Rate FiO2 04/03/19 07:15 98.6 84 20 171/85 (113) 95 Nasal Cannula 3.0 98.6 Labs: BLOOD CULTURE Preliminary NO GROWTH AFTER 1 DAY PE: GEN: NAD LUNGS: CTAB HEART: RRR ABD: S/ND/NT, old PEG NEURO/PSYCH: awake, non-verbal A/P: Seizures, hypoxia, UTI Chronic encephalopathy, dysphagia PEG tube malfunction Anemia - Hgb not below baseline -- Was on endoscopy schedule for yesterday - procedure canceled due to need for consents from physicians w/o DPEJ. Will review timing of PEG replacement w/ Dr. Ibrahim. TORO WOENS Apr 03, 2019 10:35
[2019-04-03 11:00] VITALS: BP 131/66
[2019-04-03] MEDS: cefTRIAXone IV Push 1 GM VIAL. IVP SCH (11:40)
[2019-04-03] MEDS: AMINO AC 3%/ELECTROLYTE/GLYCER 1,000 ML IV SCH ×2 (12:45→18:15)
[2019-04-03 15:00] VITALS: BP 171/70
[2019-04-03] MEDS: POTASSIUM CHLORIDE 10MEQ 100 ML IV SCH ×4 (15:21→18:48)
[2019-04-03] MEDS ORDERED: FLU VAX QS 2019-20 (36MOS+)/PF 0.5 ML SYRINGE. VAX IM ONE (16:00)
[2019-04-03] MEDS: ENOXAPARIN 40 MG/0.4 ML SYRINGE. SQ SCH (16:28)
--- NOTE | 2019-04-03 16:56 | PDOC ---
PROGRESS NOTES Assessment Assessment Recurrent seizures. UTI. MR, severe. CP. Lactic acidosis. HTN. Dementia, severe. Very poor mental prognosis. No meaningful life. RECOMMENDATIONS/PLAN: Resume AEds Keppra 1000 mg bid. Change to PO when can swallow. Vimpat 100 mg - 200 mg bid. IV if not able to take PO. Consulted Palliative Care team aimed for hospice care. History of Present Illness This is a 68-year-old female with above medical and neurological diseases and seizures was brought to the ER of [facility] due to seizure. She had a seizure today in facility and another one in the ER. She was found to have UTI this time. No seizures reported since here. Past Medical History Cardiovascular: HTN CENTRAL NERVOUS SYSTEM: Dementia (cerebral palsy picture), Seizure GI: GERD Endocrine: Hypothyroidism Past Surgical History PEG placement. 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 PHYSICAL EXAMINATION: General appearance is MREmily MAGALLANESENT: Normocephalic and nontraumatic. Eyes, nose, ears, and throat are unremarkable. Hearing decrease. Neck is supple. No lymphadenopathy. No Crepitus. Cardiovascular: S1, S2, regular rate and rhythm. Pulmonary: Decreased to auscultation bilaterally. Abdomen: Bowel sounds are positive. Extremities: No rash, lesions, or edema. No restriction of range of motion NEUROLOGICAL EXAMINATION: Awake. Eyes open. Non verbal. Not follow commands. Not oriented to time, place and person. PERRL. EOMI. CN: no focal findings. Muscle tone: Increased in all extremities. Muscle strength: Moves all extremities. DTR: 1-2. Plantar reflex: Neutral response bilaterally Gait: Not able to walk. Sensory exam: Withdraws to stimuli.. Not able to access cerebellar signs. F-T-N test not tested due to not follow commands. Severe joints contracture. Objective Objective Vital Signs Date Time Temp Pulse Resp B/P (MAP) Pulse Ox O2 Delivery O2 Flow Rate FiO2 04/03/19 15:00 96.9 74 20 171/70 (103) 95 Nasal Cannula 3.0 96.9 Intake and Output 04/03/19 06:59 Intake Total 0 ml Output Total 1 ml Balance -1 ml Intake Oral 0 ml Output Stool Total 1 ml # Voids 5 # Bowel Movements 2 Vitals Signs Vitals VS - Last 72 Hours, by Label Date Time Temp Pulse Resp B/P (MAP) Pulse Ox O2 Delivery O2 Flow Rate FiO2 04/03/19 15:00 96.9 74 20 171/70 (103) 95 Nasal Cannula 3.0 96.9 04/03/19 11:00 96.2 58 20 131/66 (87) 98 Nasal Cannula 3.0 96.2 04/03/19 08:00 Nasal Cannula 3.0 04/03/19 07:15 98.6 84 20 171/85 (113) 95 Nasal Cannula 3.0 98.6 04/03/19 03:30 98.1 80 20 166/74 (104) 96 Nasal Cannula 3.0 98.1 04/02/19 23:30 98.3 71 20 156/60 (92) 92 Nasal Cannula 3.0 98.3 04/02/19 20:00 Nasal Cannula 2.0 04/02/19 19:46 97.9 95 20 177/90 (119) 92 Nasal Cannula 3.0 97.9 04/02/19 15:00 97.7 75 20 139/74 (95) 100 Nasal Cannula 3.0 97.7 04/02/19 11:00 98.2 69 22 141/57 (85) 96 Nasal Cannula 3.0 98.2 04/02/19 08:00 Nasal Cannula 3.5 04/02/19 07:00 98.6 72 17 146/59 (88) 93 Nasal Cannula 3.0 98.6 Laboratory Laboratory Laboratory Tests Test 04/03/19 03:45 04/03/19 07:35 Sodium Level 145 mmol/L (136-145) Potassium Level 3.3 mmol/L (3.5-5.1) Chloride Level 110 mmol/L (98-107) Carbon Dioxide Level 24 mmol/L (21-32) Anion Gap 11 (6-14) Blood Urea Nitrogen 20 mg/dL (7-20) Creatinine 0.8 mg/dL (0.6-1.0) Estimated GFR (Cockcroft-Gault) 71.5 BUN/Creatinine Ratio 25 (6-20) Glucose Level 93 mg/dL (70-99) Calcium Level 9.0 mg/dL (8.5-10.1) Total Bilirubin 0.4 mg/dL (0.2-1.0) Aspartate Amino Transf (AST/SGOT) 18 U/L (15-37) Alanine Aminotransferase (ALT/SGPT) 16 U/L (14-59) Alkaline Phosphatase 74 U/L (46-116) Total Protein 6.1 g/dL (6.4-8.2) Albumin 2.6 g/dL (3.4-5.0) Albumin/Globulin Ratio 0.7 (1.0-1.7) White Blood Count 5.4 x10^3/uL (4.0-11.0) Red Blood Count 3.77 x10^6/uL (3.50-5.40) Hemoglobin 10.6 g/dL (12.0-15.5) Hematocrit 31.2 % (36.0-47.0) Mean Corpuscular Volume 83 fL (79-100) Mean Corpuscular Hemoglobin 28 pg (25-35) Mean Corpuscular Hemoglobin Concent 34 g/dL (31-37) Red Cell Distribution Width 15.3 % (11.5-14.5) Platelet Count 197 x10^3/uL (140-400) Neutrophils (%) (Auto) 69 % (31-73) Lymphocytes (%) (Auto) 18 % (24-48) Monocytes (%) (Auto) 11 % (0-9) Eosinophils (%) (Auto) 2 % (0-3) Basophils (%) (Auto) 0 % (0-3) Neutrophils # (Auto) 3.7 x10^3/uL (1.8-7.7) Lymphocytes # (Auto) 1.0 x10^3/uL (1.0-4.8) Monocytes # (Auto) 0.6 x10^3/uL (0.0-1.1) Eosinophils # (Auto) 0.1 x10^3/uL (0.0-0.7) Basophils # (Auto) 0.0 x10^3/uL (0.0-0.2) Microbiology 04/01/19 Blood Culture - Preliminary, Resulted NO GROWTH AFTER 2 DAYS Medication Medications Current Medications Influenza Virus Vaccine Quadrival (Afluria Quad (3yr Up) Syringe) 0.5 ml ONCE ONCE VAX IM ; Start 04/03/19 at 16:00; Stop 04/03/19 at 16:01; Status DC Labetalol HCl (Normodyne Iv Push) 20 mg PRN Q6HRS PRN IVP HYPERTENSION; Start 04/03/19 at 08:30 Levothyroxine Sodium 50 mcg/ Sodium Chloride 5 ml @ 100 mls/hr DAILY IVP Last administered on 04/03/19at 09:00; Start 04/03/19 at 09:00; Stop 04/03/19 at 13:57; Status DC Levothyroxine Sodium 50 mcg/ Sodium Chloride 5 ml @ 100 mls/hr Q3DAYS IVP ; Start 04/06/19 at 09:00 Potassium Chloride/Water 100 ml @ 100 mls/hr Q1H IV Last administered on 04/03/19at 16:29; Start 04/03/19 at 15:00; Stop 04/03/19 at 18:59 Comment Review of Relevant I have reviewed the following items jo-ann (where applicable) has been applied. MOISÉS HOOVER MD Apr 03, 2019 16:55
[2019-04-03 19:26] VITALS: BP 158/84
[2019-04-03 23:05] VITALS: BP 168/82
[2019-04-04 03:32] VITALS: BP 174/50
[2019-04-04 05:05] LABS: ALBUMIN 2.7 g/dL (3.4-5.0); ALBUMIN/GLOBULIN RATIO 0.7 (1.0-1.7); CALCIUM 9.3 mg/dL (8.5-10.1); CREATININE 0.7 mg/dL (0.6-1.0); GFR 83.5; TOTAL BILIRUBIN 0.4 mg/dL (0.2-1.0); TOTAL PROTEIN 6.4 g/dL (6.4-8.2)
[2019-04-04 05:10] LABS: BASO % 1 % (0-3); EOS # 0.1 x10^3/uL (0.0-0.7); EOS % 3 % (0-3); LYMPH % 21 % (24-48); MEAN CORPUSCULAR HEMOGLOBIN 28 pg (25-35); MEAN CORPUSCULAR HGB CONC 33 g/dL (31-37); MEAN CORPUSCULAR VOLUME 84 fL (79-100); MONO # 0.5 x10^3/uL (0.0-1.1); MONO % 10 % (0-9); NEUT # 3.1 x10^3/uL (1.8-7.7); NEUT % 66 % (31-73); PLATELET COUNT 194 x10^3/uL (140-400); RED BLOOD COUNT 3.95 x10^6/uL (3.50-5.40); RED CELL DISTRIBUTION WIDTH 15.4 % (11.5-14.5); WHITE BLOOD COUNT 4.7 x10^3/uL (4.0-11.0)
[2019-04-04] MEDS: AMINO AC 3%/ELECTROLYTE/GLYCER 1,000 ML IV SCH ×2 (06:19→20:52)
[2019-04-04] MEDS ORDERED: IV RINGERS,LACTATED 1000ML 1,000 ML IV SCH (07:00)
[2019-04-04 07:42] VITALS: BP 164/81
[2019-04-04] MEDS: LACOSAMIDE 100 MG in IV DEXTROSE 5% 50 ML IV SCH ×2 (07:56→21:59)
[2019-04-04] MEDS: levETIRAcetam 1,000 MG in IV DEXTROSE 5% 100ML 100 ML IV SCH ×2 (08:34→20:53)
[2019-04-04] MEDS ORDERED: PROPOFOL 20 ML IV ONE (09:24)
[2019-04-04] MEDS ORDERED: LIDOCAINE 2% PF 5 ML VIAL. ONE (09:24)
--- NOTE | 2019-04-04 10:37 | PDOC4 ---
PROCEDURE Procedure EGD/re-PEG Indication: failing G-tube Meds: per anesthesia Findings: E--Normal G--Old g-tube, otherwise normal D--Normal to second portion. --Old tube cut, removed orally. Re-intubated and new G-tube placed uneventfully. [employer]orsche. well. IMP: Successful g-tube replacement. REC: OK to use tube immediately. TORIE DENNY MD Apr 04, 2019 10:37
--- NOTE | 2019-04-04 10:47 | NUR ---
Peg tube was replaced, authorized ok to use immediately. Rising in BP, 150's. Spoke to Christiane STEPHEN in outpatient.
--- NOTE | 2019-04-04 11:54 | PDOC ---
[employer] PROGRESS NOTE Chief Complaint Chief Complaint Recurrent seizures. UTI. MR, severe. CP. Lactic acidosis. HTN. Dementia, severe. Very poor mental prognosis. No meaningful life History of Present Illness History of Present Illness 04/04/2019 Pt was seen and examined in the egd suite. Pt is still unresponsive to questioning. New PEG tube has been inserted, no signs of inflammation around site of insertion. 04/03/2019 Pt was seen and examined. Pt is currently non responsive on questioning. Nurse reports that the patient's current PEG tube needs to be replaced (current tube is stenotic). 04/02/2019 VTE Prophylaxis Ordered VTE Prophylaxis Devices: No VTE Pharmacological Prophylaxi: Yes impression Status epilepticus - with Recurrent seizures. PRN ativan and Keppra, vimpat all IV as her PEG malfunction UTI - empiric rocephin 3 days MR, severe - per chart history is cerebral palsy CP - definitely has some discoordination and contractures Lactic acidosis - likely related to seizure HTN - hold meds Dementia, severe - poor prognosis. D/w neuro - palliative would be appropriate Hyperglycemia - monitor Broken PEG - will consult GI to replace FEN - Procalamine IV PPX - lovenox DNR/DNI Dispo - inpatient for status epilepticus and malfunctioning G-tube G-TUBE REPLACEMENT - 26 MIN PT EXAM, CHART REVIEW, > 50% OF TIME SPENT WITH EXAM, CHART REVIEW, PT CARE COORDINATION Vitals/I&O Vitals/I&O: Vital Signs Date Time Temp Pulse Resp B/P (MAP) Pulse Ox O2 Delivery O2 Flow Rate FiO2 04/04/19 11:04 97.9 72 20 162/82 95 Room Air 97.9 04/04/19 10:54 2 I & O 04/03/19 04/03/19 04/04/19 15:00 23:00 07:00 Intake Total 0 ml 0 ml Balance 0 ml 0 ml Physical Exam General: Alert, Oriented X3, Cooperative, No acute distress Heart: Regular rate Lungs: Clear Abdomen: Normal bowel sounds, Soft, No tenderness, No hepatosplenomegaly, No masses, Other (New peg tube site without erythema, or warmth. Tube is patenet.) Extremities: No clubbing, No cyanosis, No edema, Normal pulses, No tenderness/swelling Skin: No rashes, No breakdown, No significant lesion Labs Labs: Laboratory Tests Test 04/04/19 03:20 04/04/19 08:08 White Blood Count 4.7 x10^3/uL (4.0-11.0) Red Blood Count 3.95 x10^6/uL (3.50-5.40) Hemoglobin 11.0 g/dL (12.0-15.5) Hematocrit 33.0 % (36.0-47.0) Mean Corpuscular Volume 84 fL (79-100) Mean Corpuscular Hemoglobin 28 pg (25-35) Mean Corpuscular Hemoglobin Concent 33 g/dL (31-37) Red Cell Distribution Width 15.4 % (11.5-14.5) Platelet Count 194 x10^3/uL (140-400) Neutrophils (%) (Auto) 66 % (31-73) Lymphocytes (%) (Auto) 21 % (24-48) Monocytes (%) (Auto) 10 % (0-9) Eosinophils (%) (Auto) 3 % (0-3) Basophils (%) (Auto) 1 % (0-3) Neutrophils # (Auto) 3.1 x10^3/uL (1.8-7.7) Lymphocytes # (Auto) 1.0 x10^3/uL (1.0-4.8) Monocytes # (Auto) 0.5 x10^3/uL (0.0-1.1) Eosinophils # (Auto) 0.1 x10^3/uL (0.0-0.7) Basophils # (Auto) 0.0 x10^3/uL (0.0-0.2) Sodium Level 147 mmol/L (136-145) Potassium Level 4.0 mmol/L (3.5-5.1) Chloride Level 112 mmol/L (98-107) Carbon Dioxide Level 25 mmol/L (21-32) Anion Gap 10 (6-14) Blood Urea Nitrogen 16 mg/dL (7-20) Creatinine 0.7 mg/dL (0.6-1.0) Estimated GFR (Cockcroft-Gault) 83.5 BUN/Creatinine Ratio 23 (6-20) Glucose Level 80 mg/dL (70-99) Calcium Level 9.3 mg/dL (8.5-10.1) Total Bilirubin 0.4 mg/dL (0.2-1.0) Aspartate Amino Transf (AST/SGOT) 17 U/L (15-37) Alanine Aminotransferase (ALT/SGPT) 18 U/L (14-59) Alkaline Phosphatase 73 U/L (46-116) Total Protein 6.4 g/dL (6.4-8.2) Albumin 2.7 g/dL (3.4-5.0) Albumin/Globulin Ratio 0.7 (1.0-1.7) Glucose (Fingerstick) 98 mg/dL (70-99) Review of Systems Review of Systems: Pt is non responsive to questions. Per Nurse no complaints of N/V/D, no CP or SOB. Assessment and Plan Assessmemt and Plan Problems Medical Problems: (1) UTI (urinary tract infection) Status: Acute Recurrent seizures. UTI. MR, severe. CP. Lactic acidosis. HTN. Dementia, severe. Very poor mental prognosis. No meaningful life Plan: 1) Resume Home Meds through PEG tube 2) Resume peg Feeds, continue procalamine solution. 3) DNR 4) PT/OT 5) DVT prophylaxis 6) Hope to D/C tomorrow if stable Comment Review of Relevant I have reviewed the following items jo-ann (where applicable) has been applied. Medications: Current Medications Medications (Trade) Dose Ordered Sig/Fatmata Route PRN Reason Start Time Stop Time Status Last Admin Dose Admin Potassium Chloride/Water 100 ml @ 100 mls/hr Q1H IV 04/03/19 15:00 04/03/19 18:59 DC 04/03/19 18:00 Influenza Virus Vaccine Quadrival (Afluria Quad 2018- (3yr Up) Syringe) 0.5 ml ONCE ONCE VAX IM 04/03/19 16:00 04/03/19 16:01 DC 04/03/19 18:49 CHELLE CORDOVA III DO Apr 04, 2019 11:54
[2019-04-04 11:59] VITALS: BP 185/80
[2019-04-04] MEDS: cefTRIAXone IV Push 1 GM VIAL. IVP SCH (12:19)
[2019-04-04 15:39] VITALS: BP 167/68
[2019-04-04] MEDS: ENOXAPARIN 40 MG/0.4 ML SYRINGE. SQ SCH (16:13)
--- NOTE | 2019-04-04 17:38 | PDOC ---
PROGRESS NOTES Assessment Assessment Recurrent seizures. UTI. MR, severe. CP. Lactic acidosis. HTN. Dementia, severe. Very poor mental prognosis. No meaningful life. RECOMMENDATIONS/PLAN: Continue Keppra 1000 mg bid. Continue Vimpat 100 mg bid. Consulted Palliative Care team aimed for hospice care. History of Present Illness This is a 68-year-old female with above medical and neurological diseases and seizures was brought to the ER of [facility] due to seizure. She had a seizure today in facility and another one in the ER. She was found to have UTI this time. No seizures reported since here. Past Medical History Cardiovascular: HTN CENTRAL NERVOUS SYSTEM: Dementia (cerebral palsy picture), Seizure GI: GERD Endocrine: Hypothyroidism Past Surgical History PEG placement. Family History No pertinent hx Social History Longtime long term resident since 2003, no family, a trust pays for her [facility] care Allergies Coded Allergies: I S O L A T I O N *CONTACT* (Verified Allergy, Unknown, 04/18/18) mrsa No Known Medication Allergies (Verified Allergy, Unknown, 04/18/18) wn REVIEW OF SYSTEMS: Refer to PMH and PSH. PHYSICAL EXAMINATION: General appearance is MRNeelam. HEENT: Normocephalic and nontraumatic. Eyes, nose, ears, and throat are unremarkable. Hearing decrease. Neck is supple. No lymphadenopathy. No Crepitus. Cardiovascular: S1, S2, regular rate and rhythm. Pulmonary: Decreased to auscultation bilaterally. Abdomen: Bowel sounds are positive. Extremities: No rash, lesions, or edema. No restriction of range of motion NEUROLOGICAL EXAMINATION: Awake. Eyes open. Non verbal. Not follow commands. Not oriented to time, place and person. PERRL. EOMI. CN: no focal findings. Muscle tone: Increased in all extremities. Muscle strength: Moves all extremities. DTR: 1-2. Plantar reflex: Neutral response bilaterally Gait: Not able to walk. Sensory exam: Withdraws to stimuli.. Not able to access cerebellar signs. F-T-N test not tested due to not follow commands. Severe joints contracture. Objective Objective Vital Signs Date Time Temp Pulse Resp B/P (MAP) Pulse Ox O2 Delivery O2 Flow Rate FiO2 04/04/19 15:39 98.3 83 20 167/68 (101) 93 Room Air 98.3 04/04/19 10:54 2 Intake and Output 04/04/19 07:00 Intake Total 0 ml Balance 0 ml Intake Oral 0 ml # Voids 2 Vitals Signs Vitals VS - Last 72 Hours, by Label Date Time Temp Pulse Resp B/P (MAP) Pulse Ox O2 Delivery O2 Flow Rate FiO2 04/04/19 15:39 98.3 83 20 167/68 (101) 93 Room Air 98.3 04/04/19 12:19 88 185/80 04/04/19 11:59 99.0 88 18 185/80 (115) 95 Room Air 99.0 04/04/19 11:04 97.9 72 20 162/82 95 Room Air 97.9 04/04/19 10:54 97.9 75 20 169/86 98 NonRebreather Mask 2 97.9 Nasal Cannula 04/04/19 10:44 97.9 78 20 167/70 100 NonRebreather Mask 10 97.9 04/04/19 10:34 97.9 82 20 182/90 100 NonRebreather Mask 10 97.9 04/04/19 09:52 Room Air 3.0 04/04/19 09:52 97.1 77 20 92 97.1 04/04/19 08:00 Room Air 04/04/19 07:42 99.0 75 18 164/81 (108) 97 Room Air 99.0 04/04/19 03:32 98.7 56 20 174/50 (91) 93 Nasal Cannula 3.0 98.7 04/03/19 23:05 97.6 72 18 168/82 (110) 93 Nasal Cannula 3.0 97.6 04/03/19 20:00 Nasal Cannula 3.0 04/03/19 19:26 98.3 85 20 158/84 (108) 93 Room Air 98.3 04/03/19 15:00 96.9 74 20 171/70 (103) 95 Nasal Cannula 3.0 96.9 04/03/19 11:00 96.2 58 20 131/66 (87) 98 Nasal Cannula 3.0 96.2 04/03/19 08:00 Nasal Cannula 3.0 04/03/19 07:15 98.6 84 20 171/85 (113) 95 Nasal Cannula 3.0 98.6 Laboratory Laboratory Laboratory Tests Test 04/04/19 03:20 04/04/19 08:08 04/04/19 11:50 White Blood Count 4.7 x10^3/uL (4.0-11.0) Red Blood Count 3.95 x10^6/uL (3.50-5.40) Hemoglobin 11.0 g/dL (12.0-15.5) Hematocrit 33.0 % (36.0-47.0) Mean Corpuscular Volume 84 fL (79-100) Mean Corpuscular Hemoglobin 28 pg (25-35) Mean Corpuscular Hemoglobin Concent 33 g/dL (31-37) Red Cell Distribution Width 15.4 % (11.5-14.5) Platelet Count 194 x10^3/uL (140-400) Neutrophils (%) (Auto) 66 % (31-73) Lymphocytes (%) (Auto) 21 % (24-48) Monocytes (%) (Auto) 10 % (0-9) Eosinophils (%) (Auto) 3 % (0-3) Basophils (%) (Auto) 1 % (0-3) Neutrophils # (Auto) 3.1 x10^3/uL (1.8-7.7) Lymphocytes # (Auto) 1.0 x10^3/uL (1.0-4.8) Monocytes # (Auto) 0.5 x10^3/uL (0.0-1.1) Eosinophils # (Auto) 0.1 x10^3/uL (0.0-0.7) Basophils # (Auto) 0.0 x10^3/uL (0.0-0.2) Sodium Level 147 mmol/L (136-145) Potassium Level 4.0 mmol/L (3.5-5.1) Chloride Level 112 mmol/L (98-107) Carbon Dioxide Level 25 mmol/L (21-32) Anion Gap 10 (6-14) Blood Urea Nitrogen 16 mg/dL (7-20) Creatinine 0.7 mg/dL (0.6-1.0) Estimated GFR (Cockcroft-Gault) 83.5 BUN/Creatinine Ratio 23 (6-20) Glucose Level 80 mg/dL (70-99) Calcium Level 9.3 mg/dL (8.5-10.1) Total Bilirubin 0.4 mg/dL (0.2-1.0) Aspartate Amino Transf (AST/SGOT) 17 U/L (15-37) Alanine Aminotransferase (ALT/SGPT) 18 U/L (14-59) Alkaline Phosphatase 73 U/L (46-116) Total Protein 6.4 g/dL (6.4-8.2) Albumin 2.7 g/dL (3.4-5.0) Albumin/Globulin Ratio 0.7 (1.0-1.7) Glucose (Fingerstick) 98 mg/dL (70-99) 85 mg/dL (70-99) Microbiology 04/01/19 Blood Culture - Preliminary, Resulted NO GROWTH AFTER 3 DAYS Medication Medications Current Medications Famotidine (Pepcid) 20 mg QHS PEG ; Start 04/04/19 at 21:00 Levothyroxine Sodium 50 mcg/ Sodium Chloride 5 ml @ 100 mls/hr Q3DAYS IVP ; Start 04/06/19 at 09:00 Lidocaine HCl (Lidocaine Pf 2% Vial) 5 ml STK-MED ONCE .ROUTE ; Start 04/04/19 at 09:24; Stop 04/04/19 at 09:25; Status DC Potassium Bicarbonate (Potassium Effervescent Tablet) 20 meq DAILY PEG ; Start 04/05/19 at 09:00 Propofol 20 ml @ As Directed STK-MED ONCE IV ; Start 04/04/19 at 09:24; Stop 04/04/19 at 09:25; Status DC Ringer's Solution 1,000 ml @ 50 mls/hr Q20H IV ; Start 04/04/19 at 07:00; Stop 04/04/19 at 18:59 Comment Review of Relevant I have reviewed the following items jo-ann (where applicable) has been applied. MOISÉS HOOVER MD Apr 04, 2019 17:38
[2019-04-04 19:33] VITALS: BP 162/60
[2019-04-04] MEDS ORDERED: FAMOTIDINE 20 MG TABLET. PEG SCH (21:00)
[2019-04-04 23:15] VITALS: BP_SYST 162; BP_SYST 170; BP_DIAS 56; BP_DIAS 60
[2019-04-05 03:25] VITALS: BP 127/59
[2019-04-05 05:06] LABS: BASO % 1 % (0-3); EOS # 0.1 x10^3/uL (0.0-0.7); EOS % 2 % (0-3); HEMATOCRIT 31.9 % (36.0-47.0); HEMOGLOBIN 10.6 g/dL (12.0-15.5); LYMPH # 1.1 x10^3/uL (1.0-4.8); LYMPH % 23 % (24-48); MEAN CORPUSCULAR HEMOGLOBIN 28 pg (25-35); MEAN CORPUSCULAR HGB CONC 33 g/dL (31-37); MEAN CORPUSCULAR VOLUME 84 fL (79-100); MONO # 0.6 x10^3/uL (0.0-1.1); MONO % 14 % (0-9); NEUT # 2.8 x10^3/uL (1.8-7.7); NEUT % 60 % (31-73); PLATELET COUNT 184 x10^3/uL (140-400); RED BLOOD COUNT 3.82 x10^6/uL (3.50-5.40); RED CELL DISTRIBUTION WIDTH 15.4 % (11.5-14.5); WHITE BLOOD COUNT 4.6 x10^3/uL (4.0-11.0)
[2019-04-05 05:30] LABS: ALBUMIN 2.5 g/dL (3.4-5.0); ALBUMIN/GLOBULIN RATIO 0.7 (1.0-1.7); CALCIUM 8.9 mg/dL (8.5-10.1); CREATININE 0.8 mg/dL (0.6-1.0); GFR 71.5; POTASSIUM 3.4 mmol/L (3.5-5.1); TOTAL BILIRUBIN 0.3 mg/dL (0.2-1.0); TOTAL PROTEIN 6.1 g/dL (6.4-8.2)
[2019-04-05 07:33] VITALS: BP 131/59
[2019-04-05] MEDS: AMINO AC 3%/ELECTROLYTE/GLYCER 1,000 ML IV SCH (07:45)
[2019-04-05] MEDS ORDERED: POTASSIUM BICARB 20 MEQ EFFERVESCENT TABLET. PEG SCH (09:00)
[2019-04-05] MEDS: levETIRAcetam 1,000 MG in IV DEXTROSE 5% 100ML 100 ML IV SCH (09:18)
[2019-04-05] MEDS: LACOSAMIDE 100 MG in IV DEXTROSE 5% 50 ML IV SCH (09:19)
--- NOTE | 2019-04-05 09:47 | PDOC ---
Objective: Objective: No PEG issues per nurse. Vital Signs: Vital Signs Date Time Temp Pulse Resp B/P (MAP) Pulse Ox O2 Delivery O2 Flow Rate FiO2 04/05/19 07:33 98.7 64 18 131/59 (83) 95 Room Air 98.7 04/04/19 10:54 2 Labs: Laboratory Tests Test 04/04/19 11:50 04/05/19 04:35 Glucose (Fingerstick) 85 mg/dL White Blood Count 4.6 x10^3/uL Red Blood Count 3.82 x10^6/uL Hemoglobin 10.6 g/dL Hematocrit 31.9 % Mean Corpuscular Volume 84 fL Mean Corpuscular Hemoglobin 28 pg Mean Corpuscular Hemoglobin Concent 33 g/dL Red Cell Distribution Width 15.4 % Platelet Count 184 x10^3/uL Neutrophils (%) (Auto) 60 % Lymphocytes (%) (Auto) 23 % Monocytes (%) (Auto) 14 % Eosinophils (%) (Auto) 2 % Basophils (%) (Auto) 1 % Neutrophils # (Auto) 2.8 x10^3/uL Lymphocytes # (Auto) 1.1 x10^3/uL Monocytes # (Auto) 0.6 x10^3/uL Eosinophils # (Auto) 0.1 x10^3/uL Basophils # (Auto) 0.0 x10^3/uL Sodium Level 145 mmol/L Potassium Level 3.4 mmol/L Chloride Level 111 mmol/L Carbon Dioxide Level 24 mmol/L Anion Gap 10 Blood Urea Nitrogen 19 mg/dL Creatinine 0.8 mg/dL Estimated GFR (Cockcroft-Gault) 71.5 BUN/Creatinine Ratio 24 Glucose Level 97 mg/dL Calcium Level 8.9 mg/dL Total Bilirubin 0.3 mg/dL Aspartate Amino Transf (AST/SGOT) 23 U/L Alanine Aminotransferase (ALT/SGPT) 15 U/L Alkaline Phosphatase 72 U/L Total Protein 6.1 g/dL Albumin 2.5 g/dL Albumin/Globulin Ratio 0.7 BLOOD CULTURE Preliminary NO GROWTH AFTER 3 DAYS Imaging: EGD/PEG 04/04/19 E--Normal G--Old g-tube, otherwise normal D--Normal to second portion. --Old tube cut, removed orally. Re-intubated and new G-tube placed uneventfully. IMP: Successful g-tube replacement. PE: GEN: NAD ABD: non-tender, soft, removed gauze from under bumper NEURO/PSYCH: awake, non-verbal A/P: Seizures, hypoxia, UTI Chronic encephalopathy, dysphagia w/ PEG -- PEG replaced and functioning. DC per primary. TORO OWENS Apr 05, 2019 09:47
--- NOTE | 2019-04-05 10:09 | PDOC ---
[employer] PROGRESS NOTE Chief Complaint Chief Complaint Recurrent seizures. UTI. MR, severe. CP. Lactic acidosis. HTN. Dementia, severe. Very poor mental prognosis. No meaningful life History of Present Illness History of Present Illness 04/05/2019 Pt was seen and examined. Appears to be resting comfortably, is nonverbal. PEG replacement was successfully completed yesterday. 04/04/2019 Pt was seen and examined in the egd suite. Pt is still unresponsive to questioning. New PEG tube has been inserted, no signs of inflammation around site of insertion. 04/03/2019 Pt was seen and examined. Pt is currently non responsive on questioning. Nurse reports that the patient's current PEG tube needs to be replaced (current tube is stenotic). 04/02/2019 VTE Prophylaxis Ordered VTE Prophylaxis Devices: No VTE Pharmacological Prophylaxi: Yes impression Status epilepticus - with Recurrent seizures. PRN ativan and Keppra, vimpat all IV as her PEG malfunction UTI - empiric rocephin 3 days MR, severe - per chart history is cerebral palsy CP - definitely has some discoordination and contractures Lactic acidosis - likely related to seizure HTN - hold meds Dementia, severe - poor prognosis. D/w neuro - palliative would be appropriate Hyperglycemia - monitor Broken PEG - will consult GI to replace FEN - Procalamine IV PPX - lovenox DNR/DNI Dispo - inpatient for status epilepticus and malfunctioning G-tube G-TUBE REPLACEMENT - 26 MIN PT EXAM, CHART REVIEW, > 50% OF TIME SPENT WITH EXAM, CHART REVIEW, PT CARE COORDINATION Vitals/I&O Vitals/I&O: Vital Signs Date Time Temp Pulse Resp B/P (MAP) Pulse Ox O2 Delivery O2 Flow Rate FiO2 04/05/19 08:00 Room Air 2.0 04/05/19 07:33 98.7 64 18 131/59 (83) 95 98.7 I & O 04/04/19 04/04/19 04/05/19 15:00 23:00 07:00 Intake Total 0 ml 0 ml 365 ml Balance 0 ml 0 ml 365 ml Physical Exam General: Alert, Oriented X3, Cooperative, No acute distress Heart: Regular rate Lungs: Clear Abdomen: Normal bowel sounds, Soft, No tenderness, No hepatosplenomegaly, No masses, Other (New peg tube site without erythema, or warmth. Tube is patenet.) Extremities: No clubbing, No cyanosis, No edema, Normal pulses, No tenderness/swelling Skin: No rashes, No breakdown, No significant lesion Labs Labs: Laboratory Tests Test 04/04/19 11:50 04/05/19 04:35 Glucose (Fingerstick) 85 mg/dL (70-99) White Blood Count 4.6 x10^3/uL (4.0-11.0) Red Blood Count 3.82 x10^6/uL (3.50-5.40) Hemoglobin 10.6 g/dL (12.0-15.5) Hematocrit 31.9 % (36.0-47.0) Mean Corpuscular Volume 84 fL (79-100) Mean Corpuscular Hemoglobin 28 pg (25-35) Mean Corpuscular Hemoglobin Concent 33 g/dL (31-37) Red Cell Distribution Width 15.4 % (11.5-14.5) Platelet Count 184 x10^3/uL (140-400) Neutrophils (%) (Auto) 60 % (31-73) Lymphocytes (%) (Auto) 23 % (24-48) Monocytes (%) (Auto) 14 % (0-9) Eosinophils (%) (Auto) 2 % (0-3) Basophils (%) (Auto) 1 % (0-3) Neutrophils # (Auto) 2.8 x10^3/uL (1.8-7.7) Lymphocytes # (Auto) 1.1 x10^3/uL (1.0-4.8) Monocytes # (Auto) 0.6 x10^3/uL (0.0-1.1) Eosinophils # (Auto) 0.1 x10^3/uL (0.0-0.7) Basophils # (Auto) 0.0 x10^3/uL (0.0-0.2) Sodium Level 145 mmol/L (136-145) Potassium Level 3.4 mmol/L (3.5-5.1) Chloride Level 111 mmol/L (98-107) Carbon Dioxide Level 24 mmol/L (21-32) Anion Gap 10 (6-14) Blood Urea Nitrogen 19 mg/dL (7-20) Creatinine 0.8 mg/dL (0.6-1.0) Estimated GFR (Cockcroft-Gault) 71.5 BUN/Creatinine Ratio 24 (6-20) Glucose Level 97 mg/dL (70-99) Calcium Level 8.9 mg/dL (8.5-10.1) Total Bilirubin 0.3 mg/dL (0.2-1.0) Aspartate Amino Transf (AST/SGOT) 23 U/L (15-37) Alanine Aminotransferase (ALT/SGPT) 15 U/L (14-59) Alkaline Phosphatase 72 U/L (46-116) Total Protein 6.1 g/dL (6.4-8.2) Albumin 2.5 g/dL (3.4-5.0) Albumin/Globulin Ratio 0.7 (1.0-1.7) Review of Systems Review of Systems: Pt is non verbal. No reported N/V/D, CP, or SOB Assessment and Plan Assessmemt and Plan Problems Medical Problems: (1) UTI (urinary tract infection) Status: Acute Recurrent seizures. UTI. MR, severe. CP. Lactic acidosis. HTN. Dementia, severe. Very poor mental prognosis. No meaningful life 1) Plan to D/C today 2) Resume home meds 3) Adjust seizure medications 4) D/C procalamine solution, resume tube feeds 5) DNR Comment Review of Relevant I have reviewed the following items jo-ann (where applicable) has been applied. Medications: Current Medications Medications (Trade) Dose Ordered Sig/Fatmata Route PRN Reason Start Time Stop Time Status Last Admin Dose Admin Famotidine (Pepcid) 20 mg QHS PEG 04/04/19 21:00 04/04/19 21:59 Potassium Bicarbonate (Potassium Effervescent Tablet) 20 meq DAILY PEG 04/05/19 09:00 04/05/19 09:19 CHELLE CORDOVA III DO Apr 05, 2019 10:09
--- NOTE | 2019-04-05 10:22 | SNU/HH DC ---
DISCHARGE ORDERS DISCHARGE INFORMATION: FINAL DIAGNOSIS Problems Medical Problems: (1) UTI (urinary tract infection) Status: Acute CONDITION ON DISCHARGE: Stable CODE STATUS: Code Status: Full INTERMEDIATE: SNF STAY <30 DAYS: No HOSPICE: HOSPICE: No HOSPICE EVAL & TREAT: No LTAC: ADMIT TO LTAC: No POST DISCHARGE ORDERS: ACTIVITY ORDERS: Bedrest today DIET AFTER DISCHARGE: NPO CHECKS AFTER DISCHARGE: CHECKS AFTER DISCHARGE: Check blood sugar, ac/hs TREATMENT/EQUIPMENT ORDERS: ADAPTIVE EQUIPMENT NEEDED: None RESPIRATORY EQUIPMENT NEEDED: Oxygen Speech Language Pathology For: Swallow Cognition DISCHARGE MEDICATIONS: Home Meds Active Scripts Lorazepam (LORAZEPAM) 0.5 Mg Tablet, 1 TAB PEG PRN TID PRN for seizure for 30 Days, #90 TAB Prov:JAYE CALLES MD 12/18/18 Acetaminophen (ACETAMINOPHEN ORAL LIQUID ) 650 Mg/20.3 Ml Solution, 650 MG PEG PRN Q6HRS PRN for MILD PAIN / TEMP for 30 Days, #120 MISC Prov:MARY PECK MD 12/12/18 Lacosamide (VIMPAT) 50 Mg Tablet, 100 MG PEG BID for seizures for 30 Days, #120 TAB Prov:MARY PECK MD 12/12/18 Cefdinir (CEFDINIR) 250 Mg/5 Ml Susp.recon, 250 MG PEG BID for uti for 10 Days, #240 MISC Prov:MARY PECK MD 12/12/18 Reported Medications Zinc Oxide (ZINC OXIDE) 56.7 Gm Oint...g., 56.7 GM TP BID for Skin condition/preventative, MISC 12/08/18 Potassium Chloride (POTASSIUM CHLORIDE ORAL LIQUID) 20 Meq/15 Ml Liquid, 20 MEQ PEG BID, LIQUID 03/22/17 Triamcinolone Acetonide (TRIAMCINOLONE ACETONIDE 0.025% CREAM) 15 Gm Cream..g., 1 EROS TP DAILY, #30 GM 01/10/17 Famotidine (FAMOTIDINE) 20 Mg Tablet, 20 MG PEG HS, TAB 01/10/17 Sennosides/Docusate Sodium (SENNA-S TABLET) 1 Each Tablet, 1 EACH PEG BID 02/11/16 Levothyroxine Sodium (SYNTHROID) 100 Mcg Tablet, 1 TAB PEG DAILY, #30 TAB 5 Refills 02/11/16 Levetiracetam (KEPPRA) 100 Mg/1 Ml Solution, 1500 MG PEG BID for seizures, ML 02/11/16 [fibersource HN PEG] No Conflict Check 02/11/16 CHELLE CORDOVA III DO Apr 05, 2019 10:22
[2019-04-05 11:26] VITALS: BP 133/86
--- NOTE | 2019-04-05 12:54 | NUR ---
SW following pt. SW phoned and faxed orders to [facility]. Pt will transport via facility arranged stretcher van at 1400. RN notified and Packet on chart.
--- NOTE | 2019-04-05 13:40 | PDOC ---
PROGRESS NOTES Assessment Assessment Recurrent seizures. UTI. MR, profound. CP. Lactic acidosis. HTN. Dementia, severe. Very poor mental prognosis. No meaningful life, mentation < 2 years age. RECOMMENDATIONS/PLAN: Continue Keppra 1000 mg bid. Continue Vimpat 100 mg bid. Consulted Palliative Care team aimed for hospice care. History of Present Illness This is a 68-year-old female with above medical and neurological diseases and seizures was brought to the ER of [facility] due to seizure. She had a seizure today in facility and another one in the ER. She was found to have UTI this time. No seizures reported since here. Past Medical History Cardiovascular: HTN CENTRAL NERVOUS SYSTEM: Dementia (cerebral palsy picture), Seizure GI: GERD Endocrine: Hypothyroidism Past Surgical History PEG placement. Family History No pertinent hx Social History Longtime snf resident since 2003, no family, a trust pays for her medical care Allergies Coded Allergies: I S O L A T I O N *CONTACT* (Verified Allergy, Unknown, 04/18/18) mrsa No Known Medication Allergies (Verified Allergy, Unknown, 04/18/18) wn REVIEW OF SYSTEMS: Refer to PMH and PSH. PHYSICAL EXAMINATION: General appearance is severe MR. CORRAL: Normocephalic and nontraumatic. Eyes, nose, ears, and throat are unremarkable. Hearing decrease. Neck is supple. No lymphadenopathy. No Crepitus. Cardiovascular: S1, S2, regular rate and rhythm. Pulmonary: Decreased to auscultation bilaterally. Abdomen: Bowel sounds are positive. Extremities: No rash, lesions, or edema. No restriction of range of motion NEUROLOGICAL EXAMINATION: Awake. Eyes open. Socking fingers all the time. Non verbal. Not follow commands. Not oriented to time, place and person. PERRL. EOMI. CN: no focal findings. Muscle tone: Increased in all extremities. Muscle strength: Moves all extremities. DTR: 1-2. Plantar reflex: Neutral response bilaterally Gait: Not able to walk. Sensory exam: Withdraws to stimuli.. Not able to access cerebellar signs. F-T-N test not tested due to not follow commands. Severe joints contracture. Objective Objective Vital Signs Date Time Temp Pulse Resp B/P (MAP) Pulse Ox O2 Delivery O2 Flow Rate FiO2 04/05/19 11:26 97.7 78 18 133/86 (102) 96 Room Air 97.7 04/05/19 08:00 2.0 Intake and Output 04/05/19 07:00 Intake Total 365 ml Balance 365 ml Intake Oral 0 ml Tube Feeding 365 ml # Voids 2 Vitals Signs Vitals VS - Last 72 Hours, by Label Date Time Temp Pulse Resp B/P (MAP) Pulse Ox O2 Delivery O2 Flow Rate FiO2 04/05/19 11:26 97.7 78 18 133/86 (102) 96 Room Air 97.7 04/05/19 08:00 Room Air 2.0 04/05/19 07:33 98.7 64 18 131/59 (83) 95 Room Air 98.7 04/05/19 03:25 97.4 75 16 127/59 (81) 94 Room Air 97.4 04/04/19 23:15 97.7 84 20 170/56 (94) 93 Room Air 97.7 04/04/19 20:00 Room Air 04/04/19 19:33 97.7 90 20 162/60 (94) 94 Room Air 97.7 04/04/19 15:39 98.3 83 20 167/68 (101) 93 Room Air 98.3 04/04/19 12:19 88 185/80 04/04/19 11:59 99.0 88 18 185/80 (115) 95 Room Air 99.0 04/04/19 11:04 97.9 72 20 162/82 95 Room Air 97.9 04/04/19 10:54 97.9 75 20 169/86 98 NonRebreather Mask 2 97.9 Nasal Cannula 04/04/19 10:44 97.9 78 20 167/70 100 NonRebreather Mask 10 97.9 04/04/19 10:34 97.9 82 20 182/90 100 NonRebreather Mask 10 97.9 04/04/19 09:52 Room Air 3.0 04/04/19 09:52 97.1 77 20 92 97.1 04/04/19 08:00 Room Air 04/04/19 07:42 99.0 75 18 164/81 (108) 97 Room Air 99.0 Laboratory Laboratory Laboratory Tests Test 04/05/19 04:35 White Blood Count 4.6 x10^3/uL (4.0-11.0) Red Blood Count 3.82 x10^6/uL (3.50-5.40) Hemoglobin 10.6 g/dL (12.0-15.5) Hematocrit 31.9 % (36.0-47.0) Mean Corpuscular Volume 84 fL (79-100) Mean Corpuscular Hemoglobin 28 pg (25-35) Mean Corpuscular Hemoglobin Concent 33 g/dL (31-37) Red Cell Distribution Width 15.4 % (11.5-14.5) Platelet Count 184 x10^3/uL (140-400) Neutrophils (%) (Auto) 60 % (31-73) Lymphocytes (%) (Auto) 23 % (24-48) Monocytes (%) (Auto) 14 % (0-9) Eosinophils (%) (Auto) 2 % (0-3) Basophils (%) (Auto) 1 % (0-3) Neutrophils # (Auto) 2.8 x10^3/uL (1.8-7.7) Lymphocytes # (Auto) 1.1 x10^3/uL (1.0-4.8) Monocytes # (Auto) 0.6 x10^3/uL (0.0-1.1) Eosinophils # (Auto) 0.1 x10^3/uL (0.0-0.7) Basophils # (Auto) 0.0 x10^3/uL (0.0-0.2) Sodium Level 145 mmol/L (136-145) Potassium Level 3.4 mmol/L (3.5-5.1) Chloride Level 111 mmol/L (98-107) Carbon Dioxide Level 24 mmol/L (21-32) Anion Gap 10 (6-14) Blood Urea Nitrogen 19 mg/dL (7-20) Creatinine 0.8 mg/dL (0.6-1.0) Estimated GFR (Cockcroft-Gault) 71.5 BUN/Creatinine Ratio 24 (6-20) Glucose Level 97 mg/dL (70-99) Calcium Level 8.9 mg/dL (8.5-10.1) Total Bilirubin 0.3 mg/dL (0.2-1.0) Aspartate Amino Transf (AST/SGOT) 23 U/L (15-37) Alanine Aminotransferase (ALT/SGPT) 15 U/L (14-59) Alkaline Phosphatase 72 U/L (46-116) Total Protein 6.1 g/dL (6.4-8.2) Albumin 2.5 g/dL (3.4-5.0) Albumin/Globulin Ratio 0.7 (1.0-1.7) Microbiology 04/01/19 Blood Culture - Preliminary, Resulted NO GROWTH AFTER 3 DAYS Medication Medications Current Medications Famotidine (Pepcid) 20 mg QHS PEG Last administered on 04/04/19at 21:59; Start 04/04/19 at 21:00 Lacosamide (Vimpat) 100 mg BID PEG ; Start 04/05/19 at 21:00 Levetiracetam (Keppra) 1,000 mg BID PEG ; Start 04/05/19 at 21:00 Levothyroxine Sodium (Synthroid) 100 mcg DAILY06 PEG ; Start 04/06/19 at 06:00 Levothyroxine Sodium 50 mcg/ Sodium Chloride 5 ml @ 100 mls/hr Q3DAYS IVP ; Start 04/06/19 at 09:00; Status Cancel Potassium Bicarbonate (Potassium Effervescent Tablet) 20 meq DAILY PEG Last administered on 04/05/19at 09:19; Start 04/05/19 at 09:00 Comment Review of Relevant I have reviewed the following items jo-ann (where applicable) has been applied. MOISÉS HOOVER MD Apr 05, 2019 13:40
--- NOTE | 2019-04-05 14:17 | NUR ---
Discharge Note: CHRIS GONZALES K[facility] Discharge instructions and discharge home medications reviewed Denise at [facility] and a copy given. All questions have been answered and understanding verbalized. The following instructions and handouts were given: transfer of care Discontinued lines and drains: 22 right FA, tip intact. patient tolerated well. Patient discharged to [facility] via transport.
[2019-04-05] MEDS ORDERED: LACOSAMIDE 50 MG TABLET PEG SCH (21:00)
[2019-04-06] MEDS ORDERED: LEVOTHYROXINE 100 MCG TABLET PEG SCH (06:00)
[2019-04-06] MEDS ORDERED: LEVOTHYROXINE SODIUM INJ 50 MCG in NORMAL SALINE 5 ML IVP SCH (09:00)
--- NOTE | 2019-04-07 09:49 | DS ---
DATE OF DISCHARGE: 04/05/2019 ADMISSION DIAGNOSIS: Seizure. DISCHARGE DIAGNOSES: Resolving seizures, status post old PEG change out. HOSPITAL COURSE: The patient is a pleasant 68-year-old female who basically presented with acute on chronic seizures. She was admitted. We adjusted her seizure meds and she was doing well, but we noticed her PEG tube was quite old. It was very dark and disfigured. I consulted GI. They took her down for a new PEG. Yesterday we saw and examined her, she was doing well. We discharged to [facility] with close outpatient followup. DISPOSITION: jail. ACTIVITY: As tolerated. DIET: Low-sodium. MEDICATIONS: Please see the MRAD. TOTAL TIME: 32 minutes. CHELLE CORDOVA DO DR: YVON/cindy JOB#: [id number] / [id number]
== END 2019-04-05 14:00 | disposition home or self-care (01) | DRG 393 ==
LOC: ER 10:07 → 6 SOUTH 10:23
PROVIDERS: ADMIT Internal Medicine; ATTEND Internal Medicine
PROC: 0D20XUZ Change Feeding Device in Upper Intestinal Tract, External Approach (ICD-10-PCS; principal; 2019-04-04 10:30)
DX: K94.23 Gastrostomy malfunction (principal); N17.0 Acute kidney failure with tubular necrosis; N39.0 Urinary tract infection, site not specified; E87.2 Acidosis; G93.49 Other encephalopathy; G40.901 Epilepsy, unspecified, not intractable, with status epilepticus; I10 Essential (primary) hypertension; E03.9 Hypothyroidism, unspecified; R73.9 Hyperglycemia, unspecified; Z66 Do not resuscitate; Z51.5 Encounter for palliative care; D64.9 Anemia, unspecified; R09.02 Hypoxemia; K21.9 Gastro-esophageal reflux disease without esophagitis; F03.90 Unspecified dementia, unspecified severity, without behavioral disturbance, psychotic disturbance, mood disturbance, and anxiety; G80.9 Cerebral palsy, unspecified; Y83.8 Other surgical procedures as the cause of abnormal reaction of the patient, or of later complication, without mention of misadventure at the time of the procedure; Y92.89 Other specified places as the place of occurrence of the external cause; Z74.01 Bed confinement status; Z91.5 Personal history of self-harm; Z87.442 Personal history of urinary calculi; Z79.899 Other long term (current) drug therapy
CPT/HCPCS: 36415; 43246; 71045; 80048; 80053; 80177; 81001; 82962; 83605; 85025; 87040; 90471; 90686; 96365; 96366; 96375; C9254; J0696; J1650; J1953; J2001; J2060; J2704; J3480; J3490; J7030; 99285-25; G0378

== ENCOUNTER 2019-05-14 12:56 | Emergency (ER) | payer OTHER ==
[~2019-05-14] VITALS: Ht 167.6 cm; Wt 67.1 kg
[2019-05-14] MEDS ORDERED: IV NORMAL SALINE 1000ML BAG 1,000 ML IV SCH (13:11)
--- NOTE | 2019-05-14 13:14 | PHYS DOC ---
Past Medical History Past Medical History: GERD, Hypertension, Hypothyroid Additional Past Medical Histor: EPILEPSY, GASTROSTOMY TUBE, DYSPHAGIA, APHASIA Past Surgical History: Other Additional Past Surgical Histo: G-tube Alcohol Use: None Drug Use: None Adult General Chief Complaint Chief Complaint: SEIZURE HPI HPI Patient is a 68 year old female patient with history of seizure disorder, aphasia, hypertension, GERD and PEG tube in placement [facility] of pen[facility] who presents via EMS with complaint of the seizure. residential reported that patient had a grand mal seizure for 1 minute without postictal condition and sent to ER for evaluation. The penitentiary staff was not able to tell about the last episode of seizure before today. Patient is aphasic and unable to give history. Review of Systems Review of Systems Unable to obtain because of the fascia Current Medications Current Medications Current Medications Medications (Trade) Dose Ordered Sig/Fatmata Start Time Stop Time Status Last Admin Dose Admin Ceftriaxone Sodium (Rocephin) 1 gm 1X ONCE 05/14/19 16:00 05/14/19 16:01 DC 05/14/19 15:59 1 GM Sodium Chloride 1,000 ml @ 1,000 mls/hr Q1H 05/14/19 13:11 05/14/19 14:10 DC 05/14/19 14:10 1,000 MLS/HR Allergies Allergies Allergies Coded Allergies Type Severity Reaction Last Updated Verified I S O L A T I O N *CONTACT* Allergy Unknown 04/18/18 Yes No Known Medication Allergies Allergy Unknown 04/04/19 Yes Physical Exam Physical Exam Constitutional: Nonverbal, mild distress, non-toxic appearance. [] HENT: Normocephalic, atraumatic. Eyes: PERRLA, EOMI, conjunctiva normal, no discharge. [] Neck: Normal range of motion, no tenderness, supple, no stridor. [] Cardiovascular:Heart rate regular rhythm, no murmur [] Lungs & Thorax: Bilateral breath sounds clear to auscultation [] Abdomen: Bowel sounds normal, PEG tube in place, soft, no tenderness, no masses, no pulsatile masses. [] Skin: Warm, dry, no erythema, no rash. [] Back: No tenderness, no CVA tenderness. [] Extremities: Moves all extremities Neurologic: awake, aphasic, unable to evaluate Psychologic: Unable to evaluate Current Patient Data Vital Signs Vital Signs Date Time Temp Pulse Resp B/P (MAP) Pulse Ox O2 Delivery O2 Flow Rate FiO2 05/14/19 15:59 92 16 95 05/14/19 13:06 99.1 191/74 (113) Room Air 99.1 Lab Values Laboratory Tests Test 05/14/19 13:34 05/14/19 15:01 05/14/19 15:15 White Blood Count 9.0 x10^3/uL (4.0-11.0) Red Blood Count 4.24 x10^6/uL (3.50-5.40) Hemoglobin 11.7 g/dL (12.0-15.5) L Hematocrit 34.8 % (36.0-47.0) L Mean Corpuscular Volume 82 fL (79-100) Mean Corpuscular Hemoglobin 28 pg (25-35) Mean Corpuscular Hemoglobin Concent 34 g/dL (31-37) Red Cell Distribution Width 16.5 % (11.5-14.5) H Platelet Count 205 x10^3/uL (140-400) Neutrophils (%) (Auto) 80 % (31-73) H Lymphocytes (%) (Auto) 10 % (24-48) L Monocytes (%) (Auto) 8 % (0-9) Eosinophils (%) (Auto) 2 % (0-3) Basophils (%) (Auto) 0 % (0-3) Neutrophils # (Auto) 7.3 x10^3/uL (1.8-7.7) Lymphocytes # (Auto) 0.9 x10^3/uL (1.0-4.8) L Monocytes # (Auto) 0.7 x10^3/uL (0.0-1.1) Eosinophils # (Auto) 0.1 x10^3/uL (0.0-0.7) Basophils # (Auto) 0.0 x10^3/uL (0.0-0.2) Prothrombin Time 13.0 SEC (11.7-14.0) Prothrombin Time INR 1.0 (0.8-1.1) Sodium Level 143 mmol/L (136-145) Potassium Level 3.2 mmol/L (3.5-5.1) L Chloride Level 106 mmol/L (98-107) Carbon Dioxide Level 27 mmol/L (21-32) Anion Gap 10 (6-14) Blood Urea Nitrogen 31 mg/dL (7-20) H Creatinine 1.0 mg/dL (0.6-1.0) Estimated GFR (Cockcroft-Gault) 55.3 BUN/Creatinine Ratio 31 (6-20) H Glucose Level 126 mg/dL (70-99) H Lactic Acid Level 2.4 mmol/L (0.4-2.0) H 1.4 mmol/L (0.4-2.0) Calcium Level 9.3 mg/dL (8.5-10.1) Total Bilirubin 0.5 mg/dL (0.2-1.0) Aspartate Amino Transferase (AST) 22 U/L (15-37) Alanine Aminotransferase (ALT) 24 U/L (14-59) Alkaline Phosphatase 122 U/L (46-116) H Total Protein 6.9 g/dL (6.4-8.2) Albumin 3.0 g/dL (3.4-5.0) L Albumin/Globulin Ratio 0.8 (1.0-1.7) L Urine Collection Type Unknown Urine Color Rosy Urine Clarity Clear Urine pH 8.0 Urine Specific [place] 1.020 Urine Protein >=300 mg/dL (NEG-TRACE) Urine Glucose (UA) Negative mg/dL (NEG) Urine Ketones (Stick) Negative mg/dL (NEG) Urine Blood Large (NEG) Urine Nitrite Positive (NEG) Urine Bilirubin Negative (NEG) Urine Urobilinogen Dipstick 0.2 mg/dL (0.2 mg/dL) Urine Leukocyte Esterase Large (NEG) Urine RBC 0 /HPF (0-2) Urine WBC 5-10 /HPF (0-4) Urine Squamous Epithelial Cells Few /LPF Urine Bacteria Many /HPF (0-FEW) Laboratory Tests 05/14/19 13:34 Laboratory Tests 05/14/19 13:34 EKG EKG EKG interpreted by me. EKG at 1344 showed sinus tachycardia at rate of 114, left fourth axis, LVH, poor R-wave progress in anteroseptal leads, multiple artifact, no acute ST and T-wave elevation. Radiology/Procedures Radiology/Procedures [][facility] [address] [place], [place] [id number] IMAGING REPORT Signed PATIENT: CHRIS GONZALES KAOUNT: [id number] : 1950 LOCATION: ER AGE: 68 SEX: F EXAM STATUS: REG ER ORD. PHYSICIAN: LUIS GREENE MD REASON: seizure and fever PROCEDURE: PORTABLE CHEST 1V Single AP view of the chest. Comparison: 04/01/2019. Indication: Cough Findings: The aorta is calcified. The heart is enlarged but stable. There is no pneumothorax or effusion. No air space or interstitial disease. Impression: 1. No acute cardiopulmonary process. Electronically signed by: Noel Baker MD (05/14/2019 1:53 PM) [facility] DICTATED and SIGNED BY: NOEL BAKER MD DATE: 05/14/19 1353 [facility] [address] [place] [address] IMAGING REPORT Signed PATIENT: CHRIS GONZALESCCOUNT: [id number] : 1950 LOCATION: ER AGE: 68 SEX: F EXAM STATUS: REG ER ORD. PHYSICIAN: LUIS GREENE MD REASON: seizure and fever PROCEDURE: CT HEAD WO CONTRAST EXAM: Head CT without contrast. HISTORY: Seizure. Fever. TECHNIQUE: Computed tomographic images of the head were obtained without contrast.. *One or more of the following individualized dose reduction techniques were utilized for this examination: 1. Automated exposure control. 2. Adjustment of the mA and/or kV according to patient size. 3. Use of iterative reconstruction technique. COMPARISON: 12/08/2018. FINDINGS: There is no hemorrhage. There is no mass effect or midline shift. There is stable moderate to severe ventriculomegaly. There is cerebellar volume loss. There are areas of hypodensity within the cerebral white matter, likely due to chronic small vessel disease. The orbits are unremarkable. There is fluid in the mastoid air cells. The visualized paranasal sinuses are unremarkable. There is diffuse calvarial thickening, finding which can be seen with chronic epilepsy medication use. No suspicious calvarial lesion is seen. IMPRESSION: 1. No acute intracranial finding. Note is made that MRI is more sensitive for acute infarction. 2. Stable moderate to severe ventriculomegaly due to cerebral volume loss. This does not appear to be greater than expected for cerebral volume to suggest hydrocephalus. 3. Cerebellar volume loss. 4. Decreased attenuation within the cerebral white matter, likely due to chronic small vessel disease. Electronically signed by: Lexi Tellez MD (05/14/2019 2:05 PM) [facility] DICTATED and SIGNED BY: LEXI TELLEZ MD DATE: 05/14/19 4118 Course & Med Decision Making Course & Med Decision Making Pertinent Labs and Imaging studies reviewed. (See chart for details) Evaluation of patient in ER showed 68-year-old female patient with fascia and re sident of penitentiary with history of seizure brought in because of a seizure. Patient had tachycardia and temperature of 99.1 at arrival to ER with elevation of lactic acid 2.4 but after IV fluids lactic get up to 1.4 and tachycardia improved. Patient did not have hypotension and had normal temperature and heart rate and blood pressure after IV fluid treatment.. According to penitentiary patient was in her usual condition, patient treated with IV fluids, IV Rocephin and potassium per PEG tube prescription for liquid Keflex was given. Plan to discharge patient to the penitentiary with diagnosis of recurrent seizure and hypokalemia. Dragon Disclaimer Dragon Disclaimer This electronic medical record was generated, in whole or in part, using a voice recognition dictation system. Departure Departure Impression: Primary Impression: Seizure disorder Additional Impressions: UTI (urinary tract infection) Aphagia Hypokalemia Disposition: 01 HOME, SELF-CARE (penitentiary) Condition: IMPROVED Referrals: VIKA CASIANO DO (PCP) Patient Instructions: Seizure Disorder, Child, Generalized Tonic-Clonic, Urinary Tract Infection Additional Instructions: Drink plenty of liquids Follow-up with your primary care physician in 2-3 days Return to ER if not getting better Scripts Cephalexin (CEPHALEXIN) 250 Mg/5 Ml Susp.recon 10 ML PEG Q8HRS, #300 ML Prov: LUIS GREENE MD 05/14/19 Critical Care Time Critical care time was 50 minutes exclusive of procedures. Problem Qualifiers Additional Impressions: UTI (urinary tract infection) Urinary tract infection type: site unspecified Hematuria presence: without hematuria Qualified Codes: N39.0 - Urinary tract infection, site not spec ified LUIS GREENE MD May 14, 2019 13:14
--- NOTE | 2019-05-14 13:56 | RAD ---
Single AP view of the chest. Comparison: 04/01/2019. Indication: Cough Findings: The aorta is calcified. The heart is enlarged but stable. There is no pneumothorax or effusion. No air space or interstitial disease. Impression: 1. No acute cardiopulmonary process. Electronically signed by: Noel Baker MD (05/14/2019 1:53 PM) [facility]
[2019-05-14 13:57] LABS: BASO % 0 % (0-3); EOS # 0.1 x10^3/uL (0.0-0.7); EOS % 2 % (0-3); HEMATOCRIT 34.8 % (36.0-47.0); HEMOGLOBIN 11.7 g/dL (12.0-15.5); LYMPH # 0.9 x10^3/uL (1.0-4.8); LYMPH % 10 % (24-48); MEAN CORPUSCULAR HEMOGLOBIN 28 pg (25-35); MEAN CORPUSCULAR HGB CONC 34 g/dL (31-37); MEAN CORPUSCULAR VOLUME 82 fL (79-100); MONO # 0.7 x10^3/uL (0.0-1.1); MONO % 8 % (0-9); NEUT # 7.3 x10^3/uL (1.8-7.7); NEUT % 80 % (31-73); PLATELET COUNT 205 x10^3/uL (140-400); RED BLOOD COUNT 4.24 x10^6/uL (3.50-5.40); RED CELL DISTRIBUTION WIDTH 16.5 % (11.5-14.5)
--- NOTE | 2019-05-14 13:58 | EKG ---
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
--- NOTE | 2019-05-14 14:07 | RAD ---
EXAM: Head CT without contrast. HISTORY: Seizure. Fever. TECHNIQUE: Computed tomographic images of the head were obtained without contrast.. *One or more of the following individualized dose reduction techniques were utilized for this examination: 1. Automated exposure control. 2. Adjustment of the mA and/or kV according to patient size. 3. Use of iterative reconstruction technique. COMPARISON: 12/08/2018. FINDINGS: There is no hemorrhage. There is no mass effect or midline shift. There is stable moderate to severe ventriculomegaly. There is cerebellar volume loss. There are areas of hypodensity within the cerebral white matter, likely due to chronic small vessel disease. The orbits are unremarkable. There is fluid in the mastoid air cells. The visualized paranasal sinuses are unremarkable. There is diffuse calvarial thickening, finding which can be seen with chronic epilepsy medication use. No suspicious calvarial lesion is seen. IMPRESSION: 1. No acute intracranial finding. Note is made that MRI is more sensitive for acute infarction. 2. Stable moderate to severe ventriculomegaly due to cerebral volume loss. This does not appear to be greater than expected for cerebral volume to suggest hydrocephalus. 3. Cerebellar volume loss. 4. Decreased attenuation within the cerebral white matter, likely due to chronic small vessel disease. Electronically signed by: Lexi Carbajal MD (05/14/2019 2:05 PM) [facility]
[2019-05-14 14:14] LABS: ALBUMIN/GLOBULIN RATIO 0.8 (1.0-1.7); CALCIUM 9.3 mg/dL (8.5-10.1); GFR 55.3; TOTAL BILIRUBIN 0.5 mg/dL (0.2-1.0); TOTAL PROTEIN 6.9 g/dL (6.4-8.2)
[2019-05-14 14:19] LABS: POTASSIUM 3.2 mmol/L (3.5-5.1)
[2019-05-14 15:13] LABS: BILIRUBIN,URINE NEGATIVE (NEG); CLARITY,URINE CLEAR; COLOR,URINE AMBER; NITRITE,URINE POSITIVE (NEG); PROTEIN,URINE >=300 mg/dL (NEG-TRACE); UROBILINOGEN,URINE 0.2 mg/dL (0.2 mg/dL)
[2019-05-14 15:24] LABS: RBC,URINE 0 /HPF (0-2)
[2019-05-14 15:25] LABS: BACTERIA,URINE MANY /HPF (0-FEW); SQUAMOUS EPITHELIAL CELL,UR FEW /LPF
[2019-05-14] MEDS ORDERED: cefTRIAXone IV Push 1 GM VIAL. IVP ONE (16:00)
[2019-05-14] MEDS ORDERED: POTASSIUM BICARB 20 MEQ EFFERVESCENT TABLET. PEG STA (16:30)
[2019-05-14] MEDS ORDERED: CEPH250S30 PO (16:50)
[2019-05-14] MEDS ORDERED: CEPH250S30 PEG (16:56)
[2019-05-14 18:30] VITALS: BP 182/79
== END 2019-05-14 19:18 | disposition home or self-care (01) ==
LOC: ER 12:56
DX: G40.909 Epilepsy, unspecified, not intractable, without status epilepticus (principal); N39.0 Urinary tract infection, site not specified; R13.0 Aphagia; E87.6 Hypokalemia; I10 Essential (primary) hypertension; K21.9 Gastro-esophageal reflux disease without esophagitis; E03.9 Hypothyroidism, unspecified; Z93.1 Gastrostomy status; Z91.041 Radiographic dye allergy status
CPT/HCPCS: 36415; 70450; 71045; 80053; 81001; 83605; 85025; 85610; 87040; 87086; 93005; 96374; 99291; J0696; J7030

== ENCOUNTER 2019-07-26 23:54 | Inpatient (IN) | payer OTHER ==
[~2019-07-26] VITALS: Ht 170.2 cm; Wt 81.5 kg
[~2019-07-26 23:54] MED LIST changes: +CEPH250S30 PEG; +CEPH250S30 PO
[2019-07-27] MEDS ORDERED: PIPERACILLIN/TAZOBACTAM 4.5 GM in IV NORMAL SALINE 100ML 100 ML IV ONE (00:30)
[2019-07-27] MEDS ORDERED: ACETAMINOPHEN 650 MG/20.3 ML SOLUTION. PEG ONE (00:30)
--- NOTE | 2019-07-27 00:56 | RAD ---
PORTABLE CHEST 1V Clinical Indication: Fever Comparison: AP chest 05/14/2019. Findings: Atherosclerotic thoracic aorta. Stable cardiomegaly. Lungs are clear. There is no pneumothorax. No pleural effusion is appreciated. No acute bone abnormality. IMPRESSION: No acute cardiopulmonary process. Electronically signed by: Ascencion Abreu MD (07/27/2019 12:53 AM) [id number]
[2019-07-27] MEDS ORDERED: ONDANSETRON PF 4 MG/2 ML VIAL. IV PRN ×2 (01:00→15:30)
[2019-07-27] MEDS ORDERED: ACETAMINOPHEN 650 MG/20.3 ML SOLUTION. PEG PRN ×2 (01:00→15:30)
[2019-07-27] MEDS ORDERED: ACETAMINOPHEN 325 MG TABLET. PO PRN (01:00)
--- NOTE | 2019-07-27 01:15 | PHYS DOC ---
Past Medical History Past Medical History: GERD, Hypertension, Hypothyroid Additional Past Medical Histor: EPILEPSY, GASTROSTOMY TUBE, DYSPHAGIA, APHASIA Past Surgical History: Other Additional Past Surgical Histo: G-tube Smoking Status: Never Smoker Alcohol Use: None Drug Use: None Adult General Chief Complaint Chief Complaint: SEIZURE HPI HPI Patient is a 68 year old female with a history of seizures, dysphasia, aphasia, nonverbal at baseline, feeding tube, who presents to the ED today from a local halfway to be evaluated after experiencing 2 seizures. By halfway staff report given to EMS, patient had to grand mal seizures 30 minutes apart each lasting increase minutes. Patient is nonverbal has history is limited. She arrives in the ED febrile and tachycardic Review of Systems Review of Systems Constitutional: Febrile Eyes: ZIGGY HENT: ZIGGY Respiratory: ZIGGY Cardiovascular: ZIGGY GI: Noted for feeding tube : ZIGGY Musculoskeletal: ZIGGY Integument: ZIGGY Neurologic: Reports seizures. All other systems were reviewed and found to be within normal limits, except as documented in this note. Current Medications Current Medications Current Medications Medications (Trade) Dose Ordered Sig/Fatmata Start Time Stop Time Status Last Admin Dose Admin Acetaminophen (Tylenol) 650 mg 1X ONCE 07/27/19 00:30 07/27/19 00:31 DC 07/27/19 00:52 650 MG Lorazepam (Ativan Inj) 1 mg 1X ONCE 07/27/19 00:30 07/27/19 00:31 Cancel Piperacillin Sod/ Tazobactam Sod 4.5 gm/Sodium Chloride 100 ml @ 200 mls/hr 1X ONCE 07/27/19 00:30 07/27/19 00:59 DC 07/27/19 01:18 200 MLS/HR Sodium Chloride 1,000 ml @ 1,000 mls/hr Q1H 07/27/19 00:30 07/27/19 02:15 07/27/19 01:18 1,000 MLS/HR Allergies Allergies Allergies Coded Allergies Type Severity Reaction Last Updated Verified I S O L A T I O N *CONTACT* Allergy Unknown 04/18/18 Yes No Known Medication Allergies Allergy Unknown 04/04/19 Yes Physical Exam Physical Exam Constitutional: Well developed, well nourished, no acute distress, non-toxic appearance. [] HENT: Normocephalic, atraumatic, bilateral external ears normal, oropharynx m oist, no oral exudates, nose normal. [] Eyes: PERRLA, EOMI, conjunctiva normal, no discharge. [] Neck: Normal range of motion, no tenderness, supple, no stridor. [] Cardiovascular:Heart rate regular rhythm, Lungs & Thorax: Bilateral breath sounds clear to auscultation [] Abdomen:Feeding tube noted to the abdomen. Bowel sounds normal, soft, no tenderness, no masses, no pulsatile masses. [] Skin: Warm, dry, no erythema, no rash. [] Back: No tenderness, no CVA tenderness. [] Extremities: No tenderness, no cyanosis, no clubbing, ROM intact, no edema. contracted upper extremities and flaccid lower extremities Neurologic: Alert and oriented X 1, normal motor function, normal sensory function, no focal deficits noted. [] Psychologic:flat affect. EKG EKG Interpreted by Dr. Mike GARCIA HR 140s no STEMI[] Radiology/Procedures Radiology/Procedures []PROCEDURE: PORTABLE CHEST 1V PORTABLE CHEST 1V Clinical Indication: Fever Comparison: AP chest 05/14/2019. Findings: Atherosclerotic thoracic aorta. Stable cardiomegaly. Lungs are clear. There is no pneumothorax. No pleural effusion is appreciated. No acute bone abnormality. IMPRESSION: No acute cardiopulmonary process. Electronically signed by: Ascencion Abreu MD (07/27/2019 12:53 AM) [id number] DICTATED and SIGNED BY: ASCENCION ABREU MD DATE: 07/27/19 0053 Course & Med Decision Making Course & Med Decision Making Pertinent Labs and Imaging studies reviewed. (See chart for details) This is a 68-year-old female patient with history of seizures presented from a halfway with complaints of 2 seizures this evening. Patient arrives in the ED post ictal. She was also tachycardic with heart rates in the 140s and running a fever temperature was around 102. She was started on the sepsis protocol including IV fluids and antibiotics. Most of the labs are still pending. CMP with glucose of 222, anion gap is 20, creatinine 1.2, BUN 28. Troponin was 0.106, patient has history of elevated troponin this is actually around her baseline. She is nonverbal and had to examine in terms of presence or absence of chest pain Urine + for UTI Will be admitted under Dr. Dawson, report to be given to him by the morning ED doctor. Discussed IV acces options with Dr. Mckeon. Melissa Disclaimer Melissa Disclaimer This electronic medical record was generated, in whole or in part, using a voice recognition dictation system. Date and Time of Reassessment Date: Dec 08, 2018 Time: 01:51 Fluid Challenge Is the fluid challenge complet: No IBW Target Volume Used: Yes BMI > 30: Yes Vital Signs Temperature Source: Oral Respirations Respiratory Effort: Normal Respiratory Pattern: Normal Cardiovascular Pulse Rhythm: Regular Heart: Nml rate, reg. rhythm Lung Sounds Breath Sounds: Diminished Capillary Refil Capillary Refill: Rt Hand > 3 seconds Peripheral Pulse Pulse Location: Monitor Pulse Strength: Normal (2+) Pulse Assessment Method: NIBP Integumentary Skin: Warm Skin Moisture: Dry Skin Turgor: Normal Skin Color: warm Fingernail Color: WNL Departure Departure Impression: Primary Impression: Fever Additional Impressions: Seizure disorder Elevated troponin UTI (urinary tract infection) Sepsis Disposition: ADMITTED INPATIENT Condition: STABLE Referrals: LINO RICO MD (PCP) Problem Qualifiers Primary Impression: Fever Fever type: unspecified Qualified Codes: R50.9 - Fever, unspecified Additional Impressions: UTI (urinary tract infection) Urinary tract infection type: acute cystitis Hematuria presence: without hematuria Qualified Codes: N30.00 - Acute cystitis without hematuria Sepsis Sepsis type: sepsis due to unspecified organism Sepsis acute organ dysfunction status: with acute organ dysfunction Severe sepsis acute organ dysfunction type: acute renal failure Acute renal failure type: unspecified Severe sepsis shock status: with septic shock Qualified Codes: A41.9 - Sepsis, unspecified organism; R65.21 - Severe sepsis with septic shock; N17.9 - Acute kidney failure, unspecified MUTUNGA,KELVIN [employer]ONE [employer] STRIPPER Jul 27, 2019 01:14
[2019-07-27] MEDS: IV NORMAL SALINE 1000ML BAG 1,000 ML IV SCH ×3 (01:18→16:01)
[2019-07-27 01:23] LABS: CREATININE 1.2 mg/dL (0.6-1.0); GFR 44.8; POTASSIUM 3.5 mmol/L (3.5-5.1)
[2019-07-27 01:28] LABS: ALBUMIN/GLOBULIN RATIO 0.9 (1.0-1.7); MAGNESIUM 2.1 mg/dL (1.8-2.4); TOTAL BILIRUBIN 0.4 mg/dL (0.2-1.0); TOTAL PROTEIN 6.3 g/dL (6.4-8.2)
[2019-07-27 01:28] LABS: BILIRUBIN,URINE NEGATIVE (NEG); CLARITY,URINE TURBID; COLOR,URINE YELLOW; NITRITE,URINE NEGATIVE (NEG); PH,URINE 7.5; PROTEIN,URINE 100 mg/dL (NEG-TRACE); UROBILINOGEN,URINE 0.2 mg/dL (0.2 mg/dL)
[2019-07-27] MEDS ORDERED: levETIRAcetam 1,000 MG in IV DEXTROSE 5% 100ML 100 ML IV ONE (01:30)
[2019-07-27] MEDS ORDERED: IV NORMAL SALINE 1000ML BAG 1,000 ML IV ONE ×2 (01:30→02:15)
[2019-07-27 01:33] LABS: CREATINE KINASE 38 U/L (26-192)
[2019-07-27 01:39] LABS: BACTERIA,URINE FEW /HPF (0-FEW)
[2019-07-27 01:40] LABS: AMORPHOUS SEDIMENT,UR PRESENT /HPF; SQUAMOUS EPITHELIAL CELL,UR FEW /LPF
[2019-07-27 01:47] LABS: BARBITURATES NEG (NEG); BENZODIAZEPINES NEG (NEG); CANNABINOIDS NEG (NEG); COCAINE NEG (NEG); METHADONE NEG (NEG); OPIATES NEG (NEG); PHENCYCLIDINE NEG (NEG)
[2019-07-27 01:48] LABS: AMPHETAMINE/METHAMPHETAMINE NEG (NEG)
[2019-07-27 02:06] LABS: BASO % 0 % (0-3); EOS % 0 % (0-3); HEMOGLOBIN 11.7 g/dL (12.0-15.5); LYMPH # 0.2 x10^3/uL (1.0-4.8); LYMPH % 2 % (24-48); MEAN CORPUSCULAR HEMOGLOBIN 28 pg (25-35); MEAN CORPUSCULAR HGB CONC 33 g/dL (31-37); MEAN CORPUSCULAR VOLUME 84 fL (79-100); MONO # 0.6 x10^3/uL (0.0-1.1); MONO % 7 % (0-9); NEUT # 8.5 x10^3/uL (1.8-7.7); NEUT % 91 % (31-73); PLATELET COUNT 175 x10^3/uL (140-400); RED BLOOD COUNT 4.19 x10^6/uL (3.50-5.40); RED CELL DISTRIBUTION WIDTH 16.3 % (11.5-14.5); WHITE BLOOD COUNT 9.4 x10^3/uL (4.0-11.0)
--- NOTE | 2019-07-27 02:22 | EKG ---
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
[2019-07-27 05:12] LABS: % BANDS 7 % (0-9); % BASOS 1 % (0-3); % LYMPHS 1 % (24-48); % MONOS 5 % (0-10); % SEGS 86 % (35-66); PLT ESTIMATE ADEQUATE (ADEQUATE)
[2019-07-27 06:50] LABS: INFLUENZA A PATIENT NEGATIVE (NEGATIVE); INFLUENZA B PATIENT NEGATIVE (NEGATIVE)
--- NOTE | 2019-07-27 10:15 | NUR ---
IP: Pt has a hx of + mrsa screens since 2018 with most recent on 12/15/18. Pt to be in contact precautions until there are 2 negative screens 7 days apart. Recommend Nozin/CHG initiation post mrsa screen.
--- NOTE | 2019-07-27 10:35 | PDOC2 ---
NEUROLOGY CONSULT Date of Admission Date of Admission DATE: 07/27/19 TIME: 10:26 Reason for Consult Reason for Consult: seizure Source Source: Chart review History of Present Illness History of Present Illness The patient is a 68-year-old right-handed female well-known to the neurology service with mental retardation, cerebral palsy picture, longtime nursing a res ident, with history of epilepsy. We saw her in 2017 and several admissions in 2019 including December 08, December 14, April 01. We also see that she was in the emergency room but discharged, on May 14. Each time she had a provoking cause. This time it appears she has a urinary tract infection. She [facility] 2 seizures at the [facility] and was sent [facility]. Her intellectual baseline is a 3-year-old. Past Medical History Cardiovascular: HTN CENTRAL NERVOUS SYSTEM: Dementia (Cerebral palsy picture, aphasic, dysphagic), Seizure GI: GERD Renal/: Other ( nephrolithiasis) Endocrine: Hypothyroidism Past Surgical History Past Surgical History: Other (PEG) Family History Family History: No pertinent hx Social History Social History Longtime [facility] resident, no family, a trust pays for her medical care Current Medications Current Medications Current Medications Sodium Chloride 1,000 ml @ 1,000 mls/hr Q1H IV Last administered on 07/27/19at 03:30; Start 07/27/19 at 00:30; Stop 07/27/19 at 02:15; Status DC Piperacillin Sod/ Tazobactam Sod 4.5 gm/Sodium Chloride 100 ml @ 200 mls/hr 1X ONCE IV Last administered on 07/27/19at 01:18; Start 07/27/19 at 00:30; Stop 07/27/19 at 00:59; Status DC Levofloxacin/ Dextrose 150 ml @ 100 mls/hr 1X ONCE IV Last administered on 07/27/19at 02:26; Start 07/27/19 at 01:00; Stop 07/27/19 at 02:29; Status DC Acetaminophen (Tylenol) 650 mg 1X ONCE PEG Last administered on 07/27/19at 00:52; Start 07/27/19 at 00:30; Stop 07/27/19 at 00:31; Status DC Lorazepam (Ativan Inj) 1 mg 1X ONCE IVP ; Start 07/27/19 at 00:30; Stop 07/27/19 at 00:31; Status Cancel Lorazepam (Ativan Inj) 1 mg 1X ONCE IM Last administered on 07/27/19at 00:51; Start 07/27/19 at 01:00; Stop 07/27/19 at 01:01; Status DC Ondansetron HCl (Zofran) 4 mg PRN Q8HRS PRN IV NAUSEA/VOMITING 1st choice Last administered on 07/27/19at 03:59; Start 07/27/19 at 01:00; Stop 07/28/19 at 00:59 Acetaminophen (Tylenol) 650 mg PRN Q4HRS PRN PO FEVER; Start 07/27/19 at 01:00; Stop 07/28/19 at 00:59 Acetaminophen (Tylenol) 650 mg PRN Q6HRS PRN PEG fever; Start 07/27/19 at 01:00 Sodium Chloride 1,000 ml @ 125 mls/hr 1X ONCE IV Last administered on 07/27/19at 04:48; Start 07/27/19 at 01:30; Stop 07/27/19 at 09:29; Status DC Levetiracetam 1000 mg/Dextrose 110 ml @ 440 mls/hr 1X ONCE IV Last administered on 07/27/19at 01:56; Start 07/27/19 at 01:30; Stop 07/27/19 at 01:44; Status DC Lorazepam (Ativan Inj) 1 mg PRN Q4HRS PRN IVP SEE COMMENTS; Start 07/27/19 at 01:00 Sodium Chloride 1,000 ml @ 1,000 mls/hr 1X ONCE IV Last administered on 07/27/19at 02:22; Start 07/27/19 at 02:15; Stop 07/27/19 at 03:14; Status DC Levetiracetam (Keppra) 1,500 mg BID PEG ; Start 07/27/19 at 10:00; Stop 07/27/19 at 09:47; Status DC Lacosamide (Vimpat) 100 mg BID PEG ; Start 07/27/19 at 10:00 Levetiracetam (Keppra) 1,500 mg BID PEG ; Start 07/27/19 at 21:00 Active Scripts Active Cephalexin 250 Mg/5 Ml Susp.recon 10 Ml PEG Q8HRS Lorazepam 0.5 Mg Tablet 1 Tab PEG PRN TID PRN 30 Days Acetaminophen Oral Liquid (Acetaminophen) 650 Mg/20.3 Ml Solution 650 Mg PEG PRN Q6HRS PRN 30 Days Vimpat (Lacosamide) 50 Mg Tablet 100 Mg PEG BID 30 Days Cefdinir 250 Mg/5 Ml Susp.recon 250 Mg PEG BID 10 Days Reported Zinc Oxide 56.7 Gm Oint...g. 56.7 Gm TP BID Potassium Chloride Oral Liquid (Potassium Chloride) 20 Meq/15 Ml Liquid 20 Meq PEG BID Triamcinolone Acetonide 0.025% Cream (Triamcinolone Acetonide) 15 Gm Cream..g. 1 Kandy TP DAILY Famotidine 20 Mg Tablet 20 Mg PEG HS Senna-S Tablet (Sennosides/Docusate Sodium) 1 Each Tablet 1 Each PEG BID Synthroid (Levothyroxine Sodium) 100 Mcg Tablet 1 Tab PEG DAILY Keppra (Levetiracetam) 100 Mg/1 Ml Solution 1,500 Mg PEG BID [fibersource HN PEG] Allergies Allergies: Coded Allergies: I S O L A T I O N *CONTACT* (Verified Allergy, Unknown, 04/18/18) mrsa No Known Medication Allergies (Verified Allergy, Unknown, 04/04/19) ROS Review of System Unobtainable Physical Exam Physical Examination General: Well-developed, well-nourished white female in no acute distress HEENT: Normocephalic andatraumatic. Tympanic membranes clear.Temporal arteriespulsatile and nontender.Fundoscopic exam unremarkable Neck: Supple without bruit, no meningismus Musculoskeletal: Stability:see neurologic. Gait exam:see neurologic. Tone:see neurolog ic.Strength:see neurologic. Neurological: Mental Status:orientation, memory, attention span/concentration, language, fund of knowledge: eyes open, nonverbal, does not follow commands. Cranial Nerves:Pupils equal and reactive to light, extraocular movements areintact, visual mckenna are full to confrontation. Facial sensation is normal. There is no facial asymmetry. Vestibulo-ocular reflex is intact. Palate elevates and tongue protrudes in midline. All other cranial related problems are negative except as mentioned before.Reflexes:1+ and symmetric with flexor plantar responses. Motor:quadraspasticity. Coordination and gait:not cooperative. Sensory:Not cooperative Vitals VITALS Vital Signs Date Time Temp Pulse Resp B/P (MAP) Pulse Ox O2 Delivery O2 Flow Rate FiO2 07/27/19 06:58 90 20 114/54 (74) 90 Room Air 07/27/19 03:28 2.0 07/27/19 00:00 102.5 102.5 Labs Labs Laboratory Tests Test 07/27/19 00:50 07/27/19 01:20 07/27/19 01:45 07/27/19 04:42 Sodium Level 142 mmol/L (136-145) Potassium Level 3.5 mmol/L (3.5-5.1) Chloride Level 103 mmol/L (98-107) Carbon Dioxide Level 19 mmol/L (21-32) Anion Gap 20 (6-14) Blood Urea Nitrogen 28 mg/dL (7-20) Creatinine 1.2 mg/dL (0.6-1.0) Estimated GFR (Cockcroft-Gault) 44.8 BUN/Creatinine Ratio 23 (6-20) Glucose Level 222 mg/dL (70-99) Lactic Acid Level 10.1 mmol/L (0.4-2.0) 2.1 mmol/L (0.4-2.0) Calcium Level 9.0 mg/dL (8.5-10.1) Magnesium Level 2.1 mg/dL (1.8-2.4) Total Bilirubin 0.4 mg/dL (0.2-1.0) Aspartate Amino Transf (AST/SGOT) 36 U/L (15-37) Alanine Aminotransferase (ALT/SGPT) 26 U/L (14-59) Alkaline Phosphatase 111 U/L (46-116) Creatine Kinase 38 U/L (26-192) Creatine Kinase MB (Mass) 0.8 ng/mL (0.0-3.6) Creatine Kinase MB Relative Index % (0-4) Troponin I Quantitative 0.106 ng/mL (0.000-0.055) CH-Hnu-Y-Type Natriuretic Peptide 1992 pg/mL (0-124) Total Protein 6.3 g/dL (6.4-8.2) Albumin 3.0 g/dL (3.4-5.0) Albumin/Globulin Ratio 0.9 (1.0-1.7) Procalcitonin 0.17 ng/mL (0.00-0.10) Thyroid Stimulating Hormone (TSH) 1.296 uIU/mL (0.358-3.74) Urine Collection Type U cath Urine Color Yellow Urine Clarity Turbid Urine pH 7.5 Urine Specific [place] 1.015 Urine Protein 100 mg/dL (NEG-TRACE) Urine Glucose (UA) Negative mg/dL (NEG) Urine Ketones (Stick) Negative mg/dL (NEG) Urine Blood Large (NEG) Urine Nitrite Negative (NEG) Urine Bilirubin Negative (NEG) Urine Urobilinogen Dipstick 0.2 mg/dL (0.2 mg/dL) Urine Leukocyte Esterase Large (NEG) Urine RBC 3-5 /HPF (0-2) Urine WBC 11-20 /HPF (0-4) Urine Squamous Epithelial Cells Few /LPF Urine Transitional Epithelial Cells Occ /LPF Urine Renal Epithelial Cells Occ /LPF Urine Amorphous Sediment Present /HPF Urine Bacteria Few /HPF (0-FEW) Urine Mucus Slight /LPF Urine Opiates Screen Neg (NEG) Urine Methadone Screen Neg (NEG) Urine Barbiturates Neg (NEG) Urine Phencyclidine Screen Neg (NEG) Urine Amphetamine/Methamphetamine Neg (NEG) Urine Benzodiazepines Screen Neg (NEG) Urine Cocaine Screen Neg (NEG) Urine Cannabinoids Screen Neg (NEG) Urine Ethyl Alcohol Neg (NEG) White Blood Count 9.4 x10^3/uL (4.0-11.0) Red Blood Count 4.19 x10^6/uL (3.50-5.40) Hemoglobin 11.7 g/dL (12.0-15.5) Hematocrit 35.0 % (36.0-47.0) Mean Corpuscular Volume 84 fL (79-100) Mean Corpuscular Hemoglobin 28 pg (25-35) Mean Corpuscular Hemoglobin Concent 33 g/dL (31-37) Red Cell Distribution Width 16.3 % (11.5-14.5) Platelet Count 175 x10^3/uL (140-400) Neutrophils (%) (Auto) 91 % (31-73) Lymphocytes (%) (Auto) 2 % (24-48) Monocytes (%) (Auto) 7 % (0-9) Eosinophils (%) (Auto) 0 % (0-3) Basophils (%) (Auto) 0 % (0-3) Neutrophils # (Auto) 8.5 x10^3/uL (1.8-7.7) Lymphocytes # (Auto) 0.2 x10^3/uL (1.0-4.8) Monocytes # (Auto) 0.6 x10^3/uL (0.0-1.1) Eosinophils # (Auto) 0.0 x10^3/uL (0.0-0.7) Basophils # (Auto) 0.0 x10^3/uL (0.0-0.2) Segmented Neutrophils % 86 % (35-66) Band Neutrophils % 7 % (0-9) Lymphocytes % 1 % (24-48) Monocytes % 5 % (0-10) Basophils % 1 % (0-3) Platelet Estimate Adequate (ADEQUATE) Test 07/27/19 06:10 Influenza Type A Antigen Negative (NEGATIVE) Influenza Type B Antigen Negative (NEGATIVE) Laboratory Tests Test 07/27/19 00:50 07/27/19 01:20 07/27/19 01:45 07/27/19 04:42 Sodium Level 142 mmol/L (136-145) Potassium Level 3.5 mmol/L (3.5-5.1) Chloride Level 103 mmol/L (98-107) Carbon Dioxide Level 19 mmol/L (21-32) Anion Gap 20 (6-14) Blood Urea Nitrogen 28 mg/dL (7-20) Creatinine 1.2 mg/dL (0.6-1.0) Estimated GFR (Cockcroft-Gault) 44.8 BUN/Creatinine Ratio 23 (6-20) Glucose Level 222 mg/dL (70-99) Lactic Acid Level 10.1 mmol/L (0.4-2.0) 2.1 mmol/L (0.4-2.0) Calcium Level 9.0 mg/dL (8.5-10.1) Magnesium Level 2.1 mg/dL (1.8-2.4) Total Bilirubin 0.4 mg/dL (0.2-1.0) Aspartate Amino Transf (AST/SGOT) 36 U/L (15-37) Alanine Aminotransferase (ALT/SGPT) 26 U/L (14-59) Alkaline Phosphatase 111 U/L (46-116) Creatine Kinase 38 U/L (26-192) Creatine Kinase MB (Mass) 0.8 ng/mL (0.0-3.6) Creatine Kinase MB Relative Index % (0-4) Troponin I Quantitative 0.106 ng/mL (0.000-0.055) TU-Rxm-B-Type Natriuretic Peptide 1992 pg/mL (0-124) Total Protein 6.3 g/dL (6.4-8.2) Albumin 3.0 g/dL (3.4-5.0) Albumin/Globulin Ratio 0.9 (1.0-1.7) Procalcitonin 0.17 ng/mL (0.00-0.10) Thyroid Stimulating Hormone (TSH) 1.296 uIU/mL (0.358-3.74) Urine Collection Type U cath Urine Color Yellow Urine Clarity Turbid Urine pH 7.5 Urine Specific [place] 1.015 Urine Protein 100 mg/dL (NEG-TRACE) Urine Glucose (UA) Negative mg/dL (NEG) Urine Ketones (Stick) Negative mg/dL (NEG) Urine Blood Large (NEG) Urine Nitrite Negative (NEG) Urine Bilirubin Negative (NEG) Urine Urobilinogen Dipstick 0.2 mg/dL (0.2 mg/dL) Urine Leukocyte Esterase Large (NEG) Urine RBC 3-5 /HPF (0-2) Urine WBC 11-20 /HPF (0-4) Urine Squamous Epithelial Cells Few /LPF Urine Transitional Epithelial Cells Occ /LPF Urine Renal Epithelial Cells Occ /LPF Urine Amorphous Sediment Present /HPF Urine Bacteria Few /HPF (0-FEW) Urine Mucus Slight /LPF Urine Opiates Screen Neg (NEG) Urine Methadone Screen Neg (NEG) Urine Barbiturates Neg (NEG) Urine Phencyclidine Screen Neg (NEG) Urine Amphetamine/Methamphetamine Neg (NEG) Urine Benzodiazepines Screen Neg (NEG) Urine Cocaine Screen Neg (NEG) Urine Cannabinoids Screen Neg (NEG) Urine Ethyl Alcohol Neg (NEG) White Blood Count 9.4 x10^3/uL (4.0-11.0) Red Blood Count 4.19 x10^6/uL (3.50-5.40) Hemoglobin 11.7 g/dL (12.0-15.5) Hematocrit 35.0 % (36.0-47.0) Mean Corpuscular Volume 84 fL (79-100) Mean Corpuscular Hemoglobin 28 pg (25-35) Mean Corpuscular Hemoglobin Concent 33 g/dL (31-37) Red Cell Distribution Width 16.3 % (11.5-14.5) Platelet Count 175 x10^3/uL (140-400) Neutrophils (%) (Auto) 91 % (31-73) Lymphocytes (%) (Auto) 2 % (24-48) Monocytes (%) (Auto) 7 % (0-9) Eosinophils (%) (Auto) 0 % (0-3) Basophils (%) (Auto) 0 % (0-3) Neutrophils # (Auto) 8.5 x10^3/uL (1.8-7.7) Lymphocytes # (Auto) 0.2 x10^3/uL (1.0-4.8) Monocytes # (Auto) 0.6 x10^3/uL (0.0-1.1) Eosinophils # (Auto) 0.0 x10^3/uL (0.0-0.7) Basophils # (Auto) 0.0 x10^3/uL (0.0-0.2) Segmented Neutrophils % 86 % (35-66) Band Neutrophils % 7 % (0-9) Lymphocytes % 1 % (24-48) Monocytes % 5 % (0-10) Basophils % 1 % (0-3) Platelet Estimate Adequate (ADEQUATE) Test 07/27/19 06:10 Influenza Type A Antigen Negative (NEGATIVE) Influenza Type B Antigen Negative (NEGATIVE) Assessment/Plan Assessment/Plan Impression: Epilepsy, breakthrough seizure x2. Cerebral palsy picture, severe mental retardation Note elevated lactic acid level, improving Urinary tract infection. Recommendations: I wrote for her levetiracetam and lacosamide No need to repeat her EEG Treatment of urinary tract infection. Thank you for letting me help with the patient's care. PAUL RODRIGUEZ MD Jul 27, 2019 10:35
[2019-07-27 12:32] VITALS: BP 101/66
--- NOTE | 2019-07-27 12:36 | PDOC1 ---
History and Physical Date of Admission Date of Admission DATE: 07/27/19 TIME: 12:36 Identification/Chief Complaint Chief Complaint seen in er with seizure , 68 year old female with a history of seizures, dysphasia, aphasia, nonverbal at baseline, feeding tube, who presents to the ED 07/26 from a local halfway to be evaluated after experiencing 2 seizures. By halfway staff report given to EMS, patient had 2 grand mal seizures 30 minutes apart each lasting increase minutes. Patient is nonverbal has history is limited. She arrives in the ED jul rile and tachycardic ua c/w uti TMAX 102.5 F Past Medical History Past Medical History Past Medical History Past Medical History Past Medical History: GERD, Hypertension, Hypothyroid Additional Past Medical Histor: EPILEPSY, GASTROSTOMY TUBE, DYSPHAGIA, APHASIA Past Surgical History: Other Additional Past Surgical Histo: G-tube Smoking Status: Never Smoker Alcohol Use: None Drug Use: None fhx obesity Cardiovascular: HTN CENTRAL NERVOUS SYSTEM: Dementia (Cerebral palsy picture, aphasic, dysphagic), Seizure GI: GERD Musculoskeletal: Muscle atrophy, Weakness Renal/: Other ( nephrolithiasis) Endocrine: Hypothyroidism Past Surgical History Past Surgical History: Other (PEG) Family History Family History: No Significant, Family History Unknown Social History Smoke: No ALCOHOL: none Drugs: None Current Problem List Problem List Problems Medical Problems: (1) Elevated troponin Status: Acute (2) Sepsis Status: Acute (3) UTI (urinary tract infection) Status: Acute Current Medications Current Medications Current Medications Sodium Chloride 1,000 ml @ 1,000 mls/hr Q1H IV Last administered on 07/27/19at 03:30; Start 07/27/19 at 00:30; Stop 07/27/19 at 02:15; Status DC Piperacillin Sod/ Tazobactam Sod 4.5 gm/Sodium Chloride 100 ml @ 200 mls/hr 1X ONCE IV Last administered on 07/27/19at 01:18; Start 07/27/19 at 00:30; Stop 07/27/19 at 00:59; Status DC Levofloxacin/ Dextrose 150 ml @ 100 mls/hr 1X ONCE IV Last administered on at 02:26; Start 07/27/19 at 01:00; Stop 07/27/19 at 02:29; Status DC Acetaminophen (Tylenol) 650 mg 1X ONCE PEG Last administered on 07/27/19at 00:52; Start 07/27/19 at 00:30; Stop 07/27/19 at 00:31; Status DC Lorazepam (Ativan Inj) 1 mg 1X ONCE IVP ; Start 07/27/19 at 00:30; Stop 07/27/19 at 00:31; Status Cancel Lorazepam (Ativan Inj) 1 mg 1X ONCE IM Last administered on 07/27/19at 00:51; Start 07/27/19 at 01:00; Stop 07/27/19 at 01:01; Status DC Ondansetron HCl (Zofran) 4 mg PRN Q8HRS PRN IV NAUSEA/VOMITING 1st choice Last administered on 07/27/19at 03:59; Start 07/27/19 at 01:00; Stop 07/28/19 at 00:59 Acetaminophen (Tylenol) 650 mg PRN Q4HRS PRN PO FEVER; Start 07/27/19 at 01:00; Stop 07/28/19 at 00:59 Acetaminophen (Tylenol) 650 mg PRN Q6HRS PRN PEG fever; Start 07/27/19 at 01:00 Sodium Chloride 1,000 ml @ 125 mls/hr 1X ONCE IV Last administered on 07/27/19at 04:48; Start 07/27/19 at 01:30; Stop 07/27/19 at 09:29; Status DC Levetiracetam 1000 mg/Dextrose 110 ml @ 440 mls/hr 1X ONCE IV Last administered on 07/27/19at 01:56; Start 07/27/19 at 01:30; Stop 07/27/19 at 01:44; Status DC Lorazepam (Ativan Inj) 1 mg PRN Q4HRS PRN IVP SEE COMMENTS; Start 07/27/19 at 01:00 Sodium Chloride 1,000 ml @ 1,000 mls/hr 1X ONCE IV Last administered on 07/27/19at 02:22; Start 07/27/19 at 02:15; Stop 07/27/19 at 03:14; Status DC Levetiracetam (Keppra) 1,500 mg BID PEG ; Start 07/27/19 at 10:00; Stop 07/27/19 at 09:47; Status DC Lacosamide (Vimpat) 100 mg BID PEG ; Start 07/27/19 at 10:00 Levetiracetam (Keppra) 1,500 mg BID PEG ; Start 07/27/19 at 21:00 Active Scripts Active Cephalexin 250 Mg/5 Ml Susp.recon 10 Ml PEG Q8HRS Lorazepam 0.5 Mg Tablet 1 Tab PEG PRN TID PRN 30 Days Acetaminophen Oral Liquid (Acetaminophen) 650 Mg/20.3 Ml Solution 650 Mg PEG PRN Q6HRS PRN 30 Days Vimpat (Lacosamide) 50 Mg Tablet 100 Mg PEG BID 30 Days Cefdinir 250 Mg/5 Ml Susp.recon 250 Mg PEG BID 10 Days Reported Zinc Oxide 56.7 Gm Oint...g. 56.7 Gm TP BID Potassium Chloride Oral Liquid (Potassium Chloride) 20 Meq/15 Ml Liquid 20 Meq PEG BID Triamcinolone Acetonide 0.025% Cream (Triamcinolone Acetonide) 15 Gm Cream..g. 1 Kandy TP DAILY Famotidine 20 Mg Tablet 20 Mg PEG HS Senna-S Tablet (Sennosides/Docusate Sodium) 1 Each Tablet 1 Each PEG BID Synthroid (Levothyroxine Sodium) 100 Mcg Tablet 1 Tab PEG DAILY Keppra (Levetiracetam) 100 Mg/1 Ml Solution 1,500 Mg PEG BID [fibersource HN PEG] Allergies Allergies: Coded Allergies: I S O L A T I O N *CONTACT* (Verified Allergy, Unknown, 04/18/18) mrsa No Known Medication Allergies (Verified Allergy, Unknown, 04/04/19) ROS Review of System Cardiovascular: unable to eval sec MR GI: Noted for feeding tube : ZIGGY Musculoskeletal: UNABLE TO EVAL Integument: UNABLE Neurologic: Reports seizures. 14 PT systems were reviewed and found to be within normal limits, except as documented Hematological and Lymphatic: No: Bleeding Problems, Blood Clots, Blood Transfusions, Brusing, Night Sweats, Pallor, Swollen Lymph Nodes, Other Neurological: Yes Confusion Physical Exam Physical Exam Neck: Normal range of motion, no tenderness, supple, no stridor. [] Cardiovascular:Heart rate regular rhythm, Lungs & Thorax: Bilateral breath sounds clear to auscultation [] Abdomen:Feeding tube noted to the abdomen. Bowel sounds normal, soft, no tenderness, no masses, no pulsatile masses. [] Skin: Warm, dry, no erythema, no rash. [] Back: No tenderness, no CVA tenderness. [] Extremities: No tenderness, no cyanosis, no clubbing, ROM intact, no edema. contracted upper extremities and flaccid lower extremities General: Cooperative, No acute distress HEENT: Atraumatic, EOMI Heart: RRR, no thrills, no rubs Breasts: Not examined Abdomen: Normal bowel sounds, Soft Rectal Exam: not examined PELVIC: Examination not indicated Extremities: No cyanosis Vitals Vitals Vital Signs Date Time Temp Pulse Resp B/P (MAP) Pulse Ox O2 Delivery O2 Flow Rate FiO2 07/27/19 12:32 98.2 83 22 101/66 (78) 98 Nasal Cannula 2.0 98.2 Labs Labs Laboratory Tests Test 07/27/19 00:50 07/27/19 01:20 07/27/19 01:45 07/27/19 04:42 Sodium Level 142 mmol/L (136-145) Potassium Level 3.5 mmol/L (3.5-5.1) Chloride Level 103 mmol/L (98-107) Carbon Dioxide Level 19 mmol/L (21-32) Anion Gap 20 (6-14) Blood Urea Nitrogen 28 mg/dL (7-20) Creatinine 1.2 mg/dL (0.6-1.0) Estimated GFR (Cockcroft-Gault) 44.8 BUN/Creatinine Ratio 23 (6-20) Glucose Level 222 mg/dL (70-99) Lactic Acid Level 10.1 mmol/L (0.4-2.0) 2.1 mmol/L (0.4-2.0) Calcium Level 9.0 mg/dL (8.5-10.1) Magnesium Level 2.1 mg/dL (1.8-2.4) Total Bilirubin 0.4 mg/dL (0.2-1.0) Aspartate Amino Transf (AST/SGOT) 36 U/L (15-37) Alanine Aminotransferase (ALT/SGPT) 26 U/L (14-59) Alkaline Phosphatase 111 U/L (46-116) Creatine Kinase 38 U/L (26-192) Creatine Kinase MB (Mass) 0.8 ng/mL (0.0-3.6) Creatine Kinase MB Relative Index % (0-4) Troponin I Quantitative 0.106 ng/mL (0.000-0.055) PE-Ruv-G-Type Natriuretic Peptide 1992 pg/mL (0-124) Total Protein 6.3 g/dL (6.4-8.2) Albumin 3.0 g/dL (3.4-5.0) Albumin/Globulin Ratio 0.9 (1.0-1.7) Procalcitonin 0.17 ng/mL (0.00-0.10) Thyroid Stimulating Hormone (TSH) 1.296 uIU/mL (0.358-3.74) Urine Collection Type U cath Urine Color Yellow Urine Clarity Turbid Urine pH 7.5 Urine Specific Reserve 1.015 Urine Protein 100 mg/dL (NEG-TRACE) Urine Glucose (UA) Negative mg/dL (NEG) Urine Ketones (Stick) Negative mg/dL (NEG) Urine Blood Large (NEG) Urine Nitrite Negative (NEG) Urine Bilirubin Negative (NEG) Urine Urobilinogen Dipstick 0.2 mg/dL (0.2 mg/dL) Urine Leukocyte Esterase Large (NEG) Urine RBC 3-5 /HPF (0-2) Urine WBC 11-20 /HPF (0-4) Urine Squamous Epithelial Cells Few /LPF Urine Transitional Epithelial Cells Occ /LPF Urine Renal Epithelial Cells Occ /LPF Urine Amorphous Sediment Present /HPF Urine Bacteria Few /HPF (0-FEW) Urine Mucus Slight /LPF Urine Opiates Screen Neg (NEG) Urine Methadone Screen Neg (NEG) Urine Barbiturates Neg (NEG) Urine Phencyclidine Screen Neg (NEG) Urine Amphetamine/Methamphetamine Neg (NEG) Urine Benzodiazepines Screen Neg (NEG) Urine Cocaine Screen Neg (NEG) Urine Cannabinoids Screen Neg (NEG) Urine Ethyl Alcohol Neg (NEG) White Blood Count 9.4 x10^3/uL (4.0-11.0) Red Blood Count 4.19 x10^6/uL (3.50-5.40) Hemoglobin 11.7 g/dL (12.0-15.5) Hematocrit 35.0 % (36.0-47.0) Mean Corpuscular Volume 84 fL (79-100) Mean Corpuscular Hemoglobin 28 pg (25-35) Mean Corpuscular Hemoglobin Concent 33 g/dL (31-37) Red Cell Distribution Width 16.3 % (11.5-14.5) Platelet Count 175 x10^3/uL (140-400) Neutrophils (%) (Auto) 91 % (31-73) Lymphocytes (%) (Auto) 2 % (24-48) Monocytes (%) (Auto) 7 % (0-9) Eosinophils (%) (Auto) 0 % (0-3) Basophils (%) (Auto) 0 % (0-3) Neutrophils # (Auto) 8.5 x10^3/uL (1.8-7.7) Lymphocytes # (Auto) 0.2 x10^3/uL (1.0-4.8) Monocytes # (Auto) 0.6 x10^3/uL (0.0-1.1) Eosinophils # (Auto) 0.0 x10^3/uL (0.0-0.7) Basophils # (Auto) 0.0 x10^3/uL (0.0-0.2) Segmented Neutrophils % 86 % (35-66) Band Neutrophils % 7 % (0-9) Lymphocytes % 1 % (24-48) Monocytes % 5 % (0-10) Basophils % 1 % (0-3) Platelet Estimate Adequate (ADEQUATE) Test 07/27/19 06:10 Influenza Type A Antigen Negative (NEGATIVE) Influenza Type B Antigen Negative (NEGATIVE) Laboratory Tests Test 07/27/19 00:50 07/27/19 01:20 07/27/19 01:45 07/27/19 04:42 Sodium Level 142 mmol/L (136-145) Potassium Level 3.5 mmol/L (3.5-5.1) Chloride Level 103 mmol/L (98-107) Carbon Dioxide Level 19 mmol/L (21-32) Anion Gap 20 (6-14) Blood Urea Nitrogen 28 mg/dL (7-20) Creatinine 1.2 mg/dL (0.6-1.0) Estimated GFR (Cockcroft-Gault) 44.8 BUN/Creatinine Ratio 23 (6-20) Glucose Level 222 mg/dL (70-99) Lactic Acid Level 10.1 mmol/L (0.4-2.0) 2.1 mmol/L (0.4-2.0) Calcium Level 9.0 mg/dL (8.5-10.1) Magnesium Level 2.1 mg/dL (1.8-2.4) Total Bilirubin 0.4 mg/dL (0.2-1.0) Aspartate Amino Transf (AST/SGOT) 36 U/L (15-37) Alanine Aminotransferase (ALT/SGPT) 26 U/L (14-59) Alkaline Phosphatase 111 U/L (46-116) Creatine Kinase 38 U/L (26-192) Creatine Kinase MB (Mass) 0.8 ng/mL (0.0-3.6) Creatine Kinase MB Relative Index % (0-4) Troponin I Quantitative 0.106 ng/mL (0.000-0.055) TD-Iye-R-Type Natriuretic Peptide 1992 pg/mL (0-124) Total Protein 6.3 g/dL (6.4-8.2) Albumin 3.0 g/dL (3.4-5.0) Albumin/Globulin Ratio 0.9 (1.0-1.7) Procalcitonin 0.17 ng/mL (0.00-0.10) Thyroid Stimulating Hormone (TSH) 1.296 uIU/mL (0.358-3.74) Urine Collection Type U cath Urine Color Yellow Urine Clarity Turbid Urine pH 7.5 Urine Specific Reserve 1.015 Urine Protein 100 mg/dL (NEG-TRACE) Urine Glucose (UA) Negative mg/dL (NEG) Urine Ketones (Stick) Negative mg/dL (NEG) Urine Blood Large (NEG) Urine Nitrite Negative (NEG) Urine Bilirubin Negative (NEG) Urine Urobilinogen Dipstick 0.2 mg/dL (0.2 mg/dL) Urine Leukocyte Esterase Large (NEG) Urine RBC 3-5 /HPF (0-2) Urine WBC 11-20 /HPF (0-4) Urine Squamous Epithelial Cells Few /LPF Urine Transitional Epithelial Cells Occ /LPF Urine Renal Epithelial Cells Occ /LPF Urine Amorphous Sediment Present /HPF Urine Bacteria Few /HPF (0-FEW) Urine Mucus Slight /LPF Urine Opiates Screen Neg (NEG) Urine Methadone Screen Neg (NEG) Urine Barbiturates Neg (NEG) Urine Phencyclidine Screen Neg (NEG) Urine Amphetamine/Methamphetamine Neg (NEG) Urine Benzodiazepines Screen Neg (NEG) Urine Cocaine Screen Neg (NEG) Urine Cannabinoids Screen Neg (NEG) Urine Ethyl Alcohol Neg (NEG) White Blood Count 9.4 x10^3/uL (4.0-11.0) Red Blood Count 4.19 x10^6/uL (3.50-5.40) Hemoglobin 11.7 g/dL (12.0-15.5) Hematocrit 35.0 % (36.0-47.0) Mean Corpuscular Volume 84 fL (79-100) Mean Corpuscular Hemoglobin 28 pg (25-35) Mean Corpuscular Hemoglobin Concent 33 g/dL (31-37) Red Cell Distribution Width 16.3 % (11.5-14.5) Platelet Count 175 x10^3/uL (140-400) Neutrophils (%) (Auto) 91 % (31-73) Lymphocytes (%) (Auto) 2 % (24-48) Monocytes (%) (Auto) 7 % (0-9) Eosinophils (%) (Auto) 0 % (0-3) Basophils (%) (Auto) 0 % (0-3) Neutrophils # (Auto) 8.5 x10^3/uL (1.8-7.7) Lymphocytes # (Auto) 0.2 x10^3/uL (1.0-4.8) Monocytes # (Auto) 0.6 x10^3/uL (0.0-1.1) Eosinophils # (Auto) 0.0 x10^3/uL (0.0-0.7) Basophils # (Auto) 0.0 x10^3/uL (0.0-0.2) Segmented Neutrophils % 86 % (35-66) Band Neutrophils % 7 % (0-9) Lymphocytes % 1 % (24-48) Monocytes % 5 % (0-10) Basophils % 1 % (0-3) Platelet Estimate Adequate (ADEQUATE) Test 07/27/19 06:10 Influenza Type A Antigen Negative (NEGATIVE) Influenza Type B Antigen Negative (NEGATIVE) Images Images Clinical Indication: Fever Comparison: AP chest 05/14/2019. Findings: Atherosclerotic thoracic aorta. Stable cardiomegaly. Lungs are clear. There is no pneumothorax. No pleural effusion is appreciated. No acute bone abnormality. IMPRESSION: No acute cardiopulmonary process. Electronically signed by: Ascencion De Los Santos MD (07/27/2019 12:53 AM) [id number] DICTATED and SIGNED BY: ASCENCION DE LOS SANTOS MD DATE: 07/27/19 0053 VTE Prophylaxis Ordered VTE Prophylaxis Devices: Yes VTE Pharmacological Prophylaxi: Yes Assessment/Plan Assessment/Plan Impression: Epilepsy, hx acute breakthrough seizure x2. Cerebral palsy hx severe mental retardation, long standing elevated lactic acid Urinary tract infection. SEPSIS Stable moderate to severe ventriculomegaly due to cerebral volume loss. This does not appear to be greater than expected for cerebral volume to suggest hydrocephalus. Cerebellar volume loss. Decreased attenuation within the cerebral white matter, likely due to chronic small vessel disease. joann, vasomotor nephropathy ELEVATED TROPONIN I plan admit cvc bed neurology consult EMPERIC IV ANTIBIOTICS BLOOD CULT URINE CULTURE dvt prophylaxis seizure precautions ID CONSULT CARDIOLOGY CONSULT 74 min pt exam, chart review, > 50% of time spent with exam, chart review, pt care coordination MARY PECK MD Jul 27, 2019 12:36
[2019-07-27] MEDS ORDERED: INFLUENZA VAX SCREEN BY RX. MC ONE (13:28)
[2019-07-27 15:00] VITALS: BP 125/69
[2019-07-27] MEDS ORDERED: IV NORMAL SALINE 1000ML BAG 1,000 ML IV SCH (15:27)
[2019-07-27] MEDS ORDERED: SODIUM PHOSPHATES 19/7GM 133 ML ENEMA. PR PRN (15:30)
[2019-07-27] MEDS ORDERED: 0.9 % SODIUM CHLORIDE 10 ML DISP.SYRIN. IV PRN (15:30)
[2019-07-27] MEDS ORDERED: ACETAMINOPHEN 650 MG/20.3 ML SOLUTION. GT PRN (15:30)
[2019-07-27] MEDS ORDERED: LORazepam 0.5 MG TABLET PEG PRN (15:30)
[2019-07-27] MEDS ORDERED: IV NORMAL SALINE 500ML BAG 500 ML IV PRN (15:30)
[2019-07-27] MEDS: IPRATRPIUM/ALBUTEROL 0.5/2.5MG 3 ML NEBU. NEB SCH ×2 (15:50→20:46)
[2019-07-27] MEDS: LACOSAMIDE 50 MG TABLET PEG SCH ×2 (16:01→21:10)
[2019-07-27] MEDS: PIPERACILLIN/TAZOBACTAM 3.375 GM in IV NORMAL SALINE 50ML 50 ML IV SCH (16:01)
[2019-07-27] MEDS: ENOXAPARIN 40 MG/0.4 ML SYRINGE. SQ SCH (16:02)
[2019-07-27 16:30] LABS: PROTHROMBIN TIME PATIENT 15.1 SEC (11.7-14.0)
--- NOTE | 2019-07-27 16:56 | PDOC ---
Provider Note Provider Note Asked to evaluate the patient for an elevated troponin. Unable to obtain history from the patient. No family at bedside. Reviewed chart. She has many other reasons (seizures, sepsis, UTI) etc to have a mildly elevated troponin. EKG is unremarkable. Lactate 10.1 Patient is appropriately DNR. No further CV input. Pls call with any further questions. Stop checking troponins. Thanks NIEVES THOMAS MD Jul 27, 2019 16:56
[2019-07-27 19:45] VITALS: BP 147/73
[2019-07-27] MEDS ORDERED: LACOSAMIDE 50 MG TABLET PEG SCH (21:00)
[2019-07-27] MEDS: FAMOTIDINE 20 MG TABLET. PEG SCH (21:09)
[2019-07-27] MEDS: POTASSIUM BICARB 20 MEQ EFFERVESCENT TABLET. PO SCH (21:09)
[2019-07-27] MEDS: ZINC OXIDE 20% TOPICAL OINTMENT 28GM TUBE. TP SCH (21:11)
[2019-07-27 23:42] VITALS: BP 148/65
[2019-07-28] MEDS: IPRATRPIUM/ALBUTEROL 0.5/2.5MG 3 ML NEBU. NEB SCH ×6 (00:17→20:25)
[2019-07-28] MEDS: PIPERACILLIN/TAZOBACTAM 3.375 GM in IV NORMAL SALINE 50ML 50 ML IV SCH ×5 (00:45→23:45)
[2019-07-28] MEDS: IV NORMAL SALINE 1000ML BAG 1,000 ML IV SCH ×2 (01:19→12:56)
[2019-07-28 03:43] VITALS: BP 132/76
[2019-07-28 05:27] LABS: CREATININE 0.9 mg/dL (0.6-1.0); GFR 62.5; POTASSIUM 3.6 mmol/L (3.5-5.1)
[2019-07-28] MEDS: LEVOTHYROXINE 100 MCG TABLET PEG SCH (05:59)
[2019-07-28 06:59] LABS: BASO % 1 % (0-3); EOS % 0 % (0-3); HEMATOCRIT 29.5 % (36.0-47.0); HEMOGLOBIN 9.6 g/dL (12.0-15.5); LYMPH # 0.4 x10^3/uL (1.0-4.8); LYMPH % 9 % (24-48); MEAN CORPUSCULAR HEMOGLOBIN 27 pg (25-35); MEAN CORPUSCULAR HGB CONC 33 g/dL (31-37); MEAN CORPUSCULAR VOLUME 83 fL (79-100); MONO # 0.4 x10^3/uL (0.0-1.1); MONO % 10 % (0-9); NEUT # 3.7 x10^3/uL (1.8-7.7); NEUT % 81 % (31-73); PLATELET COUNT 145 x10^3/uL (140-400); RED BLOOD COUNT 3.57 x10^6/uL (3.50-5.40); RED CELL DISTRIBUTION WIDTH 16.6 % (11.5-14.5); WHITE BLOOD COUNT 4.6 x10^3/uL (4.0-11.0)
[2019-07-28 07:34] VITALS: BP 135/65
[2019-07-28] MEDS: POTASSIUM BICARB 20 MEQ EFFERVESCENT TABLET. PO SCH ×2 (09:49→21:18)
[2019-07-28] MEDS: LACOSAMIDE 50 MG TABLET PEG SCH ×2 (09:49→21:18)
[2019-07-28] MEDS: ZINC OXIDE 20% TOPICAL OINTMENT 28GM TUBE. TP SCH ×2 (09:50→21:18)
[2019-07-28 10:08] VITALS: BP 144/64
--- NOTE | 2019-07-28 12:33 | PDOC ---
Infectious Disease Note Vital Sign Vital Signs Vital Signs Date Time Temp Pulse Resp B/P (MAP) Pulse Ox O2 Delivery O2 Flow Rate FiO2 07/28/19 11:35 94 Nasal Cannula 2.0 07/28/19 10:08 98.9 109 20 144/64 (90) 98.9 Labs Lab Laboratory Tests Test 07/27/19 15:55 07/28/19 04:30 07/28/19 06:40 Prothrombin Time 15.1 SEC (11.7-14.0) Prothromb Time International Ratio 1.2 (0.8-1.1) Activated Partial Thromboplast Time 24 SEC (24-38) Fibrinogen 593 mg/dL (200-440) Lactic Acid Level 1.1 mmol/L (0.4-2.0) Procalcitonin 1.08 ng/mL (0.00-0.10) Sodium Level 147 mmol/L (136-145) Potassium Level 3.6 mmol/L (3.5-5.1) Chloride Level 115 mmol/L (98-107) Carbon Dioxide Level 23 mmol/L (21-32) Anion Gap 9 (6-14) Blood Urea Nitrogen 19 mg/dL (7-20) Creatinine 0.9 mg/dL (0.6-1.0) Estimated GFR (Cockcroft-Gault) 62.5 Glucose Level 74 mg/dL (70-99) Calcium Level 8.0 mg/dL (8.5-10.1) White Blood Count 4.6 x10^3/uL (4.0-11.0) Red Blood Count 3.57 x10^6/uL (3.50-5.40) Hemoglobin 9.6 g/dL (12.0-15.5) Hematocrit 29.5 % (36.0-47.0) Mean Corpuscular Volume 83 fL (79-100) Mean Corpuscular Hemoglobin 27 pg (25-35) Mean Corpuscular Hemoglobin Concent 33 g/dL (31-37) Red Cell Distribution Width 16.6 % (11.5-14.5) Platelet Count 145 x10^3/uL (140-400) Neutrophils (%) (Auto) 81 % (31-73) Lymphocytes (%) (Auto) 9 % (24-48) Monocytes (%) (Auto) 10 % (0-9) Eosinophils (%) (Auto) 0 % (0-3) Basophils (%) (Auto) 1 % (0-3) Neutrophils # (Auto) 3.7 x10^3/uL (1.8-7.7) Lymphocytes # (Auto) 0.4 x10^3/uL (1.0-4.8) Monocytes # (Auto) 0.4 x10^3/uL (0.0-1.1) Eosinophils # (Auto) 0.0 x10^3/uL (0.0-0.7) Basophils # (Auto) 0.0 x10^3/uL (0.0-0.2) Micro Microbiology 07/27/19 Blood Culture - Preliminary, Resulted NO GROWTH AFTER 1 DAY Objective Assessment Fever ? reactive. Procalcitoinin 1.08. BC neg so far Pyruia Lactic acidosis, likely seizure related, improving Epilepsy with breakthrough seizure Dysphagia maintained on tube feedings Cerebral palsy Chronic encephalopathy h/o nephrolithiasis h/o ESBL in urine h/o MRSA Plan Plan of Care Continue Zosyn for now Await culture results Avoid carbapenems as these agents have a potential risk of lowering the seizure threshold Maintain aspiration precautions Contact isolation Thank you [id number] Patient seen and examined. Chart reviewed in detail. Case discussed with CREDIT OFFICER, I agree with above plan. TYRONE CALDERÓN APRN Jul 28, 2019 12:33 YANIRA TIDWELL MD Jul 28, 2019 22:37
--- NOTE | 2019-07-28 13:11 | PDOC ---
PROGRESS NOTES Chief Complaint Chief Complaint Epilepsy, hx acute breakthrough seizure x2. Cerebral palsy hx severe mental retardation, long standing elevated lactic acid Urinary tract infection. SEPSIS Stable moderate to severe ventriculomegaly due to cerebral volume loss. This does not appear to be greater than expected for cerebral volume to suggest hydrocephalus. Cerebellar volume loss. Decreased attenuation within the cerebral white matter, likely due to chronic small vessel disease. joann, vasomotor nephropathy ELEVATED TROPONIN I History of Present Illness History of Present Illness cvc bed on zosyn ID following cont current Vitals Vitals Vital Signs Date Time Temp Pulse Resp B/P (MAP) Pulse Ox O2 Delivery O2 Flow Rate FiO2 07/28/19 11:35 94 Nasal Cannula 2.0 07/28/19 10:08 98.9 109 20 144/64 (90) 98.9 Physical Exam General: Cooperative, No acute distress Lungs: Clear Abdomen: Normal bowel sounds, Soft Extremities: No cyanosis Labs LABS Laboratory Tests Test 07/27/19 15:55 07/28/19 04:30 07/28/19 06:40 Prothrombin Time 15.1 SEC (11.7-14.0) Prothromb Time International Ratio 1.2 (0.8-1.1) Activated Partial Thromboplast Time 24 SEC (24-38) Fibrinogen 593 mg/dL (200-440) Lactic Acid Level 1.1 mmol/L (0.4-2.0) Procalcitonin 1.08 ng/mL (0.00-0.10) Sodium Level 147 mmol/L (136-145) Potassium Level 3.6 mmol/L (3.5-5.1) Chloride Level 115 mmol/L (98-107) Carbon Dioxide Level 23 mmol/L (21-32) Anion Gap 9 (6-14) Blood Urea Nitrogen 19 mg/dL (7-20) Creatinine 0.9 mg/dL (0.6-1.0) Estimated GFR (Cockcroft-Gault) 62.5 Glucose Level 74 mg/dL (70-99) Calcium Level 8.0 mg/dL (8.5-10.1) White Blood Count 4.6 x10^3/uL (4.0-11.0) Red Blood Count 3.57 x10^6/uL (3.50-5.40) Hemoglobin 9.6 g/dL (12.0-15.5) Hematocrit 29.5 % (36.0-47.0) Mean Corpuscular Volume 83 fL (79-100) Mean Corpuscular Hemoglobin 27 pg (25-35) Mean Corpuscular Hemoglobin Concent 33 g/dL (31-37) Red Cell Distribution Width 16.6 % (11.5-14.5) Platelet Count 145 x10^3/uL (140-400) Neutrophils (%) (Auto) 81 % (31-73) Lymphocytes (%) (Auto) 9 % (24-48) Monocytes (%) (Auto) 10 % (0-9) Eosinophils (%) (Auto) 0 % (0-3) Basophils (%) (Auto) 1 % (0-3) Neutrophils # (Auto) 3.7 x10^3/uL (1.8-7.7) Lymphocytes # (Auto) 0.4 x10^3/uL (1.0-4.8) Monocytes # (Auto) 0.4 x10^3/uL (0.0-1.1) Eosinophils # (Auto) 0.0 x10^3/uL (0.0-0.7) Basophils # (Auto) 0.0 x10^3/uL (0.0-0.2) Assessment and Plan Assessmemt and Plan Problems Medical Problems: (1) Elevated troponin Status: Acute (2) Sepsis Status: Acute (3) UTI (urinary tract infection) Status: Acute Comment Review of Relevant I have reviewed the following items jo-ann (where applicable) has been applied. Labs Laboratory Tests Test 07/27/19 00:50 07/27/19 01:20 07/27/19 01:45 07/27/19 04:42 Sodium Level 142 mmol/L (136-145) Potassium Level 3.5 mmol/L (3.5-5.1) Chloride Level 103 mmol/L (98-107) Carbon Dioxide Level 19 mmol/L (21-32) Anion Gap 20 (6-14) Blood Urea Nitrogen 28 mg/dL (7-20) Creatinine 1.2 mg/dL (0.6-1.0) Estimated GFR (Cockcroft-Gault) 44.8 BUN/Creatinine Ratio 23 (6-20) Glucose Level 222 mg/dL (70-99) Lactic Acid Level 10.1 mmol/L (0.4-2.0) 2.1 mmol/L (0.4-2.0) Calcium Level 9.0 mg/dL (8.5-10.1) Magnesium Level 2.1 mg/dL (1.8-2.4) Total Bilirubin 0.4 mg/dL (0.2-1.0) Aspartate Amino Transf (AST/SGOT) 36 U/L (15-37) Alanine Aminotransferase (ALT/SGPT) 26 U/L (14-59) Alkaline Phosphatase 111 U/L (46-116) Creatine Kinase 38 U/L (26-192) Creatine Kinase MB (Mass) 0.8 ng/mL (0.0-3.6) Creatine Kinase MB Relative Index % (0-4) Troponin I Quantitative 0.106 ng/mL (0.000-0.055) IY-Jhu-[id number]-Type Natriuretic Peptide 1992 pg/mL (0-124) Total Protein 6.3 g/dL (6.4-8.2) Albumin 3.0 g/dL (3.4-5.0) Albumin/Globulin Ratio 0.9 (1.0-1.7) Procalcitonin 0.17 ng/mL (0.00-0.10) Thyroid Stimulating Hormone (TSH) 1.296 uIU/mL (0.358-3.74) Urine Collection Type U cath Urine Color Yellow Urine Clarity Turbid Urine pH 7.5 Urine Specific [place] 1.015 Urine Protein 100 mg/dL (NEG-TRACE) Urine Glucose (UA) Negative mg/dL (NEG) Urine Ketones (Stick) Negative mg/dL (NEG) Urine Blood Large (NEG) Urine Nitrite Negative (NEG) Urine Bilirubin Negative (NEG) Urine Urobilinogen Dipstick 0.2 mg/dL (0.2 mg/dL) Urine Leukocyte Esterase Large (NEG) Urine RBC 3-5 /HPF (0-2) Urine WBC 11-20 /HPF (0-4) Urine Squamous Epithelial Cells Few /LPF Urine Transitional Epithelial Cells Occ /LPF Urine Renal Epithelial Cells Occ /LPF Urine Amorphous Sediment Present /HPF Urine Bacteria Few /HPF (0-FEW) Urine Mucus Slight /LPF Urine Opiates Screen Neg (NEG) Urine Methadone Screen Neg (NEG) Urine Barbiturates Neg (NEG) Urine Phencyclidine Screen Neg (NEG) Urine Amphetamine/Methamphetamine Neg (NEG) Urine Benzodiazepines Screen Neg (NEG) Urine Cocaine Screen Neg (NEG) Urine Cannabinoids Screen Neg (NEG) Urine Ethyl Alcohol Neg (NEG) White Blood Count 9.4 x10^3/uL (4.0-11.0) Red Blood Count 4.19 x10^6/uL (3.50-5.40) Hemoglobin 11.7 g/dL (12.0-15.5) Hematocrit 35.0 % (36.0-47.0) Mean Corpuscular Volume 84 fL (79-100) Mean Corpuscular Hemoglobin 28 pg (25-35) Mean Corpuscular Hemoglobin Concent 33 g/dL (31-37) Red Cell Distribution Width 16.3 % (11.5-14.5) Platelet Count 175 x10^3/uL (140-400) Neutrophils (%) (Auto) 91 % (31-73) Lymphocytes (%) (Auto) 2 % (24-48) Monocytes (%) (Auto) 7 % (0-9) Eosinophils (%) (Auto) 0 % (0-3) Basophils (%) (Auto) 0 % (0-3) Neutrophils # (Auto) 8.5 x10^3/uL (1.8-7.7) Lymphocytes # (Auto) 0.2 x10^3/uL (1.0-4.8) Monocytes # (Auto) 0.6 x10^3/uL (0.0-1.1) Eosinophils # (Auto) 0.0 x10^3/uL (0.0-0.7) Basophils # (Auto) 0.0 x10^3/uL (0.0-0.2) Segmented Neutrophils % 86 % (35-66) Band Neutrophils % 7 % (0-9) Lymphocytes % 1 % (24-48) Monocytes % 5 % (0-10) Basophils % 1 % (0-3) Platelet Estimate Adequate (ADEQUATE) Test 07/27/19 06:10 07/27/19 15:55 07/28/19 04:30 07/28/19 06:40 Influenza Type A Antigen Negative (NEGATIVE) Influenza Type B Antigen Negative (NEGATIVE) Prothrombin Time 15.1 SEC (11.7-14.0) Prothromb Time International Ratio 1.2 (0.8-1.1) Activated Partial Thromboplast Time 24 SEC (24-38) Fibrinogen 593 mg/dL (200-440) Lactic Acid Level 1.1 mmol/L (0.4-2.0) Procalcitonin 1.08 ng/mL (0.00-0.10) Sodium Level 147 mmol/L (136-145) Potassium Level 3.6 mmol/L (3.5-5.1) Chloride Level 115 mmol/L (98-107) Carbon Dioxide Level 23 mmol/L (21-32) Anion Gap 9 (6-14) Blood Urea Nitrogen 19 mg/dL (7-20) Creatinine 0.9 mg/dL (0.6-1.0) Estimated GFR (Cockcroft-Gault) 62.5 Glucose Level 74 mg/dL (70-99) Calcium Level 8.0 mg/dL (8.5-10.1) White Blood Count 4.6 x10^3/uL (4.0-11.0) Red Blood Count 3.57 x10^6/uL (3.50-5.40) Hemoglobin 9.6 g/dL (12.0-15.5) Hematocrit 29.5 % (36.0-47.0) Mean Corpuscular Volume 83 fL (79-100) Mean Corpuscular Hemoglobin 27 pg (25-35) Mean Corpuscular Hemoglobin Concent 33 g/dL (31-37) Red Cell Distribution Width 16.6 % (11.5-14.5) Platelet Count 145 x10^3/uL (140-400) Neutrophils (%) (Auto) 81 % (31-73) Lymphocytes (%) (Auto) 9 % (24-48) Monocytes (%) (Auto) 10 % (0-9) Eosinophils (%) (Auto) 0 % (0-3) Basophils (%) (Auto) 1 % (0-3) Neutrophils # (Auto) 3.7 x10^3/uL (1.8-7.7) Lymphocytes # (Auto) 0.4 x10^3/uL (1.0-4.8) Monocytes # (Auto) 0.4 x10^3/uL (0.0-1.1) Eosinophils # (Auto) 0.0 x10^3/uL (0.0-0.7) Basophils # (Auto) 0.0 x10^3/uL (0.0-0.2) Laboratory Tests Test 07/27/19 15:55 07/28/19 04:30 07/28/19 06:40 Prothrombin Time 15.1 SEC (11.7-14.0) Prothromb Time International Ratio 1.2 (0.8-1.1) Activated Partial Thromboplast Time 24 SEC (24-38) Fibrinogen 593 mg/dL (200-440) Lactic Acid Level 1.1 mmol/L (0.4-2.0) Procalcitonin 1.08 ng/mL (0.00-0.10) Sodium Level 147 mmol/L (136-145) Potassium Level 3.6 mmol/L (3.5-5.1) Chloride Level 115 mmol/L (98-107) Carbon Dioxide Level 23 mmol/L (21-32) Anion Gap 9 (6-14) Blood Urea Nitrogen 19 mg/dL (7-20) Creatinine 0.9 mg/dL (0.6-1.0) Estimated GFR (Cockcroft-Gault) 62.5 Glucose Level 74 mg/dL (70-99) Calcium Level 8.0 mg/dL (8.5-10.1) White Blood Count 4.6 x10^3/uL (4.0-11.0) Red Blood Count 3.57 x10^6/uL (3.50-5.40) Hemoglobin 9.6 g/dL (12.0-15.5) Hematocrit 29.5 % (36.0-47.0) Mean Corpuscular Volume 83 fL (79-100) Mean Corpuscular Hemoglobin 27 pg (25-35) Mean Corpuscular Hemoglobin Concent 33 g/dL (31-37) Red Cell Distribution Width 16.6 % (11.5-14.5) Platelet Count 145 x10^3/uL (140-400) Neutrophils (%) (Auto) 81 % (31-73) Lymphocytes (%) (Auto) 9 % (24-48) Monocytes (%) (Auto) 10 % (0-9) Eosinophils (%) (Auto) 0 % (0-3) Basophils (%) (Auto) 1 % (0-3) Neutrophils # (Auto) 3.7 x10^3/uL (1.8-7.7) Lymphocytes # (Auto) 0.4 x10^3/uL (1.0-4.8) Monocytes # (Auto) 0.4 x10^3/uL (0.0-1.1) Eosinophils # (Auto) 0.0 x10^3/uL (0.0-0.7) Basophils # (Auto) 0.0 x10^3/uL (0.0-0.2) Microbiology 07/27/19 Blood Culture - Preliminary, Resulted NO GROWTH AFTER 1 DAY Medications Current Medications Sodium Chloride 1,000 ml @ 1,000 mls/hr Q1H IV Last administered on 07/27/19at 03:30; Start 07/27/19 at 00:30; Stop 07/27/19 at 02:15; Status DC Piperacillin Sod/ Tazobactam Sod 4.5 gm/Sodium Chloride 100 ml @ 200 mls/hr 1X ONCE IV Last administered on 07/27/19at 01:18; Start 07/27/19 at 00:30; Stop 07/27/19 at 00:59; Status DC Levofloxacin/ Dextrose 150 ml @ 100 mls/hr 1X ONCE IV Last administered on 07/27/19at 02:26; Start 07/27/19 at 01:00; Stop 07/27/19 at 02:29; Status DC Acetaminophen (Tylenol) 650 mg 1X ONCE PEG Last administered on 07/27/19at 00:52; Start 07/27/19 at 00:30; Stop 07/27/19 at 00:31; Status DC Lorazepam (Ativan Inj) 1 mg 1X ONCE IVP ; Start 07/27/19 at 00:30; Stop 07/27/19 at 00:31; Status Cancel Lorazepam (Ativan Inj) 1 mg 1X ONCE IM Last administered on 07/27/19at 00:51; Start 07/27/19 at 01:00; Stop 07/27/19 at 01:01; Status DC Ondansetron HCl (Zofran) 4 mg PRN Q8HRS PRN IV NAUSEA/VOMITING 1st choice Last administered on 07/27/19at 03:59; Start 07/27/19 at 01:00; Stop 07/28/19 at 00:59; Status DC Acetaminophen (Tylenol) 650 mg PRN Q4HRS PRN PO FEVER; Start 07/27/19 at 01:00; Stop 07/28/19 at 00:59; Status DC Acetaminophen (Tylenol) 650 mg PRN Q6HRS PRN PEG fever; Start 07/27/19 at 01:00; Stop 07/27/19 at 15:35; Status DC Sodium Chloride 1,000 ml @ 125 mls/hr 1X ONCE IV Last administered on 07/14 09/30at 04:48; Start 07/27/19 at 01:30; Stop 07/27/19 at 09:29; Status DC Levetiracetam 1000 mg/Dextrose 110 ml @ 440 mls/hr 1X ONCE IV Last administered on 07/27/19at 01:56; Start 07/27/19 at 01:30; Stop 07/27/19 at 01:44; Status DC Lorazepam (Ativan Inj) 1 mg PRN Q4HRS PRN IVP SEE COMMENTS; Start 07/27/19 at 01:00 Sodium Chloride 1,000 ml @ 1,000 mls/hr 1X ONCE IV Last administered on 07/27/19at 02:22; Start 07/27/19 at 02:15; Stop 07/27/19 at 03:14; Status DC Levetiracetam (Keppra) 1,500 mg BID PEG ; Start 07/27/19 at 10:00; Stop 07/27/19 at 09:47; Status DC Lacosamide (Vimpat) 100 mg BID PEG Last administered on 07/28/19at 09:49; Start 07/27/19 at 10:00 Levetiracetam (Keppra) 1,500 mg BID PEG Last administered on 07/28/19at 09:50; Start 07/27/19 at 21:00 Info (FLU VACCINE SCREEN per RX) 1 each 1X ONCE MC ; Start 07/27/19 at 13:28; Stop 07/27/19 at 13:30; Status DC Sodium Chloride (Normal Saline Flush) 3 ml QSHIFT PRN IV AFTER MEDS AND BLOOD DRAWS; Start 07/27/19 at 15:30 Sodium Chloride 1,000 ml @ 100 mls/hr Q10H IV Last administered on 07/28/19at 12:56; Start 07/27/19 at 15:19 Ondansetron HCl (Zofran) 4 mg PRN Q4HRS PRN IV NAUSEA/VOMITING; Start 07/27/19 at 15:30 Acetaminophen (Tylenol) 650 mg PRN Q4HRS PRN GT TEMP OVER 100.4F OR MILD PAIN; Start 07/27/19 at 15:30; Stop 07/27/19 at 15:35; Status DC Sodium Monofluorophosphate (Fleet Adult) 133 ml PRN DAILY PRN GA CONSTIPATION; Start 07/27/19 at 15:30 Albuterol/ Ipratropium (Duoneb) 3 ml Q4HRS NEB Last administered on 07/28/19at 11:34; Start 07/27/19 at 16:00 Enoxaparin Sodium (Lovenox 40mg Syringe) 40 mg Q24H SQ Last administered on 07/27/19at 16:02; Start 07/27/19 at 16:00 Piperacillin Sod/ Tazobactam Sod 3.375 gm/Sodium Chloride 50 ml @ 100 mls/hr Q6HRS IV Last administered on 07/28/19at 12:57; Start 07/27/19 at 16:00 Sodium Chloride 1,000 ml @ 1,500 mls/hr Q40M IV ; Start 07/27/19 at 15:27; Stop 07/27/19 at 16:26; Status DC Sodium Chloride 500 ml @ 1,000 mls/hr PRN Q30MIN PRN IV SEE COMMENTS; Start 07/27/19 at 15:30 Acetaminophen (Tylenol) 650 mg PRN Q6HRS PRN PEG MILD PAIN / TEMP; Start 07/27/19 at 15:30 Famotidine (Pepcid) 20 mg HS PEG Last administered on 07/27/19at 21:09; Start 07/27/19 at 21:00 Lacosamide (Vimpat) 100 mg BID PEG ; Start 07/27/19 at 21:00; Status UNV Levetiracetam (Keppra) 1,500 mg BID PEG ; Start 07/27/19 at 21:00; Status UNV Levothyroxine Sodium (Synthroid) 100 mcg DAILY06 PEG Last administered on 07/28/19at 05:59; Start 07/28/19 at 06:00 Lorazepam (Ativan) 0.5 mg PRN TID PRN PEG seizure; Start 07/27/19 at 15:30 Zinc Oxide (Zinc Oxide 20% Topical) 1 kandy BID TP Last administered on 07/28/19at 09:50; Start 07/27/19 at 21:00 Potassium Bicarbonate (Potassium Effervescent Tablet) 20 meq BID PO Last administered on 07/28/19at 09:49; Start 07/27/19 at 21:00 Lorazepam (Ativan Inj) 2 mg PRN Q4HRS PRN IVP SEE COMMENTS; Start 07/27/19 at 15:45 Active Scripts Active Cephalexin 250 Mg/5 Ml Susp.recon 10 Ml PEG Q8HRS Lorazepam 0.5 Mg Tablet 1 Tab PEG PRN TID PRN 30 Days Acetaminophen Oral Liquid (Acetaminophen) 650 Mg/20.3 Ml Solution 650 Mg PEG PRN Q6HRS PRN 30 Days Vimpat (Lacosamide) 50 Mg Tablet 100 Mg PEG BID 30 Days Cefdinir 250 Mg/5 Ml Susp.recon 250 Mg PEG BID 10 Days Reported Zinc Oxide 56.7 Gm Oint...g. 56.7 Gm TP BID Potassium Chloride Oral Liquid (Potassium Chloride) 20 Meq/15 Ml Liquid 20 Meq PEG BID Triamcinolone Acetonide 0.025% Cream (Triamcinolone Acetonide) 15 Gm Cream..g. 1 Kandy TP DAILY Famotidine 20 Mg Tablet 20 Mg PEG HS Senna-S Tablet (Sennosides/Docusate Sodium) 1 Each Tablet 1 Each PEG BID Synthroid (Levothyroxine Sodium) 100 Mcg Tablet 1 Tab PEG DAILY Keppra (Levetiracetam) 100 Mg/1 Ml Solution 1,500 Mg PEG BID [fibersource HN PEG] Vitals/I & O Vital Sign - Last 24 Hours 07/27/19 07/27/19 07/27/19 07/27/19 15:00 19:24 19:45 20:50 Temp 97.4 98.0 97.4 98.0 Pulse 77 83 Resp 22 20 B/P (MAP) 125/69 (87) 147/73 (97) Pulse Ox 95 99 98 O2 Delivery Nasal Cannula Room Air Nasal Cannula Nasal Cannula O2 Flow Rate 2.0 2.0 2.0 2.0 07/27/19 07/28/19 07/28/19 07/28/19 23:42 00:19 03:13 03:43 Temp 98.1 98.9 98.1 98.9 Pulse 92 105 Resp 20 B/P (MAP) 148/65 (92) 132/76 (94) Pulse Ox 100 97 98 100 O2 Delivery Nasal Cannula Nasal Cannula Nasal Cannula Nasal Cannula O2 Flow Rate 2.0 2.0 2.0 2.0 07/28/19 07/28/19 07/28/19 07/28/19 07:34 07:45 08:00 10:08 Temp 98.9 98.9 98.9 98.9 Pulse 96 109 Resp 20 B/P (MAP) 135/65 (88) 144/64 (90) Pulse Ox 95 94 97 O2 Delivery Nasal Cannula Nasal Cannula Room Air Nasal Cannula O2 Flow Rate 2.0 2.0 2.0 2.0 07/28/19 11:35 Pulse Ox 94 O2 Delivery Nasal Cannula O2 Flow Rate 2.0 Intake and Output 07/27/19 07/27/19 07/28/19 15:00 23:00 07:00 Intake Total 100 ml 0 ml 1200 ml Output Total 600 ml Balance 100 ml -600 ml 1200 ml KATHYA LEDBETTER MD Jul 28, 2019 13:11
--- NOTE | 2019-07-28 13:29 | CONS ---
DATE OF CONSULTATION: 07/28/2019 REFERRING PHYSICIAN: Dr. Koroma. REASON FOR CONSULTATION: Sepsis and urinary tract infection. HISTORY OF PRESENT ILLNESS: This patient is a 68-year-old female, a residential resident with a past medical history of chronic encephalopathy, mental retardation, cerebral palsy and epilepsy who was sent to the ER after having a breakthrough seizure. She was found to have a fever of 102.5. Lactic acid was 10.1. Urinalysis was positive for wbc's, leukocyte esterase, blood, few squamous epithelial cells and bacteria. She was dosed with Zosyn and Levaquin for possible UTI. The patient is nonverbal. She is maintained on tube feedings via PEG tube. She requires assistance with total care. She has not had any further fever since admission. She is requiring 2 liters of supplemental oxygen. No diarrhea reported. She has a PureWick in place. She has a previous history of ESBL positive Proteus in the urine and kidney stones. PAST MEDICAL HISTORY: History of ESBL positive Proteus UTI, MRSA screen positive, chronic encephalopathy, mental retardation, cerebral palsy, dysphagia, CVA, hyperlipidemia, hypertension, GERD, nephrolithiasis, hydroureter, hydronephrosis bilaterally, hypothyroidism, hyperlipidemia. PAST SURGICAL HISTORY: PEG tube placement and abdominal surgery. FAMILY HISTORY: Unknown. SOCIAL HISTORY: She is a residential resident. ALLERGIES: No known drug allergies. MEDICATIONS: Zosyn since 07/27, one-time dose of Levaquin 07/27. Other medications are available and have been reviewed on the AUG. REVIEW OF SYSTEMS: Unobtainable as the patient is noncommunicative. PHYSICAL EXAMINATION: VITAL SIGNS: Temperature is 98.9, T-max 102.5, blood pressure 144/64, heart rate 109, respiratory rate 20, pulse oximetry is 94% on 2 liters oxygen. BMI 29. GENERAL: The patient is propped up in bed, alert, noncommunicative. She is looking around, but does not make eye contact. HEENT: Pupils equally round. She resists oral exam. NECK: Supple. LUNGS: Scattered soft wheezes. HEART: S1 and S2 regular. ABDOMEN: Obese, mildly distended, soft. No guarding. Bowel sounds present. PEG tube clean. GENITOURINARY: PureWick in place. EXTREMITIES: Trace edema of the lower extremities bilaterally, no cyanosis. SKIN: Warm to touch without signs of rash. NEUROLOGIC: Alert, noncommunicative. She is looking around, but does not make eye contact or follow commands. LABORATORY STUDIES: Today's WBC 4.6 from 9.4 on admission. Hemoglobin 9.6, platelets 145,000, Creatinine 0.9, BUN 19. Sodium 147, potassium 3.6. Lactic acid 1.1 from 10.1. Procalcitonin 1.08. TSH 1.296, albumin 3.0. Troponin 0.106. BNP 1992. Creatinine kinase 38, total bilirubin 0.4, AST 36, ALT 26. Urinalysis per HPI. Urine toxicology is negative. Influenza screen is negative. Chest x-ray showed no acute cardiopulmonary processes. Blood cultures are negative to date. Urine culture is pending. ASSESSMENT: 1. Fever, possibly reactive. Blood cultures are negative so far. 2. Pyuria. 3. Lactic acidosis, likely seizure related, improved. 4. Epilepsy with breakthrough seizure. 5. Dysphagia, maintains on tube feedings. 6. Cerebral palsy. 5. Chronic encephalopathy. 6. History of nephrolithiasis. 7. History of ESBL positive Proteus in urine. 8. History of methicillin-resistant Staphylococcus aureus. PLAN: 1. Continue Zosyn for now. 2. Await culture results. 3. Avoid carbapenems as these agents have a potential risk of lowering the seizure threshold. 4. Maintain aspiration precautions. 5. Contact isolation. Thank you, Dr. Koroma for asking us to participate in this patient's care. Should you have further questions or concerns, please call. YANIRA TIDWELL MD DR: CANDY/cindy JOB#: [id number] / [id number]
--- NOTE | 2019-07-28 13:42 | PDOC ---
PROGRESS NOTES Assessment Assessment Recurrent seizures. Lactic acidosis. UTI. HTN. 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 Very poor mental prognosis. No meaningful life, mentation < 2 years age. RECOMMENDATIONS/PLAN: Continue Keppra current at 1500 mg bid. Continue Vimpat 100 mg bid. Treat UTI. Treat medical diseases. Consult Palliative Care team. Past Medical History Cardiovascular: HTN CENTRAL NERVOUS SYSTEM: Dementia (cerebral palsy picture), Seizure GI: GERD Endocrine: Hypothyroidism Past Surgical History PEG placement. Family History No pertinent hx Social History Longtime long term resident since 2003, no family, a trust pays for her medical care Allergies Coded Allergies: I S O L A T I O N *CONTACT* (Verified Allergy, Unknown, 04/18/18) mrsa No Known Medication Allergies (Verified Allergy, Unknown, 04/18/18) wn REVIEW OF SYSTEMS: Refer to PMH and PSH. PHYSICAL EXAMINATION: General appearance is severe MR. CORRAL: Normocephalic and nontraumatic. Eyes, nose, ears, and throat are unremarkable. Hearing decrease. Neck is supple. No lymphadenopathy. No Crepitus. Cardiovascular: S1, S2, regular rate and rhythm. Pulmonary: Decreased to auscultation bilaterally. Abdomen: Bowel sounds are positive. Extremities: No rash, lesions, or edema. No restriction of range of motion NEUROLOGICAL EXAMINATION: Drowsiness. Socking fingers from time to time. Non verbal. Not follow commands. Not oriented to time, place and person. PERRL. EOMI. CN: no focal findings. Muscle tone: Increased in all extremities. Muscle strength: Moves all extremities. DTR: 1-2. Plantar reflex: Neutral response bilaterally Gait: Not able to walk. Sensory exam: Withdraws to stimuli.. Not able to access cerebellar signs. F-T-N test not tested due to not follow commands. Severe joints contracture. Objective Objective Vital Signs Date Time Temp Pulse Resp B/P (MAP) Pulse Ox O2 Delivery O2 Flow Rate FiO2 07/28/19 11:35 94 Nasal Cannula 2.0 07/28/19 10:08 98.9 109 20 144/64 (90) 98.9 Intake and Output 07/28/19 07:00 Intake Total 1300 ml Output Total 600 ml Balance 700 ml Intake Oral 0 ml IV Total 1300 ml Output Urine Total 600 ml Vitals Signs Vitals VS - Last 72 Hours, by Label Date Time Temp Pulse Resp B/P (MAP) Pulse Ox O2 Delivery O2 Flow Rate FiO2 07/28/19 11:35 94 Nasal Cannula 2.0 07/28/19 10:08 98.9 109 20 144/64 (90) 97 Nasal Cannula 2.0 98.9 07/28/19 08:00 Room Air 2.0 07/28/19 07:45 94 Nasal Cannula 2.0 07/28/19 07:34 98.9 96 20 135/65 (88) 95 Nasal Cannula 2.0 98.9 07/28/19 03:43 98.9 105 20 132/76 (94) 100 Nasal Cannula 2.0 98.9 07/28/19 03:13 98 Nasal Cannula 2.0 07/28/19 00:19 97 Nasal Cannula 2.0 07/27/19 23:42 98.1 92 20 148/65 (92) 100 Nasal Cannula 2.0 98.1 07/27/19 20:50 98 Nasal Cannula 2.0 07/27/19 19:45 98.0 83 20 147/73 (97) 99 Nasal Cannula 2.0 98.0 07/27/19 19:24 Room Air 2.0 07/27/19 15:00 97.4 77 22 125/69 (87) 95 Nasal Cannula 2.0 97.4 07/27/19 12:32 98.2 83 22 101/66 (78) 98 Nasal Cannula 2.0 98.2 07/27/19 12:15 Room Air 07/27/19 11:28 80 19 128/59 (82) 92 Nasal Cannula 2.0 07/27/19 10:58 78 18 113/56 (75) 92 Nasal Cannula 2.0 07/27/19 09:58 80 18 115/58 (77) 92 Nasal Cannula 2.0 07/27/19 08:28 80 19 113/55 (74) 07/27/19 07:28 90 20 104/51 (68) 93 Room Air Laboratory Laboratory Laboratory Tests Test 07/27/19 15:55 07/28/19 04:30 07/28/19 06:40 Prothrombin Time 15.1 SEC (11.7-14.0) Prothromb Time International Ratio 1.2 (0.8-1.1) Activated Partial Thromboplast Time 24 SEC (24-38) Fibrinogen 593 mg/dL (200-440) Lactic Acid Level 1.1 mmol/L (0.4-2.0) Procalcitonin 1.08 ng/mL (0.00-0.10) Sodium Level 147 mmol/L (136-145) Potassium Level 3.6 mmol/L (3.5-5.1) Chloride Level 115 mmol/L (98-107) Carbon Dioxide Level 23 mmol/L (21-32) Anion Gap 9 (6-14) Blood Urea Nitrogen 19 mg/dL (7-20) Creatinine 0.9 mg/dL (0.6-1.0) Estimated GFR (Cockcroft-Gault) 62.5 Glucose Level 74 mg/dL (70-99) Calcium Level 8.0 mg/dL (8.5-10.1) White Blood Count 4.6 x10^3/uL (4.0-11.0) Red Blood Count 3.57 x10^6/uL (3.50-5.40) Hemoglobin 9.6 g/dL (12.0-15.5) Hematocrit 29.5 % (36.0-47.0) Mean Corpuscular Volume 83 fL (79-100) Mean Corpuscular Hemoglobin 27 pg (25-35) Mean Corpuscular Hemoglobin Concent 33 g/dL (31-37) Red Cell Distribution Width 16.6 % (11.5-14.5) Platelet Count 145 x10^3/uL (140-400) Neutrophils (%) (Auto) 81 % (31-73) Lymphocytes (%) (Auto) 9 % (24-48) Monocytes (%) (Auto) 10 % (0-9) Eosinophils (%) (Auto) 0 % (0-3) Basophils (%) (Auto) 1 % (0-3) Neutrophils # (Auto) 3.7 x10^3/uL (1.8-7.7) Lymphocytes # (Auto) 0.4 x10^3/uL (1.0-4.8) Monocytes # (Auto) 0.4 x10^3/uL (0.0-1.1) Eosinophils # (Auto) 0.0 x10^3/uL (0.0-0.7) Basophils # (Auto) 0.0 x10^3/uL (0.0-0.2) Microbiology 07/27/19 Blood Culture - Preliminary, Resulted NO GROWTH AFTER 1 DAY Medication Medications Current Medications Acetaminophen (Tylenol) 650 mg PRN Q4HRS PRN GT TEMP OVER 100.4F OR MILD PAIN; Start 07/27/19 at 15:30; Stop 07/27/19 at 15:35; Status DC Acetaminophen (Tylenol) 650 mg PRN Q6HRS PRN PEG MILD PAIN / TEMP; Start at 15:30 Albuterol/ Ipratropium (Duoneb) 3 ml Q4HRS NEB Last administered on 07/28/19at 11:34; Start 07/27/19 at 16:00 Enoxaparin Sodium (Lovenox 40mg Syringe) 40 mg Q24H SQ Last administered on 07/27/19at 16:02; Start 07/27/19 at 16:00 Famotidine (Pepcid) 20 mg HS PEG Last administered on 07/27/19at 21:09; Start 07/27/19 at 21:00 Lacosamide (Vimpat) 100 mg BID PEG ; Start 07/27/19 at 21:00; Status UNV Levetiracetam (Keppra) 1,500 mg BID PEG Last administered on 07/28/19at 09:50; Start 07/27/19 at 21:00 Levetiracetam (Keppra) 1,500 mg BID PEG ; Start 07/27/19 at 21:00; Status UNV Levothyroxine Sodium (Synthroid) 100 mcg DAILY06 PEG Last administered on 07/28/19at 05:59; Start 07/28/19 at 06:00 Lorazepam (Ativan Inj) 2 mg PRN Q4HRS PRN IVP SEE COMMENTS; Start 07/27/19 at 15:45 Lorazepam (Ativan) 0.5 mg PRN TID PRN PEG seizure; Start 07/27/19 at 15:30 Ondansetron HCl (Zofran) 4 mg PRN Q4HRS PRN IV NAUSEA/VOMITING; Start 07/27/19 at 15:30 Piperacillin Sod/ Tazobactam Sod 3.375 gm/Sodium Chloride 50 ml @ 100 mls/hr Q6HRS IV Last administered on 07/28/19at 12:57; Start 07/27/19 at 16:00 Potassium Bicarbonate (Potassium Effervescent Tablet) 20 meq BID PO Last administered on 07/28/19at 09:49; Start 07/27/19 at 21:00 Sodium Monofluorophosphate (Fleet Adult) 133 ml PRN DAILY PRN [place] CONSTIPATION; Start 07/27/19 at 15:30 Sodium Chloride 500 ml @ 1,000 mls/hr PRN Q30MIN PRN IV SEE COMMENTS; Start 07/27/19 at 15:30 Sodium Chloride 1,000 ml @ 100 mls/hr Q10H IV Last administered on 07/28/19at 12:56; Start 07/27/19 at 15:19 Sodium Chloride 1,000 ml @ 1,500 mls/hr Q40M IV ; Start 07/27/19 at 15:27; Stop 07/27/19 at 16:26; Status DC Sodium Chloride (Normal Saline Flush) 3 ml QSHIFT PRN IV AFTER MEDS AND BLOOD DRAWS; Start 07/27/19 at 15:30 Zinc Oxide (Zinc Oxide 20% Topical) 1 selma BID TP Last administered on 07/28/19at 09:50; Start 07/27/19 at 21:00 Comment Review of Relevant I have reviewed the following items jo-ann (where applicable) has been applied. MOISÉS HOOVER MD Jul 28, 2019 13:42
[2019-07-28 14:36] VITALS: BP 187/78
[2019-07-28] MEDS: ENOXAPARIN 40 MG/0.4 ML SYRINGE. SQ SCH (17:07)
[2019-07-28 19:00] VITALS: BP 172/81
[2019-07-28] MEDS: FAMOTIDINE 20 MG TABLET. PEG SCH (21:18)
[2019-07-28 23:10] VITALS: BP 159/85
[2019-07-29] VITALS (7 sets, daily range): BP systolic 129–186; BP diastolic 66–90
[2019-07-29] MEDS: IV NORMAL SALINE 1000ML BAG 1,000 ML IV SCH ×3 (00:27→16:53)
[2019-07-29] MEDS: IPRATRPIUM/ALBUTEROL 0.5/2.5MG 3 ML NEBU. NEB SCH ×6 (00:54→20:00)
[2019-07-29] MEDS: PIPERACILLIN/TAZOBACTAM 3.375 GM in IV NORMAL SALINE 50ML 50 ML IV SCH ×4 (05:48→23:23)
[2019-07-29] MEDS: LEVOTHYROXINE 100 MCG TABLET PEG SCH (05:48)
[2019-07-29] MEDS: LACOSAMIDE 50 MG TABLET PEG SCH ×2 (08:12→20:49)
[2019-07-29] MEDS: POTASSIUM BICARB 20 MEQ EFFERVESCENT TABLET. PO SCH ×2 (08:12→20:49)
[2019-07-29] MEDS: ZINC OXIDE 20% TOPICAL OINTMENT 28GM TUBE. TP SCH ×2 (08:13→20:50)
--- NOTE | 2019-07-29 10:53 | PDOC ---
Infectious Disease Note Subjective Subjective Nonverbal No fevers O2 2L Vital Sign Vital Signs Vital Signs Date Time Temp Pulse Resp B/P (MAP) Pulse Ox O2 Delivery O2 Flow Rate FiO2 07/29/19 10:09 97.1 79 20 129/74 (92) 91 Nasal Cannula 97.1 07/29/19 08:00 2.0 Physical Exam PHYSICAL EXAM GENERAL: Resting quietly, opens eyes to voice, nonverbal HEENT: Pupils equally round. She resists oral exam. NECK: Supple. LUNGS: Scattered soft wheezes. HEART: S1 and S2 regular. ABDOMEN: Obese, mildly distended, soft. No guarding. Bowel sounds present. PEG tube clean. GENITOURINARY: PureWick in place. EXTREMITIES: Trace edema of the lower extremities bilaterally, no cyanosis. SKIN: Warm to touch without signs of rash. NEUROLOGIC: noncommunicative. Labs Micro Microbiology 07/27/19 Blood Culture - Preliminary, Resulted NO GROWTH AFTER 2 DAY 07/27. URINE CULTURE RES 1 Preliminary Gram negative rods Objective Assessment Fever ? reactive. Procalcitoinin 1.08. BC neg so far Pyruia - GNR 07/27 Lactic acidosis, likely seizure related, improving Epilepsy with breakthrough seizure Dysphagia maintained on tube feedings Cerebral palsy Chronic encephalopathy h/o nephrolithiasis h/o ESBL in urine h/o MRSA Plan Plan of Care Continue Zosyn for now f/u culture results Avoid carbapenems as these agents have a potential risk of lowering the seizure threshold Maintain aspiration precautions Contact isolation Patient seen and examined. Chart reviewed in detail. Case discussed with [employer]IC LINGUIST. I agree with above plan. TYRONE CALDERÓN APRN Jul 29, 2019 10:53 YANIRA TIDWELL MD Jul 29, 2019 19:19
--- NOTE | 2019-07-29 12:25 | PDOC ---
PROGRESS NOTES Assessment Assessment Recurrent seizures. Lactic acidosis. UTI. HTN. 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 Very poor mental prognosis. No meaningful life, mentation < 2 years age. RECOMMENDATIONS/PLAN: Continue Keppra current at 1500 mg bid. Continue Vimpat 100 mg bid. Treat UTI. Treat medical diseases. Consult Palliative Care team. SUBJECTIVE: Non verbal. OBJECTIVE: No seizures over night. Past Medical History Cardiovascular: HTN CENTRAL NERVOUS SYSTEM: Dementia (cerebral palsy picture), Seizure GI: GERD Endocrine: Hypothyroidism Past Surgical History PEG placement. Family History No pertinent hx Social History Longtime jail resident since 2003, no family, a trust pays for her medical care Allergies Coded Allergies: I S O L A T I O N *CONTACT* (Verified Allergy, Unknown, 04/18/18) mrsa No Known Medication Allergies (Verified Allergy, Unknown, 04/18/18) wn REVIEW OF SYSTEMS: Refer to PMH and PSH. PHYSICAL EXAMINATION: General appearance is severe MR. CORRAL: Normocephalic and nontraumatic. Eyes, nose, ears, and throat are unremarkable. Hearing decrease. Neck is supple. No lymphadenopathy. No Crepitus. Cardiovascular: S1, S2, regular rate and rhythm. Pulmonary: Decreased to auscultation bilaterally. Abdomen: Bowel sounds are positive. Extremities: No rash, lesions, or edema. No restriction of range of motion NEUROLOGICAL EXAMINATION: Awake. Socking fingers from time to time. Non verbal. Not follow commands. Not oriented to time, place and person. PERRL. EOMI. CN: no focal findings. Muscle tone: Increased in all extremities. Muscle strength: Moves all extremities. DTR: 1-2. Plantar reflex: Neutral response bilaterally Gait: Not able to walk. Sensory exam: Withdraws to stimuli.. Not able to access cerebellar signs. F-T-N test not tested due to not follow commands. Severe joints contracture. Objective Objective Vital Signs Date Time Temp Pulse Resp B/P (MAP) Pulse Ox O2 Delivery O2 Flow Rate FiO2 07/29/19 12:05 95 Nasal Cannula 2.0 07/29/19 10:09 97.1 79 20 129/74 (92) 97.1 Intake and Output 07/29/19 07:00 Intake Total 1200 ml Output Total 1400 ml Balance -200 ml Intake Oral 0 ml Blood Product IV Normal Saline Flush 1200 ml Output Urine Total 1400 ml # Voids 1 Vitals Signs Vitals VS - Last 72 Hours, by Label Date Time Temp Pulse Resp B/P (MAP) Pulse Ox O2 Delivery O2 Flow Rate FiO2 07/29/19 12:05 95 Nasal Cannula 2.0 07/29/19 10:09 97.1 79 20 129/74 (92) 91 Nasal Cannula 97.1 07/29/19 08:00 Nasal Cannula 2.0 07/29/19 07:49 94 Nasal Cannula 2.0 07/29/19 07:00 98.1 77 20 164/90 (114) 95 Nasal Cannula 98.1 07/29/19 03:13 98.7 83 20 141/77 (98) 95 Nasal Cannula 98.7 07/29/19 00:55 99 Nasal Cannula 2.0 07/28/19 23:10 98.7 93 20 159/85 (109) 91 Nasal Cannula 98.7 07/28/19 20:26 98 Nasal Cannula 2.0 07/28/19 19:32 Nasal Cannula 2.0 07/28/19 19:00 98.7 99 20 172/81 (111) 94 Room Air 98.7 07/28/19 15:33 94 Nasal Cannula 2.0 07/28/19 14:36 98.6 105 20 187/78 (114) 92 Nasal Cannula 2.0 98.6 07/28/19 11:35 94 Nasal Cannula 2.0 07/28/19 10:08 98.9 109 20 144/64 (90) 97 Nasal Cannula 2.0 98.9 07/28/19 08:00 Room Air 2.0 07/28/19 07:45 94 Nasal Cannula 2.0 07/28/19 07:34 98.9 96 20 135/65 (88) 95 Nasal Cannula 2.0 98.9 Laboratory Laboratory Microbiology 07/27/19 Blood Culture - Preliminary, Resulted NO GROWTH AFTER 2 DAYS 07/27/19 Urine Culture - Preliminary, Resulted 07/27/19 Urine Culture Result 1 (VICKY) - Preliminary, Resulted Comment Review of Relevant I have reviewed the following items jo-ann (where applicable) has been applied. MOISÉS HOOVER MD Jul 29, 2019 12:25
--- NOTE | 2019-07-29 12:46 | PDOC ---
PROGRESS NOTES Chief Complaint Chief Complaint Epilepsy, hx acute breakthrough seizure x2. Cerebral palsy hx severe mental retardation, long standing elevated lactic acid Urinary tract infection. SEPSIS Stable moderate to severe ventriculomegaly due to cerebral volume loss. This does not appear to be greater than expected for cerebral volume to suggest hydrocephalus. Cerebellar volume loss. Decreased attenuation within the cerebral white matter, likely due to chronic small vessel disease. joann, vasomotor nephropathy History of Present Illness History of Present Illness cvc bed on zosyn ID following cont current Vitals Vitals Vital Signs Date Time Temp Pulse Resp B/P (MAP) Pulse Ox O2 Delivery O2 Flow Rate FiO2 07/29/19 12:05 95 Nasal Cannula 2.0 07/29/19 10:09 97.1 79 20 129/74 (92) 97.1 Physical Exam Physical Exam GENERAL: Resting quietly, opens eyes to voice, nonverbal HEENT: Pupils equally round. She resists oral exam. NECK: Supple. LUNGS: Scattered soft wheezes. HEART: S1 and S2 regular. ABDOMEN: Obese, mildly distended, soft. No guarding. Bowel sounds present. PEG tube clean. GENITOURINARY: PureWick in place. EXTREMITIES: Trace edema of the lower extremities bilaterally, no cyanosis. SKIN: Warm to touch without signs of rash. NEUROLOGIC: noncommunicative. General: Cooperative, No acute distress Lungs: Clear Abdomen: Normal bowel sounds, Soft Extremities: No cyanosis Assessment and Plan Assessmemt and Plan Problems Medical Problems: (1) Elevated troponin Status: Acute (2) Sepsis Status: Acute (3) UTI (urinary tract infection) Status: Acute Comment Review of Relevant I have reviewed the following items jo-ann (where applicable) has been applied. Labs Laboratory Tests Test 07/27/19 15:55 07/28/19 04:30 07/28/19 06:40 Prothrombin Time 15.1 SEC (11.7-14.0) Prothromb Time International Ratio 1.2 (0.8-1.1) Activated Partial Thromboplast Time 24 SEC (24-38) Fibrinogen 593 mg/dL (200-440) Lactic Acid Level 1.1 mmol/L (0.4-2.0) Procalcitonin 1.08 ng/mL (0.00-0.10) Sodium Level 147 mmol/L (136-145) Potassium Level 3.6 mmol/L (3.5-5.1) Chloride Level 115 mmol/L (98-107) Carbon Dioxide Level 23 mmol/L (21-32) Anion Gap 9 (6-14) Blood Urea Nitrogen 19 mg/dL (7-20) Creatinine 0.9 mg/dL (0.6-1.0) Estimated GFR (Cockcroft-Gault) 62.5 Glucose Level 74 mg/dL (70-99) Calcium Level 8.0 mg/dL (8.5-10.1) White Blood Count 4.6 x10^3/uL (4.0-11.0) Red Blood Count 3.57 x10^6/uL (3.50-5.40) Hemoglobin 9.6 g/dL (12.0-15.5) Hematocrit 29.5 % (36.0-47.0) Mean Corpuscular Volume 83 fL (79-100) Mean Corpuscular Hemoglobin 27 pg (25-35) Mean Corpuscular Hemoglobin Concent 33 g/dL (31-37) Red Cell Distribution Width 16.6 % (11.5-14.5) Platelet Count 145 x10^3/uL (140-400) Neutrophils (%) (Auto) 81 % (31-73) Lymphocytes (%) (Auto) 9 % (24-48) Monocytes (%) (Auto) 10 % (0-9) Eosinophils (%) (Auto) 0 % (0-3) Basophils (%) (Auto) 1 % (0-3) Neutrophils # (Auto) 3.7 x10^3/uL (1.8-7.7) Lymphocytes # (Auto) 0.4 x10^3/uL (1.0-4.8) Monocytes # (Auto) 0.4 x10^3/uL (0.0-1.1) Eosinophils # (Auto) 0.0 x10^3/uL (0.0-0.7) Basophils # (Auto) 0.0 x10^3/uL (0.0-0.2) Microbiology 07/27/19 Blood Culture - Preliminary, Resulted NO GROWTH AFTER 2 DAYS 07/27/19 Urine Culture - Preliminary, Resulted 07/27/19 Urine Culture Result 1 (VICKY) - Preliminary, Resulted Medications Current Medications Sodium Chloride 1,000 ml @ 1,000 mls/hr Q1H IV Last administered on 07/27/19at 03:30; Start 07/27/19 at 00:30; Stop 07/27/19 at 02:15; Status DC Piperacillin Sod/ Tazobactam Sod 4.5 gm/Sodium Chloride 100 ml @ 200 mls/hr 1X ONCE IV Last administered on 07/27/19at 01:18; Start 07/27/19 at 00:30; Stop 07/27/19 at 00:59; Status DC Levofloxacin/ Dextrose 150 ml @ 100 mls/hr 1X ONCE IV Last administered on 07/27/19at 02:26; Start 07/27/19 at 01:00; Stop 07/27/19 at 02:29; Status DC Acetaminophen (Tylenol) 650 mg 1X ONCE PEG Last administered on 07/27/19at 00:52; Start 07/27/19 at 00:30; Stop 07/27/19 at 00:31; Status DC Lorazepam (Ativan Inj) 1 mg 1X ONCE IVP ; Start 07/27/19 at 00:30; Stop 07/27/19 at 00:31; Status Cancel Lorazepam (Ativan Inj) 1 mg 1X ONCE IM Last administered on 07/27/19at 00:51; Start 07/27/19 at 01:00; Stop 07/27/19 at 01:01; Status DC Ondansetron HCl (Zofran) 4 mg PRN Q8HRS PRN IV NAUSEA/VOMITING 1st choice Last administered on 07/27/19at 03:59; Start 07/27/19 at 01:00; Stop 07/28/19 at 00:59; Status DC Acetaminophen (Tylenol) 650 mg PRN Q4HRS PRN PO FEVER; Start 07/27/19 at 01:00; Stop 07/28/19 at 00:59; Status DC Acetaminophen (Tylenol) 650 mg PRN Q6HRS PRN PEG fever; Start 07/27/19 at 01:00; Stop 07/27/19 at 15:35; Status DC Sodium Chloride 1,000 ml @ 125 mls/hr 1X ONCE IV Last administered on 07/27/19at 04:48; Start 07/27/19 at 01:30; Stop 07/27/19 at 09:29; Status DC Levetiracetam 1000 mg/Dextrose 110 ml @ 440 mls/hr 1X ONCE IV Last administered on 07/27/19at 01:56; Start 07/27/19 at 01:30; Stop 07/27/19 at 01:44; Status DC Lorazepam (Ativan Inj) 1 mg PRN Q4HRS PRN IVP SEE COMMENTS; Start 07/27/19 at 01:00 Sodium Chloride 1,000 ml @ 1,000 mls/hr 1X ONCE IV Last administered on 07/27/19at 02:22; Start 07/27/19 at 02:15; Stop 07/27/19 at 03:14; Status DC Levetiracetam (Keppra) 1,500 mg BID PEG ; Start 07/27/19 at 10:00; Stop 07/27/19 at 09:47; Status DC Lacosamide (Vimpat) 100 mg BID PEG Last administered on 07/29/19at 08:12; Start 07/27/19 at 10:00 Levetiracetam (Keppra) 1,500 mg BID PEG Last administered on 07/29/19at 08:12; Start 07/27/19 at 21:00 Info (FLU VACCINE SCREEN per RX) 1 each 1X ONCE MC ; Start 07/27/19 at 13:28; Stop 07/27/19 at 13:30; Status DC Sodium Chloride (Normal Saline Flush) 3 ml QSHIFT PRN IV AFTER MEDS AND BLOOD DRAWS; Start 07/27/19 at 15:30 Sodium Chloride 1,000 ml @ 100 mls/hr Q10H IV Last administered on 07/29/19at 08:11; Start 07/27/19 at 15:19 Ondansetron HCl (Zofran) 4 mg PRN Q4HRS PRN IV NAUSEA/VOMITING; Start 07/27/19 at 15:30 Acetaminophen (Tylenol) 650 mg PRN Q4HRS PRN GT TEMP OVER 100.4F OR MILD PAIN; Start 07/27/19 at 15:30; Stop 07/27/19 at 15:35; Status DC Sodium Monofluorophosphate (Fleet Adult) 133 ml PRN DAILY PRN [place] CONSTIPATION; Start 07/27/19 at 15:30 Albuterol/ Ipratropium (Duoneb) 3 ml Q4HRS NEB Last administered on 07/29/19at 12:00; Start 07/27/19 at 16:00 Enoxaparin Sodium (Lovenox 40mg Syringe) 40 mg Q24H SQ Last administered on 07/28/19at 17:07; Start 07/27/19 at 16:00 Piperacillin Sod/ Tazobactam Sod 3.375 gm/Sodium Chloride 50 ml @ 100 mls/hr Q6HRS IV Last administered on 07/29/19at 12:43; Start 07/27/19 at 16:00 Sodium Chloride 1,000 ml @ 1,500 mls/hr Q40M IV ; Start 07/27/19 at 15:27; Stop 07/27/19 at 16:26; Status DC Sodium Chloride 500 ml @ 1,000 mls/hr PRN Q30MIN PRN IV SEE COMMENTS; Start 07/27/19 at 15:30 Acetaminophen (Tylenol) 650 mg PRN Q6HRS PRN PEG MILD PAIN / TEMP; Start 07/27/19 at 15:30 Famotidine (Pepcid) 20 mg HS PEG Last administered on 07/28/19at 21:18; Start 07/27/19 at 21:00 Lacosamide (Vimpat) 100 mg BID PEG ; Start 07/27/19 at 21:00; Status UNV Levetiracetam (Keppra) 1,500 mg BID PEG ; Start 07/27/19 at 21:00; Status UNV Levothyroxine Sodium (Synthroid) 100 mcg DAILY06 PEG Last administered on 07/29/19at 05:48; Start 07/28/19 at 06:00 Lorazepam (Ativan) 0.5 mg PRN TID PRN PEG seizure; Start 07/27/19 at 15:30 Zinc Oxide (Zinc Oxide 20% Topical) 1 kandy BID TP Last administered on 07/29/19at 08:13; Start 07/27/19 at 21:00 Potassium Bicarbonate (Potassium Effervescent Tablet) 20 meq BID PO Last administered on 07/29/19at 08:12; Start 07/27/19 at 21:00 Lorazepam (Ativan Inj) 2 mg PRN Q4HRS PRN IVP SEE COMMENTS; Start 07/27/19 at 15:45 Active Scripts Active Cephalexin 250 Mg/5 Ml Susp.recon 10 Ml PEG Q8HRS Lorazepam 0.5 Mg Tablet 1 Tab PEG PRN TID PRN 30 Days Acetaminophen Oral Liquid (Acetaminophen) 650 Mg/20.3 Ml Solution 650 Mg PEG PRN Q6HRS PRN 30 Days Vimpat (Lacosamide) 50 Mg Tablet 100 Mg PEG BID 30 Days Cefdinir 250 Mg/5 Ml Susp.recon 250 Mg PEG BID 10 Days Reported Zinc Oxide 56.7 Gm Oint...g. 56.7 Gm TP BID Potassium Chloride Oral Liquid (Potassium Chloride) 20 Meq/15 Ml Liquid 20 Meq PEG BID Triamcinolone Acetonide 0.025% Cream (Triamcinolone Acetonide) 15 Gm Cream..g. 1 Kandy TP DAILY Famotidine 20 Mg Tablet 20 Mg PEG HS Senna-S Tablet (Sennosides/Docusate Sodium) 1 Each Tablet 1 Each PEG BID Synthroid (Levothyroxine Sodium) 100 Mcg Tablet 1 Tab PEG DAILY Keppra (Levetiracetam) 100 Mg/1 Ml Solution 1,500 Mg PEG BID [fibersource HN PEG] Vitals/I & O Vital Sign - Last 24 Hours 07/28/19 07/28/19 07/28/19 07/28/19 14:36 15:33 19:00 19:32 Temp 98.6 98.7 98.6 98.7 Pulse 105 99 Resp B/P (MAP) 187/78 (114) 172/81 (111) Pulse Ox 92 94 94 O2 Delivery Nasal Cannula Nasal Cannula Room Air Nasal Cannula O2 Flow Rate 2.0 2.0 2.0 07/28/19 07/28/19 07/29/19 07/29/19 20:26 23:10 00:55 03:13 Temp 98.7 98.7 98.7 98.7 Pulse 93 83 Resp 20 B/P (MAP) 159/85 (109) 141/77 (98) Pulse Ox 98 91 99 95 O2 Delivery Nasal Cannula Nasal Cannula Nasal Cannula Nasal Cannula O2 Flow Rate 2.0 2.0 07/29/19 07/29/19 07/29/19 07/29/19 07:00 07:49 08:00 10:09 Temp 98.1 97.1 98.1 97.1 Pulse 77 79 Resp 20 B/P (MAP) 164/90 (114) 129/74 (92) Pulse Ox 95 94 91 O2 Delivery Nasal Cannula Nasal Cannula Nasal Cannula Nasal Cannula O2 Flow Rate 2.0 2.0 07/29/19 12:05 Pulse Ox 95 O2 Delivery Nasal Cannula O2 Flow Rate 2.0 Intake and Output 07/28/19 07/28/19 07/29/19 15:00 23:00 07:00 Intake Total 0 ml 1200 ml Output Total 800 ml 600 ml Balance 0 ml 400 ml -600 ml KATHYA LEDBETTER MD Jul 29, 2019 12:46
[2019-07-29] MEDS: ENOXAPARIN 40 MG/0.4 ML SYRINGE. SQ SCH (16:53)
[2019-07-29] MEDS: FAMOTIDINE 20 MG TABLET. PEG SCH (20:49)
[2019-07-30] MEDS: IPRATRPIUM/ALBUTEROL 0.5/2.5MG 3 ML NEBU. NEB SCH ×4 (00:05→12:05)
[2019-07-30 02:45] VITALS: BP 146/98
[2019-07-30] MEDS: PIPERACILLIN/TAZOBACTAM 3.375 GM in IV NORMAL SALINE 50ML 50 ML IV SCH (05:01)
[2019-07-30] MEDS: IV NORMAL SALINE 1000ML BAG 1,000 ML IV SCH ×2 (05:02→12:13)
[2019-07-30] MEDS: LEVOTHYROXINE 100 MCG TABLET PEG SCH (05:04)
[2019-07-30 07:00] VITALS: BP 163/71
--- NOTE | 2019-07-30 09:10 | PDOC ---
Infectious Disease Note Subjective Subjective Nonverbal No fevers O2 2L ROS ROS no n/v/d/ Vital Sign Vital Signs Vital Signs Date Time Temp Pulse Resp B/P (MAP) Pulse Ox O2 Delivery O2 Flow Rate FiO2 07/30/19 07:00 97.9 92 20 163/71 (101) 91 Room Air 97.9 07/30/19 06:23 2.0 Physical Exam PHYSICAL EXAM GENERAL: Resting quietly, opens eyes to voice, nonverbal HEENT: Pupils equally round. She resists oral exam. NECK: Supple. LUNGS: Scattered soft wheezes. HEART: S1 and S2 regular. ABDOMEN: Obese, mildly distended, soft. No guarding. Bowel sounds present. PEG tube clean. GENITOURINARY: PureWick in place. EXTREMITIES: Trace edema of the lower extremities bilaterally, no cyanosis. SKIN: Warm to touch without signs of rash. NEUROLOGIC: noncommunicative. Labs Micro URINE CULTURE Final Preliminary report Final report URINE CULTURE RES 1 Final Gram negative rods Proteus mirabilis Greater than 100,000 colony forming units per mL Performed at: [facility] [address] [place] [address] [phone] [employer] Operator: AUGUSTO Hood MD, Phone: [phone] Greater than 100,000 colony forming units per mL Cefazolin with an VICKY <=16 predicts susceptibility to the oral agents cefaclor, cefdinir, cefpodoxime, cefprozil, cefuroxime, cephalexin, and loracarbef when used for therapy of uncomplicated urinary tract infections due to E. coli, Klebsiella pneumoniae, and Proteus mirabilis. ANTIMICROBIAL SUSCEPTIBILITY Final Comment S = Susceptible; I = Intermediate; R = Resistant P = Positive; N = Negative MICS are expressed in micrograms per mL Antibiotic RSLT#1 RSLT#2 RSLT#3 RSLT#4 Ampicillin R>=32 Cefazolin S Cefepime S<=0.12 Ceftriaxone S<=0.25 Cefuroxime S =2 Ciprofloxacin R>=4 Ertapenem S<=0.12 Gentamicin S<=1 Levofloxacin R>=8 Meropenem S =1 Nitrofurantoin R =256 Piperacillin/Tazobactam S<=4 Tetracycline R>=16 Tobramycin S<=1 Trimethoprim/Sulfa R>=320 [facility]: [facility] neg Objective Assessment Fever ? reactive. Procalcitoinin 1.08. BC neg so far Pyruia - GNR 07/27 Lactic acidosis, likely seizure related, improving Epilepsy with breakthrough seizure Dysphagia maintained on tube feedings Cerebral palsy Chronic encephalopathy h/o nephrolithiasis h/o ESBL in urine h/o MRSA Plan Plan of Care Zosyn change to cefdinir f/u culture results Avoid carbapenems as these agents have a potential risk of lowering the seizure threshold Maintain aspiration precautions Contact isolation ok to d/c to NH consider comfort care ETHAN HEDRICK MD Jul 30, 2019 09:10
[2019-07-30] MEDS: ZINC OXIDE 20% TOPICAL OINTMENT 28GM TUBE. TP SCH (09:33)
[2019-07-30] MEDS: POTASSIUM BICARB 20 MEQ EFFERVESCENT TABLET. PO SCH (09:33)
[2019-07-30] MEDS: LACOSAMIDE 50 MG TABLET PEG SCH (09:34)
--- NOTE | 2019-07-30 10:54 | PDOC ---
[facility] [facility] PROGRESS NOTE Chief Complaint Chief Complaint Acute, recurrent seizures x2 UTI (Urinary tract infection) Sepsis Epilepsy Cerebral palsy Severe Cognitive Impairment, long standing Lactic Acidosis HTN (Hypertension) Stable moderate to severe ventriculomegaly due to cerebral volume loss. Cerebellar volume loss. Decreased attenuation within the cerebral white matter, likely due to chronic small vessel disease. TAPAN (Acute Kidney Injury), vasomotor nephropathy History of Present Illness History of Present Illness 07/30/2019 -Pt seen and examined. -Chart reviewed and care discussed with nursing staff. -Pt resting comfortable in bed in NAD. Pt has no new complaints at this time. Vitals/I&O Vitals/I&O: Vital Signs Date Time Temp Pulse Resp B/P (MAP) Pulse Ox O2 Delivery O2 Flow Rate FiO2 07/30/19 07:00 97.9 92 20 163/71 (101) 91 Room Air 97.9 07/30/19 06:23 2.0 I & O 07/29/19 07/29/19 07/30/19 15:00 23:00 07:00 Intake Total 1350 ml 0 ml Output Total 1800 ml 1100 ml Balance -450 ml -1100 ml Physical Exam Physical Exam: GENERAL: Resting quietly, opens eyes to voice, nonverbal HEENT: Pupils equally round. NECK: Supple. LUNGS: CTAB HEART: RRR, S1 and S2 regular. ABDOMEN: Obese, mildly distended, soft. No guarding. Bowel sounds present. PEG tube clean. GENITOURINARY: PureWick in place. EXTREMITIES: Trace edema of the lower extremities bilaterally, no cyanosis. SKIN: Warm to touch without signs of rash. NEUROLOGIC: noncommunicative. General: Alert, Cooperative, No acute distress Heart: Regular rate, No murmurs Lungs: Clear Abdomen: Normal bowel sounds, Soft Extremities: No cyanosis Review of Systems Review of Systems: Unable to obtain Assessment and Plan Assessmemt and Plan Problems Medical Problems: (1) Elevated troponin Status: Acute (2) Sepsis Status: Acute (3) UTI (urinary tract infection) Status: Acute Assessment: Epilepsy Acute, recurrent seizures x2. Cerebral palsy severe Cognitive Impairment, long standing Lactic Acidosis UTI (Urinary tract infection) SEPSIS HTN (Hypertension) Stable moderate to severe ventriculomegaly due to cerebral volume loss. Cerebellar volume loss. Decreased attenuation within the cerebral white matter, likely due to chronic small vessel disease. TAPAN (Acute Kidney Injury), vasomotor nephropathy Plan: -Cardiac monitoring -Continue antiseizure ppx with keppra and Vimpat -IV abx (recently changed to cefdinir by ID) -Feeding per PEG tube -PT/OT -ID & Neurology following -DVT ppx -Full code -Hope to discharge later today to care home. Comment Review of Relevant I have reviewed the following items jo-ann (where applicable) has been applied. CHELLE CORDOVA III DO Jul 30, 2019 10:54
[2019-07-30 11:00] VITALS: BP 163/76
--- NOTE | 2019-07-30 11:22 | SNU/HH DC ---
DISCHARGE ORDERS DISCHARGE INFORMATION: FINAL DIAGNOSIS Problems Medical Problems: (1) Elevated troponin Status: Acute (2) Sepsis Status: Acute (3) UTI (urinary tract infection) Status: Acute CONDITION ON DISCHARGE: Stable CODE STATUS: Code Status: Full INTERMEDIATE: SNF STAY <30 DAYS: No HOSPICE: HOSPICE: No HOSPICE EVAL & TREAT: No LTAC: ADMIT TO LTAC: No POST DISCHARGE ORDERS: ACTIVITY ORDERS: Bedrest today DIET AFTER DISCHARGE: NPO CHECKS AFTER DISCHARGE: CHECKS AFTER DISCHARGE: Check blood sugar, ac/hs TREATMENT/EQUIPMENT ORDERS: ADAPTIVE EQUIPMENT NEEDED: None RESPIRATORY EQUIPMENT NEEDED: Oxygen Speech Language Pathology For: Swallow Cognition DISCHARGE MEDICATIONS: Home Meds Active Scripts Cephalexin (CEPHALEXIN) 250 Mg/5 Ml Susp.recon, 10 ML PEG Q8HRS, #300 ML Prov:LUIS GREENE MD 05/14/19 Lorazepam (LORAZEPAM) 0.5 Mg Tablet, 1 TAB PEG PRN TID PRN for seizure for 30 Days, #90 TAB Prov:JAYE CALLES MD 12/18/18 Acetaminophen (ACETAMINOPHEN ORAL LIQUID ) 650 Mg/20.3 Ml Solution, 650 MG PEG PRN Q6HRS PRN for MILD PAIN / TEMP for 30 Days, #120 MISC Prov:MARY PECK MD 12/12/18 Lacosamide (VIMPAT) 50 Mg Tablet, 100 MG PEG BID for seizures for 30 Days, #120 TAB Prov:MARY PECK MD 12/12/18 Cefdinir (CEFDINIR) 250 Mg/5 Ml Susp.recon, 250 MG PEG BID for uti for 10 Days, #240 MISC Prov:MARY PECK MD 12/12/18 Reported Medications Zinc Oxide (ZINC OXIDE) 56.7 Gm Oint...g., 56.7 GM TP BID for Skin condition/preventative, MISC 12/08/18 Potassium Chloride (POTASSIUM CHLORIDE ORAL LIQUID) 20 Meq/15 Ml Liquid, 20 MEQ PEG BID, LIQUID 03/22/17 Triamcinolone Acetonide (TRIAMCINOLONE ACETONIDE 0.025% CREAM) 15 Gm Cream..g., 1 EROS TP DAILY, #30 GM 01/10/17 Famotidine (FAMOTIDINE) 20 Mg Tablet, 20 MG PEG HS, TAB 7/31/17 Sennosides/Docusate Sodium (SENNA-S TABLET) 1 Each Tablet, 1 EACH PEG BID 02/11/16 Levothyroxine Sodium (SYNTHROID) 100 Mcg Tablet, 1 TAB PEG DAILY, #30 TAB 5 Refills 02/11/16 Levetiracetam (KEPPRA) 100 Mg/1 Ml Solution, 1500 MG PEG BID for seizures, ML 02/11/16 [fibersource HN PEG] No Conflict Check 02/11/16 CHELLE CORDOVA III DO Jul 30, 2019 11:22
[2019-07-30] MEDS ORDERED: CEFDINIR 250 MG/5 ML ORAL.SUSP. PEG SCH (12:00)
--- NOTE | 2019-07-30 13:06 | NUR ---
SS following for discharge planning. SS reviewed pt chart. Pt is from [facility], ; fax [phone]. SS contacted [facility] and verified that pt is a LTC resident from there facility and is able to return when medically stable for discharge. Discharge orders and clinical phoned and faxed to [facility]. Pt will discharge today and go to [facility] between 1400 and 1500 via stretcher. [facility] to provide transportation. Pt and pt's RN notified.
--- NOTE | 2019-07-30 14:30 | NUR ---
Discharge Note: CHRIS GONZALES [address] Discharge instructions and discharge home medications reviewed with Patient and a copy given. All questions have been answered and understanding verbalized. Patient discharged to [facility] with express transport via stretcher. Report called to [facility]A [facility] at [facility], medications reviewed and questions answered.
--- NOTE | 2019-07-30 14:55 | PDOC ---
PROGRESS NOTES Assessment Assessment Recurrent seizures. Lactic acidosis. UTI. HTN. 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 Very poor mental prognosis. No meaningful life, mentation < 2 years age. RECOMMENDATIONS/PLAN: Continue Keppra current at 1500 mg bid. Continue Vimpat 100 mg bid. Treat UTI. Treat medical diseases. Consult Palliative Care team. SUBJECTIVE: Non verbal. OBJECTIVE: No seizures over night. Past Medical History Cardiovascular: HTN CENTRAL NERVOUS SYSTEM: Dementia (cerebral palsy picture), Seizure GI: GERD Endocrine: Hypothyroidism Past Surgical History PEG placement. Family History No pertinent hx Social History [facility]time jail resident since [facility], no family, a trust pays for her medical care Allergies Coded Allergies: I S O L A T I O N *CONTACT* (Verified Allergy, Unknown, 04/18/18) mrsa No Known Medication Allergies (Verified Allergy, Unknown, 04/18/18) wn REVIEW OF SYSTEMS: Refer to PMH and PSH. PHYSICAL EXAMINATION: General appearance is severe MR. CORRAL: Normocephalic and nontraumatic. Eyes, nose, ears, and throat are unremarkable. Hearing decrease. Neck is supple. No lymphadenopathy. No Crepitus. Cardiovascular: S1, S2, regular rate and rhythm. Pulmonary: Decreased to auscultation bilaterally. Abdomen: Bowel sounds are positive. Extremities: No rash, lesions, or edema. No restriction of range of motion NEUROLOGICAL EXAMINATION: Awake from time to time. Non verbal. Not follow commands. Not oriented to time, place and person. PERRL. EOMI. CN: no focal findings. Muscle tone: Increased in all extremities. Muscle strength: Moves all extremities. DTR: 1-2. Plantar reflex: Neutral response bilaterally Gait: Not able to walk. Sensory exam: Withdraws to stimuli.. Not able to access cerebellar signs. F-T-N test not tested due to not follow commands. Severe joints contracture. Objective Objective Vital Signs Date Time Temp Pulse Resp B/P (MAP) Pulse Ox O2 Delivery O2 Flow Rate FiO2 07/30/19 12:05 98 Nasal Cannula 2.0 07/30/19 11:00 98.9 81 20 163/76 (105) 98.9 Intake and Output 07/30/19 07:00 Intake Total 1350 ml Output Total 2900 ml Balance -1550 ml Intake Oral 0 ml Tube Feeding 250 ml Blood Product IV Normal Saline Flush 1100 ml Output Urine Total 2900 ml # Bowel Movements 2 Vitals Signs Vitals VS - Last 72 Hours, by Label Date Time Temp Pulse Resp B/P (MAP) Pulse Ox O2 Delivery O2 Flow Rate FiO2 07/30/19 12:05 98 Nasal Cannula 2.0 07/30/19 11:00 98.9 81 20 163/76 (105) 99 Room Air 98.9 07/30/19 08:00 Nasal Cannula 2.0 07/30/19 07:00 97.9 92 20 163/71 (101) 91 Room Air 97.9 07/30/19 06:23 98 Nasal Cannula 2.0 07/30/19 04:18 98 Nasal Cannula 2.0 07/30/19 02:45 98.3 102 22 146/98 (114) 91 Room Air 98.3 07/30/19 00:05 100 Nasal Cannula 2.0 07/29/19 23:00 98.9 104 22 144/86 (105) 95 Nasal Cannula 2.0 98.9 07/29/19 20:05 Nasal Cannula 2.0 07/29/19 19:55 Nasal Cannula 2.0 07/29/19 18:12 98.7 112 20 186/86 (119) 92 Nasal Cannula 2.0 98.7 07/29/19 16:08 95 Nasal Cannula 2.0 07/29/19 14:41 97.8 103 20 136/88 (104) 95 Nasal Cannula 97.8 07/29/19 12:05 95 Nasal Cannula 2.0 07/29/19 10:09 97.1 79 20 129/74 (92) 91 Nasal Cannula 97.1 07/29/19 08:00 Nasal Cannula 2.0 07/29/19 07:49 94 Nasal Cannula 2.0 07/29/19 07:00 98.1 77 20 164/90 (114) 95 Nasal Cannula 98.1 Laboratory Laboratory Microbiology 07/27/19 Blood Culture - Preliminary, Resulted NO GROWTH AFTER 3 DAYS 07/27/19 Urine Culture - Final, Complete 07/27/19 Urine Culture Result 1 (VICKY) - Final, Complete 07/27/19 Antimicrobic Susceptibility - Final, Complete Medication Medications Current Medications Cefdinir (Omnicef Oral Susp) 250 mg BID PEG Last administered on 07/30/19at 12:10; Start 07/30/19 at 12:00; Stop 07/30/19 at 14:40; Status DC Comment Review of Relevant I have reviewed the following items jo-ann (where applicable) has been applied. MOISÉS HOOVER MD Jul 30, 2019 14:55
== END 2019-07-30 14:30 | disposition home or self-care (01) | DRG 871 ==
LOC: ER 23:54 → ED HOLD 07-27 00:31 → 2 SOUTH 07-27 01:39
PROVIDERS: ADMIT Internal Medicine; ATTEND Internal Medicine
DX: A41.9 Sepsis, unspecified organism (principal); N17.0 Acute kidney failure with tubular necrosis; F72 Severe intellectual disabilities; R47.01 Aphasia; N39.0 Urinary tract infection, site not specified; G93.40 Encephalopathy, unspecified; G93.1 Anoxic brain damage, not elsewhere classified; R13.10 Dysphagia, unspecified; G80.9 Cerebral palsy, unspecified; G40.409 Other generalized epilepsy and epileptic syndromes, not intractable, without status epilepticus; G93.89 Other specified disorders of brain; I10 Essential (primary) hypertension; I73.9 Peripheral vascular disease, unspecified; M62.50 Muscle wasting and atrophy, not elsewhere classified, unspecified site; K21.9 Gastro-esophageal reflux disease without esophagitis; E03.9 Hypothyroidism, unspecified; E78.5 Hyperlipidemia, unspecified; F03.90 Unspecified dementia, unspecified severity, without behavioral disturbance, psychotic disturbance, mood disturbance, and anxiety; Z93.1 Gastrostomy status; Z86.73 Personal history of transient ischemic attack (TIA), and cerebral infarction without residual deficits; Z87.442 Personal history of urinary calculi; Z86.19 Personal history of other infectious and parasitic diseases; Z79.899 Other long term (current) drug therapy; Z86.14 Personal history of Methicillin resistant Staphylococcus aureus infection
CPT/HCPCS: 36415; 71045; 80048; 80053; 80177; 80307; 81001; 82553; 83605; 83735; 83880; 84145; 84443; 84484; 85007; 85025; 85384; 85610; 85730; 87040; 87086; 87186; 87804; 93005; 94640; J1650; J1953; J1956; J2060; J2405; J2543; J7030; J7620; G0378

== ENCOUNTER 2020-08-07 13:30 | Inpatient (IN) | payer OTHER ==
[~2020-08-07] VITALS: Ht 162.6 cm; Wt 60.4 kg
[~2020-08-07 13:30] MED LIST changes: +LEVO-101 PEG; -LEVO100T PEG; -ZINC56.7 TP; +ZINC56.713 TP
--- NOTE | 2020-08-07 13:40 | ED.ADGEN ---
Past Medical History Past Medical History: GERD, Hypertension, Hypothyroid Additional Past Medical Histor: EPILEPSY, GASTROSTOMY TUBE, DYSPHAGIA, APHASIA Past Surgical History: Other Additional Past Surgical Histo: G-tube Smoking Status: Unknown if ever smoked Alcohol Use: None Drug Use: None General Adult HPI: HPI: Patient is a 70-year-old female who arrives via EMS after it was observed the patient has abnormal laboratory values. Patient reportedly has a hemoglobin in the range of 6-7. Patient was sent to the emergency department for further evaluation. Patient is aphasic as a baseline and does not provide history. Is been reported the patient does not have any changes in her level of functioning (which is minimal) or any history of illness otherwise. She is awake and no ntoxic-appearing. Review of Systems: Review of Systems: Unable to obtain given the patient's baseline level of functioning. Current Medications: Current Medications Medications (Trade) Dose Ordered Sig/Fatmata Start Time Stop Time Status Last Admin Dose Admin Ondansetron HCl (Zofran) 4 mg PRN Q8HRS PRN 08/07/20 15:00 08/08/20 14:59 Allergies: Allergies: Allergies Coded Allergies Type Severity Reaction Last Updated Verified I S O L A T I O N *CONTACT* Allergy Unknown 04/18/18 Yes No Known Medication Allergies Allergy Unknown 04/04/19 Yes Physical Exam: PE: Constitutional: Well developed, well nourished, no acute distress, non-toxic appearance. [] HENT: Normocephalic, atraumatic, bilateral external ears normal, oropharynx moist, no oral exudates, nose normal. [] Eyes: PERRLA, EOMI, conjunctiva normal, no discharge. [] Neck: Normal range of motion, no tenderness, supple, no stridor. [] Cardiovascular:Heart rate regular rhythm, no murmur [] Lungs & Thorax: Bilateral breath sounds clear to auscultation [] Abdomen: The patient does have a gastrostomy tube present. There is brown sludge within the tube. Bowel sounds normal, soft, no tenderness, no masses, no pulsatile masses. [] Skin: Warm, dry, no erythema, no rash. [] Back: No tenderness, no CVA tenderness. [] Extremities: No tenderness, no cyanosis, no clubbing, ROM intact, no edema. [] Neurologic: Patient is awake and moving all of her extremities. She is alert as it relates to her baseline level of functioning. Psychologic: Affect normal, judgement normal, mood normal. [] Current Patient Data: Labs: Laboratory Tests Test 08/07/20 13:49 08/07/20 13:50 White Blood Count 5.4 x10^3/uL (4.0-11.0) Red Blood Count 2.91 x10^6/uL (3.50-5.40) L Hemoglobin 6.6 g/dL (12.0-15.5) *L Hematocrit 20.9 % (36.0-47.0) *L Mean Corpuscular Volume 72 fL (79-100) L Mean Corpuscular Hemoglobin 23 pg (25-35) L Mean Corpuscular Hemoglobin Concent 32 g/dL (31-37) Red Cell Distribution Width 16.6 % (11.5-14.5) H Platelet Count 328 x10^3/uL (140-400) Neutrophils (%) (Auto) 73 % (31-73) Lymphocytes (%) (Auto) 15 % (24-48) L Monocytes (%) (Auto) 10 % (0-9) H Eosinophils (%) (Auto) 2 % (0-3) Basophils (%) (Auto) 0 % (0-3) Neutrophils # (Auto) 4.0 x10^3/uL (1.8-7.7) Lymphocytes # (Auto) 0.8 x10^3/uL (1.0-4.8) L Monocytes # (Auto) 0.5 x10^3/uL (0.0-1.1) Eosinophils # (Auto) 0.1 x10^3/uL (0.0-0.7) Basophils # (Auto) 0.0 x10^3/uL (0.0-0.2) Toxic Granulation Slight Platelet Estimate Adequate (ADEQUATE) Polychromasia Slight Hypochromasia Slight Anisocytosis Slight Microcytosis Mod Prothrombin Time 13.3 SEC (11.7-14.0) Prothrombin Time INR 1.1 (0.8-1.1) Sodium Level 139 mmol/L (136-145) Potassium Level 4.4 mmol/L (3.5-5.1) Chloride Level 103 mmol/L (98-107) Carbon Dioxide Level 26 mmol/L (21-32) Anion Gap 10 (6-14) Blood Urea Nitrogen 45 mg/dL (7-20) H Creatinine 1.3 mg/dL (0.6-1.0) H Estimated GFR (Cockcroft-Gault) 40.6 BUN/Creatinine Ratio 35 (6-20) H Glucose Level 124 mg/dL (70-99) H Calcium Level 9.5 mg/dL (8.5-10.1) Total Bilirubin 0.3 mg/dL (0.2-1.0) Aspartate Amino Transferase (AST) 13 U/L (15-37) L Alanine Aminotransferase (ALT) 17 U/L (14-59) Alkaline Phosphatase 103 U/L (46-116) Troponin I Quantitative < 0.017 ng/mL (0.000-0.055) Total Protein 6.4 g/dL (6.4-8.2) Albumin 2.3 g/dL (3.4-5.0) L Albumin/Globulin Ratio 0.6 (1.0-1.7) L Urine Collection Type U cath Urine Color Yellow Urine Clarity Turbid Urine pH 8.5 (<5.0-8.0) Urine Specific [place] 1.010 (1.000-1.030) Urine Protein 30 mg/dL (NEG-TRACE) Urine Glucose (UA) Negative mg/dL (NEG) Urine Ketones (Stick) Negative mg/dL (NEG) Urine Blood Large (NEG) Urine Nitrite Negative (NEG) Urine Bilirubin Negative (NEG) Urine Urobilinogen Dipstick 0.2 mg/dL (0.2 mg/dL) Urine Leukocyte Esterase Large (NEG) Urine RBC 1-2 /HPF (0-2) Urine WBC 1-4 /HPF (0-4) Urine Squamous Epithelial Cells Many /LPF Urine Bacteria Many /HPF (0-FEW) Urine Mucus Marked /LPF Stool Occult Blood Positive (NEG) Laboratory Tests 08/07/20 13:49 Laboratory Tests 08/07/20 13:49 Vital Signs: Vital Signs Date Time Temp Pulse Resp B/P (MAP) Pulse Ox O2 Delivery O2 Flow Rate FiO2 08/07/20 13:43 97.7 75 20 199/87 (124) 95 Room Air 97.7 EKG: EKG: EKG was obtained at 1341 hrs. and revealed the sinus versus a supraventricular rhythm with a ventricular rate of 85 bpm. There is left axis deviation with a prolonged QT interval. There are no acute ST/T wave changes present to denote ischemia. [] Heart Score: HEART Score for Chest Pain: HEART Score for Chest Pain Response (Comments) Value History Slighlty/Non-Suspicious 0 ECG Normal 0 Age > 65 2 Risk Factors No Risk Factors 0 Troponin < Normal Limit 0 Total 2 Risk Factors: Risk Factors: DM, Current or recent (<one month) smoker, HTN, HLP, family history of CAD, obesity. Risk Scores: Score 0 - 3: 2.5% MACE over next 6 weeks - Discharge Home Score 4 - 6: 20.3% MACE over next 6 weeks - Admit for Clinical Observation Score 7 - 10: 72.7% MACE over next 6 weeks - Early Invasive Strategies Radiology/Procedures: Radiology/Procedures: [] Impression: [facility] [address] [place] [address] IMAGING REPORT Signed PATIENT: CHRIS GONZALESOUNT: [id number] : 1950 LOCATION: ER AGE: 70 SEX: F EXAM STATUS: REG ER ORD. PHYSICIAN: MINNIE ROGER DO REASON: Shortness of air PROCEDURE: PORTABLE CHEST 1V XR CHEST 1V History: Reason: Shortness of air / Spl. Instructions: / History: Comparison: 07/27/2019 Technique: Portable AP chest radiograph. Findings: The lungs are adequately and symmetrically inflated. No airspace consolidation, pleural effusion or pneumothorax. The cardiomediastinal silhouette and pulmonary vasculature are within normal limits. Calcification of the aortic arch. Soft tissues and osseous structures are unremarkable. Impression: 1. No acute cardiopulmonary process. Electronically signed by: Maurisio Adrian MD (08/07/2020 2:16 PM) [facility] DICTATED and SIGNED BY: MAURISIO ADRIAN MD DATE: 08/07/20 [id number] 0 Course & Med Decision Making: Course & Med Decision Making Pertinent Labs and Imaging studies reviewed. (See chart for details) [] Dragon Disclaimer: Dragon Disclaimer: This electronic medical record was generated, in whole or in part, using a voice recognition dictation system. Departure Departure Impression: Primary Impression: GI bleed Additional Impressions: Anemia DNR (do not resuscitate) Disposition: 09 ADMITTED INPT THIS HOSP Admitting Physician: PIYUSH Condition: GUARDED Referrals: LINO RCIO MD (PCP) Problem Qualifiers MINNIE ROGER DO Aug 07, 2020 13:40
[2020-08-07 14:09] LABS: BASO % 0 % (0-3); EOS # 0.1 x10^3/uL (0.0-0.7); EOS % 2 % (0-3); LYMPH # 0.8 x10^3/uL (1.0-4.8); LYMPH % 15 % (24-48); MEAN CORPUSCULAR HEMOGLOBIN 23 pg (25-35); MEAN CORPUSCULAR HGB CONC 32 g/dL (31-37); MEAN CORPUSCULAR VOLUME 72 fL (79-100); MONO # 0.5 x10^3/uL (0.0-1.1); MONO % 10 % (0-9); NEUT % 73 % (31-73); PLATELET COUNT 328 x10^3/uL (140-400); RED BLOOD COUNT 2.91 x10^6/uL (3.50-5.40); RED CELL DISTRIBUTION WIDTH 16.6 % (11.5-14.5); WHITE BLOOD COUNT 5.4 x10^3/uL (4.0-11.0)
[2020-08-07 14:13] LABS: HEMOGLOBIN 6.6 g/dL (12.0-15.5)
[2020-08-07 14:14] LABS: HEMATOCRIT 20.9 % (36.0-47.0)
[2020-08-07 14:17] LABS: CALCIUM 9.5 mg/dL (8.5-10.1); CREATININE 1.3 mg/dL (0.6-1.0); GFR 40.6; POTASSIUM 4.4 mmol/L (3.5-5.1)
--- NOTE | 2020-08-07 14:18 | RAD ---
XR CHEST 1V History: Reason: Shortness of air / Spl. Instructions: / History: Comparison: 07/27/2019 Technique: Portable AP chest radiograph. Findings: The lungs are adequately and symmetrically inflated. No airspace consolidation, pleural effusion or p neumothorax. The cardiomediastinal silhouette and pulmonary vasculature are within normal limits. Aayush cification of the aortic arch. Soft tissues and osseous structures are unremarkable. Impression: 1. No acute cardiopulmonary process. Electronically signed by: Maurisio Garcia MD (08/07/2020 2:16 PM) [facility]
[2020-08-07 14:23] LABS: ALBUMIN 2.3 g/dL (3.4-5.0); ALBUMIN/GLOBULIN RATIO 0.6 (1.0-1.7); TOTAL BILIRUBIN 0.3 mg/dL (0.2-1.0); TOTAL PROTEIN 6.4 g/dL (6.4-8.2)
[2020-08-07 14:36] LABS: ANISOCYTOSIS SLIGHT; MICROCYTOSIS MOD; PLT ESTIMATE ADEQUATE (ADEQUATE); POLYCHROMASIA SLIGHT
[2020-08-07 14:37] LABS: HYPOCHROMIA SLIGHT
[2020-08-07 14:40] LABS: TOXIC GRANULATION SLIGHT
[2020-08-07 14:48] LABS: BILIRUBIN,URINE NEGATIVE (NEG); CLARITY,URINE TURBID; COLOR,URINE YELLOW; NITRITE,URINE NEGATIVE (NEG); PH,URINE 8.5 (<5.0-8.0); PROTEIN,URINE 30 mg/dL (NEG-TRACE); UROBILINOGEN,URINE 0.2 mg/dL (0.2 mg/dL)
[2020-08-07 14:52] LABS: FECAL OB PT POSITIVE (NEG)
[2020-08-07] MEDS ORDERED: ONDANSETRON PF 4 MG/2 ML VIAL. IV PRN (15:00)
[2020-08-07 15:21] LABS: BACTERIA,URINE MANY /HPF (0-FEW)
[2020-08-07 15:37] LABS: PROTHROMBIN TIME PATIENT 13.3 SEC (11.7-14.0)
--- NOTE | 2020-08-07 15:58 | PDOC2 ---
GI CONSULT Date of Service: DATE: 08/07/20 TIME: 15:44 Reason For Consult: GI bleed HPI: HPI: 70 y/o female in ER who we have seen in the past. H/o chronic encephalopathy and dysphagia w/ PEG in place (last replaced here in 03/[address] Ibrahim). Sent from care facility for "blood in stools" and anemia. Hgb 6.6 here, MCV 72, Hemoccult positive, BUN 45, Cr 1.3. ER nurse reports brown stool w/ tiny spots of red blood. No history from patient. Care facility thinks Hospice would be appropriate. Also wonders about replacing PEG but unsure how to proceed as pt has no family or guardian. Recently admitted for seizure and UTI. H/o mild anemia (Hgb 10-11 range) since late 2017, earlier this month Hgb 9.6. Past EGD w/ mild distal GERD, other notes also mention mild esophageal stricture. Med list includes famotidine. Past imaging notes cholecystectomy. PMH: PMH: per chart: intentional overdose w/ sulfonylureas, seizure disored, encephalopathy, hypothyroidism, HTN, HLD, hyperammonemia, hydroureteronephrosis, bilateral renal lesions, urolithiasis PEG, cholecystectomy FH: Family History: No pertinent hx Social History: Smoke: No ALCOHOL: none ROS: unable to obtain Vitals: Vitals: Vital Signs Date Time Temp Pulse Resp B/P (MAP) Pulse Ox O2 Delivery O2 Flow Rate FiO2 08/07/20 13:43 97.7 75 20 199/87 (124) 95 Room Air 97.7 Labs: Labs: Laboratory Tests Test 08/07/20 13:49 08/07/20 13:50 White Blood Count 5.4 x10^3/uL (4.0-11.0) Red Blood Count 2.91 x10^6/uL (3.50-5.40) Hemoglobin 6.6 g/dL (12.0-15.5) Hematocrit 20.9 % (36.0-47.0) Mean Corpuscular Volume 72 fL (79-100) Mean Corpuscular Hemoglobin 23 pg (25-35) Mean Corpuscular Hemoglobin Concent 32 g/dL (31-37) Red Cell Distribution Width 16.6 % (11.5-14.5) Platelet Count 328 x10^3/uL (140-400) Neutrophils (%) (Auto) 73 % (31-73) Lymphocytes (%) (Auto) 15 % (24-48) Monocytes (%) (Auto) 10 % (0-9) Eosinophils (%) (Auto) 2 % (0-3) Basophils (%) (Auto) 0 % (0-3) Neutrophils # (Auto) 4.0 x10^3/uL (1.8-7.7) Lymphocytes # (Auto) 0.8 x10^3/uL (1.0-4.8) Monocytes # (Auto) 0.5 x10^3/uL (0.0-1.1) Eosinophils # (Auto) 0.1 x10^3/uL (0.0-0.7) Basophils # (Auto) 0.0 x10^3/uL (0.0-0.2) Toxic Granulation Slight Platelet Estimate Adequate (ADEQUATE) Polychromasia Slight Hypochromasia Slight Anisocytosis Slight Microcytosis Mod Prothrombin Time 13.3 SEC (11.7-14.0) Prothromb Time International Ratio 1.1 (0.8-1.1) Sodium Level 139 mmol/L (136-145) Potassium Level 4.4 mmol/L (3.5-5.1) Chloride Level 103 mmol/L (98-107) Carbon Dioxide Level 26 mmol/L (21-32) Anion Gap 10 (6-14) Blood Urea Nitrogen 45 mg/dL (7-20) Creatinine 1.3 mg/dL (0.6-1.0) Estimated GFR (Cockcroft-Gault) 40.6 BUN/Creatinine Ratio 35 (6-20) Glucose Level 124 mg/dL (70-99) Calcium Level 9.5 mg/dL (8.5-10.1) Total Bilirubin 0.3 mg/dL (0.2-1.0) Aspartate Amino Transf (AST/SGOT) 13 U/L (15-37) Alanine Aminotransferase (ALT/SGPT) 17 U/L (14-59) Alkaline Phosphatase 103 U/L (46-116) Troponin I Quantitative < 0.017 ng/mL (0.000-0.055) Total Protein 6.4 g/dL (6.4-8.2) Albumin 2.3 g/dL (3.4-5.0) Albumin/Globulin Ratio 0.6 (1.0-1.7) Urine Collection Type U cath Urine Color Yellow Urine Clarity Turbid Urine pH 8.5 (<5.0-8.0) Urine Specific [place] 1.010 (1.000-1.030) Urine Protein 30 mg/dL (NEG-TRACE) Urine Glucose (UA) Negative mg/dL (NEG) Urine Ketones (Stick) Negative mg/dL (NEG) Urine Blood Large (NEG) Urine Nitrite Negative (NEG) Urine Bilirubin Negative (NEG) Urine Urobilinogen Dipstick 0.2 mg/dL (0.2 mg/dL) Urine Leukocyte Esterase Large (NEG) Urine RBC 1-2 /HPF (0-2) Urine WBC 1-4 /HPF (0-4) Urine Squamous Epithelial Cells Many /LPF Urine Bacteria Many /HPF (0-FEW) Urine Mucus Marked /LPF Stool Occult Blood Positive (NEG) Allergies: Coded Allergies: I S O L A T I O N *CONTACT* (Verified Allergy, Unknown, 04/18/18) mrsa No Known Medication Allergies (Verified Allergy, Unknown, 04/04/19) Imaging: Imaging: CXR 08/07 Impression: 1. No acute cardiopulmonary process. PE: GEN: appears chronically ill HEENT: Atraumatic, PERRL LUNGS: clear anteriorly, poor effort HEART: RRR ABD: round, NABS, doesn't seem tender, PEG in place - tube is old EXTREMITY: No edema SKIN: surgical scar on abdomen NEURO/PSYCH: awake, non-verbal A/P: A/P: Blood in stools Microcytic anemia Chronic encephalopathy and dysphagia w/ PEG (replaced here 03/2019) Recent UTI -- Agree w/ transfusion. Check iron studies. 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 Monitor Hgb and for bleeding. TORO OWENS Aug 07, 2020 15:58
[2020-08-07] MEDS: PANTOPRAZOLE IV PUSH 40 MG VIAL. IVP SCH (17:06)
--- NOTE | 2020-08-07 19:06 | HP ---
ADMIT DATE: 08/07/2020 CHIEF COMPLAINT: Rectal bleeding. HISTORY OF PRESENT ILLNESS: The patient is a pleasant middle-aged female who has some type of a cognitive deficit. She really does not talk, I think she had an anoxic brain injury in the past, she has a PEG tube, which appears to be quite old. She was sent here from a facility because she had some blood in her stool. She does wear a diaper. I discussed the case with ER physician. Her hemoglobin is down to 6.6. We suspect she has a GI bleed. She also needs her PEG replaced. We are going to admit the patient, transfuse her and consult GI. PAST MEDICAL AND SURGICAL HISTORY: Anoxic brain injury, severe cognitive deficit, aphasia, previous EGD with PEG placement, history of seizures and UTI, cholecystectomy, hypothyroidism, hyperlipidemia, hypertension, elevated ammonia, hydroureter, renal lesions, renal stones. ALLERGIES: None. FAMILY HISTORY: Unknown. SOCIAL HISTORY: She lives at a facility. We do not think she drinks, smokes or take drugs. MEDICATIONS: Reviewed, please see the MRAD. REVIEW OF SYSTEMS: Unable to obtain. The patient is aphasic. PHYSICAL EXAMINATION: VITALS: Within normal limits and are stable. GENERAL: She does not speak and rarely makes eye contact. HEENT: Normal cephalic atraumatic, external auditory canals are patent EYES: Extraocular muscles are intact, pupils are equally round and reactive to light and accommodation MUSCULOSKELETAL: Well developed, well nourished, good range of motion ENDOCRINE: No thyromegaly was palpated LYMPHATICS: No cervical chain or axillary nodes were noted HEMATOPOIETIC: No bruising NECK: Supple, no JVD, no thyromegaly was noted. LUNGS: Clear to auscultation in all lung mckenna without rhonchi or wheezing. HEART: RRR, S1, S2 present. Peripheral pulses intact, no obvious murmurs were noted. ABDOMEN: She has a very old PEG in place. EXTREMITIES: Without any cyanosis, clubbing, or edema. Pedal pulses intact, Homans sign is negative. RECTAL: She was guaiac positive in the ER. NEUROLOGIC: She does not speak or follow commands. She barely makes eye contact. PSYCHIATRIC: She has a very flat affect, does not speak. SKIN: No ulcerations or rashes, good skin turgor, no jaundice. VASCULAR: Good capillary refill, neurovascular bundle appears to be intact. LABORATORY DATA: Lab shows a hemoglobin of 6.6. ASSESSMENT AND PLAN: Gastrointestinal bleed and had a very old PEG tube. The patient has been admitted. We will consult GI for new PEG and to consider colonoscopy. For now, we are going to transfuse her, proton pump inhibitors, IV fluids, p.r.n. Zofran. Trend labs. CHELLE CORDOVA DO DR: YVON/cindy JOB#: [id number] / [id number]
[2020-08-07] MEDS: LABETALOL 20 MG/4 ML DISP.SYRIN. IVP PRN (19:51)
[2020-08-07 20:05] VITALS: BP 174/67
[2020-08-07 23:03] VITALS: BP 144/67
[2020-08-08] VITALS (14 sets, daily range): BP systolic 137–189; BP diastolic 60–81
[2020-08-08] MEDS ORDERED: LACO10SO3 PEG (03:55)
[2020-08-08] MEDS ORDERED: PANT40GR PEG (03:55)
[2020-08-08] MEDS ORDERED: LEVE100S8 PO (03:55)
--- NOTE | 2020-08-08 04:35 | NUR ---
Telephone order received by Dr. Sanchez to transfuse 2 units of PRBC's, patient is unable to sign consent form and has no DPOA for verbal consent. This RN called to check with blood bank and they stated that since patient is stable we would have to wait for MD signature on consent form to picker feeder blood and administer, Dr. Sanchez notified he will follow up with in AM. Facility is also wanting an Ethics consult as patient is a DNR and has no DPOA or family members, they were wanting to see what needs to be done to make her palliative care. Social work notified.
[2020-08-08] MEDS: PANTOPRAZOLE IV PUSH 40 MG VIAL. IVP SCH (08:24)
--- NOTE | 2020-08-08 09:53 | PDOC ---
Date of Service: DATE: 08/08/20 TIME: 09:47 Objective: Objective: D/w nurse - no recurrent bleeding. Did not received transfusion ordered in ER - no one to consent? Labs not rechecked. D/w Dr. Sanchez later on - still some quality of life, she watches tv - would like PEG to be replaced, he will consent. Vital Signs: Vital Signs Date Time Temp Pulse Resp B/P (MAP) Pulse Ox O2 Delivery O2 Flow Rate FiO2 08/08/20 08:18 Room Air 08/08/20 07:00 97.7 78 23 144/63 (90) 96 97.7 Labs: Laboratory Tests Test 08/07/20 13:49 08/07/20 13:50 White Blood Count 5.4 x10^3/uL Red Blood Count 2.91 x10^6/uL Hemoglobin 6.6 g/dL Hematocrit 20.9 % Mean Corpuscular Volume 72 fL Mean Corpuscular Hemoglobin 23 pg Mean Corpuscular Hemoglobin Concent 32 g/dL Red Cell Distribution Width 16.6 % Platelet Count 328 x10^3/uL Neutrophils (%) (Auto) 73 % Lymphocytes (%) (Auto) 15 % Monocytes (%) (Auto) 10 % Eosinophils (%) (Auto) 2 % Basophils (%) (Auto) 0 % Neutrophils # (Auto) 4.0 x10^3/uL Lymphocytes # (Auto) 0.8 x10^3/uL Monocytes # (Auto) 0.5 x10^3/uL Eosinophils # (Auto) 0.1 x10^3/uL Basophils # (Auto) 0.0 x10^3/uL Toxic Granulation Slight Platelet Estimate Adequate Polychromasia Slight Hypochromasia Slight Anisocytosis Slight Microcytosis Mod Prothrombin Time 13.3 SEC Prothromb Time International Ratio 1.1 Sodium Level 139 mmol/L Potassium Level 4.4 mmol/L Chloride Level 103 mmol/L Carbon Dioxide Level 26 mmol/L Anion Gap 10 Blood Urea Nitrogen 45 mg/dL Creatinine 1.3 mg/dL Estimated GFR (Cockcroft-Gault) 40.6 BUN/Creatinine Ratio 35 Glucose Level 124 mg/dL Calcium Level 9.5 mg/dL Iron Level 17 ug/dL Total Iron Binding Capacity 321 ug/dL Iron Saturation 5 % Total Bilirubin 0.3 mg/dL Aspartate Amino Transf (AST/SGOT) 13 U/L Alanine Aminotransferase (ALT/SGPT) 17 U/L Alkaline Phosphatase 103 U/L Troponin I Quantitative < 0.017 ng/mL Total Protein 6.4 g/dL Albumin 2.3 g/dL Albumin/Globulin Ratio 0.6 Urine Collection Type U cath Urine Color Yellow Urine Clarity Turbid Urine pH 8.5 Urine Specific [place] 1.010 Urine Protein 30 mg/dL Urine Glucose (UA) Negative mg/dL Urine Ketones (Stick) Negative mg/dL Urine Blood Large Urine Nitrite Negative Urine Bilirubin Negative Urine Urobilinogen Dipstick 0.2 mg/dL Urine Leukocyte Esterase Large Urine RBC 1-2 /HPF Urine WBC 1-4 /HPF Urine Squamous Epithelial Cells Many /LPF Urine Bacteria Many /HPF Urine Mucus Marked /LPF Stool Occult Blood Positive PE: GEN: NAD LUNGS: CTAB HEART: RRR ABD: S/ND/NT, PEG tube discolored NEURO/PSYCH: awake, does not verbalize or communicate meaningfully with me A/P: Blood in stools KATYA Chronic encephalopathy and dysphagia w/ PEG (replaced here 03/2019) Recent UTI -- D/w Dr. Ibrahim - offered consent for blood transfusion - Dr. Sanchez did as well. Recheck labs after. Will discuss PEG replacement issue. Not sure how many physicians must consent? Facility did not mention any issues w/ PEG malfunction - okay to flush/try using today. Would need COVID swab if to pursue PEG replacement. Justicifation of Admission Dx: Justifications for Admission: Justification of Admission Dx: Yes TORO OWENS Aug 08, 2020 09:53
--- NOTE | 2020-08-08 10:57 | PDOC ---
[employer] PROGRESS NOTE Date of Service DOS: DATE: 08/08/20 TIME: 10:46 Chief Complaint Chief Complaint GI Bleed, anemia, Renal insufficiency Anoxic brain injury severe cognitive deficit, aphasia previous EGD with PEG placement history of seizures history of UTI cholecystectomy hypothyroidism hyperlipidemia hypertension elevated ammonia hydroureter renal lesions renal stones History of Present Illness History of Present Illness Patient seen and examined at bedside Pt seems more alert than yesterday, making eye contact Pt still unresponsive to questions and gestures Case discussed with commercial coordinator KWAKU Chartts reviewed Vitals/I&O Vitals/I&O: Vital Signs Date Time Temp Pulse Resp B/P (MAP) Pulse Ox O2 Delivery O2 Flow Rate FiO2 08/08/20 08:18 Room Air 08/08/20 07:00 97.7 78 23 144/63 (90) 96 97.7 I & O 08/07/20 08/07/20 08/08/20 15:00 23:00 07:00 Output Total 0 ml Balance 0 ml Physical Exam General: Alert, Other (patient is aphasic) Heart: Regular rate, Normal S1 Lungs: Clear Abdomen: Normal bowel sounds, Soft Extremities: No clubbing, No cyanosis Skin: No rashes, No breakdown Labs Labs: Laboratory Tests Test 08/07/20 13:49 08/07/20 13:50 White Blood Count 5.4 x10^3/uL (4.0-11.0) Red Blood Count 2.91 x10^6/uL (3.50-5.40) Hemoglobin 6.6 g/dL (12.0-15.5) Hematocrit 20.9 % (36.0-47.0) Mean Corpuscular Volume 72 fL (79-100) Mean Corpuscular Hemoglobin 23 pg (25-35) Mean Corpuscular Hemoglobin Concent 32 g/dL (31-37) Red Cell Distribution Width 16.6 % (11.5-14.5) Platelet Count 328 x10^3/uL (140-400) Neutrophils (%) (Auto) 73 % (31-73) Lymphocytes (%) (Auto) 15 % (24-48) Monocytes (%) (Auto) 10 % (0-9) Eosinophils (%) (Auto) 2 % (0-3) Basophils (%) (Auto) 0 % (0-3) Neutrophils # (Auto) 4.0 x10^3/uL (1.8-7.7) Lymphocytes # (Auto) 0.8 x10^3/uL (1.0-4.8) Monocytes # (Auto) 0.5 x10^3/uL (0.0-1.1) Eosinophils # (Auto) 0.1 x10^3/uL (0.0-0.7) Basophils # (Auto) 0.0 x10^3/uL (0.0-0.2) Toxic Granulation Slight Platelet Estimate Adequate (ADEQUATE) Polychromasia Slight Hypochromasia Slight Anisocytosis Slight Microcytosis Mod Prothrombin Time 13.3 SEC (11.7-14.0) Prothromb Time International Ratio 1.1 (0.8-1.1) Sodium Level 139 mmol/L (136-145) Potassium Level 4.4 mmol/L (3.5-5.1) Chloride Level 103 mmol/L (98-107) Carbon Dioxide Level 26 mmol/L (21-32) Anion Gap 10 (6-14) Blood Urea Nitrogen 45 mg/dL (7-20) Creatinine 1.3 mg/dL (0.6-1.0) Estimated GFR (Cockcroft-Gault) 40.6 BUN/Creatinine Ratio 35 (6-20) Glucose Level 124 mg/dL (70-99) Calcium Level 9.5 mg/dL (8.5-10.1) Iron Level 17 ug/dL (50-170) Total Iron Binding Capacity 321 ug/dL (250-450) Iron Saturation 5 % (15-34) Total Bilirubin 0.3 mg/dL (0.2-1.0) Aspartate Amino Transf (AST/SGOT) 13 U/L (15-37) Alanine Aminotransferase (ALT/SGPT) 17 U/L (14-59) Alkaline Phosphatase 103 U/L (46-116) Troponin I Quantitative < 0.017 ng/mL (0.000-0.055) Total Protein 6.4 g/dL (6.4-8.2) Albumin 2.3 g/dL (3.4-5.0) Albumin/Globulin Ratio 0.6 (1.0-1.7) Urine Collection Type U cath Urine Color Yellow Urine Clarity Turbid Urine pH 8.5 (<5.0-8.0) Urine Specific [place] 1.010 (1.000-1.030) Urine Protein 30 mg/dL (NEG-TRACE) Urine Glucose (UA) Negative mg/dL (NEG) Urine Ketones (Stick) Negative mg/dL (NEG) Urine Blood Large (NEG) Urine Nitrite Negative (NEG) Urine Bilirubin Negative (NEG) Urine Urobilinogen Dipstick 0.2 mg/dL (0.2 mg/dL) Urine Leukocyte Esterase Large (NEG) Urine RBC 1-2 /HPF (0-2) Urine WBC 1-4 /HPF (0-4) Urine Squamous Epithelial Cells Many /LPF Urine Bacteria Many /HPF (0-FEW) Urine Mucus Marked /LPF Stool Occult Blood Positive (NEG) Review of Systems Review of Systems: Unable to obtain ROS, as patient is aphasic Assessment and Plan Assessmemt and Plan Problems Medical Problems: (1) Anemia Status: Acute (2) DNR (do not resuscitate) Status: Acute GI Bleed, anemia, Renal insufficiency Anoxic brain injury severe cognitive deficit, aphasia previous EGD with PEG placement history of seizures history of UTI cholecystectomy hypothyroidism hyperlipidemia hypertension elevated ammonia hydroureter renal lesions renal stones Plan Trend labs, Hb Continue IV Fluids Continue IV PPIs Patient to receive new PEG today Transfuse, current Hb is at 6.6 Start/continue home meds DVT prophylaxis Full Code Comment Review of Relevant I have reviewed the following items jo-ann (where applicable) has been applied. Medications: Current Medications Medications (Trade) Dose Ordered Sig/Fatmata Route PRN Reason Start Time Stop Time Status Last Admin Dose Admin Pantoprazole Sodium (PROTONIX VIAL for IV PUSH) 40 mg DAILY IVP 08/07/20 16:00 08/08/20 08:24 Labetalol HCl (Normodyne Iv Push) 20 mg PRN Q2HR PRN IVP HYPERTENSION 08/07/20 20:00 08/07/20 19:51 Justifications for Admission Other Justification CHELLE CORDOVA III DO Aug 08, 2020 10:57
--- NOTE | 2020-08-08 12:28 | NUR ---
ARACELI following for discharge planning. Spoke with RN and reviewed chart. Pt resides in LTC at [facility]. ARACELI spoke with Lavern the linux system administrator today and pt's guardian is . Facility is working to find pt another guardian. ARACELI requested COVID swab for return to LTC at request of Lavern. Pt on room air. Update to RN and Dr. Sanchez ie guardianship status. Pt has no family. SW following.
[2020-08-08] MEDS: LABETALOL 20 MG/4 ML DISP.SYRIN. IVP PRN (23:59)
[2020-08-09] VITALS (8 sets, daily range): BP systolic 130–179; BP diastolic 60–81
[2020-08-09 00:38] LABS: HEMATOCRIT 31.4 % (36.0-47.0); HEMOGLOBIN 10.4 g/dL (12.0-15.5)
[2020-08-09 04:40] LABS: HEMATOCRIT 31.4 % (36.0-47.0); HEMOGLOBIN 10.3 g/dL (12.0-15.5); RED BLOOD COUNT 4.11 x10^6/uL (3.50-5.40); RED CELL DISTRIBUTION WIDTH 17.3 % (11.5-14.5); WHITE BLOOD COUNT 6.4 x10^3/uL (4.0-11.0)
[2020-08-09 05:00] LABS: CALCIUM 9.9 mg/dL (8.5-10.1); CREATININE 1.7 mg/dL (0.6-1.0); GFR 29.8
[2020-08-09] MEDS: PANTOPRAZOLE IV PUSH 40 MG VIAL. IVP SCH (08:33)
--- NOTE | 2020-08-09 11:28 | PDOC ---
[employer] PROGRESS NOTE Date of Service DOS: DATE: 08/09/20 TIME: 11:22 Chief Complaint Chief Complaint GI Bleed, anemia, Renal insufficiency Anoxic brain injury severe cognitive deficit, aphasia previous EGD with PEG placement history of seizures history of UTI cholecystectomy hypothyroidism hyperlipidemia hypertension elevated ammonia hydroureter renal lesions renal stones History of Present Illness History of Present Illness 08/09 Pt examined and seen at bedside Pt was resting at the time of exam, is not in acute distress Pt was less responsive then yesterday, would not respond to voice, gestures or make eye contact Observed pt's current PEG tube, still appears worn and backed up Pt's Rapid COVID came back negative Discussed with RN, discussed need for another physician to sign for pt to receive peg, since pt has no current DPOA Charts reviewed 08/08 Patient seen and examined at bedside Pt seems more alert than yesterday, making eye contact Pt still unresponsive to questions and gestures Case discussed with internal investigator [email or web address] Charts reviewed Vitals/I&O Vitals/I&O: Vital Signs Date Time Temp Pulse Resp B/P (MAP) Pulse Ox O2 Delivery O2 Flow Rate FiO2 08/09/20 08:00 Room Air 08/09/20 07:00 97.6 68 18 145/72 (96) 97.6 08/08/20 15:00 96 I & O 08/08/20 08/08/20 08/09/20 15:00 23:00 07:00 Output Total 150 ml Balance -150 ml Physical Exam General: No acute distress, Other (patient is aphasic, does not make eye contact) Heart: Regular rate, Normal S1 Lungs: Clear Abdomen: Normal bowel sounds, Soft Extremities: No clubbing, No cyanosis Skin: No rashes, No breakdown Labs Labs: Laboratory Tests Test 08/08/20 17:35 08/09/20 00:30 08/09/20 04:00 SARS-CoV-2 Antigen (Rapid) Negative (NEGATIVE) Hemoglobin 10.4 g/dL (12.0-15.5) 10.3 g/dL (12.0-15.5) Hematocrit 31.4 % (36.0-47.0) 31.4 % (36.0-47.0) White Blood Count 6.4 x10^3/uL (4.0-11.0) Red Blood Count 4.11 x10^6/uL (3.50-5.40) Mean Corpuscular Volume 77 fL (79-100) Mean Corpuscular Hemoglobin 25 pg (25-35) Mean Corpuscular Hemoglobin Concent 33 g/dL (31-37) Red Cell Distribution Width 17.3 % (11.5-14.5) Platelet Count 297 x10^3/uL (140-400) Sodium Level 149 mmol/L (136-145) Potassium Level 4.0 mmol/L (3.5-5.1) Chloride Level 113 mmol/L (98-107) Carbon Dioxide Level 25 mmol/L (21-32) Anion Gap 11 (6-14) Blood Urea Nitrogen 47 mg/dL (7-20) Creatinine 1.7 mg/dL (0.6-1.0) Estimated GFR (Cockcroft-Gault) 29.8 Glucose Level 104 mg/dL (70-99) Calcium Level 9.9 mg/dL (8.5-10.1) Review of Systems Review of Systems: Unable to obtain ROS as patient is aphasic Assessment and Plan Assessmemt and Plan Problems Medical Problems: (1) Anemia Status: Acute (2) DNR (do not resuscitate) Status: Acute GI Bleed, anemia, Renal insufficiency Anoxic brain injury severe cognitive deficit, aphasia previous EGD with PEG placement history of seizures history of UTI cholecystectomy hypothyroidism hyperlipidemia hypertension elevated ammonia hydroureter renal lesions renal stones Plan Pt to receive new PEG Tuesday, per GI (Rapid for COVID was negative 08/08) Trend Labs, Hb Continue IV Fluids Continue IV PPIs Procalamine 75mg/hr DVT prophylaxis DNR Comment Review of Relevant I have reviewed the following items jo-ann (where applicable) has been applied. Justifications for Admission Other Justification CHELLE CORDOVA III DO Aug 09, 2020 11:28
[2020-08-09] MEDS: AMINO AC 3%/ELECTROLYTE/GLYCER 1,000 ML IV SCH (11:43)
[2020-08-09] MEDS: LABETALOL 20 MG/4 ML DISP.SYRIN. IVP PRN (15:29)
[2020-08-09] MEDS ORDERED: levETIRAcetam 1,000 MG in IV DEXTROSE 5% 100ML 100 ML IV ONE (21:00)
--- NOTE | 2020-08-09 23:53 | NUR ---
May repeat Ativan 4mg in 5 minutes if needed
--- NOTE | 2020-08-09 23:53 | NUR ---
May repeat Ativan in 5 minutes if pt exhibits seizure activity again per Dr Stevens, telephone order.
[2020-08-10] VITALS (8 sets, daily range): BP systolic 109–179; BP diastolic 53–81
[2020-08-10] MEDS: DEXTROSE 5% IV SCH ×3 (00:39→22:00)
[2020-08-10] MEDS: LACOSAMIDE IV SCH ×3 (00:39→22:00)
[2020-08-10] MEDS: AMINO AC 3%/ELECTROLYTE/GLYCER 1,000 ML IV SCH ×2 (02:08→15:04)
[2020-08-10] MEDS: PANTOPRAZOLE IV PUSH 40 MG VIAL. IVP SCH (08:50)
[2020-08-10] MEDS: levETIRAcetam 750 MG in IV DEXTROSE 5% 100ML 100 ML IV SCH ×2 (09:35→21:00)
--- NOTE | 2020-08-10 11:24 | PDOC ---
[employer] PROGRESS NOTE Date of Service DOS: DATE: 08/10/20 TIME: 11:17 Chief Complaint Chief Complaint GI Bleed, anemia, Renal insufficiency Anoxic brain injury severe cognitive deficit, aphasia previous EGD with PEG placement history of seizures history of UTI cholecystectomy hypothyroidism hyperlipidemia hypertension elevated ammonia hydroureter renal lesions renal stones History of Present Illness History of Present Illness 08/10/20 Patient seen and examined at bedside Pt was asleep at time of exam DWRN, pt had a seizure overnight Pt received Keppra, Ativan, and vimpat for seizure control Charts reviewed 08/09 Pt examined and seen at bedside Pt was resting at the time of exam, is not in acute distress Pt was less responsive then yesterday, would not respond to voice, gestures or make eye contact Observed pt's current PEG tube, still appears worn and backed up Pt's Rapid COVID came back negative Discussed with RN, discussed need for another physician to sign for pt to receive peg, since pt has no current DPOA Charts reviewed 08/08 Patient seen and examined at bedside Pt seems more alert than yesterday, making eye contact Pt still unresponsive to questions and gestures Case discussed with slip injector and applicator DWRN Charts reviewed Vitals/I&O Vitals/I&O: Vital Signs Date Time Temp Pulse Resp B/P (MAP) Pulse Ox O2 Delivery O2 Flow Rate FiO2 08/10/20 11:04 97.3 60 20 116/58 (77) 99 Room Air 97.3 I & O 08/09/20 08/09/20 08/10/20 15:00 23:00 07:00 Intake Total 0 ml 442 ml 0 ml Balance 0 ml 442 ml 0 ml Physical Exam General: No acute distress, Other (patient is aphasic, does not make eye contact) Heart: Regular rate, Normal S1 Lungs: Clear Abdomen: Normal bowel sounds, Soft Extremities: No clubbing, No cyanosis Skin: No rashes, No breakdown Review of Systems Review of Systems: Unable to obtain, pt is aphasic Assessment and Plan Assessmemt and Plan Problems Medical Problems: (1) Anemia Status: Acute (2) DNR (do not resuscitate) Status: Acute GI Bleed, anemia, Renal insufficiency Anoxic brain injury severe cognitive deficit, aphasia previous EGD with PEG placement history of seizures history of UTI cholecystectomy hypothyroidism hyperlipidemia hypertension elevated ammonia hydroureter renal lesions renal stones Plan Continue antiseizure medications Pt to receive new PEG Tuesday, per GI (Rapid for COVID was negative 08/08) Trend Labs, Hb, electrolytes Continue IV Fluids Continue IV PPIs Procalamine 75mg/hr DVT prophylaxis DNR Comment Review of Relevant I have reviewed the following items jo-ann (where applicable) has been applied. Medications: Current Medications Medications (Trade) Dose Ordered Sig/Fatmata Route PRN Reason Start Time Stop Time Status Last Admin Dose Admin Amino Acids/ Glycerin/ Electrolytes 1,000 ml @ 75 mls/hr [id number] IV 08/09/20 11:45 08/10/20 02:08 Levetiracetam 1000 mg/Dextrose 110 ml @ 440 mls/hr 1X ONCE IV 08/09/20 21:00 08/09/20 21:14 DC 08/09/20 22:14 Levetiracetam 750 mg/Dextrose 107.5 ml @ 430 mls/hr Q12HR IV 08/10/20 09:00 08/10/20 09:35 Lacosamide 75 mg/ Dextrose 57.5 ml @ 115 mls/hr BID IV 08/09/20 21:00 08/10/20 10:38 Lorazepam (Ativan Inj) 4 mg 1X ONCE IVP 08/10/20 00:00 08/10/20 00:01 DC 08/09/20 23:52 Justifications for Admission Other Justification CHELLE CORDOVA III DO Aug 10, 2020 11:24
--- NOTE | 2020-08-10 21:30 | NUR ---
MED COMPATIBILITY: Called pharmacy and spoke with Raimundo. PPN is compatible with patient's Keppra. PPN is NOT compatible with patient's Lacosamide.
[2020-08-11 03:00] VITALS: BP 130/61
[2020-08-11 07:00] VITALS: BP 133/62
[2020-08-11] MEDS ORDERED: IV RINGERS,LACTATED 1000ML 1,000 ML IV SCH (07:00)
[2020-08-11] MEDS: DEXTROSE 5% IV SCH ×2 (08:35→20:46)
[2020-08-11] MEDS: AMINO AC 3%/ELECTROLYTE/GLYCER 1,000 ML IV SCH ×2 (08:35→15:40)
[2020-08-11] MEDS: levETIRAcetam 750 MG in IV DEXTROSE 5% 100ML 100 ML IV SCH ×2 (08:35→20:46)
[2020-08-11] MEDS: LACOSAMIDE IV SCH ×2 (08:35→20:46)
[2020-08-11] MEDS: PANTOPRAZOLE IV PUSH 40 MG VIAL. IVP SCH (08:35)
[2020-08-11 11:00] VITALS: BP 135/63
[2020-08-11] MEDS ORDERED: IV RINGERS,LACTATED 1000ML 1,000 ML IV ONE (11:30)
--- NOTE | 2020-08-11 11:59 | PDOC ---
PROGRESS NOTES Date of Service: DATE: 08/11/20 TIME: 11:57 Chief Complaint Chief Complaint GI Bleed, anemia, Renal insufficiency Anoxic brain injury severe cognitive deficit, aphasia previous EGD with PEG placement history of seizures history of UTI cholecystectomy hypothyroidism hyperlipidemia hypertension elevated ammonia hydroureter renal lesions renal stones History of Present Illness History of Present Illness 08/11,. pt seen, not much change, odd behavior and gestures, no focal seizure reported plan PEG today her DPOA has , and needs a new one appointed, 2 physician signature done for needed procedure, PEG 08/10/20 Patient seen and examined at bedside Pt was asleep at time of exam DWRN, pt had a seizure overnight Pt received Keppra, Ativan, and vimpat for seizure control Charts reviewed 08/09 Pt examined and seen at bedside Pt was resting at the time of exam, is not in acute distress Pt was less responsive then yesterday, would not respond to voice, gestures or make eye contact Observed pt's current PEG tube, still appears worn and backed up Pt's Rapid COVID came back negative Discussed with RN, discussed need for another physician to sign for pt to receive peg, since pt has no current DPOA Charts reviewed 08/08 Patient seen and examined at bedside Pt seems more alert than yesterday, making eye contact Pt still unresponsive to questions and gestures Case discussed with environmental remediation consultant DWRN Charts reviewed Vitals Vitals Vital Signs Date Time Temp Pulse Resp B/P (MAP) Pulse Ox O2 Delivery O2 Flow Rate FiO2 08/11/20 11:00 97.0 69 17 135/63 (87) 93 Room Air 97.0 Physical Exam General: No acute distress, Other (patient is aphasic, does not make eye contact) Heart: Regular rate, Normal S1 Lungs: Clear Abdomen: Normal bowel sounds, Soft Extremities: No clubbing, No cyanosis Skin: No rashes, No breakdown Assessment and Plan Assessmemt and Plan Problems Medical Problems: (1) Anemia Status: Acute (2) DNR (do not resuscitate) Status: Acute Comment Review of Relevant I have reviewed the following items jo-ann (where applicable) has been applied. Labs Microbiology 08/07/20 Urine Culture - Final, Complete Medications Current Medications Ondansetron HCl (Zofran) 4 mg PRN Q8HRS PRN IV NAUSEA/VOMITING; Start 08/07/20 at 15:00; Stop 08/08/20 at 14:59; Status DC Pantoprazole Sodium (PROTONIX VIAL for IV PUSH) 40 mg DAILY IVP Last administered on 08/11/20at 08:35; Start 08/07/20 at 16:00 Labetalol HCl (Normodyne Iv Push) 20 mg PRN Q2HR PRN IVP HYPERTENSION Last administered on 08/09/20at 15:29; Start 08/07/20 at 20:00 Ringer's Solution 1,000 ml @ 50 mls/hr Q20H IV ; Start 08/11/20 at 07:00; Stop 08/11/20 at 18:59 Amino Acids/ Glycerin/ Electrolytes 1,000 ml @ 75 mls/hr [id number] IV Last administered on 08/11/20at 08:35; Start 08/09/20 at 11:45 Levetiracetam 1000 mg/Dextrose 110 ml @ 440 mls/hr 1X ONCE IV Last administered on 08/09/20at 22:14; Start 08/09/20 at 21:00; Stop 08/09/20 at 21:14; Status DC Levetiracetam 750 mg/Dextrose 107.5 ml @ 430 mls/hr Q12HR IV Last administered on 08/11/20at 08:35; Start 08/10/20 at 09:00 Lacosamide 75 mg/ Dextrose 57.5 ml @ 115 mls/hr BID IV Last administered on 08/11/20at 08:35; Start 08/09/20 at 21:00 Lorazepam (Ativan Inj) 4 mg 1X ONCE IVP Last administered on 08/09/20at 23:52; Start 08/10/20 at 00:00; Stop 08/10/20 at 00:01; Status DC Ringer's Solution 1,000 ml @ 75 mls/hr 1X ONCE IV ; Start 08/11/20 at 11:30; Stop 08/12/20 at 00:49 Active Scripts Active Acetaminophen Oral Liquid (Acetaminophen) 650 Mg/20.3 Ml Solution 650 Mg PEG PRN Q6HRS PRN 30 Days Reported Protonix Packet (Pantoprazole Sodium) 40 Mg Granpkt.dr 40 Mg PEG DAILY Vimpat (Lacosamide) 10 Mg/1 Ml Solution 7.5 Ml PEG BID Keppra (Levetiracetam) 100 Mg/1 Ml Solution 7.5 Ml PO PEG 30 Days Synthroid (Levothyroxine Sodium) 100 Mcg Tablet 1 Tab PEG DAILY [fibersource HN PEG] Vitals/I & O Vital Sign - Last 24 Hours 08/10/20 08/10/20 08/10/20 08/10/20 15:42 19:00 19:30 23:33 Temp 97.8 97.4 98.0 97.8 97.4 98.0 Pulse 66 65 53 Resp 20 18 16 B/P (MAP) 143/66 (91) 144/67 (92) 109/53 (71) Pulse Ox 96 96 92 O2 Delivery Room Air Room Air Room Air Room Air 08/11/20 08/11/20 08/11/20 08/11/20 03:00 07:00 08:00 11:00 Temp 98.2 96.6 97.0 98.2 96.6 97.0 Pulse 69 70 69 Resp 20 19 17 B/P (MAP) 130/61 (84) 133/62 (85) 135/63 (87) Pulse Ox 93 O2 Delivery Room Air Room Air Room Air Room Air Intake and Output 08/10/20 08/10/20 08/11/20 15:00 23:00 07:00 Intake Total 0 ml 0 ml 0 ml Output Total 275 ml Balance 0 ml 0 ml -275 ml Nutrition Consultation Dietary Evaluation: Recommendations by RD: Dietary education by RD, Increase Calorie Intake, Protein supplementation Comments: REC advance diet to cardiac when able When PEG tube replaced REC Jevity 1.5 @ 20ml/hr increase 10 ml Q 8hrs until goal rate of 40ml/hr is achevied. Flushes: 180ml water Q 6hrs Expected Outcomes/Goals: Tolerate tube feeding at goal rate Interpretation of weight loss: >20% in 1 year Malnutrition Findings: Food and Nutrition Intake (Sev: <50% est energy req 5days Body Fat Depletion (Non Severe: Mild Depletion Weight Status: Underweight Fluid Accumulation (N/A): N/A Justicifation of Admission Dx: Justifications for Admission: Justification of Admission Dx: Yes KATHYA LEDBETTER MD Aug 11, 2020 11:59
--- NOTE | 2020-08-11 12:57 | NUR ---
SW following for discharge planning. Spoke with RN and reviewed chart. SW consulted as pt at high risk for readmission and facility wants ethics to review this case for hospice care. Pt resides in LTC at [facility]. ARACELI informed Lavern at [facility] that once they find pt a new guardian that the guardian can request hospice services from the court. Pt currently on room air and will have PEG replacement done today. Pt will likely discharge tomorrow, / to SNU with transition back to LTC. Pt is COVID negative and clinicals were faxed to [facility] for update. SW following.
[2020-08-11] MEDS ORDERED: PROPOFOL 10 MG/ML (20ML) VIAL. IV ONE (13:53)
[2020-08-11] MEDS ORDERED: LIDOCAINE 2% PF 5 ML VIAL. ONE (13:53)
--- NOTE | 2020-08-11 14:19 | PDOC4 ---
PROCEDURE Procedure EGD/G-tube replacement Indication: failing G-tube Meds: per anesthesia Findings: E--normal G--old tube present. D--normal bulb. --old tube cut at skin after inner part snared. Inner bolster then removed orally. --'Scope re-inserted and wire passed per stoma/grasped with snare/removed orally. --new tube inserted over wire. 'Scope passed one more time, confirming good placement. Porsche. well. IMP: Successful PEG replacement. REC: OK to start feedings, meds now. TORIE DENNY MD Aug 11, 2020 14:19
[2020-08-11 15:00] VITALS: BP 165/71
[2020-08-11] MEDS: LABETALOL 20 MG/4 ML DISP.SYRIN. IVP PRN (15:35)
[2020-08-11 19:00] VITALS: BP 165/69
[2020-08-11 23:11] VITALS: BP 133/62
[2020-08-12 03:00] VITALS: BP 137/63
[2020-08-12] MEDS: AMINO AC 3%/ELECTROLYTE/GLYCER 1,000 ML IV SCH (04:34)
[2020-08-12 07:00] VITALS: BP 125/57
[2020-08-12] MEDS: DEXTROSE 5% IV SCH (09:16)
[2020-08-12] MEDS: LACOSAMIDE IV SCH (09:16)
[2020-08-12] MEDS: PANTOPRAZOLE IV PUSH 40 MG VIAL. IVP SCH (09:17)
[2020-08-12] MEDS: levETIRAcetam 750 MG in IV DEXTROSE 5% 100ML 100 ML IV SCH (09:17)
--- NOTE | 2020-08-12 10:01 | PDOC ---
Date of Service: DATE: 08/12/20 TIME: 09:57 Objective: Objective: No issues w/ PEG per nurse, to DC today. Vital Signs: Vital Signs Date Time Temp Pulse Resp B/P (MAP) Pulse Ox O2 Delivery O2 Flow Rate FiO2 08/12/20 07:00 97.7 65 20 125/57 (79) Room Air 97.7 08/11/20 15:00 93 08/11/20 14:17 2 Imaging: EGD/PEG 08/11/20 E--normal G--old tube present. D--normal bulb. --old tube cut at skin after inner part snared. Inner bolster then removed orally. --'Scope re-inserted and wire passed per stoma/grasped with snare/removed orally. --new tube inserted over wire. 'Scope passed one more time, confirming good placement. IMP: Successful PEG replacement. REC: OK to start feedings, meds now. PE: GEN: NAD LUNGS: CTAB HEART: RRR ABD: PEG in place, site clean/dry, removed gauze and tightened outer bumper NEURO/PSYCH: doesn't open eyes A/P: Chronic encephalopathy and dysphagia s/p PEG replacement 08/11/20 Blood in stools - apparently resolved KATYA - improved w/ transfusion Recent UTI, TAPAN - per primary COVID negative 08/08 -- Tolerated PEG feeds, DC per primary. Justicifation of Admission Dx: Justifications for Admission: Justification of Admission Dx: Yes TORO OWENS Aug 12, 2020 10:01
[2020-08-12] MEDS ORDERED: FERR325T72 PO (10:06)
[2020-08-12] MEDS ORDERED: POLY17PO52 PO (10:06)
--- NOTE | 2020-08-12 10:08 | SNU/HH DC ---
DISCHARGE ORDERS DISCHARGE INFORMATION: DISCHARGE DATE: Aug 12, 2020 FINAL DIAGNOSIS GI Bleed, anemia, Renal insufficiency Anoxic brain injury severe cognitive deficit, aphasia previous EGD with PEG re-placement this admit history of seizures hypothyroidism hyperlipidemia hypertension elevated ammonia hydroureter Problems Medical Problems: (1) Anemia Status: Acute (2) DNR (do not resuscitate) Status: Acute CONDITION ON DISCHARGE: Stable CODE STATUS: Code Status: DNR/DNI ASSISTED: SNF STAY <30 DAYS: Yes POST DISCHARGE ORDERS: ACTIVITY ORDERS: Resume previous activity, Activity as tolerated WEIGHT BEARING STATUS: As tolerated DIET AFTER DISCHARGE: NPO WOUND/INCISION CARE: No wound care needed OTHER ORDERS: tube feeds CHECKS AFTER DISCHARGE: CHECKS AFTER DISCHARGE: Check blood press - daily, Check your Temp as needed TREATMENT/EQUIPMENT ORDERS: ADAPTIVE EQUIPMENT NEEDED: None RESPIRATORY EQUIPMENT NEEDED: Oxygen Speech Language Pathology For: Swallow Cognition DISCHARGE MEDICATIONS: Home Meds Active Scripts Polyethylene Glycol 3350 (POLYETHYLENE GLYCOL 3350) 17 Gm Powd.pack, 17 GM PO PRN DAILY PRN for CONSTIPATION, #30 PKT Prov:KATHYA LEDBETTER MD 08/12/20 Ferrous Sulfate (FEOSOL) 325 Mg Tablet, 325 MG PO DAILYWBKFT for anemia, #100 TAB Prov:KATHYA LEDBETTER MD 08/12/20 Acetaminophen (ACETAMINOPHEN ORAL LIQUID ) 650 Mg/20.3 Ml Solution, 650 MG PEG PRN Q6HRS PRN for MILD PAIN / TEMP for 30 Days, #120 MISC Prov:MARY PECK MD 12/12/18 Reported Medications Pantoprazole Sodium (PROTONIX PACKET) 40 Mg Granpkt.dr, 40 MG PEG DAILY for bleeding, PACKET 08/08/20 Lacosamide (VIMPAT) 10 Mg/1 Ml Solution, 7.5 ML PEG BID for epilepsy, MISC 08/08/20 Levetiracetam (KEPPRA) 100 Mg/1 Ml Solution, 7.5 ML PO PEG for seizures for 30 Days, #180 ML 0 Refills 08/08/20 Levothyroxine Sodium (SYNTHROID) 100 Mcg Tablet, 1 TAB PEG DAILY, #30 TAB 5 Refills 02/11/16 [fibersource HN PEG] No Conflict Check 02/11/16 Discontinued Reported Medications Zinc Oxide (ZINC OXIDE) 56.7 Gm Oint...g., 56.7 GM TP BID for Skin condition/preventative, MIS 12/08/18 Potassium Chloride (POTASSIUM CHLORIDE ORAL LIQUID) 20 Meq/15 Ml Liquid, 20 MEQ PEG BID, LIQUID 03/22/17 Triamcinolone Acetonide (TRIAMCINOLONE ACETONIDE 0.025% CREAM) 15 Gm Cream..g., 1 EROS TP DAILY, #30 GM 01/10/17 Famotidine (FAMOTIDINE) 20 Mg Tablet, 20 MG PEG HS, TAB 01/10/17 Sennosides/Docusate Sodium (SENNA-S TABLET) 1 Each Tablet, 1 EACH PEG BID 02/11/16 Levetiracetam (KEPPRA) 100 Mg/1 Ml Solution, 1500 MG PEG BID for seizures, ML 02/11/16 KATHYA LEDBETTER MD Aug 12, 2020 10:08
--- NOTE | 2020-08-12 10:12 | PDOC3 ---
Discharge Summary Visit Information Date of Admission: Aug 07, 2020 Date of Discharge: Aug 12, 2020 Final Diagnosis GI Bleed, Iron deficiency anemia, Renal insufficiency history of severe Anoxic brain injury severe cognitive deficit, with aphasia PEG placement history of seizures history of UTI cholecystectomy hypothyroidism hyperlipidemia hypertension Problems Medical Problems: (1) Anemia Status: Acute (2) DNR (do not resuscitate) Status: Acute Brief Hospital Course Allergies Allergies Coded Allergies Type Severity Reaction Last Updated Verified I S O L A T I O N *CONTACT* Allergy Unknown 08/11/20 Yes No Known Medication Allergies Allergy Unknown 08/11/20 Yes Vital Signs Vital Signs Date Time Temp Pulse Resp B/P (MAP) Pulse Ox O2 Delivery O2 Flow Rate FiO2 08/12/20 07:00 97.7 65 20 125/57 (79) Room Air 97.7 08/11/20 15:00 93 08/11/20 14:17 2 Brief Hospital Course Ms. Terrell is a 70 female admit weith blood in stool, anemia, Hgb 6.6, 1u prbc give, then hgb 10 range seen by GI, hgb stable, MCV low, iron def. PEG replaced, feeds started resume current care Discharge Information Condition at Discharge: Improved Follow Up: Weeks Disposition/Orders: D/C to Another Facility Scheduled Ferrous Sulfate (Feosol) 325 Mg Tablet, 325 MG PO DAILYWBKFT for anemia, #100 Prescribed by: KATHYA LEDBETTER on 08/12/20 1006 Lacosamide (Vimpat) 10 Mg/1 Ml Solution, 7.5 ML PEG BID for epilepsy, (Reported) Entered as Reported by: ROGERIO PÉREZ RN on 08/08/20354 Last Action: New Order on 08/08/20354 by ROGERIO PÉREZ RN Levetiracetam (Keppra) 100 Mg/1 Ml Solution, 7.5 ML PO PEG for seizures for 30 Days, #180 Ref 0 (Reported) Entered as Reported by: ROGERIO PÉREZ RN on 08/08/20354 Last Action: New Order on 08/08/20354 by ROGERIO PÉREZ RN Levothyroxine Sodium (Synthroid) 100 Mcg Tablet, 1 TAB PEG DAILY, #30 Ref 5 (Reported) Entered as Reported by: Vivian Acosta on 02/11/162022 Last Action: Reviewed on 08/08/20354 by ROGERIO PÉREZ RN Pantoprazole Sodium (Protonix Packet) 40 Mg Granpkt.dr, 40 MG PEG DAILY for bleeding, (Reported) Entered as Reported by: ROGERIO PÉREZ RN on 08/08/20354 Last Action: New Order on 08/08/20354 by ROGERIO PÉREZ RN Scheduled PRN Acetaminophen (Acetaminophen Oral Liquid ) 650 Mg/20.3 Ml Solution, 650 MG PEG PRN Q6HRS PRN for MILD PAIN / TEMP for 30 Days, #120 Prescribed by: MARY PECK MD on 12/12/18 1105 Last Action: Reviewed on 08/08/20354 by ROGERIO PÉREZ RN Polyethylene Glycol 3350 (Polyethylene Glycol 3350) 17 Gm Powd.pack, 17 GM PO PRN DAILY PRN for CONSTIPATION, #30 Prescribed by: KATHYA LEDBETTER on 08/12/20 1006 Miscellaneous Medications [fibersource HN PEG] , (Reported) Entered as Reported by: Vivian Acosta on 02/11/161947 Last Action: Reviewed on 08/08/20354 by ROGERIO PÉREZ RN Discontinued Medications Famotidine (Famotidine) 20 Mg Tablet, 20 MG PEG HS, (Reported) Entered as Reported by: CHRISTIE TIMONE on 01/10/172153 Last Action: Discontinued on 08/08/20354 by ROGERIO PÉREZ RN Levetiracetam (Keppra) 100 Mg/1 Ml Solution, 1,500 MG PEG BID for seizures, (Reported) Entered as Reported by: Vivian Acosta on 02/11/161947 Last Action: Discontinued on 08/08/20354 by ROGERIO PÉREZ RN Potassium Chloride (Potassium Chloride Oral Liquid) 20 Meq/15 Ml Liquid, 20 MEQ PEG BID, (Reported) Entered as Reported by: MINGO PRATT on 03/22/17 1211 Last Action: Discontinued on 08/08/20354 by ROGERIO PÉREZ RN Sennosides/Docusate Sodium (Senna-S Tablet) 1 Each Tablet, 1 EACH PEG BID, (Reported) Entered as Reported by: Vivian Acosta on 02/11/162022 Last Action: Discontinued on 08/08/20354 by ROGERIO PÉREZ RN Triamcinolone Acetonide (Triamcinolone Acetonide 0.025% Cream) 15 Gm Cream..g., 1 EROS TP DAILY, #30 (Reported) Entered as Reported by: CHRISTIE HYLTON on 01/10/172153 Last Action: Discontinued on 08/08/20354 by ROGERIO PÉREZ RN Zinc Oxide (Zinc Oxide) 56.7 Gm Oint...g., 56.7 GM TP BID for Skin condition/preventative, (Reported) Entered as Reported by: TRUDY GAMING RN on 12/08/18622 Last Action: Discontinued on 08/08/20354 by ROGERIO PÉREZ RN Patient Instructions Patient Instructions to termite control service representative care, Justicifation of Admission Dx: Justifications for Admission: Justification of Admission Dx: Yes KATHYA LEDBETTER MD Aug 12, 2020 10:12
[2020-08-12] MEDS ORDERED: POLYETHYLENE GLYCOL 3350 17 GM PACKET. PO PRN (10:15)
[2020-08-12 11:00] VITALS: BP 141/65
--- NOTE | 2020-08-12 11:21 | NUR ---
SW following for discharge planning. Spoke with RN and reviewed chart. Pt to discharge to [facility] SNU today, 08/12. Pt on room air and oral medications. Discharge orders phoned and faxed. Clinicals ready to be sent with pt. RN to call report. Transportation arranged for 1300. No further SW needs at this time.
[2020-08-12] MEDS ORDERED: FERROUS SULFATE 325 MG TABLET. PO SCH (12:00)
--- NOTE | 2020-08-12 13:41 | NUR ---
[facility]. report given to HAILEE Hodgson. meds and follow up reviewed. IV removed from R lower leg. PEG tube flushed w/ 120 cc. pt stable upon dc.
[2020-08-13] MEDS ORDERED: PANTOPRAZOLE 40 MG TABLET.DR. PO SCH (07:30)
[2020-08-13] MEDS ORDERED: LANSOPRAZOLE 30 MG TAB.RAP.DR FT SCH (09:00)
== END 2020-08-12 13:43 | DRG 377 ==
LOC: ER 13:30 → ED HOLD 15:00 → 6 SOUTH 20:05
PROVIDERS: ADMIT Internal Medicine; ATTEND Internal Medicine
PROC: 30233N1 Transfusion of Nonautologous Red Blood Cells into Peripheral Vein, Percutaneous Approach (ICD-10-PCS; 2020-08-08)
PROC: 0DH63UZ Insertion of Feeding Device into Stomach, Percutaneous Approach (ICD-10-PCS; 2020-08-11)
PROC: 0DP68UZ Removal of Feeding Device from Stomach, Via Natural or Artificial Opening Endoscopic (ICD-10-PCS; principal; 2020-08-11 14:00)
DX: K92.2 Gastrointestinal hemorrhage, unspecified (principal); N17.0 Acute kidney failure with tubular necrosis; E43 Unspecified severe protein-calorie malnutrition; R47.01 Aphasia; D50.9 Iron deficiency anemia, unspecified; R13.10 Dysphagia, unspecified; Z66 Do not resuscitate; I10 Essential (primary) hypertension; E03.9 Hypothyroidism, unspecified; K21.9 Gastro-esophageal reflux disease without esophagitis; E78.5 Hyperlipidemia, unspecified; Z90.49 Acquired absence of other specified parts of digestive tract; Z20.822 Contact with and (suspected) exposure to COVID-19; Z87.442 Personal history of urinary calculi; Z87.440 Personal history of urinary (tract) infections
CPT/HCPCS: 36415; 36430; 43246; 71045; 80048; 80053; 81001; 82274; 83540; 83550; 84484; 85014; 85018; 85025; 85027; 85610; 86850; 86900; 86901; 86920; 87086; 87426; 93005; 96374; 96375; C9113; C9254; J1953; J2060; J2704; J3490; J7060; J7120; P9016; U0003; 99285-25; G0378